=== PATIENT | male | born 1985 | race Caucasian/White ===

== ENCOUNTER 2016-10-25 11:49 | Inpatient (IN) | payer BC ==
[2016-10-25 12:49] VITALS: BMI 24.0
--- NOTE | 2016-10-25 13:26 | HP ---
COWS - Scale Resting Pulse: 0= [place] 80 or Below Sweatin=Flushed/Facial Moisture Restless Observation: 3= Extraneous Movement Pupil Size: 2= Moderately Dilated Bone or Joint Aches: 2= Severe Diffuse Aches Runny Nose/ Eye Tearin= Runny Nose/Eyes GI Upset > 30mins: 3= Vomiting/Diarrhea Tremor Observation: 2= Slight Tremor Visible Yawning Observation: 2= >3x During Session Anxiety or Irritability: 2=Irritable/Anxious Goose Flesh Skin: 0=Smooth Skin COWS Score: 20 CIWA Score - CIWA Score Nausea/Vomitin Muscle Tremors: 3 Anxiety: 3 Agitation: 3 Paroxysmal Sweats: 1-Minimal Palms Moist Orientation: 0-Oriented Tacttile Disturbances: 2-Mild Itch/Numbness/Burn Auditory Disturbances: 2-Mild Harshness/Frighten Visual Disturbances: 2-Mild Sensitivity Headache: 2-Mild CIWA-Ar Total Score: 21 Admission ROS BHS - HPI Chief Complaint: i need help to stop using heroin,,xanax,cocaine Allergies/Adverse Reactions: Allergies Allergy/AdvReac Type Severity Reaction Status Date / Time No Known Allergies Allergy Verified 10/25/16 13:16 History of Present Illness: this 31 years old male with heroin,cocaine and xanax dependence,seeking detox, last treatment in [facility] 09/23 nicotine dependence anxiety depression insomnia no significant period of sobriety Exam Limitations: No Limitations - Ebola screening Have you traveled outside of the country in the last 21 days: No Have you had contact with anyone from an Ebola affected area: No Have you been sick,other than usual withdrawal symptoms: No Do you have a fever: No - Review of Systems Constitutional: Chills, Loss of Appetite, Malaise, Night Sweats, Changes in sleep, Weakness EENT: reports: Tearing, Nose Congestion Respiratory: reports: No Symptoms reported Cardiac: reports: Palpitations GI: reports: Nausea, Vomiting, Abdominal cramping : reports: No Symptoms Reported Musculoskeletal: reports: Back Pain, Joint Pain, Muscle Pain, Other (fx of right middle finger in 2015) Integumentary: reports: Dryness Neuro: reports: Headache, Tremors Endocrine: reports: No Symptoms Reported Hematology: reports: No Symptoms Reported Psychiatric: reports: Anxious (insomnia), Depressed Patient History - Patient Medical History Hx Anemia: No Hx Asthma: No Hx Chronic Obstructive Pulmonary Disease (COPD): No Hx Cancer: No Hx Cardiac Disorders: No Hx Congestive Heart Failure: No Hx Hypertension: No Hx Hypercholesterolemia: No Hx Pacemaker: No HX Cerebrovascular Accident: No Hx Seizures: No Hx Dementia: No Hx Diabetes: No Hx Gastrointestinal Disorders: No Hx Liver Disease: No Hx Genitourinary Disorders: No Hx Sexually Transmitted Disorders: No Hx Renal Disease (ESRD): No Hx Thyroid Disease: No Hx Human Immunodeficiency Virus (HIV): No (last 06/23 negative) Hx Hepatitis C: No Hx Depression: Yes (anxiety) Hx Suicide Attempt: No Hx Bipolar Disorder: No Hx Schizophrenia: No Other Medical History: no suicidal,no homicidal - Patient Surgical History Past Surgical History: Yes Other Surgical History: 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 History Hx Alcohol Use: No Hx Substance Use: Yes Substance Use Type: Cocaine, Heroin, Marijuana Hx Substance Use Treatment: Yes ([facility] 09/23) - Substances Abused Heroin Route: Injection Frequency: Daily Amount used: 15 bags Age of first use: 16 Date of Last Use: 10/24/16 Alprazolam (Xanax) Route: Inhalation Frequency: Daily Amount used: 10-12mg Age of first use: 27 Date of Last Use: 10/24/16 Cocaine Route: Inhalation Frequency: Daily Amount used: $100 Age of first use: 16 Date of Last Use: 10/24/16 Family Disease History - Family Disease History Family History: Denies Admission Physical Exam BHS - Vital Signs Vital Signs: Vital Signs - 24 hr 10/25/16 12:45 Temperature 98 F Pulse Rate 79 Respiratory 20 Rate Blood Pressure 124/68 - Physical General Appearance: Yes: Moderate Distress, Intoxicated, Tremorous, Irritable, Sweating, Other HEENTM: Yes: Normal ENT Inspection, NAVDEEP, Pharynx Normal Respiratory: Yes: Lungs Clear, Normal Breath Sounds, No Respiratory Distress Neck: Yes: Within Normal Limits, Supple, Trachea in good position Breast: Yes: Within Normal Limits Cardiology: Yes: Within Normal Limits, Regular Rhythm, Regular Rate, S1, S2 Abdominal: Yes: Within Normal Limits, Normal Bowel Sounds, Non Tender, Flat, Soft Genitourinary: Yes: Within Normal Limits Back: Yes: Muscle Spasm Musculoskeletal: Yes: Back pain, Joint Stiffness, Muscle Pain Extremities: Yes: Within Normal Limits, Normal Range of Motion, Tremors Neurological: Yes: coat cutter II-XII NML intact, Fully Oriented, Alert, Motor Strength 5/5 Integumentary: Yes: Dry, Track Marte (cellulitis right forearm), Other ( deformity of right middle finger) Lymphatic: Yes: Within Normal Limits - Diagnostic (1) Opioid dependence with withdrawal Current Visit: Yes Status: Acute (2) Uncomplicated sedative, hypnotic or anxiolytic withdrawal Current Visit: Yes Status: Acute (3) Cocaine dependence Current Visit: Yes Status: Acute (4) Nicotine dependence Current Visit: Yes Status: Acute (5) Weight loss Current Visit: Yes Status: Acute (6) Anxiety and depression Current Visit: Yes Status: Acute (7) Cellulitis of forearm, right Current Visit: Yes Status: Acute (8) Fracture of finger Current Visit: Yes Status: Acute Cleared for Admission [facility] - Detox or Rehab [facility] Level of Care: Medically Managed Detox Regimen/Protocol: Methadone/Valium S Breath Alcohol Content Breath Alcohol Content: 0 Urine Drug Screen - Results Drug Screen Negative: No Urine Drug Screen Results: JANETT-Cocaine, OPI-Opiates, MDMA-Ecstasy, BZO- Benzodiazepines, MTD-Methadone
[2016-10-25] MEDS ORDERED: MENTHOL/PHENOL 1 EACH UD MM PRN (13:45)
[2016-10-25] MEDS ORDERED: LOPERAMIDE HCL 2 MG CAPSULE PO PRN (13:45)
[2016-10-25] MEDS ORDERED: diphenhydrAMINE HCL 50 MG CAPSULE PO PRN (13:45)
[2016-10-25] MEDS ORDERED: P-EPHED 60MG/TRIPROLIDI 2.5MG TABLET PO PRN (13:45)
[2016-10-25] MEDS ORDERED: hydrOXYzine PAMOATE 50 MG CAPSULE (FP) PO PRN (13:45)
[2016-10-25] MEDS ORDERED: MAGNESIUM HYDROX 2400MG/30ML ORAL SUSPENSION 30 ML CUP PO PRN (13:45)
[2016-10-25] MEDS ORDERED: MAG HYDROX/AL HYDROX/SIMETH 30 ML UNIT-DOSE CUP PO PRN (13:45)
[2016-10-25] MEDS ORDERED: MAGNESIUM CITRATE 300 ML BOTTLE PO PRN (13:45)
[2016-10-25] MEDS ORDERED: IBUPROFEN 400 MG TABLET (FP) PO PRN (13:45)
[2016-10-25] MEDS ORDERED: ACETAMINOPHEN 325 MG TABLET (FP) PO PRN (13:45)
[2016-10-25] MEDS ORDERED: guaiFENesin/D-METHORPHAN HB 10 ML UNIT-DOSE CUPS PO PRN (13:45)
[2016-10-25] MEDS ORDERED: diazePAM 5 MG TABLET PO ONE (14:01)
[2016-10-25] MEDS ORDERED: cloNIDine HCL 0.1 MG TABLET PO ONE (14:01)
[2016-10-25] MEDS ORDERED: METHADONE HCL 10 MG TABLET (FOR DETOX USE ONLY) PO ONE ×2 (14:02→23:00)
[2016-10-25] MEDS: CYCLOBENZAPRINE HCL 10 MG TABLET (FP) PO PRN (14:47)
[2016-10-25] MEDS: NICOTINE POLACRILEX 2 MG GUM BUC PRN (14:52)
--- NOTE | 2016-10-25 16:11 | CONSULT ---
[facility] Psychiatric Consult - Data Date of interview: 10/25/16 Admission source: [facility] Identifying data: This is 31 years old male with no psychiatric hospitalization history intoxicated with: Heroin, Cocaine, Xanax and Nicotine Substance Abuse History: - Smoking Cessation. Smoking history: Current every day smoker. Have you smoked in the past 12 months: Yes. Aproximately how many cigarettes per day: 20. Hx Chewing Tobacco Use: No. Initiated information on smoking cessation: Yes. 'Breaking Loose' booklet given: 10/25/16. - Substance & Tx. History. Hx Alcohol Use: No. Hx Substance Use: Yes. Substance Use Type : Cocaine, Heroin, Marijuana. Hx Substance Use Treatment: Yes ([facility] ). - Substances Abused. Heroin. Route: Injection. Frequency: Daily. Amount used: 15 bags. Age of first use: 16. Date of Last Use: 10/24/16. Alprazolam (Xanax). Route: Inhalation. Frequency: Daily. Amount used: 10- 12mg. Age of first use: 27. Date of Last Use: 10/24/16. Cocaine. Route: Inhalation. Frequency: Daily. Amount used: $100. Age of first use: 16. Date of Last Use: 10/24/16 Medical History: Cellulitis history, Weight loss history Psychiatric History: Deneis Physical/Sexual Abuse/Trauma History: Denies Additional Comment: Observation. Detox Unit Care Protocol Mental Status Exam - Mental Status Exam Alert and Oriented to: Person Cognitive Function: Fair Patient Appearance: Well Groomed Mood: Sad Affect: Flat Patient Behavior: Sedated, Asleep Speech Pattern: Delayed Voice Loudness: Moderately Loud Thought Process: Circumstantial Thought Disorder: Being Controlled Hallucinations: Denies Suicidal Ideation: Denies Homicidal Ideation: Denies Insight/Judgement: Fair Sleep: Difficulty falling asleep Muscle strength/Tone: Mild Hypotonicity Gait/Station: Shuffling Additional Comments: Observation. Detox Unit Care Protocol Psychiatric Findings - Problem List ([place] 1, 2,3) (1) Anxiety and depression Current Visit: Yes Status: Acute (2) Cocaine dependence Current Visit: Yes Status: Acute (3) Nicotine dependence Current Visit: Yes Status: Acute (4) Opioid dependence with withdrawal Current Visit: Yes Status: Acute (5) Uncomplicated sedative, hypnotic or anxiolytic withdrawal Current Visit: Yes Status: Acute (6) Drug-induced mood disorder Current Visit: Yes Status: Suspected - Initial Treatment Plan Initial Treatment Plan: Observation. Detox Unit Care Protocol
[2016-10-25 16:58] LABS: URINE APPEARANCE SLCLOUDY; URINE BILIRUBIN NEGATIVE (NEGATIVE); URINE BLOOD NEGATIVE (NEGATIVE); URINE COLOR DKYELLOW; URINE GLUCOSE (UA) NEGATIVE (NEGATIVE); URINE KETONE NEGATIVE (NEGATIVE); URINE LEUK ESTERASE NEGATIVE (NEGATIVE); URINE NITRITE NEGATIVE (NEGATIVE); URINE PROTEIN NEGATIVE (NEGATIVE); URINE UROBILINOGEN NEGATIVE mg/dL (0.2-1.0)
[2016-10-25] MEDS: diazePAM 5 MG TABLET PO PRN (21:04)
[2016-10-25] MEDS: THIAMINE HCL 100 MG TABLET (FP) PO SCH (23:26)
[2016-10-25] MEDS: SULFAMETHOXAZOLE/TRIMETHOPRIM 800MG/160MG D.S. TABLET PO SCH (23:26)
[2016-10-25] MEDS: diazePAM 5 MG TABLET PO SCH (23:27)
[2016-10-25] MEDS: cloNIDine HCL 0.1 MG TABLET PO SCH (23:27)
[2016-10-26] MEDS: CYCLOBENZAPRINE HCL 10 MG TABLET (FP) PO PRN ×2 (06:11→22:02)
[2016-10-26] MEDS: diazePAM 5 MG TABLET PO SCH ×3 (06:11→22:02)
[2016-10-26 08:56] LABS: HIV 1 & 2 AB NEGATIVE; HIV 1 AGp24 NEGATIVE
[2016-10-26 09:51] LABS: MCH 27.1 pg (25.7-33.7); MCHC 32.3 g/dl (32.0-35.9); MEAN PLT VOLUME 8.9 fl (7.5-11.1); PLATELET COUNT 295 K/MM3 (134-434); RDW 14.3 % (11.9-15.9)
[2016-10-26] MEDS ORDERED: METHADONE HCL 10 MG TABLET (FOR DETOX USE ONLY) PO SCH (10:00)
[2016-10-26] MEDS: cloNIDine HCL 0.1 MG TABLET PO SCH ×2 (10:07→22:02)
[2016-10-26] MEDS: PRENATAL VITAMINS W/ FOLIC ACID TABLET (FP) PO SCH (10:07)
[2016-10-26] MEDS: SULFAMETHOXAZOLE/TRIMETHOPRIM 800MG/160MG D.S. TABLET PO SCH ×2 (10:07→22:02)
[2016-10-26] MEDS: NICOTINE POLACRILEX 2 MG GUM BUC PRN (10:08)
[2016-10-26 10:09] LABS: ALBUMIN 3.2 g/dl (3.4-5.0); ALK PHOS 78 U/L (45-117); ANION GAP 6 (8-16); BILIRUBIN,TOTAL 0.2 mg/dL (0.2-1.0); CALCIUM 8.8 mg/dL (8.5-10.1); CO2 28 mmol/L (21-32); CREATININE 0.8 mg/dL (0.7-1.3); GLUCOSE,RANDOM 102 mg/dL (74-106); SGOT/AST 22 U/L (15-37); SGPT/ALT 26 U/L (12-78); TOT PROT 6.7 g/dl (6.4-8.2)
[2016-10-26] MEDS: diazePAM 5 MG TABLET PO PRN ×2 (10:09→19:53)
--- NOTE | 2016-10-26 10:40 | PN ---
S CIWA - CIWA Score Nausea/Vomitin (DIARRHEA) Muscle Tremors: 4-Moderate,w/Arms Extend Anxiety: 4-Mod. Anxious/Guarded Agitation: 4-Moderately Restless Paroxysmal Sweats: 1-Minimal Palms Moist Orientation: 0-Oriented Tacttile Disturbances: 3-Moderate Itch/Numb/Burn Auditory Disturbances: 0-None Visual Disturbances: 0-None Headache: 0-None Present CIWA-Ar Total Score: 19 BHS COWS - Scale Resting Pulse: 0= [place] 80 or Below Sweatin= Chills/Flushing Restless Observation: 3= Extraneous Movement Pupil Size: 0= Normal to Room Light Bone or Joint Aches: 2= Severe Diffuse Aches Runny Nose/ Eye Tearin= Nasal Congestion GI Upset > 30mins: 1= Stomach Cramp Tremor Observation of Outstretched Hands: 2= Slight Tremor Visible Yawning Observation: 2= >3x During Session Anxiety or Irritability: 2=Irritable/Anxious Goose Flesh Skin: 0=Smooth Skin COWS Score: 14 S Progress Note (SOAP) Subjective: ANXIETY,TREMORS,SWEATS,DIARRHEA,INTERMITTENT SLEEP. Objective: 10/26/16 10:43 Vital Signs Temperature 97.3 F L 10/26/16 09:09 Pulse Rate 73 10/26/16 09:09 Respiratory Rate 18 10/26/16 09:09 Blood Pressure 109/72 10/26/16 09:09 O2 Sat by Pulse Oximetry (%) Laboratory Last Values WBC 7.0 K/mm3 (4.0-10.0) 10/26/16 06:00 RBC 4.47 M/mm3 (4.00-5.60) 10/26/16 06:00 Hgb 12.1 GM/dL (11.7-16.9) 10/26/16 06:00 Hct 37.5 % (35.4-49) 10/26/16 06:00 MCV 84.0 fl (80-96) 10/26/16 06:00 MCH 27.1 pg (25.7-33.7) 10/26/16 06:00 MCHC 32.3 g/dl (32.0-35.9) 10/26/16 06:00 RDW 14.3 % (11.9-15.9) 10/26/16 06:00 Plt Count 295 K/MM3 (134-434) 10/26/16 06:00 MPV 8.9 fl (7.5-11.1) 10/26/16 06:00 Sodium 139 mmol/L (136-145) 10/26/16 06:00 Potassium 4.0 mmol/L (3.5-5.1) 10/26/16 06:00 Chloride 105 mmol/L (98-107) 10/26/16 06:00 Carbon Dioxide 28 mmol/L (21-32) 10/26/16 06:00 Anion Gap 6 (8-16) L 10/26/16 06:00 BUN 21 mg/dL (7-18) H 10/26/16 06:00 Creatinine 0.8 mg/dL (0.7-1.3) 10/26/16 06:00 Creat Clearance w eGFR > 60 (>60) 10/26/16 06:00 Random Glucose 102 mg/dL (74-106) 10/26/16 06:00 Calcium 8.8 mg/dL (8.5-10.1) 10/26/16 06:00 Total Bilirubin 0.2 mg/dL (0.2-1.0) 10/26/16 06:00 AST 22 U/L (15-37) 10/26/16 06:00 ALT 26 U/L (12-78) 10/26/16 06:00 Alkaline Phosphatase 78 U/L (45-117) 10/26/16 06:00 Total Protein 6.7 g/dl (6.4-8.2) 10/26/16 06:00 Albumin 3.2 g/dl (3.4-5.0) L 10/26/16 06:00 Urine Color Dkyellow 10/25/16 15:00 Urine Appearance Slcloudy 10/25/16 15:00 Urine pH 5.0 (5.0-8.0) 10/25/16 15:00 Ur Specific [place] >= 1.030 (1.005-1.025) H 10/25/16 15:00 Urine Protein Negative (NEGATIVE) 10/25/16 15:00 Urine Glucose (UA) Negative (NEGATIVE) 10/25/16 15:00 Urine Ketones Negative (NEGATIVE) 10/25/16 15:00 Urine Blood Negative (NEGATIVE) 10/25/16 15:00 Urine Nitrite Negative (NEGATIVE) 10/25/16 15:00 Urine Bilirubin Negative (NEGATIVE) 10/25/16 15:00 Urine Urobilinogen Negative mg/dL (0.2-1.0) 10/25/16 15:00 HIV 1&2 Antibody Screen Negative 10/25/16 15:00 HIV P24 Antigen Negative 10/25/16 15:00 Assessment: 10/26/16 10:44 WITHDRAWAL SX Plan: CONTINUE DETOX
[2016-10-26] MEDS: NICOTINE 21 MG/24 HOURS TOPICAL PATCH TD SCH (11:01)
[2016-10-26] MEDS: THIAMINE HCL 100 MG TABLET (FP) PO SCH (22:03)
--- NOTE | 2016-10-26 22:38 | EKG ---
Test Reason : Blood Pressure : / mmHG Vent. Rate : 077 BPM Atrial Rate : 077 BPM P-R Int : 162 ms QRS Dur : 084 ms QT Int : 410 ms P-R-T Axes : 063 077 035 degrees QTc Int : 463 ms NORMAL SINUS RHYTHM NORMAL ECG NO PREVIOUS ECGS AVAILABLE Confirmed by KARENA STUBBS MD ([id number]) on 10/26/2016 10:38:14 PM Referred By: Confirmed By:KARENA STUBBS MD
[2016-10-27] MEDS: diazePAM 5 MG TABLET PO PRN ×2 (05:51→12:24)
[2016-10-27] MEDS: CYCLOBENZAPRINE HCL 10 MG TABLET (FP) PO PRN (05:51)
[2016-10-27] MEDS ORDERED: diazePAM 5 MG TABLET PO SCH (10:00)
[2016-10-27] MEDS ORDERED: METHADONE HCL 5 MG TABLET (FOR DETOX USE ONLY) PO SCH (10:00)
[2016-10-27] MEDS: SULFAMETHOXAZOLE/TRIMETHOPRIM 800MG/160MG D.S. TABLET PO SCH (10:08)
[2016-10-27] MEDS: NICOTINE 21 MG/24 HOURS TOPICAL PATCH TD SCH (10:09)
[2016-10-27] MEDS: cloNIDine HCL 0.1 MG TABLET PO SCH (10:09)
[2016-10-27] MEDS: PRENATAL VITAMINS W/ FOLIC ACID TABLET (FP) PO SCH (10:09)
--- NOTE | 2016-10-27 11:08 | PN ---
[facility] CIWA - CIWA Score Nausea/Vomitin-No Nausea/No Vomiting Muscle Tremors: 4-Moderate,w/Arms Extend Anxiety: 4-Mod. Anxious/Guarded Agitation: 4-Moderately Restless Paroxysmal Sweats: 1-Minimal Palms Moist Orientation: 0-Oriented Tacttile Disturbances: 3-Moderate Itch/Numb/Burn Auditory Disturbances: 0-None Visual Disturbances: 0-None Headache: 0-None Present CIWA-Ar Total Score: 16 S COWS - Scale Resting Pulse: 1= [place] 81-100 Sweatin= Chills/Flushing Restless Observation: 3= Extraneous Movement Pupil Size: 0= Normal to Room Light Bone or Joint Aches: 4=Acute Joint/Muscle Pain Runny Nose/ Eye Tearin= Nasal Congestion GI Upset > 30mins: 1= Stomach Cramp Tremor Observation of Outstretched Hands: 2= Slight Tremor Visible Yawning Observation: 2= >3x During Session Anxiety or Irritability: 2=Irritable/Anxious Goose Flesh Skin: 0=Smooth Skin COWS Score: 17 [facility] Progress Note (SOAP) Subjective: NASAL CONGESTION/WATERY EYES,HOT/COLD CHILLS,MUSCLE ACHES, FATIGUE. Objective: 10/27/16 11:11 Vital Signs Temperature 97.2 F L 10/27/16 09:40 Pulse Rate 83 10/27/16 09:40 Respiratory Rate 18 10/27/16 09:40 Blood Pressure 129/87 10/27/16 09:40 O2 Sat by Pulse Oximetry (%) Laboratory Last Values WBC 7.0 K/mm3 (4.0-10.0) 10/26/16 06:00 RBC 4.47 M/mm3 (4.00-5.60) 10/26/16 06:00 Hgb 12.1 GM/dL (11.7-16.9) 10/26/16 06:00 Hct 37.5 % (35.4-49) 10/26/16 06:00 MCV 84.0 fl (80-96) 10/26/16 06:00 MCH 27.1 pg (25.7-33.7) 10/26/16 06:00 MCHC 32.3 g/dl (32.0-35.9) 10/26/16 06:00 RDW 14.3 % (11.9-15.9) 10/26/16 06:00 Plt Count 295 K/MM3 (134-434) 10/26/16 06:00 MPV 8.9 fl (7.5-11.1) 10/26/16 06:00 Sodium 139 mmol/L (136-145) 10/26/16 06:00 Potassium 4.0 mmol/L (3.5-5.1) 10/26/16 06:00 Chloride 105 mmol/L (98-107) 10/26/16 06:00 Carbon Dioxide 28 mmol/L (21-32) 10/26/16 06:00 Anion Gap 6 (8-16) L 10/26/16 06:00 BUN 21 mg/dL (7-18) H 10/26/16 06:00 Creatinine 0.8 mg/dL (0.7-1.3) 10/26/16 06:00 Creat Clearance w eGFR > 60 (>60) 10/26/16 06:00 Random Glucose 102 mg/dL (74-106) 10/26/16 06:00 Calcium 8.8 mg/dL (8.5-10.1) 10/26/16 06:00 Total Bilirubin 0.2 mg/dL (0.2-1.0) 10/26/16 06:00 AST 22 U/L (15-37) 10/26/16 06:00 ALT 26 U/L (12-78) 10/26/16 06:00 Alkaline Phosphatase 78 U/L (45-117) 10/26/16 06:00 Total Protein 6.7 g/dl (6.4-8.2) 10/26/16 06:00 Albumin 3.2 g/dl (3.4-5.0) L 10/26/16 06:00 Urine Color Dkyellow 10/25/16 15:00 Urine Appearance Slcloudy 10/25/16 15:00 Urine pH 5.0 (5.0-8.0) 10/25/16 15:00 Ur Specific [place] >= 1.030 (1.005-1.025) H 10/25/16 15:00 Urine Protein Negative (NEGATIVE) 10/25/16 15:00 Urine Glucose (UA) Negative (NEGATIVE) 10/25/16 15:00 Urine Ketones Negative (NEGATIVE) 10/25/16 15:00 Urine Blood Negative (NEGATIVE) 10/25/16 15:00 Urine Nitrite Negative (NEGATIVE) 10/25/16 15:00 Urine Bilirubin Negative (NEGATIVE) 10/25/16 15:00 Urine Urobilinogen Negative mg/dL (0.2-1.0) 10/25/16 15:00 RPR Titer Nonreactive (NONREACTIVE) 10/26/16 06:00 HIV 1&2 Antibody Screen Negative 10/25/16 15:00 HIV P24 Antigen Negative 10/25/16 15:00 Assessment: 10/27/16 11:11 WITHDRAWAL SX Plan: CONTINUE DETOX
[2016-10-27 17:22] VITALS: BP 115/72; PULSE 86; TEMP 96.7
[2016-10-29] MEDS ORDERED: METHADONE HCL 10 MG TABLET (FOR DETOX USE ONLY) PO SCH (10:00)
[2016-10-29] MEDS ORDERED: diazePAM 5 MG TABLET PO SCH (10:00)
[2016-10-30] MEDS ORDERED: METHADONE HCL 5 MG TABLET (FOR DETOX USE ONLY) PO SCH (06:00)
== END 2016-10-27 17:22 | disposition left against medical advice (07) | DRG 770 ==
LOC: YASAS 11:49 → Y3N 13:39
PROVIDERS: ADMIT Internal Medicine; ATTEND Internal Medicine
PROC: HZ2ZZZZ Detoxification Services for Substance Abuse Treatment (ICD-10-PCS; principal; 2016-10-25)
DX: F11.23 Opioid dependence with withdrawal (principal); F13.230 Sedative, hypnotic or anxiolytic dependence with withdrawal, uncomplicated; F14.20 Cocaine dependence, uncomplicated; F17.213 Nicotine dependence, cigarettes, with withdrawal; F19.24 Other psychoactive substance dependence with psychoactive substance-induced mood disorder; F41.8 Other specified anxiety disorders
CPT/HCPCS: 36415; 80053; 81003; 85027; 86593; 87389; 93005; 93010

== ENCOUNTER 2017-04-22 11:18 | Inpatient (IN) | payer BC ==
[2017-04-22 14:26] VITALS: BMI 25.1
--- NOTE | 2017-04-22 15:04 | HP ---
COWS - Scale Resting Pulse: 1= [place] 81-100 Sweatin=Flushed/Facial Moisture Restless Observation: 1= Difficult to Sit Still Pupil Size: 1= Pupils >than Normal Bone or Joint Aches: 2= Severe Diffuse Aches Runny Nose/ Eye Tearin= Runny Nose/Eyes GI Upset > 30mins: 1= Stomach Cramp Tremor Observation: 1= Tremor [place], Not Seen Yawning Observation: 0= None Anxiety or Irritability: 2=Irritable/Anxious Goose Flesh Skin: 0=Smooth Skin COWS Score: 13 CIWA Score - CIWA Score Nausea/Vomitin Muscle Tremors: 2 Anxiety: 4-Mod. Anxious/Guarded Agitation: 3 Paroxysmal Sweats: 3 Orientation: 0-Oriented Tacttile Disturbances: 2-Mild Itch/Numbness/Burn Auditory Disturbances: 0-None Visual Disturbances: 0-None Headache: 0-None Present CIWA-Ar Total Score: 17 Admission ROS BHS - HPI Chief Complaint: I need stop using drugs and get my life in order . Allergies/Adverse Reactions: Allergies Allergy/AdvReac Type Severity Reaction Status Date / Time No Known Allergies Allergy Verified 04/22/17 14:56 History of Present Illness: 31 y/o m pt with h/o polysubstance abuse Exam Limitations: No Limitations - Ebola screening Have you traveled outside of the country in the last 21 days: No Have you had contact with anyone from an Ebola affected area: No Have you been sick,other than usual withdrawal symptoms: No Do you have a fever: No - Review of Systems Constitutional: Loss of Appetite, Malaise, Night Sweats, Changes in sleep, Unintentional Wgt. Loss (20 lbs wt loss) EENT: reports: Nose Congestion Respiratory: reports: No Symptoms reported Cardiac: reports: No Symptoms Reported GI: reports: No Symptoms Reported : reports: No Symptoms Reported Musculoskeletal: reports: Joint Pain, Muscle Pain, Neck Pain, Joint Stiffness Integumentary: reports: Erythema, Pruritus, Other (track horne) Neuro: reports: Headache Endocrine: reports: No Symptoms Reported Hematology: reports: No Symptoms Reported Psychiatric: reports: Agitated, Anxious, Depressed Other Systems: Reviewed and Negative Patient History - Patient Medical History Hx Anemia: No Hx Asthma: No Hx Chronic Obstructive Pulmonary Disease (COPD): No Hx Cancer: No Hx Cardiac Disorders: No Hx Congestive Heart Failure: No Hx Hypertension: No Hx Hypercholesterolemia: No Hx Pacemaker: No HX Cerebrovascular Accident: No Hx Seizures: No Hx Dementia: No Hx Diabetes: No Hx Gastrointestinal Disorders: No Hx Liver Disease: No Hx Genitourinary Disorders: No Hx Sexually Transmitted Disorders: No Hx Renal Disease (ESRD): No Hx Thyroid Disease: No Hx Human Immunodeficiency Virus (HIV): No (last 06/23 negative) Hx Hepatitis C: No Hx Depression: Yes (anxiety) Hx Suicide Attempt: No Hx Bipolar Disorder: No Hx Schizophrenia: No - Patient Surgical History Past Surgical History: Yes Other Surgical History: 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 History Hx Alcohol Use: Yes Hx Substance Use: Yes Substance Use Type: Alcohol, Cocaine, Heroin, Tranquilizers Hx Substance Use Treatment: Yes ([facility]) - Substances Abused Heroin Route: Injection Frequency: Daily Amount used: 25 bags Age of first use: 16 Date of Last Use: 04/21/17 Alprazolam (Xanax) Route: Injection Frequency: Daily Amount used: 8-10 Age of first use: 27 Date of Last Use: 04/22/17 Alcohol Route: Oral Frequency: Daily Amount used: 2-3 six packs daily Age of first use: 14 Date of Last Use: 04/20/17 Cocaine Route: Injection Frequency: Daily Amount used: $50./d Age of first use: 16 Date of Last Use: 04/21/17 Family Disease History - Family Disease History Family Disease History: Diabetes: Mother Admission Physical Exam BHS - Vital Signs Vital Signs: Vital Signs - 24 hr 04/22/17 14:24 Temperature 97.7 F Pulse Rate 88 Respiratory 20 Rate Blood Pressure 129/75 31 y/o m pt who is aox3 , in nad , irritable , restless, but cooperating with exam. - Physical General Appearance: Yes: Within Normal Limits, No Apparent Distress, Appropriately Dressed, Irritable, Anxious HEENTM: Yes: Normal Voice, NAVDEEP, Nasal Congestion, Rhinorrhea Respiratory: Yes: Chest Non-Tender, Lungs Clear, Normal Breath Sounds, No Respiratory Distress Neck: Yes: Supple, Trachea in good position, Other (track horne, erythema) Breast: Yes: Within Normal Limits Cardiology: Yes: Regular Rhythm, Regular Rate, S1, S2 Abdominal: Yes: Non Tender, Flat, Soft, Increased Bowel Sounds Genitourinary: Yes: Within Normal Limits Back: Yes: Normal Inspection, Decreased Range of Motion Musculoskeletal: Yes: Back pain, Muscle Pain Extremities: Yes: Inflammation, Other (track horne arms and legs) Neurological: 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 intact, Fully Oriented, Alert, Motor Strength 5/5, Disoriented Integumentary: Yes: Erythema (around iv puncture horne), Moist, Track Horne Lymphatic: Yes: Within Normal Limits - Diagnostic (1) Anxiety and depression Current Visit: Yes Status: Chronic (2) Cocaine dependence Current Visit: Yes Status: Chronic Qualifiers: Substance use status: uncomplicated Qualified Code(s): F14.20 - Cocaine dependence, uncomplicated (3) Nicotine dependence Current Visit: Yes Status: Chronic Qualifiers: Nicotine product type: cigarettes Substance use status: in withdrawal Qualified Code(s): F17.213 - Nicotine dependence, cigarettes, with withdrawal (4) Opioid dependence with withdrawal Current Visit: Yes Status: Chronic (5) Uncomplicated sedative, hypnotic or anxiolytic withdrawal Current Visit: Yes Status: Chronic (6) Weight loss Current Visit: Yes Status: Acute Cleared for Admission [facility] - Detox or Rehab [facility] Level of Care: Medically Managed Detox Regimen/Protocol: Methadone/Valium [facility] Breath Alcohol Content Breath Alcohol Content: 0 Urine Drug Screen - Results Drug Screen Negative: No Urine Drug Screen Results: THC-Marijuana, JANETT-Cocaine, OPI-Opiates, BAR- Barbiturates, BZO-Benzodiazepines, MTD-Methadone, OXY-Oxycodone
[2017-04-22] MEDS ORDERED: MAGNESIUM CITRATE 300 ML BOTTLE PO PRN (15:12)
[2017-04-22] MEDS ORDERED: MAGNESIUM HYDROX 2400MG/30ML ORAL SUSPENSION 30 ML CUP PO PRN (15:12)
[2017-04-22] MEDS ORDERED: LOPERAMIDE HCL 2 MG CAPSULE PO PRN (15:12)
[2017-04-22] MEDS ORDERED: MENTHOL/PHENOL 1 EACH UD MM PRN (15:12)
[2017-04-22] MEDS ORDERED: guaiFENesin/D-METHORPHAN HB 10 ML UNIT-DOSE CUPS PO PRN (15:12)
[2017-04-22] MEDS ORDERED: MAG HYDROX/AL HYDROX/SIMETH 30 ML UNIT-DOSE CUP PO PRN (15:12)
[2017-04-22] MEDS ORDERED: ACETAMINOPHEN 325 MG TABLET (FP) PO PRN (15:12)
[2017-04-22] MEDS ORDERED: diazePAM 5 MG TABLET PO ONE (16:45)
[2017-04-22] MEDS ORDERED: METHADONE HCL 10 MG TABLET (FOR DETOX USE ONLY) PO ONE ×2 (17:00→23:00)
[2017-04-22] MEDS: P-EPHED 60MG/TRIPROLIDI 2.5MG TABLET PO PRN (17:27)
[2017-04-22] MEDS: hydrOXYzine PAMOATE 25 MG CAPSULE (FP) PO PRN (18:26)
[2017-04-22] MEDS ORDERED: CYCLOBENZAPRINE HCL 5 MG TABLET PO ONE (19:00)
[2017-04-22] MEDS: BACITRACIN 0.9 GM PACKET TP SCH (22:29)
[2017-04-22] MEDS: CYCLOBENZAPRINE HCL 5 MG TABLET PO SCH (22:30)
[2017-04-22] MEDS: THIAMINE HCL 100 MG TABLET (FP) PO SCH (22:30)
[2017-04-22] MEDS: diazePAM 5 MG TABLET PO SCH (22:30)
[2017-04-22] MEDS: GABAPENTIN 100 MG CAPSULE (FP) PO SCH (22:30)
[2017-04-23] MEDS: diazePAM 5 MG TABLET PO PRN ×3 (00:38→18:51)
[2017-04-23] MEDS: GABAPENTIN 100 MG CAPSULE (FP) PO SCH (05:20)
[2017-04-23] MEDS: diazePAM 5 MG TABLET PO SCH ×3 (05:20→23:00)
[2017-04-23] MEDS: CYCLOBENZAPRINE HCL 5 MG TABLET PO SCH (05:20)
[2017-04-23] MEDS: IBUPROFEN 400 MG TABLET (FP) PO PRN ×2 (05:22→18:51)
[2017-04-23] MEDS ORDERED: METHADONE HCL 10 MG TABLET (FOR DETOX USE ONLY) PO SCH (10:00)
[2017-04-23 10:12] LABS: HEMATOCRIT 37.5 % (35.4-49); HEMOGLOBIN 12.3 GM/dL (11.7-16.9); MCH 26.9 pg (25.7-33.7); MCHC 32.7 g/dl (32.0-35.9); MEAN CELL VOLUME 82.4 fl (80-96); MEAN PLT VOLUME 8.7 fl (7.5-11.1); PLATELET COUNT 322 K/MM3 (134-434); RBC 4.55 M/mm3 (4.00-5.60); RDW 16.3 % (11.9-15.9); WHITE BLOOD COUNT 7.9 K/mm3 (4.0-10.0)
[2017-04-23 10:22] LABS: URINE APPEARANCE TURBID; URINE BILIRUBIN NEGATIVE (NEGATIVE); URINE BLOOD NEGATIVE (NEGATIVE); URINE COLOR YELLOW; URINE GLUCOSE (UA) NEGATIVE (NEGATIVE); URINE KETONE NEGATIVE (NEGATIVE); URINE LEUK ESTERASE TRACE (NEGATIVE); URINE NITRITE NEGATIVE (NEGATIVE); URINE PROTEIN NEGATIVE (NEGATIVE)
[2017-04-23 10:29] LABS: CHLORIDE 110 mmol/L (98-107); POTASSIUM 3.9 mmol/L (3.5-5.1); SODIUM 141 mmol/L (136-145)
[2017-04-23] MEDS: BACITRACIN 0.9 GM PACKET TP SCH ×2 (10:32→23:00)
[2017-04-23] MEDS: hydrOXYzine PAMOATE 25 MG CAPSULE (FP) PO PRN ×3 (10:32→18:52)
[2017-04-23] MEDS: PRENATAL VITAMINS W/ FOLIC ACID TABLET (FP) PO SCH (10:33)
[2017-04-23] MEDS ORDERED: cloNIDine HCL 0.1 MG TABLET PO ONE (10:39)
[2017-04-23 10:44] LABS: ALBUMIN 2.9 g/dl (3.4-5.0); ALK PHOS 85 U/L (45-117); ANION GAP 5 (8-16); BILIRUBIN,TOTAL 0.5 mg/dL (0.2-1.0); BLOOD UREA NITROGEN 16 mg/dL (7-18); CALCIUM 8.4 mg/dL (8.5-10.1); CO2 26 mmol/L (21-32); GLUCOSE,RANDOM 82 mg/dL (74-106); SGOT/AST 75 U/L (15-37); SGPT/ALT 240 U/L (12-78); TOT PROT 6.2 g/dl (6.4-8.2)
[2017-04-23 10:48] LABS: URINE BACTERIA FEW /hpf (NONE SEEN); URINE MUCUS MANY
[2017-04-23] MEDS: NICOTINE 21 MG/24 HOURS TOPICAL PATCH TD SCH (11:55)
[2017-04-23] MEDS: CYCLOBENZAPRINE HCL 10 MG TABLET (FP) PO PRN (11:56)
--- NOTE | 2017-04-23 13:11 | PN ---
[facility] CIWA - CIWA Score Nausea/Vomitin Muscle Tremors: 3 Anxiety: 3 Agitation: 3 Paroxysmal Sweats: 1-Minimal Palms Moist Orientation: 0-Oriented Tacttile Disturbances: 1-Very Mild Itch/Numbness Auditory Disturbances: 1-Very Mild Visual Disturbances: 0-None Headache: 2-Mild CIWA-Ar Total Score: 17 [facility] COWS - Scale Resting Pulse: 0= [place] 80 or Below Sweatin= Chills/Flushing Restless Observation: 3= Extraneous Movement Pupil Size: 1= Pupils >than Normal Bone or Joint Aches: 2= Severe Diffuse Aches Runny Nose/ Eye Tearin= Runny Nose/Eyes GI Upset > 30mins: 3= Vomiting/Diarrhea Tremor Observation of Outstretched Hands: 2= Slight Tremor Visible Yawning Observation: 1= 1-2x During Session Anxiety or Irritability: 2=Irritable/Anxious Goose Flesh Skin: 0=Smooth Skin COWS Score: 17 [facility] Progress Note (SOAP) Subjective: ALERT,IRRITABLE,ANXIOUS,INTERRUPTED SLEEP,TREMOR,PAIN IN THE BODY AND BACK Objective: 04/23/17 13:07 Vital Signs Temperature 95.2 F L 04/23/17 09:50 Pulse Rate 71 04/23/17 09:50 Respiratory Rate 20 04/23/17 09:50 Blood Pressure 145/87 04/23/17 09:50 O2 Sat by Pulse Oximetry (%) EKG NSR,NORMAL ECG Laboratory Last Values WBC 7.9 K/mm3 (4.0-10.0) 04/23/17 07:40 RBC 4.55 M/mm3 (4.00-5.60) 04/23/17 07:40 Hgb 12.3 GM/dL (11.7-16.9) 04/23/17 07:40 Hct 37.5 % (35.4-49) 04/23/17 07:40 MCV 82.4 fl (80-96) 04/23/17 07:40 MCH 26.9 pg (25.7-33.7) 04/23/17 07:40 MCHC 32.7 g/dl (32.0-35.9) 04/23/17 07:40 RDW 16.3 % (11.9-15.9) H D 04/23/17 07:40 Plt Count 322 K/MM3 (134-434) 04/23/17 07:40 MPV 8.7 fl (7.5-11.1) 04/23/17 07:40 Sodium 141 mmol/L (136-145) 04/23/17 07:40 Potassium 3.9 mmol/L (3.5-5.1) 04/23/17 07:40 Chloride 110 mmol/L (98-107) H 04/23/17 07:40 Carbon Dioxide 26 mmol/L (21-32) 04/23/17 07:40 Anion Gap 5 (8-16) L 04/23/17 07:40 BUN 16 mg/dL (7-18) D 04/23/17 07:40 Creatinine 1.0 mg/dL (0.7-1.3) D 04/23/17 07:40 Creat Clearance w eGFR > 60 (>60) 04/23/17 07:40 Random Glucose 82 mg/dL (74-106) 04/23/17 07:40 Calcium 8.4 mg/dL (8.5-10.1) L 04/23/17 07:40 Total Bilirubin 0.5 mg/dL (0.2-1.0) D 04/23/17 07:40 AST 75 U/L (15-37) H D 04/23/17 07:40 ALT 240 U/L (12-78) H D 04/23/17 07:40 Alkaline Phosphatase 85 U/L (45-117) 04/23/17 07:40 Total Protein 6.2 g/dl (6.4-8.2) L 04/23/17 07:40 Albumin 2.9 g/dl (3.4-5.0) L 04/23/17 07:40 Urine Color Yellow 04/23/17 08:50 Urine Appearance Turbid 04/23/17 08:50 Urine pH 5.0 (5.0-8.0) 04/23/17 08:50 Ur Specific [place] 1.030 (1.001-1.035) 04/23/17 08:50 Urine Protein Negative (NEGATIVE) 04/23/17 08:50 Urine Glucose (UA) Negative (NEGATIVE) 04/23/17 08:50 Urine Ketones Negative (NEGATIVE) 04/23/17 08:50 Urine Blood Negative (NEGATIVE) 04/23/17 08:50 Urine Nitrite Negative (NEGATIVE) 04/23/17 08:50 Urine Bilirubin Negative (NEGATIVE) 04/23/17 08:50 Urine Urobilinogen 2.0 mg/dL (0.2-1.0) 04/23/17 08:50 Ur Leukocyte Esterase Trace (NEGATIVE) 04/23/17 08:50 Urine WBC (Auto) 7 /hpf (3-5) 04/23/17 08:50 Urine RBC (Auto) None /hpf (0-3) 04/23/17 08:50 Urine Bacteria Few /hpf (NONE SEEN) 04/23/17 08:50 Urine Mucus Many 04/23/17 08:50 RPR Titer Nonreactive (NONREACTIVE) 04/23/17 07:40 04/23/17 13:09 LABS PENDING Assessment: 04/23/17 13:10 WITHDRAWAL SYMPTOM Plan: CONTINUE DETOX,REPEAT ALT,AST,INR,IN AM DUE TO ELEVATION OF ALT,AST,D/C TYLENOL
[2017-04-23] MEDS: GABAPENTIN 300 MG CAPSULE (FP) PO SCH ×2 (14:17→23:00)
--- NOTE | 2017-04-23 17:05 | CONSULT ---
[facility] Psychiatric Consult - Data Date of interview: 04/23/17 Admission source: [facility] Identifying data: Readmission to [facility] [place] 31 y/o male seeking detox treatment on for heroin,xanax and cocaine dependence.Patient is single,a father of one,domiciled,unemployed and reportedly deprived of any source of income. Substance Abuse History: Discussed with patient in this interview.Mr Atwood endorses a 15+ history of substance abuse.Daily use of heroin,alcohol,cocaine, xanax and heroin. Details in current [facility] report drawn on admission : Smoking history: Current every day smoker. Have you smoked in the past 12 months: Yes. Aproximately how many cigarettes per day: 20. Hx Chewing Tobacco Use: No. Initiated information on smoking cessation: Yes. 'Breaking Loose' booklet given : 04/22/17. - Substance & Tx. History. Hx Alcohol Use: Yes. Hx Substance Use : Yes. Substance Use Type: Alcohol, Cocaine, Heroin, Tranquilizers. Hx Substance Use Treatment: Yes ([facility]). - Substances Abused. Heroin. Route : Injection. Frequency: Daily. Amount used: 25 bags. Age of first use: 16. Date of Last Use: 04/21/17. Alprazolam (Xanax). Route: Injection. Frequency: Daily. Amount used: 8-10. Age of first use: 27. Date of Last Use: 04/22/17. Alcohol. Route: Oral. Frequency: Daily. Amount used: 2-3 six packs daily. Age of first use: 14. Date of Last Use: 04/20/17. Cocaine. Route: Injection. Frequency: Daily. Amount used: $50./d. Age of first use: 16. Date of Last Use: 04/21/17 Medical History: Patient endorses good general health. Psychiatric History: Patient reports a history of one psychiatric hospitalization at [facility] after a suicide attempt.No recall of year of admission and diagnosis as per patient.Clearly an approximate,vague and marginally reliable historian." I suppose that they kept me there for anxiety and depression." No recollection of medications with the exception of gabapentin.Mr Atwood states he never followed up with psychiatrists.No affiliation with OPD care settings. Physical/Sexual Abuse/Trauma History: Patient denies. Additional Comment: Urine Drug Screen Results: THC-Marijuana, JANETT-Cocaine, OPI- Opiates, BAR-Barbiturates, BZO-Benzodiazepines, MTD-Methadone, OXY- Oxycodone.Noted. Mental Status Exam - Mental Status Exam Alert and Oriented to: Time, Place, Person Cognitive Function: Good Patient Appearance: Well Groomed Mood: Withdrawn, Anxious, Hopeful Affect: Mood Congruent Patient Behavior: Fatigued, Appropriate, Cooperative Speech Pattern: Clear Voice Loudness: Normal Thought Process: Goal Oriented Thought Disorder: Not Present Hallucinations: Denies Suicidal Ideation: Denies Homicidal Ideation: Denies Insight/Judgement: Poor Sleep: Poorly, Difficulty falling asleep Appetite: Good Muscle strength/Tone: Normal Gait/Station: Normal Psychiatric Findings - Problem List ([place] 1, 2,3) (1) Opioid dependence with withdrawal Current Visit: Yes Status: Acute (2) Cocaine dependence Current Visit: Yes Status: Acute Qualifiers: Substance use status: uncomplicated Qualified Code(s): F14.20 - Cocaine dependence, uncomplicated (3) Uncomplicated sedative, hypnotic or anxiolytic withdrawal Current Visit: Yes Status: Acute (4) Nicotine dependence Current Visit: Yes Status: Acute Qualifiers: Nicotine product type: cigarettes Substance use status: in withdrawal Qualified Code(s): F17.213 - Nicotine dependence, cigarettes, with withdrawal (5) Drug-induced mood disorder Current Visit: Yes Status: Acute - Initial Treatment Plan Initial Treatment Plan: Psychoeducation.Sleep hygiene.Detoxification in progress.Ambien 10 mg po hs prn.Patient is made aware of the risk of parasomnias (sleep-walking).Mr Atwood has agreed (verbally) to follow this careplan.Observation.
--- NOTE | 2017-04-23 18:46 | EKG ---
Test Reason : Blood Pressure : / mmHG Vent. Rate : 086 BPM Atrial Rate : 086 BPM P-R Int : 160 ms QRS Dur : 086 ms QT Int : 364 ms P-R-T Axes : 070 073 042 degrees QTc Int : 435 ms NORMAL SINUS RHYTHM NORMAL ECG WHEN COMPARED WITH ECG OF 25-OCT-2016 14:56, NO SIGNIFICANT CHANGE WAS FOUND Confirmed by LEONCIO WINTERS MD ([id number]) on 04/23/2017 6:46:09 PM Referred By: Confirmed By:LEONCIO WINTERS MD
[2017-04-23] MEDS: ZOLPIDEM TARTRATE 10 MG TABLET (PARK CARE ONLY) PO PRN (23:00)
[2017-04-23] MEDS: THIAMINE HCL 100 MG TABLET (FP) PO SCH (23:00)
[2017-04-23] MEDS: cloNIDine HCL 0.1 MG TABLET PO SCH (23:00)
[2017-04-24] MEDS: diazePAM 5 MG TABLET PO PRN ×3 (06:17→20:18)
[2017-04-24] MEDS: GABAPENTIN 300 MG CAPSULE (FP) PO SCH ×3 (06:17→22:36)
[2017-04-24] MEDS: CYCLOBENZAPRINE HCL 10 MG TABLET (FP) PO PRN ×3 (06:21→22:39)
[2017-04-24] MEDS: P-EPHED 60MG/TRIPROLIDI 2.5MG TABLET PO PRN (06:22)
[2017-04-24] MEDS: cloNIDine HCL 0.1 MG TABLET PO SCH ×2 (10:55→22:37)
[2017-04-24] MEDS: PRENATAL VITAMINS W/ FOLIC ACID TABLET (FP) PO SCH (10:55)
[2017-04-24] MEDS: BACITRACIN 0.9 GM PACKET TP SCH ×2 (10:55→22:36)
[2017-04-24] MEDS: diazePAM 5 MG TABLET PO SCH ×2 (10:55→22:37)
[2017-04-24] MEDS: METHADONE HCL 5 MG TABLET (FOR DETOX USE ONLY) PO SCH (10:55)
[2017-04-24] MEDS: hydrOXYzine PAMOATE 25 MG CAPSULE (FP) PO PRN ×2 (10:55→15:25)
[2017-04-24] MEDS: NICOTINE 21 MG/24 HOURS TOPICAL PATCH TD SCH (10:56)
--- NOTE | 2017-04-24 14:50 | PN ---
[facility] CIWA - CIWA Score Nausea/Vomitin-Mild Nausea/No Vomiting Muscle Tremors: 4-Moderate,w/Arms Extend Anxiety: 4-Mod. Anxious/Guarded Agitation: 4-Moderately Restless Paroxysmal Sweats: 1-Minimal Palms Moist Orientation: 0-Oriented Tacttile Disturbances: 0-None Auditory Disturbances: 0-None Visual Disturbances: 0-None Headache: 0-None Present CIWA-Ar Total Score: 14 [facility] COWS - Scale Resting Pulse: 0= [place] 80 or Below Sweatin= Chills/Flushing Restless Observation: 1= Difficult to Sit Still Pupil Size: 1= Pupils >than Normal Bone or Joint Aches: 2= Severe Diffuse Aches Runny Nose/ Eye Tearin= Runny Nose/Eyes GI Upset > 30mins: 1= Stomach Cramp Tremor Observation of Outstretched Hands: 2= Slight Tremor Visible Yawning Observation: 2= >3x During Session Anxiety or Irritability: 2=Irritable/Anxious Goose Flesh Skin: 0=Smooth Skin COWS Score: 14 [facility] Progress Note (SOAP) Subjective: joint pain body ache sweat tremor anxiety restlessness sleeplessness irritable Objective: 04/24/17 14:50 Vital Signs Temperature 98.0 F 04/24/17 14:46 Pulse Rate 81 04/24/17 14:46 Respiratory Rate 18 04/24/17 14:46 Blood Pressure 118/62 04/24/17 14:46 O2 Sat by Pulse Oximetry (%) Laboratory Last Values WBC 7.9 K/mm3 (4.0-10.0) 04/23/17 07:40 RBC 4.55 M/mm3 (4.00-5.60) 04/23/17 07:40 Hgb 12.3 GM/dL (11.7-16.9) 04/23/17 07:40 Hct 37.5 % (35.4-49) 04/23/17 07:40 MCV 82.4 fl (80-96) 04/23/17 07:40 MCH 26.9 pg (25.7-33.7) 04/23/17 07:40 MCHC 32.7 g/dl (32.0-35.9) 04/23/17 07:40 RDW 16.3 % (11.9-15.9) H D 04/23/17 07:40 Plt Count 322 K/MM3 (134-434) 04/23/17 07:40 MPV 8.7 fl (7.5-11.1) 04/23/17 07:40 Sodium 141 mmol/L (136-145) 04/23/17 07:40 Potassium 3.9 mmol/L (3.5-5.1) 04/23/17 07:40 Chloride 110 mmol/L (98-107) H 04/23/17 07:40 Carbon Dioxide 26 mmol/L (21-32) 04/23/17 07:40 Anion Gap 5 (8-16) L 04/23/17 07:40 BUN 16 mg/dL (7-18) D 04/23/17 07:40 Creatinine 1.0 mg/dL (0.7-1.3) D 04/23/17 07:40 Creat Clearance w eGFR > 60 (>60) 04/23/17 07:40 Random Glucose 82 mg/dL (74-106) 04/23/17 07:40 Calcium 8.4 mg/dL (8.5-10.1) L 04/23/17 07:40 Total Bilirubin 0.5 mg/dL (0.2-1.0) D 04/23/17 07:40 AST 75 U/L (15-37) H D 04/23/17 07:40 ALT 240 U/L (12-78) H D 04/23/17 07:40 Alkaline Phosphatase 85 U/L (45-117) 04/23/17 07:40 Total Protein 6.2 g/dl (6.4-8.2) L 04/23/17 07:40 Albumin 2.9 g/dl (3.4-5.0) L 04/23/17 07:40 Urine Color Yellow 04/23/17 08:50 Urine Appearance Turbid 04/23/17 08:50 Urine pH 5.0 (5.0-8.0) 04/23/17 08:50 Ur Specific [place] 1.030 (1.001-1.035) 04/23/17 08:50 Urine Protein Negative (NEGATIVE) 04/23/17 08:50 Urine Glucose (UA) Negative (NEGATIVE) 04/23/17 08:50 Urine Ketones Negative (NEGATIVE) 04/23/17 08:50 Urine Blood Negative (NEGATIVE) 04/23/17 08:50 Urine Nitrite Negative (NEGATIVE) 04/23/17 08:50 Urine Bilirubin Negative (NEGATIVE) 04/23/17 08:50 Urine Urobilinogen 2.0 mg/dL (0.2-1.0) 04/23/17 08:50 Ur Leukocyte Esterase Trace (NEGATIVE) 04/23/17 08:50 Urine WBC (Auto) 7 /hpf (3-5) 04/23/17 08:50 Urine RBC (Auto) None /hpf (0-3) 04/23/17 08:50 Urine Bacteria Few /hpf (NONE SEEN) 04/23/17 08:50 Urine Mucus Many 04/23/17 08:50 RPR Titer Nonreactive (NONREACTIVE) 04/23/17 07:40 lab noted Assessment: 04/24/17 14:50 withdrawal sx Plan: continue detox
[2017-04-24] MEDS: NICOTINE POLACRILEX 4 MG GUM BC PRN ×2 (15:25→22:38)
[2017-04-24] MEDS: ZOLPIDEM TARTRATE 10 MG TABLET (PARK CARE ONLY) PO PRN (22:36)
[2017-04-24] MEDS: THIAMINE HCL 100 MG TABLET (FP) PO SCH (22:37)
[2017-04-25] MEDS: diazePAM 5 MG TABLET PO PRN ×2 (03:48→13:43)
[2017-04-25] MEDS: GABAPENTIN 300 MG CAPSULE (FP) PO SCH ×3 (06:46→22:26)
[2017-04-25] MEDS: cloNIDine HCL 0.1 MG TABLET PO SCH ×2 (10:13→22:26)
[2017-04-25] MEDS: BACITRACIN 0.9 GM PACKET TP SCH ×2 (10:13→22:26)
[2017-04-25] MEDS: PRENATAL VITAMINS W/ FOLIC ACID TABLET (FP) PO SCH (10:13)
[2017-04-25] MEDS: NICOTINE 21 MG/24 HOURS TOPICAL PATCH TD SCH (10:13)
[2017-04-25] MEDS: diazePAM 5 MG TABLET PO SCH ×2 (10:13→22:26)
[2017-04-25] MEDS: METHADONE HCL 5 MG TABLET (FOR DETOX USE ONLY) PO SCH (10:13)
[2017-04-25] MEDS: hydrOXYzine PAMOATE 25 MG CAPSULE (FP) PO PRN ×4 (10:14→22:26)
[2017-04-25] MEDS: CYCLOBENZAPRINE HCL 10 MG TABLET (FP) PO PRN ×2 (10:19→22:26)
--- NOTE | 2017-04-25 11:43 | PN ---
S Progress Note (SOAP) Subjective: ALERT,IRRITABLE,ANXIOUS,INTERRUPTED SLEEP,TREMOR,PAIN IN THE BODY,RASH ON FACE Objective: 04/25/17 11:42 Vital Signs Temperature 97.4 F L 04/25/17 07:01 Pulse Rate 63 04/25/17 07:01 Respiratory Rate 20 04/25/17 07:01 Blood Pressure 129/67 04/25/17 07:01 O2 Sat by Pulse Oximetry (%) Assessment: 04/25/17 11:42 WITHDRAWAL SYMPTOM Plan: CONTINUE DETOX,HYDROCORTISONE CREAM BID
[2017-04-25] MEDS: HYDROCORTISONE 1% TOPICAL CREAM 30 GM TUBE TP SCH ×2 (13:44→22:26)
[2017-04-25] MEDS: THIAMINE HCL 100 MG TABLET (FP) PO SCH (22:25)
[2017-04-25] MEDS: ZOLPIDEM TARTRATE 10 MG TABLET (PARK CARE ONLY) PO PRN (22:26)
[2017-04-25] MEDS: NICOTINE POLACRILEX 4 MG GUM BC PRN (23:48)
[2017-04-26] MEDS ORDERED: METHADONE HCL 10 MG TABLET (FOR DETOX USE ONLY) PO SCH (10:00)
[2017-04-26] MEDS ORDERED: diazePAM 5 MG TABLET PO SCH (10:00)
--- NOTE | 2017-04-26 10:41 | PN ---
[facility] Progress Note (SOAP) Subjective: ALERT,IRRITABLE,ANXIOUS,INTERRUPTED SLEEP,PAIN IN THE BODY AND BACK Objective: 04/26/17 10:40 Vital Signs Temperature 95.9 F L 04/26/17 09:35 Pulse Rate 79 04/26/17 09:35 Respiratory Rate 18 04/26/17 09:35 Blood Pressure 127/71 04/26/17 09:35 O2 Sat by Pulse Oximetry (%) Assessment: 04/26/17 10:40 WITHDRAWAL SYMPTOM Plan: CONTINUE DETOX,DISCHARGE IN AM
[2017-04-26] MEDS: hydrOXYzine PAMOATE 25 MG CAPSULE (FP) PO PRN ×2 (10:59→14:18)
[2017-04-26] MEDS: PRENATAL VITAMINS W/ FOLIC ACID TABLET (FP) PO SCH (10:59)
[2017-04-26] MEDS: HYDROCORTISONE 1% TOPICAL CREAM 30 GM TUBE TP SCH (11:00)
[2017-04-26] MEDS: NICOTINE 21 MG/24 HOURS TOPICAL PATCH TD SCH (11:00)
[2017-04-26] MEDS: cloNIDine HCL 0.1 MG TABLET PO SCH (11:01)
[2017-04-26] MEDS: BACITRACIN 0.9 GM PACKET TP SCH (11:02)
[2017-04-26] MEDS: CYCLOBENZAPRINE HCL 10 MG TABLET (FP) PO PRN (11:02)
[2017-04-26] MEDS: GABAPENTIN 300 MG CAPSULE (FP) PO SCH (14:18)
[2017-04-26 14:24] VITALS: BP 126/65; PULSE 83; TEMP 96.8
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
[2017-04-27] MEDS ORDERED: METHADONE HCL 5 MG TABLET (FOR DETOX USE ONLY) PO SCH (06:00)
== END 2017-04-26 16:40 | disposition left against medical advice (07) | DRG 773 ==
LOC: YASAS 11:18 → Y3N 15:42 → Y6N 04-23 01:28
PROVIDERS: ADMIT Internal Medicine; ATTEND Internal Medicine
PROC: HZ2ZZZZ Detoxification Services for Substance Abuse Treatment (ICD-10-PCS; principal; 2017-04-22)
DX: F11.23 Opioid dependence with withdrawal (principal); F13.230 Sedative, hypnotic or anxiolytic dependence with withdrawal, uncomplicated; F14.20 Cocaine dependence, uncomplicated; F17.210 Nicotine dependence, cigarettes, uncomplicated; F41.9 Anxiety disorder, unspecified; F32.9 Major depressive disorder, single episode, unspecified; F19.24 Other psychoactive substance dependence with psychoactive substance-induced mood disorder; G47.00 Insomnia, unspecified; R63.4 Abnormal weight loss; Z68.25 Body mass index [BMI] 25.0-25.9, adult
CPT/HCPCS: 36415; 80053; 81003; 81015; 85027; 86593; 93005; 93010; J0735

== ENCOUNTER 2017-12-11 08:47 | Inpatient (IN) | payer OTHER ==
[2017-12-11 09:18] VITALS: BMI 24.8
--- NOTE | 2017-12-11 09:48 | HP ---
COWS - Scale Resting Pulse: 0= [place] 80 or Below Sweatin=Flushed/Facial Moisture Restless Observation: 0= Sits Still Pupil Size: 0= Normal to Room Light Bone or Joint Aches: 2= Severe Diffuse Aches Runny Nose/ Eye Tearin= Runny Nose/Eyes GI Upset > 30mins: 2= Nausea/Diarrhea Tremor Observation: 1= Tremor [place], Not Seen Yawning Observation: 1= 1-2x During Session Anxiety or Irritability: 1=Feels Anxious/Irritable Goose Flesh Skin: 0=Smooth Skin COWS Score: 11 CIWA Score - CIWA Score Nausea/Vomitin Muscle Tremors: 3 Anxiety: 2 Agitation: 4-Moderately Restless Paroxysmal Sweats: 3 Orientation: 0-Oriented Tacttile Disturbances: 0-None Auditory Disturbances: 0-None Visual Disturbances: 0-None Headache: 0-None Present CIWA-Ar Total Score: 15 Admission ROS S - HPI Chief Complaint: "I am here to detox" Allergies/Adverse Reactions: Allergies Allergy/AdvReac Type Severity Reaction Status Date / Time Penicillins Allergy Severe Rash Verified 12/11/17 09:06 History of Present Illness: 32 y/o male with a long hx of substance abuse presents for detox. Pt is well known to this program, was last here in Sep but said he left rehab too early after the detox causing him to relapse. Denies alcohol related seizures but admits to "a few blackouts" from drinking. Denies Past nor current SI. Denies medical hx. Exam Limitations: No Limitations - Ebola screening Have you traveled outside of the country in the last 21 days: No Have you had contact with anyone from an Ebola affected area: No Have you been sick,other than usual withdrawal symptoms: No Do you have a fever: No - Review of Systems Constitutional: Loss of Appetite, Night Sweats, Unintentional Wgt. Loss EENT: reports: Blurred Vision (wears contacts but does not have any on), Nose Congestion Respiratory: reports: No Symptoms reported Cardiac: reports: No Symptoms Reported GI: reports: Diarrhea, Nausea : reports: No Symptoms Reported Musculoskeletal: reports: No Symptoms Reported Integumentary: reports: No Symptoms Reported Neuro: reports: Headache Endocrine: reports: No Symptoms Reported Hematology: reports: No Symptoms Reported Psychiatric: reports: Mood/Affect Appropiate, Orientated x3, Anxious Other Systems: Reviewed and Negative Patient History - Patient Medical History Hx Anemia: No Hx Asthma: No Hx Chronic Obstructive Pulmonary Disease (COPD): No Hx Cancer: No Hx Cardiac Disorders: No Hx Congestive Heart Failure: No Hx Hypertension: No Hx Hypercholesterolemia: No Hx Pacemaker: No HX Cerebrovascular Accident: No Hx Seizures: No Hx Dementia: No Hx Diabetes: No Hx Gastrointestinal Disorders: No Hx Liver Disease: No Hx Genitourinary Disorders: No Hx Sexually Transmitted Disorders: No Hx Renal Disease (ESRD): No Hx Thyroid Disease: No Hx Human Immunodeficiency Virus (HIV): No (last 06/23 negative) Hx Hepatitis C: No Hx Depression: Yes (anxiety) Hx Suicide Attempt: No Hx Bipolar Disorder: No Hx Schizophrenia: No - Patient Surgical History Past Surgical History: Yes Hx Neurologic Surgery: No Hx Cataract Extraction: No Hx Cardiac Surgery: No Hx Lung Surgery: No Hx Breast Surgery: No Hx Breast Biopsy: No Hx Abdominal Surgery: No Hx Appendectomy: No Hx Cholecystectomy: No Hx Genitourinary Surgery: No Hx Section: No Hx Orthopedic Surgery: No Other Surgical History: circumcission at age of 7 years Anesthesia Reaction: No - PPD History Previous Implant?: Yes Documented Results: Negative w/proof Implanted On Prior R Admission?: Yes Date: 10/27/16 Results: 0 mm PPD to be Administered?: Yes - Reproductive History Patient is a Female of Child Bearing Age (11 -55 yrs old): No - Smoking Cessation Smoking history: Current every day smoker Have you smoked in the past 12 months: Yes Aproximately how many cigarettes per day: 20 Cigars Per Day: 0 Hx Chewing Tobacco Use: No Initiated information on smoking cessation: Yes 'Breaking Loose' booklet given: 12/11/17 - Substance & Tx. History Hx Alcohol Use: Yes Hx Substance Use: Yes Substance Use Type: Alcohol, Cocaine, Heroin, Marijuana, Opiates Hx Substance Use Treatment: Yes - Substances Abused Alcohol Route: Oral Frequency: 3-6 times per week Amount used: 6 12oz henikein, 2 pints of rum or Baccardi Age of first use: 16 Date of Last Use: 12/10/17 Heroin Route: Injection Frequency: Daily Amount used: 10-15 bags Age of first use: 16 Date of Last Use: 12/10/17 Benzodiazepine (Klonopin) Route: Injection Frequency: 3-6 times per week Amount used: 5 1-2 mg tablets Age of first use: 16 Date of Last Use: 12/10/17 Alprazolam (Xanax) Route: Oral Frequency: 3-6 times per week Amount used: 5 tablets Age of first use: 27 Date of Last Use: 12/09/17 Family Disease History - Family Disease History Family Disease History: Diabetes: Mother Admission Physical Exam [facility] - Vital Signs Vital Signs: Vital Signs - 24 hr 12/11/17 09:16 Temperature 97.8 F Pulse Rate 69 Respiratory 20 Rate Blood Pressure 148/71 - Physical General Appearance: Yes: Mild Distress HEENTM: Yes: Nasal Congestion, [place] (track jolie on neck) Respiratory: Yes: Lungs Clear, Normal Breath Sounds, No Respiratory Distress, No Accessory Muscle Use Neck: Yes: Other (tack jolie on R lateral aspect) Breast: Yes: Breast Exam Deferred Cardiology: Yes: Regular Rhythm, Regular Rate Abdominal: Yes: Non Tender, Soft Genitourinary: Yes: Within Normal Limits Back: Yes: Within Normal Limits, Normal Inspection Musculoskeletal: Yes: full range of Motion, Gait Steady Extremities: Yes: Normal Capillary Refill, Normal Inspection, Normal Range of Motion Neurological: Yes: Within Normal Limits, Fully Oriented, Alert Integumentary: Yes: Within Normal Limits Lymphatic: Yes: Within Normal Limits - Diagnostic (1) Alcohol dependence with uncomplicated intoxication Current Visit: Yes Status: Acute (2) Opioid dependence with withdrawal Current Visit: Yes Status: Acute (3) 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 Current Visit: Yes Status: Acute (4) Uncomplicated sedative, hypnotic or anxiolytic withdrawal Current Visit: Yes Status: Acute (5) Weight loss Current Visit: Yes Status: Acute (6) Cocaine dependence Current Visit: Yes Status: Chronic Qualifiers: Substance use status: uncomplicated Qualified Code(s): F14.20 - Cocaine dependence, uncomplicated (7) Drug-induced mood disorder Current Visit: Yes Status: Suspected (8) Nicotine dependence Current Visit: Yes Status: Acute Qualifiers: Nicotine product type: cigarettes Substance use status: in withdrawal Qualified Code(s): F17.213 - Nicotine dependence, cigarettes, with withdrawal Cleared for Admission [facility] - Detox or Rehab [facility] Level of Care: Medically Managed Detox Regimen/Protocol: Methadone/Valium [facility] Breath Alcohol Content Breath Alcohol Content: 0 Urine Drug Screen - Results Drug Screen Negative: No Urine Drug Screen Results: THC-Marijuana, JANETT-Cocaine, OPI-Opiates, BAR- Barbiturates, BZO-Benzodiazepines, MTD-Methadone, FEN-Fentanyl
[2017-12-11] MEDS ORDERED: P-EPHED 60MG/TRIPROLIDI 2.5MG TABLET PO PRN (10:23)
[2017-12-11] MEDS ORDERED: NICOTINE POLACRILEX 2 MG GUM BUC PRN (10:23)
[2017-12-11] MEDS ORDERED: MENTHOL/PHENOL 1 EACH UD MM PRN (10:23)
[2017-12-11] MEDS ORDERED: MAGNESIUM HYDROX 2400MG/30ML ORAL SUSPENSION 30 ML CUP PO PRN (10:23)
[2017-12-11] MEDS ORDERED: guaiFENesin/D-METHORPHAN HB 10 ML UNIT-DOSE CUPS PO PRN (10:23)
[2017-12-11] MEDS ORDERED: ACETAMINOPHEN 325 MG TABLET (FP) PO PRN (10:23)
[2017-12-11] MEDS ORDERED: MAGNESIUM CITRATE 300 ML BOTTLE PO PRN (10:23)
[2017-12-11] MEDS ORDERED: MAG HYDROX/AL HYDROX/SIMETH 30 ML UNIT-DOSE CUP PO PRN (10:23)
[2017-12-11] MEDS ORDERED: diazePAM 5 MG TABLET PO ONE (12:15)
[2017-12-11] MEDS ORDERED: METHADONE HCL 10 MG TABLET (FOR DETOX USE ONLY) PO ONE ×2 (12:30→23:00)
[2017-12-11] MEDS: NICOTINE 21 MG/24 HOURS TOPICAL PATCH TD SCH (14:07)
[2017-12-11] MEDS: diazePAM 5 MG TABLET PO SCH ×2 (14:09→22:31)
[2017-12-11] MEDS: diazePAM 5 MG TABLET PO PRN (17:37)
[2017-12-11] MEDS: LOPERAMIDE HCL 2 MG CAPSULE PO PRN (18:59)
[2017-12-11] MEDS ORDERED: MELATONIN 5 MG TABLETS PO PRN (22:00)
[2017-12-11] MEDS: THIAMINE HCL 100 MG TABLET (FP) PO SCH (22:31)
[2017-12-12 01:49] LABS: URINE APPEARANCE CLEAR; URINE BILIRUBIN NEGATIVE (<2.0 mg/dL); URINE COLOR YELLOW; URINE GLUCOSE (UA) NEGATIVE (NEGATIVE); URINE KETONE NEGATIVE (NEGATIVE); URINE LEUK ESTERASE NEGATIVE (NEGATIVE); URINE NITRITE NEGATIVE (NEGATIVE); URINE PROTEIN NEGATIVE (NEGATIVE)
[2017-12-12] MEDS: diazePAM 5 MG TABLET PO PRN ×3 (02:10→16:34)
[2017-12-12] MEDS: LOPERAMIDE HCL 2 MG CAPSULE PO PRN (02:13)
[2017-12-12] MEDS: diazePAM 5 MG TABLET PO SCH ×3 (05:14→22:15)
--- NOTE | 2017-12-12 07:42 | CONSULT ---
[facility] Psychiatric Consult - Data Date of interview: 12/12/17 Admission source: [facility] Identifying data: This is a 32 years old male, single, father of one, living with family, on and off working, with no psychiatric hospitalization history, with a long history of Heroin, Alcohol, Benzodiazeoins, Nicotine dependence, reporting withdrawal symptoms and seeking detox. Substance Abuse History: - Smoking Cessation. Smoking history: Current every day smoker. Have you smoked in the past 12 months: Yes. Aproximately how many cigarettes per day: 20. Cigars Per Day: 0. Hx Chewing Tobacco Use: No. Initiated information on smoking cessation: Yes. 'Breaking Loose' booklet given : 12/11/17. - Substance & Tx. History. Hx Alcohol Use: Yes. Hx Substance Use : Yes. Substance Use Type: Alcohol, Cocaine, Heroin, Marijuana, Opiates. Hx Substance Use Treatment: Yes. - Substances Abused. Alcohol. Route: Oral. Frequency: 3-6 times per week. Amount used: 6 12oz henikein, 2 pints of rum or Baccardi. Age of first use: 16. Date of Last Use: 12/10/17. Heroin. Route : Injection. Frequency: Daily. Amount used: 10-15 bags. Age of first use: 16. Date of Last Use: 12/10/17. Benzodiazepine (Klonopin). Route: Injection. Frequency: 3-6 times per week. Amount used: 5 1-2 mg tablets. Age of first use: 16. Date of Last Use: 12/10/17. Alprazolam (Xanax). Route: Oral. Frequency: 3-6 times per week. Amount used: 5 tablets. Age of first use : 27. Date of Last Use: 12/09/17 Medical History: Weight loss history, Cellulitis history. Psychiatric History: Patient reports history of depression ajnd anxiety,m reports no psychiatric hospitalization history, no suicidal and homicidal history reported. Currently taking: Trazodone 100mg po qhs. Gabapentin 600mg po tid Mental Status Exam - Mental Status Exam Alert and Oriented to: Person Psychiatric Findings - Problem List ([place] 1, 2,3) (1) Alcohol dependence with uncomplicated intoxication Current Visit: Yes Status: Acute (2) Nicotine dependence Current Visit: Yes Status: Acute Qualifiers: Nicotine product type: cigarettes Substance use status: in withdrawal Qualified Code(s): F17.213 - Nicotine dependence, cigarettes, with withdrawal (3) Opioid dependence with withdrawal Current Visit: Yes Status: Acute (4) Uncomplicated sedative, hypnotic or anxiolytic withdrawal Current Visit: Yes Status: Acute (5) Weight loss Current Visit: Yes Status: Acute (6) Cocaine dependence Current Visit: Yes Status: Chronic Qualifiers: Substance use status: uncomplicated Qualified Code(s): F14.20 - Cocaine dependence, uncomplicated (7) Drug-induced mood disorder Current Visit: Yes Status: Suspected (8) Cellulitis of forearm, right Current Visit: No Status: Acute (9) Anxiety and depression Current Visit: No Status: Chronic (10) Atopic dermatitis, mild Current Visit: No Status: Chronic - Initial Treatment Plan Initial Treatment Plan: Trazodone 100mg po qhs. Gabapentin 600mg po tid
[2017-12-12] MEDS ORDERED: GABAPENTIN 300 MG CAPSULE (FP) ONE (08:31)
[2017-12-12] MEDS ORDERED: METHADONE HCL 10 MG TABLET (FOR DETOX USE ONLY) PO SCH (10:00)
[2017-12-12] MEDS: PRENATAL VITAMINS W/ FOLIC ACID TABLET (FP) PO SCH (10:04)
[2017-12-12] MEDS: GABAPENTIN 300 MG CAPSULE (FP) PO SCH ×3 (10:04→22:14)
[2017-12-12] MEDS: NICOTINE 21 MG/24 HOURS TOPICAL PATCH TD SCH (10:07)
--- NOTE | 2017-12-12 10:41 | EKG ---
Test Reason : Blood Pressure : / mmHG Vent. Rate : 064 BPM Atrial Rate : 064 BPM P-R Int : 174 ms QRS Dur : 082 ms QT Int : 408 ms P-R-T Axes : 043 074 045 degrees QTc Int : 420 ms NORMAL SINUS RHYTHM NORMAL ECG WHEN COMPARED WITH ECG OF 02-OCT-2017 12:00, NO SIGNIFICANT CHANGE WAS FOUND Confirmed by CHETAN MTZ MD ([id number]) on 12/12/2017 10:40:46 AM Referred By: Moraima Hernandez Confirmed By:CHETAN MTZ MD
[2017-12-12 10:50] LABS: HEMATOCRIT 39.7 % (35.4-49); HEMOGLOBIN 13.7 GM/dL (11.7-16.9); MCH 29.1 pg (25.7-33.7); MCHC 34.5 g/dl (32.0-35.9); MEAN CELL VOLUME 84.3 fl (80-96); MEAN PLT VOLUME 8.4 fl (7.5-11.1); PLATELET COUNT 333 K/MM3 (134-434)
[2017-12-12 11:09] LABS: ALBUMIN 3.2 g/dl (3.4-5.0); ALK PHOS 67 U/L (45-117); ANION GAP 7 MMOL/L (8-16); BILIRUBIN,TOTAL 0.6 mg/dL (0.2-1); BLOOD UREA NITROGEN 12 mg/dL (7-18); CALCIUM 8.6 mg/dL (8.5-10.1); CHLORIDE 107 mmol/L (98-107); CO2 27 mmol/L (21-32); CREATININE 0.8 mg/dL (0.55-1.3); GLUCOSE,RANDOM 82 mg/dL (74-106); POTASSIUM 4.2 mmol/L (3.5-5.1); SGOT/AST 34 U/L (15-37); SGPT/ALT 66 U/L (13-61); SODIUM 142 mmol/L (136-145); TOT PROT 6.5 g/dl (6.4-8.2)
--- NOTE | 2017-12-12 13:43 | PN ---
[facility] CIWA - CIWA Score Nausea/Vomitin-Mild Nausea/No Vomiting Muscle Tremors: 3 Anxiety: 3 Agitation: 2 Paroxysmal Sweats: 1-Minimal Palms Moist Orientation: 1-Uncertain about Date Tacttile Disturbances: 0-None Auditory Disturbances: 0-None Visual Disturbances: 0-None Headache: 0-None Present CIWA-Ar Total Score: 11 BHS COWS - Scale Resting Pulse: 0= [place] 80 or Below Sweatin= Chills/Flushing Restless Observation: 1= Difficult to Sit Still Pupil Size: 0= Normal to Room Light Bone or Joint Aches: 1= Mild Discomfort Runny Nose/ Eye Tearin= Nasal Congestion GI Upset > 30mins: 2= Nausea/Diarrhea Tremor Observation of Outstretched Hands: 2= Slight Tremor Visible Yawning Observation: 1= 1-2x During Session Anxiety or Irritability: 1=Feels Anxious/Irritable Goose Flesh Skin: 0=Smooth Skin COWS Score: 10 BHS Progress Note (SOAP) Subjective: sweat body ache joints pain muscle cramp tremor anxiety patient requests provider call his program for suboxone prescription that when he leave detox he wants suboxone health teaching on risks of methadone mix with suboxone discuss Medication assisted program such as methadone maintenance program suboxone maintenance program emphasize each medication has its own criteria Objective: 12/12/17 13:43 Vital Signs Temperature 97.5 F L 12/12/17 13:07 Pulse Rate 66 12/12/17 13:07 Respiratory Rate 18 12/12/17 13:07 Blood Pressure 135/80 12/12/17 13:07 O2 Sat by Pulse Oximetry (%) Laboratory Last Values WBC 5.0 K/mm3 (4.0-10.0) 12/12/17 07:40 RBC 4.70 M/mm3 (4.00-5.60) 12/12/17 07:40 Hgb 13.7 GM/dL (11.7-16.9) 12/12/17 07:40 Hct 39.7 % (35.4-49) 12/12/17 07:40 MCV 84.3 fl (80-96) 12/12/17 07:40 MCH 29.1 pg (25.7-33.7) 12/12/17 07:40 MCHC 34.5 g/dl (32.0-35.9) 12/12/17 07:40 RDW 13.0 % (11.9-15.9) 12/12/17 07:40 Plt Count 333 K/MM3 (134-434) 12/12/17 07:40 MPV 8.4 fl (7.5-11.1) 12/12/17 07:40 Sodium 142 mmol/L (136-145) 12/12/17 07:40 Potassium 4.2 mmol/L (3.5-5.1) 12/12/17 07:40 Chloride 107 mmol/L (98-107) 12/12/17 07:40 Carbon Dioxide 27 mmol/L (21-32) 12/12/17 07:40 Anion Gap 7 MMOL/L (8-16) L 12/12/17 07:40 BUN 12 mg/dL (7-18) 12/12/17 07:40 Creatinine 0.8 mg/dL (0.55-1.3) 12/12/17 07:40 Creat Clearance w eGFR > 60 (>60) 12/12/17 07:40 Random Glucose 82 mg/dL (74-106) 12/12/17 07:40 Calcium 8.6 mg/dL (8.5-10.1) 12/12/17 07:40 Total Bilirubin 0.6 mg/dL (0.2-1) 12/12/17 07:40 AST 34 U/L (15-37) 12/12/17 07:40 ALT 66 U/L (13-61) H 12/12/17 07:40 Alkaline Phosphatase 67 U/L (45-117) 12/12/17 07:40 Total Protein 6.5 g/dl (6.4-8.2) 12/12/17 07:40 Albumin 3.2 g/dl (3.4-5.0) L 12/12/17 07:40 Urine Color Yellow 12/11/17 23:00 Urine Appearance Clear 12/11/17 23:00 Urine pH 5.0 (5.0-8.0) 12/11/17 23:00 Ur Specific [place] 1.024 (1.010-1.035) 12/11/17 23:00 Urine Protein Negative (NEGATIVE) 12/11/17 23:00 Urine Glucose (UA) Negative (NEGATIVE) 12/11/17 23:00 Urine Ketones Negative (NEGATIVE) 12/11/17 23:00 Urine Blood Negative (NEGATIVE) 12/11/17 23:00 Urine Nitrite Negative (NEGATIVE) 12/11/17 23:00 Urine Bilirubin Negative (<2.0 mg/dL) 12/11/17 23:00 Urine Urobilinogen 2.0 mg/dL (0.2-1.0) 12/11/17 23:00 Ur Leukocyte Esterase Negative (NEGATIVE) 12/11/17 23:00 RPR Titer Nonreactive (NONREACTIVE) 12/12/17 07:40 lab noted Assessment: 12/12/17 14:40 withdrawal sx interesting in suboxone program Plan: continue detox patient requests [facility] provider to call his primary care physician to sent suboxone prescription to [facility] discuss process about suboxone
[2017-12-12] MEDS: IBUPROFEN 400 MG TABLET (FP) PO PRN ×2 (16:34→22:14)
[2017-12-12] MEDS: THIAMINE HCL 100 MG TABLET (FP) PO SCH (22:14)
[2017-12-12] MEDS: traZODone HCL 100 MG TABLET (FP) PO SCH (22:15)
[2017-12-13] MEDS: diazePAM 5 MG TABLET PO PRN ×3 (04:54→17:27)
[2017-12-13] MEDS: GABAPENTIN 300 MG CAPSULE (FP) PO SCH ×3 (06:10→22:17)
--- NOTE | 2017-12-13 10:26 | PN ---
[facility] CIWA - CIWA Score Nausea/Vomitin-No Nausea/No Vomiting Muscle Tremors: 3 Anxiety: 2 Agitation: 3 Paroxysmal Sweats: 2 Orientation: 0-Oriented Tacttile Disturbances: 0-None Auditory Disturbances: 0-None Visual Disturbances: 0-None Headache: 0-None Present CIWA-Ar Total Score: 10 BHS COWS - Scale Resting Pulse: 0= [place] 80 or Below Sweatin=Flushed/Facial Moisture Restless Observation: 1= Difficult to Sit Still Pupil Size: 0= Normal to Room Light Bone or Joint Aches: 2= Severe Diffuse Aches Runny Nose/ Eye Tearin= Nasal Congestion GI Upset > 30mins: 0= None Tremor Observation of Outstretched Hands: 1= Tremor [place], Not Seen Yawning Observation: 1= 1-2x During Session Anxiety or Irritability: 2=Irritable/Anxious Goose Flesh Skin: 0=Smooth Skin COWS Score: 10 S Progress Note (SOAP) Subjective: shakes sweats interrupted sleep i need to see psych to get medication for my sleeping disorder agitation anxiety diarrhea i am having trouble with the meals i am receiving. Objective: 12/13/17 10:24 Vital Signs Temperature 97.4 F L 12/13/17 09:44 Pulse Rate 70 12/13/17 09:44 Respiratory Rate 18 12/13/17 09:44 Blood Pressure 139/59 L 12/13/17 09:44 O2 Sat by Pulse Oximetry (%) Laboratory Tests 12/11/17 12/12/17 12/12/17 23:00 07:40 07:40 WBC 5.0 RBC 4.70 Hgb 13.7 Hct 39.7 MCV 84.3 MCH 29.1 MCHC 34.5 RDW 13.0 Plt Count 333 MPV 8.4 Sodium 142 Potassium 4.2 Chloride 107 Carbon Dioxide 27 Anion Gap 7 L BUN 12 Creatinine 0.8 Creat Clearance w eGFR > 60 Random Glucose 82 Calcium 8.6 Total Bilirubin 0.6 AST 34 ALT 66 H Alkaline Phosphatase 67 Total Protein 6.5 Albumin 3.2 L Urine Color Yellow Urine Appearance Clear Urine pH 5.0 Ur Specific [place] 1.024 Urine Protein Negative Urine Glucose (UA) Negative Urine Ketones Negative Urine Blood Negative Urine Nitrite Negative Urine Bilirubin Negative Urine Urobilinogen 2.0 Ur Leukocyte Esterase Negative RPR Titer 12/12/17 07:40 WBC RBC Hgb Hct MCV MCH MCHC RDW Plt Count MPV Sodium Potassium Chloride Carbon Dioxide Anion Gap BUN Creatinine Creat Clearance w eGFR Random Glucose Calcium Total Bilirubin AST ALT Alkaline Phosphatase Total Protein Albumin Urine Color Urine Appearance Urine pH Ur Specific [place] Urine Protein Urine Glucose (UA) Urine Ketones Urine Blood Urine Nitrite Urine Bilirubin Urine Urobilinogen Ur Leukocyte Esterase RPR Titer Nonreactive aaox3 ambulating no acute distress Assessment: 12/13/17 10:25 withdrawal sx Plan: continue detox increase fluids psych ordered immodium prn dietary senior [employer] consultant ordered
[2017-12-13] MEDS: NICOTINE 21 MG/24 HOURS TOPICAL PATCH TD SCH (10:27)
[2017-12-13] MEDS: PRENATAL VITAMINS W/ FOLIC ACID TABLET (FP) PO SCH (10:27)
[2017-12-13] MEDS: diazePAM 5 MG TABLET PO SCH ×2 (10:28→22:17)
[2017-12-13] MEDS: METHADONE HCL 5 MG TABLET (FOR DETOX USE ONLY) PO SCH (10:28)
[2017-12-13] MEDS: LOPERAMIDE HCL 2 MG CAPSULE PO PRN (12:37)
[2017-12-13] MEDS: THIAMINE HCL 100 MG TABLET (FP) PO SCH (22:17)
[2017-12-13] MEDS: traZODone HCL 100 MG TABLET (FP) PO SCH (22:17)
[2017-12-14] MEDS: diazePAM 5 MG TABLET PO PRN (01:42)
[2017-12-14] MEDS: GABAPENTIN 300 MG CAPSULE (FP) PO SCH ×3 (07:26→22:35)
[2017-12-14] MEDS: PRENATAL VITAMINS W/ FOLIC ACID TABLET (FP) PO SCH (10:48)
[2017-12-14] MEDS: METHADONE HCL 5 MG TABLET (FOR DETOX USE ONLY) PO SCH (10:48)
[2017-12-14] MEDS: diazePAM 5 MG TABLET PO SCH ×2 (10:48→22:35)
[2017-12-14] MEDS: NICOTINE 21 MG/24 HOURS TOPICAL PATCH TD SCH (10:50)
[2017-12-14] MEDS ORDERED: diazePAM 5 MG TABLET PO ONE (11:01)
--- NOTE | 2017-12-14 14:27 | PN ---
BHS Progress Note (SOAP) Subjective: sweat tremor anxiety restlessness body aches muscle cramping trouble sleep at night Objective: 12/14/17 14:25 Vital Signs Temperature 97.7 F 12/14/17 09:54 Pulse Rate 79 12/14/17 09:54 Respiratory Rate 18 12/14/17 09:54 Blood Pressure 115/68 12/14/17 09:54 O2 Sat by Pulse Oximetry (%) Laboratory Last Values WBC 5.0 K/mm3 (4.0-10.0) 12/12/17 07:40 RBC 4.70 M/mm3 (4.00-5.60) 12/12/17 07:40 Hgb 13.7 GM/dL (11.7-16.9) 12/12/17 07:40 Hct 39.7 % (35.4-49) 12/12/17 07:40 MCV 84.3 fl (80-96) 12/12/17 07:40 MCH 29.1 pg (25.7-33.7) 12/12/17 07:40 MCHC 34.5 g/dl (32.0-35.9) 12/12/17 07:40 RDW 13.0 % (11.9-15.9) 12/12/17 07:40 Plt Count 333 K/MM3 (134-434) 12/12/17 07:40 MPV 8.4 fl (7.5-11.1) 12/12/17 07:40 Sodium 142 mmol/L (136-145) 12/12/17 07:40 Potassium 4.2 mmol/L (3.5-5.1) 12/12/17 07:40 Chloride 107 mmol/L (98-107) 12/12/17 07:40 Carbon Dioxide 27 mmol/L (21-32) 12/12/17 07:40 Anion Gap 7 MMOL/L (8-16) L 12/12/17 07:40 BUN 12 mg/dL (7-18) 12/12/17 07:40 Creatinine 0.8 mg/dL (0.55-1.3) 12/12/17 07:40 Creat Clearance w eGFR > 60 (>60) 12/12/17 07:40 Random Glucose 82 mg/dL (74-106) 12/12/17 07:40 Calcium 8.6 mg/dL (8.5-10.1) 12/12/17 07:40 Total Bilirubin 0.6 mg/dL (0.2-1) 12/12/17 07:40 AST 34 U/L (15-37) 12/12/17 07:40 ALT 66 U/L (13-61) H 12/12/17 07:40 Alkaline Phosphatase 67 U/L (45-117) 12/12/17 07:40 Total Protein 6.5 g/dl (6.4-8.2) 12/12/17 07:40 Albumin 3.2 g/dl (3.4-5.0) L 12/12/17 07:40 Urine Color Yellow 12/11/17 23:00 Urine Appearance Clear 12/11/17 23:00 Urine pH 5.0 (5.0-8.0) 12/11/17 23:00 Ur Specific [place] 1.024 (1.010-1.035) 12/11/17 23:00 Urine Protein Negative (NEGATIVE) 12/11/17 23:00 Urine Glucose (UA) Negative (NEGATIVE) 12/11/17 23:00 Urine Ketones Negative (NEGATIVE) 12/11/17 23:00 Urine Blood Negative (NEGATIVE) 12/11/17 23:00 Urine Nitrite Negative (NEGATIVE) 12/11/17 23:00 Urine Bilirubin Negative (<2.0 mg/dL) 12/11/17 23:00 Urine Urobilinogen 2.0 mg/dL (0.2-1.0) 12/11/17 23:00 Ur Leukocyte Esterase Negative (NEGATIVE) 12/11/17 23:00 RPR Titer Nonreactive (NONREACTIVE) 12/12/17 07:40 lab noted Assessment: 12/14/17 14:28 withdrawal sx Plan: continue detox
[2017-12-14] MEDS ORDERED: hydrOXYzine PAMOATE 50 MG CAPSULE (FP) PO ONE (16:00)
[2017-12-14] MEDS ORDERED: BACLOFEN 10 MG TABLET (FP) PO ONE (22:00)
[2017-12-14] MEDS: THIAMINE HCL 100 MG TABLET (FP) PO SCH (22:34)
[2017-12-14] MEDS: traZODone HCL 100 MG TABLET (FP) PO SCH (22:35)
[2017-12-15] MEDS: GABAPENTIN 300 MG CAPSULE (FP) PO SCH ×3 (06:37→22:00)
[2017-12-15] MEDS ORDERED: METHADONE HCL 10 MG TABLET (FOR DETOX USE ONLY) PO SCH (10:00)
[2017-12-15] MEDS ORDERED: diazePAM 5 MG TABLET PO SCH (10:00)
[2017-12-15] MEDS: PRENATAL VITAMINS W/ FOLIC ACID TABLET (FP) PO SCH (10:27)
[2017-12-15] MEDS: NICOTINE 21 MG/24 HOURS TOPICAL PATCH TD SCH (10:28)
--- NOTE | 2017-12-15 14:05 | PN ---
BHS Progress Note (SOAP) Subjective: feeling better less anxiousness no tremor less sweat restlessness Objective: 12/15/17 14:07 Vital Signs Temperature 97.3 F L 12/15/17 13:35 Pulse Rate 78 12/15/17 13:35 Respiratory Rate 18 12/15/17 13:35 Blood Pressure 113/63 12/15/17 13:35 O2 Sat by Pulse Oximetry (%) Laboratory Last Values WBC 5.0 K/mm3 (4.0-10.0) 12/12/17 07:40 RBC 4.70 M/mm3 (4.00-5.60) 12/12/17 07:40 Hgb 13.7 GM/dL (11.7-16.9) 12/12/17 07:40 Hct 39.7 % (35.4-49) 12/12/17 07:40 MCV 84.3 fl (80-96) 12/12/17 07:40 MCH 29.1 pg (25.7-33.7) 12/12/17 07:40 MCHC 34.5 g/dl (32.0-35.9) 12/12/17 07:40 RDW 13.0 % (11.9-15.9) 12/12/17 07:40 Plt Count 333 K/MM3 (134-434) 12/12/17 07:40 MPV 8.4 fl (7.5-11.1) 12/12/17 07:40 Sodium 142 mmol/L (136-145) 12/12/17 07:40 Potassium 4.2 mmol/L (3.5-5.1) 12/12/17 07:40 Chloride 107 mmol/L (98-107) 12/12/17 07:40 Carbon Dioxide 27 mmol/L (21-32) 12/12/17 07:40 Anion Gap 7 MMOL/L (8-16) L 12/12/17 07:40 BUN 12 mg/dL (7-18) 12/12/17 07:40 Creatinine 0.8 mg/dL (0.55-1.3) 12/12/17 07:40 Creat Clearance w eGFR > 60 (>60) 12/12/17 07:40 Random Glucose 82 mg/dL (74-106) 12/12/17 07:40 Calcium 8.6 mg/dL (8.5-10.1) 12/12/17 07:40 Total Bilirubin 0.6 mg/dL (0.2-1) 12/12/17 07:40 AST 34 U/L (15-37) 12/12/17 07:40 ALT 66 U/L (13-61) H 12/12/17 07:40 Alkaline Phosphatase 67 U/L (45-117) 12/12/17 07:40 Total Protein 6.5 g/dl (6.4-8.2) 12/12/17 07:40 Albumin 3.2 g/dl (3.4-5.0) L 12/12/17 07:40 Urine Color Yellow 12/11/17 23:00 Urine Appearance Clear 12/11/17 23:00 Urine pH 5.0 (5.0-8.0) 12/11/17 23:00 Ur Specific [place] 1.024 (1.010-1.035) 12/11/17 23:00 Urine Protein Negative (NEGATIVE) 12/11/17 23:00 Urine Glucose (UA) Negative (NEGATIVE) 12/11/17 23:00 Urine Ketones Negative (NEGATIVE) 12/11/17 23:00 Urine Blood Negative (NEGATIVE) 12/11/17 23:00 Urine Nitrite Negative (NEGATIVE) 12/11/17 23:00 Urine Bilirubin Negative (<2.0 mg/dL) 12/11/17 23:00 Urine Urobilinogen 2.0 mg/dL (0.2-1.0) 12/11/17 23:00 Ur Leukocyte Esterase Negative (NEGATIVE) 12/11/17 23:00 RPR Titer Nonreactive (NONREACTIVE) 12/12/17 07:40 lab noted Assessment: 12/15/17 14:07 mild withdrawal sx Plan: medically supervised detox
[2017-12-15] MEDS ORDERED: QUEtiapine FUMARATE 100 MG TABLET (FP) PO STA (14:43)
--- NOTE | 2017-12-15 14:48 | PN ---
Psychiatric Progress Note Vital Signs: Vital Signs Period Temp Pulse Resp BP Sys/Avilez Pulse Ox Last 24 Hr 96.4 F-98.1 F 66-78 16-18 109-129/54-73 Date of Session: 12/15/17 Chief Complaint:: Agitation, irritability HPI: Patient reports ansiety and irritability as soon as Valium ws tapered as per detox protocol, asking for medication help Current Medications: Active Medications Generic Name Dose Route Start Last Admin Trade Name Freq PRN Reason Stop Dose Admin Acetaminophen 650 mg 12/11/17 10:23 Tylenol - PO Q4H PRN FEVER Al Hydroxide/Mg Hydroxide 30 ml 12/11/17 10:23 Mylanta Oral Suspension - PO Q6H PRN DYSPEPSIA Eucalyptus/Menthol/Phenol/Sorbitol 1 each 12/11/17 10:23 Cepastat Lozenge - MM Q4H PRN SORE THROAT Gabapentin 600 mg 12/12/17 09:00 12/15/17 13:12 Neurontin - PO 600 mg TID MICHAEL Administration Guaifenesin 10 ml 12/11/17 10:23 Robitussin Dm - PO Q6H PRN COUGH Hydroxyzine Pamoate 50 mg 12/15/17 14:02 Vistaril - PO 12/15/17 14:03 ONCE ONE Ibuprofen 400 mg 12/11/17 10:23 12/12/17 22:14 Motrin - PO 400 mg Q6H PRN Administration PAIN LEVEL 4-6 Loperamide HCl 4 mg 12/11/17 10:23 12/13/17 12:37 Imodium - PO 4 mg Q6H PRN Administration DIARRHEA Magnesium Citrate 300 ml 12/11/17 10:23 Citroma - PO Q48H PRN CONSTIPATION Magnesium Hydroxide 30 ml 12/11/17 10:23 Milk Of Magnesia - PO DAILY PRN CONSTIPATION Melatonin 5 mg 12/11/17 22:00 12/11/17 22:34 Melatonin PO 5 mg HS PRN Administration INSOMNIA Methadone HCl 5 mg 12/16/17 06:00 Dolophine - PO 12/16/17 06:01 DAILY@0600 MICHAEL Nicotine 21 mg 12/11/17 10:30 12/15/17 10:28 Nicoderm Patch - TD 21 mg DAILY MICHAEL Administration Nicotine Polacrilex 2 mg 12/11/17 10:23 Nicorette Gum - BUC Q2H PRN NICOTINE REPLACEMENT RX Multivit/Folic Acid/Iron 1 tab 12/12/17 10:00 12/15/17 10:27 Vitamins (Sjr) - PO 1 tab DAILY MICHAEL Administration Pseudoephedrine/Triprolidine 1 combo 12/11/17 10:23 Actifed - PO TID PRN NASAL CONGESTION Thiamine HCl 100 mg 12/11/17 22:00 12/14/17 22:34 Vitamin B1 - PO 100 mg HS MICHAEL Administration Trazodone HCl 100 mg 12/12/17 22:00 12/14/17 22:35 Desyrel - PO 100 mg HS MICHAEL Administration Medication(s) Change(s): Seroquel 100mg po bid. Seroquel 100mg po stat Mental Status Exam - Mental Status Exam Alert and Oriented to: Person Cognitive Function: Fair Patient Appearance: Unkempt Mood: Anxious, Irritable Affect: Mood Congruent Patient Behavior: Cooperative, Agitated Speech Pattern: Delayed Voice Loudness: Mildly Soft/Quiet Thought Process: Goal Oriented Thought Disorder: Being Controlled Hallucinations: Denies Suicidal Ideation: Denies Homicidal Ideation: Denies Insight/Judgement: Fair Sleep: Difficulty falling asleep Appetite: Fair Muscle strength/Tone: Normal Gait/Station: Shuffling Additional Comments: Seroquel 100mg po bid. Seroquel 100mg po stat Psychiatric Treatment Plan - Problem List (1) Alcohol dependence with uncomplicated intoxication Current Visit: Yes (2) Nicotine dependence Current Visit: Yes Qualifiers: Nicotine product type: cigarettes Substance use status: in withdrawal Qualified Code(s): F17.213 - Nicotine dependence, cigarettes, with withdrawal (3) Opioid dependence with withdrawal Current Visit: Yes (4) Uncomplicated sedative, hypnotic or anxiolytic withdrawal Current Visit: Yes (5) Weight loss Current Visit: Yes (6) Cocaine dependence Current Visit: Yes Qualifiers: Substance use status: uncomplicated Qualified Code(s): F14.20 - Cocaine dependence, uncomplicated (7) Drug-induced mood disorder Current Visit: Yes (8) Cellulitis of forearm, right Current Visit: No (9) Anxiety and depression Current Visit: No (10) Atopic dermatitis, mild Current Visit: No Initial treatment plan: Seroquel 100mg po bid. Seroquel 100mg po stat
[2017-12-15] MEDS ORDERED: hydrOXYzine PAMOATE 50 MG CAPSULE (FP) PO ONE (14:50)
[2017-12-15] MEDS: LOPERAMIDE HCL 2 MG CAPSULE PO PRN (20:29)
[2017-12-15] MEDS ORDERED: QUEtiapine FUMARATE 100 MG TABLET (FP) PO SCH (22:00)
[2017-12-15] MEDS: traZODone HCL 100 MG TABLET (FP) PO SCH (22:00)
[2017-12-15] MEDS: THIAMINE HCL 100 MG TABLET (FP) PO SCH (22:00)
[2017-12-16] MEDS: GABAPENTIN 300 MG CAPSULE (FP) PO SCH (05:46)
[2017-12-16] MEDS ORDERED: METHADONE HCL 5 MG TABLET (FOR DETOX USE ONLY) PO SCH (06:00)
[2017-12-16 06:27] VITALS: BP 109/62; PULSE 84; TEMP 99.7
[2017-12-16] MEDS ORDERED: BISMUTH SUBSALICYLATE 262 MG/15 ML BTL PO ONE (06:30)
--- NOTE | 2017-12-16 08:37 | DS ---
[facility] Detox Discharge Summary Admission Date: 12/11/17 Discharge Date: 12/16/17 - History Present History: Alcohol Dependence, Cocaine Dependence, Opioid Dependence, Sedative Dependence - Physical Exam Results Vital Signs: Vital Signs Temperature 99.7 F H 12/16/17 06:00 Pulse Rate 84 12/16/17 06:00 Respiratory Rate 18 12/16/17 06:00 Blood Pressure 109/62 12/16/17 06:00 O2 Sat by Pulse Oximetry (%) - Treatment Hospital Course: Detox Protocol Followed, Detoxed Safely, Responded well, Discharged Condition Good, Rehab Referral Accepted - Medication Discharge Medications: Ambulatory Orders Gabapentin [Neurontin -] 600 mg PO TID #90 capsule 12/12/17 traZODone HCL [Trazodone HCl] 100 mg PO DAILY #30 tablet 12/12/17 Quetiapine Fumarate [Seroquel] 100 mg PO BID #60 tablet 12/15/17 - Diagnosis (1) Alcohol dependence with uncomplicated intoxication Current Visit: Yes Status: Chronic (2) Nicotine dependence Current Visit: Yes Status: Chronic Qualifiers: Nicotine product type: cigarettes Substance use status: uncomplicated Qualified Code(s): F17.210 - Nicotine dependence, cigarettes, uncomplicated (3) Opioid dependence with withdrawal Current Visit: Yes Status: Chronic (4) 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 Current Visit: Yes Status: Acute (5) Uncomplicated sedative, hypnotic or anxiolytic withdrawal Current Visit: Yes Status: Chronic (6) Weight loss Current Visit: Yes Status: Chronic (7) Cocaine dependence Current Visit: Yes Status: Chronic Qualifiers: Substance use status: uncomplicated Qualified Code(s): F14.20 - Cocaine dependence, uncomplicated (8) Drug-induced mood disorder Current Visit: Yes Status: Suspected (9) Cellulitis of forearm, right Current Visit: No Status: Acute (10) Contact dermatitis Current Visit: Yes Status: Chronic (11) Anxiety and depression Current Visit: Yes Status: Chronic (12) Atopic dermatitis, mild Current Visit: Yes Status: Chronic - AMA Did Patient Leave Against Medical Advice: No
[2017-12-16] MEDS ORDERED: BISMUTH SUBSALICYLATE 262 MG/15 ML BTL PO SCH (10:00)
== END 2017-12-16 09:23 | disposition home or self-care (01) | DRG 773 ==
LOC: YASAS 08:47 → Y6N 10:51
PROC: HZ2ZZZZ Detoxification Services for Substance Abuse Treatment (ICD-10-PCS; principal; 2017-12-11)
DX: F11.23 Opioid dependence with withdrawal (principal); F13.230 Sedative, hypnotic or anxiolytic dependence with withdrawal, uncomplicated; F10.230 Alcohol dependence with withdrawal, uncomplicated; F14.20 Cocaine dependence, uncomplicated; F17.210 Nicotine dependence, cigarettes, uncomplicated; F19.24 Other psychoactive substance dependence with psychoactive substance-induced mood disorder; F41.8 Other specified anxiety disorders; F32.9 Major depressive disorder, single episode, unspecified; L03.113 Cellulitis of right upper limb; L20.9 Atopic dermatitis, unspecified; R63.4 Abnormal weight loss; Z68.24 Body mass index [BMI] 24.0-24.9, adult; Z88.0 Allergy status to penicillin
CPT/HCPCS: 36415; 80053; 81003; 85027; 86593; 93005; 93010; J0475

== ENCOUNTER 2018-01-30 11:01 | Inpatient (IN) | payer OTHER ==
[2018-01-30 11:30] VITALS: BMI 25.1
--- NOTE | 2018-01-30 13:55 | HP ---
COWS - Scale Resting Pulse: 0= ME 80 or Below Sweatin= Chills/Flushing Restless Observation: 3= Extraneous Movement Pupil Size: 1= Pupils >than Normal Bone or Joint Aches: 2= Severe Diffuse Aches Runny Nose/ Eye Tearin= Runny Nose/Eyes GI Upset > 30mins: 3= Vomiting/Diarrhea Tremor Observation: 2= Slight Tremor Visible Yawning Observation: 2= >3x During Session Anxiety or Irritability: 2=Irritable/Anxious Goose Flesh Skin: 0=Smooth Skin COWS Score: 18 CIWA Score Nausea/Vomitin Muscle Tremors: 2 Anxiety: 2 Agitation: 2 Paroxysmal Sweats: 1-Minimal Palms Moist Orientation: 0-Oriented Tacttile Disturbances: 1-Very Mild Itch/Numbness Auditory Disturbances: 1-Very Mild Visual Disturbances: 0-None Headache: 2-Mild CIWA-Ar Total Score: 13 - Admission Criteria OASAS Guidelines: Admission for Medically Managed Detox: Requires at least one of the followin. CIWA greater than 12 2. Seizures within the past 24 hours 3. Delirium tremens within the past 24 hours 4. Hallucinations within the past 24 hours 5. Acute intervention needed for co occurring medical disorder 6. Acute intervention needed for co occurring psychiatric disorder 7. Severe withdrawal that cannot be handled at a lower level of care (continued vomiting, continued diarrhea, abnormal vital signs) requiring intravenous medication and/or fluids 8. Patient presents the following: CIWA greater than 12 Admission Criteria Met: Admission criteria met Admission ROS [facility] - HPI Chief Complaint: i need help to stop using heroin,alcohol,xanax Allergies/Adverse Reactions: Allergies Allergy/AdvReac Type Severity Reaction Status Date / Time Penicillins Allergy Severe Rash Verified 01/30/18 13:21 History of Present Illness: this 32 years old male with heroin,alcohol and xanax dependence seeking detox, withdrawal symptom,,last detox [facility] 12/11/17 to 12/16/17 nicotine dependence weight loss multiple admissions for detox but keep relapsing maY go to rehab after detox Exam Limitations: No Limitations - Ebola screening Have you traveled outside of the country in the last 21 days: No (N) Have you had contact with anyone from an Ebola affected area: No Have you been sick,other than usual withdrawal symptoms: No Do you have a fever: No - Review of Systems Constitutional: See HPI, Chills, Loss of Appetite, Night Sweats, Changes in sleep, Weakness, Unintentional Wgt. Loss EENT: reports: Tearing, Nose Congestion Respiratory: reports: No Symptoms reported GI: reports: Diarrhea, Nausea, Vomiting, Abdominal cramping : reports: No Symptoms Reported Musculoskeletal: reports: Back Pain, Joint Pain, Muscle Pain, Joint Stiffness Integumentary: reports: Dryness Neuro: reports: Tremors Endocrine: reports: No Symptoms Reported Hematology: reports: No Symptoms Reported Psychiatric: reports: No Sypmtoms Reported, Judgement Intact, Mood/Affect Appropiate, Orientated x3, Anxious, Depressed Patient History - Patient Medical History Hx Anemia: No Hx Asthma: No Hx Chronic Obstructive Pulmonary Disease (COPD): No Hx Cancer: No Hx Cardiac Disorders: No Hx Congestive Heart Failure: No Hx Hypertension: No Hx Hypercholesterolemia: No Hx Pacemaker: No HX Cerebrovascular Accident: No Hx Seizures: No Hx Dementia: No Hx Diabetes: No Hx Gastrointestinal Disorders: No Hx Liver Disease: No Hx Genitourinary Disorders: No Hx Sexually Transmitted Disorders: No Hx Renal Disease (ESRD): No Hx Thyroid Disease: No Hx Human Immunodeficiency Virus (HIV): No (last 08/24 negative) Hx Hepatitis C: No Hx Depression: Yes (no medication) Hx Suicide Attempt: No Hx Bipolar Disorder: No Hx Schizophrenia: No Other Medical History: no suicidal,no homicidal - Patient Surgical History Past Surgical History: No Hx Neurologic Surgery: No Hx Cataract Extraction: No Hx Cardiac Surgery: No Hx Lung Surgery: No Hx Breast Surgery: No Hx Breast Biopsy: No Hx Abdominal Surgery: No Hx Appendectomy: No Hx Cholecystectomy: No Hx Genitourinary Surgery: No Hx Section: No Hx Orthopedic Surgery: No Other Surgical History: circumcission at age of 7 years Anesthesia Reaction: No - PPD History Previous Implant?: Yes Documented Results: Negative w/proof Implanted On Prior R Admission?: Yes Date: 12/13/17 Results: 0 mm PPD to be Administered?: No - Smoking Cessation Smoking history: Current every day smoker Have you smoked in the past 12 months: Yes Aproximately how many cigarettes per day: 20 Cigars Per Day: 0 Hx Chewing Tobacco Use: No Initiated information on smoking cessation: Yes 'Breaking Loose' booklet given: 01/30/18 - Substance & Tx. History Hx Alcohol Use: Yes Hx Substance Use: Yes Substance Use Type: Alcohol, Cocaine, Heroin, Tranquilizers Hx Substance Use Treatment: Yes ([facility] 12/11/17 to 12/16/17) - Substances Abused Heroin Route: Injection Frequency: Daily Amount used: 20 bags Age of first use: 16 Date of Last Use: 01/29/18 Cocaine Route: Injection Frequency: Daily Amount used: $20-30 Age of first use: 16 Date of Last Use: 01/29/18 Alcohol-vodka/beer Route: Oral Frequency: Daily Amount used: 4 pts./1-2 6 pks. Age of first use: 12 Date of Last Use: 01/29/18 Xanax or Klonopin Route: Oral Frequency: Daily Amount used: 10 mg./5-10 mg. Age of first use: 26 Date of Last Use: 01/29/18 Family Disease History - Family Disease History Family Disease History: Diabetes: Mother Admission Physical Exam S - Vital Signs Vital Signs: Vital Signs - 24 hr 01/30/18 11:26 Temperature 96.1 F L Pulse Rate 71 Respiratory 20 Rate Blood Pressure 134/79 - Physical General Appearance: Yes: Moderate Distress, Tremorous, Irritable, Sweating, Anxious HEENTM: Yes: Normal ENT Inspection, NAVDEEP, Pharynx Normal Respiratory: Yes: Lungs Clear, Normal Breath Sounds, No Respiratory Distress Neck: Yes: Within Normal Limits, Supple, Trachea in good position Breast: Yes: Within Normal Limits Cardiology: Yes: Within Normal Limits, Regular Rhythm, Regular Rate, S1, S2 Abdominal: Yes: Within Normal Limits, Normal Bowel Sounds, Non Tender, Flat, Soft Genitourinary: Yes: Within Normal Limits Back: Yes: Within Normal Limits, Normal Inspection, Muscle Spasm Musculoskeletal: Yes: Back pain, Joint Stiffness, Muscle Pain Extremities: Yes: Within Normal Limits, Tremors Neurological: Yes: rn heart II-XII NML intact, Alert, Motor Strength 5/5 Integumentary: Yes: Dry Lymphatic: Yes: Within Normal Limits - Diagnostic (1) Opioid dependence with withdrawal Current Visit: No Status: Chronic (2) 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 Current Visit: No Status: Acute (3) Alcohol dependence with uncomplicated intoxication Current Visit: No Status: Chronic (4) Nicotine dependence Current Visit: No Status: Chronic Qualifiers: Nicotine product type: cigarettes Substance use status: uncomplicated Qualified Code(s): F17.210 - Nicotine dependence, cigarettes, uncomplicated (5) Weight loss Current Visit: No Status: Chronic (6) Uncomplicated sedative, hypnotic or anxiolytic withdrawal Current Visit: Yes Status: Acute (7) Insomnia Current Visit: Yes Status: Acute Cleared for Admission [facility] - Detox or Rehab [facility] Level of Care: Medically Managed Detox Regimen/Protocol: Methadone/Valium S Breath Alcohol Content Breath Alcohol Content: 0 Urine Drug Screen - Results Drug Screen Negative: No Urine Drug Screen Results: JANETT-Cocaine, OPI-Opiates, MTD-Methadone, FEN-Fentanyl
[2018-01-30] MEDS ORDERED: P-EPHED 60MG/TRIPROLIDI 2.5MG TABLET PO PRN (14:12)
[2018-01-30] MEDS ORDERED: MAGNESIUM CITRATE 300 ML BOTTLE PO PRN (14:12)
[2018-01-30] MEDS ORDERED: NICOTINE POLACRILEX 2 MG GUM BUC PRN (14:12)
[2018-01-30] MEDS ORDERED: MENTHOL/PHENOL 1 EACH UD MM PRN (14:12)
[2018-01-30] MEDS ORDERED: ACETAMINOPHEN 325 MG TABLET (FP) PO PRN (14:12)
[2018-01-30] MEDS ORDERED: MAGNESIUM HYDROX 2400MG/30ML ORAL SUSPENSION 30 ML CUP PO PRN (14:12)
[2018-01-30] MEDS ORDERED: MAG HYDROX/AL HYDROX/SIMETH 30 ML UNIT-DOSE CUP PO PRN (14:12)
[2018-01-30] MEDS ORDERED: guaiFENesin/D-METHORPHAN HB 10 ML UNIT-DOSE CUPS PO PRN (14:12)
[2018-01-30] MEDS ORDERED: diazePAM 5 MG TABLET PO ONE (14:45)
[2018-01-30] MEDS ORDERED: METHADONE HCL 10 MG TABLET (FOR DETOX USE ONLY) PO ONE ×2 (14:50→23:00)
[2018-01-30] MEDS: NICOTINE 21 MG/24 HOURS TOPICAL PATCH TD SCH (15:11)
[2018-01-30] MEDS: LOPERAMIDE HCL 2 MG CAPSULE PO PRN (15:43)
[2018-01-30] MEDS: CYCLOBENZAPRINE HCL 10 MG TABLET (FP) PO PRN ×2 (16:36→22:18)
[2018-01-30] MEDS: IBUPROFEN 400 MG TABLET (FP) PO PRN (16:36)
[2018-01-30] MEDS: diazePAM 5 MG TABLET PO PRN (19:36)
[2018-01-30] MEDS: diazePAM 5 MG TABLET PO SCH (22:18)
[2018-01-30] MEDS: cloNIDine HCL 0.1 MG TABLET PO SCH (22:18)
[2018-01-30] MEDS: THIAMINE HCL 100 MG TABLET (FP) PO SCH (22:18)
[2018-01-31] MEDS: diazePAM 5 MG TABLET PO SCH ×3 (06:09→22:27)
[2018-01-31] MEDS: diazePAM 5 MG TABLET PO PRN ×3 (08:38→19:35)
[2018-01-31] MEDS ORDERED: METHADONE HCL 10 MG TABLET (FOR DETOX USE ONLY) PO SCH (10:00)
[2018-01-31] MEDS: cloNIDine HCL 0.1 MG TABLET PO SCH ×2 (10:10→22:27)
[2018-01-31] MEDS: PRENATAL VITAMINS W/ FOLIC ACID TABLET (FP) PO SCH (10:10)
[2018-01-31] MEDS: NICOTINE 21 MG/24 HOURS TOPICAL PATCH TD SCH (10:11)
[2018-01-31] MEDS ORDERED: ONDANSETRON *ODT* 4 MG TABLET SL PRN (10:33)
--- NOTE | 2018-01-31 11:53 | PN ---
S CIWA - CIWA Score Nausea/Vomitin Muscle Tremors: 4-Moderate,w/Arms Extend Anxiety: 4-Mod. Anxious/Guarded Agitation: 4-Moderately Restless Paroxysmal Sweats: 3 Orientation: 0-Oriented Tacttile Disturbances: 0-None Auditory Disturbances: 0-None Visual Disturbances: 0-None Headache: 1-Very Mild CIWA-Ar Total Score: 18 BHS COWS - Scale Resting Pulse: 0= [place] 80 or Below Sweatin=Flushed/Facial Moisture Restless Observation: 3= Extraneous Movement Pupil Size: 1= Pupils >than Normal Bone or Joint Aches: 2= Severe Diffuse Aches Runny Nose/ Eye Tearin= Runny Nose/Eyes GI Upset > 30mins: 3= Vomiting/Diarrhea Tremor Observation of Outstretched Hands: 2= Slight Tremor Visible Yawning Observation: 0= None Anxiety or Irritability: 2=Irritable/Anxious Goose Flesh Skin: 0=Smooth Skin COWS Score: 17 BHS Progress Note (SOAP) Subjective: Chills, diarrhea, poor appetite, sweating, headache, stomach ache, interrupted sleep Objective: 01/31/18 11:51 Last Vital Signs Temp Pulse Resp BP Pulse Ox 98.5 F 64 18 125/75 01/31/18 09:08 01/31/18 09:08 01/31/18 09:08 01/31/18 09:08 Labs from 12/2017 reviewed, will order CBC, CMP, UA in AM as last lab work > 1month Assessment: 01/31/18 11:53 Withdrawal symptoms Plan: Continue detox Encouraged PO water intake Admission labs in AM: CBC, CMP, UA in AM
[2018-01-31] MEDS: THIAMINE HCL 100 MG TABLET (FP) PO SCH (22:27)
[2018-01-31] MEDS: CYCLOBENZAPRINE HCL 10 MG TABLET (FP) PO PRN (22:27)
[2018-02-01] MEDS: diazePAM 5 MG TABLET PO PRN ×4 (01:53→16:55)
[2018-02-01] MEDS: diazePAM 5 MG TABLET PO SCH ×2 (10:34→22:06)
[2018-02-01] MEDS: METHADONE HCL 5 MG TABLET (FOR DETOX USE ONLY) PO SCH (10:34)
[2018-02-01] MEDS: NICOTINE 21 MG/24 HOURS TOPICAL PATCH TD SCH (10:35)
[2018-02-01] MEDS: cloNIDine HCL 0.1 MG TABLET PO SCH ×2 (10:35→22:09)
[2018-02-01] MEDS: PRENATAL VITAMINS W/ FOLIC ACID TABLET (FP) PO SCH (10:35)
--- NOTE | 2018-02-01 12:36 | CONSULT ---
[facility] Psychiatric Consult - Data Date of interview: 02/01/18 Admission source: [facility] Identifying data: This is one of multiple admissions to [facility] for this 32 y/ o male seeking detoxification treatment, on , for heroin, xanax , cannabis, alcohol and cocaine dependence. Patient is single, a father of one, domiciled, unemployed and deprived of income. Substance Abuse History: Confirmed by the patient in this session. Details in current [facility] report : Smoking history: Current every day smoker. Have you smoked in the past 12 months: Yes. Aproximately how many cigarettes per day: 20. Cigars Per Day: 0. Hx Chewing Tobacco Use: No. Initiated information on smoking cessation: Yes. 'Breaking Loose' booklet given: 01/30/18. - Substance & Tx. History. Hx Alcohol Use: Yes. Hx Substance Use: Yes. Substance Use Type : Alcohol, Cocaine, Heroin, Tranquilizers. Hx Substance Use Treatment: Yes ( [facility] 12/11/17 to 12/16/17). - Substances Abused. Heroin. Route: Injection. Frequency: Daily. Amount used: 20 bags. Age of first use: 16. Date of Last Use: 01/29/18. Cocaine. Route: Injection. Frequency: Daily. Amount used: $20-30. Age of first use: 16. Date of Last Use: 01/29/18. Alcohol-vodka/beer. Route: Oral. Frequency: Daily. Amount used: 4 pts./1-2 6 pks. Age of first use: 12. Date of Last Use: 01/29/18. Xanax or Klonopin. Route: Oral. Frequency: Daily. Amount used: 10 mg./5-10 mg. Age of first use: 26. Date of Last Use: 01/29/18 Medical History: Patient denies medical problems. Psychiatric History: Patient admits to a history of one, brief psychiatric hospitalization, at [facility]. " It was in 2017 or 2016, I am not too sure. I was under arrest and I said that I wanted to kill myself. So the project mgr took me to [facility] where they kept me for 3 days ". Diagnosed with Anxiety Disorder. Was discharged on sertraline + gabapentin at the time. Never followed up with [facility] care. Mr Atwood denies history of suicide attempts. Physical/Sexual Abuse/Trauma History: Patient denies. Additional Comment: Urine Drug Screen Results: JANETT-Cocaine, OPI-Opiates, MTD- Methadone, FEN-Fentanyl. Noted. Mental Status Exam - Mental Status Exam Alert and Oriented to: Time, Place, Person Cognitive Function: Good Patient Appearance: Unkempt, Disheveled Mood: Nervous, Withdrawn, Anxious Affect: Mood Congruent, Constricted Patient Behavior: Fatigued, Cooperative Speech Pattern: Clear, Appropriate Voice Loudness: Normal Thought Process: Goal Oriented Thought Disorder: Not Present Hallucinations: Denies Suicidal Ideation: Denies Homicidal Ideation: Denies Insight/Judgement: Poor Sleep: Poorly, Difficulty falling asleep Appetite: Good Muscle strength/Tone: Normal Gait/Station: Normal Psychiatric Findings - Problem List ([place] 1, 2,3) (1) Alcohol dependence Current Visit: Yes Status: Chronic (2) Opioid dependence with withdrawal Current Visit: Yes Status: Acute (3) Uncomplicated sedative, hypnotic or anxiolytic withdrawal Current Visit: Yes Status: Acute (4) Cocaine dependence Current Visit: Yes Status: Chronic Qualifiers: Substance use status: uncomplicated Qualified Code(s): F14.20 - Cocaine dependence, uncomplicated (5) Nicotine dependence Current Visit: Yes Status: Chronic Qualifiers: Nicotine product type: cigarettes Substance use status: uncomplicated Qualified Code(s): F17.210 - Nicotine dependence, cigarettes, uncomplicated (6) Drug-induced mood disorder Current Visit: Yes Status: Chronic (7) Insomnia Current Visit: Yes Status: Chronic Qualifiers: Insomnia type: unspecified Qualified Code(s): G47.00 - Insomnia, unspecified (8) Non-compliance Current Visit: Yes Status: Chronic - Initial Treatment Plan Initial Treatment Plan: Psychoeducation. Sleep hygiene. Detoxification. Seroquel 100 mg po hs at patient's request. Side effects/benefits discussed with the patient. Mr Atwood is in agreement with this careplan. AA/NA meetings. Motivational rounds to promote sobriety. Observation.
--- NOTE | 2018-02-01 13:15 | PN ---
[facility] CIWA - CIWA Score Nausea/Vomitin-No Nausea/No Vomiting Muscle Tremors: None Anxiety: 4-Mod. Anxious/Guarded Agitation: 2 Paroxysmal Sweats: 3 Orientation: 0-Oriented Tacttile Disturbances: 2-Mild Itch/Numbness/Burn Auditory Disturbances: 0-None Visual Disturbances: 2-Mild Sensitivity Headache: 0-None Present CIWA-Ar Total Score: 13 S COWS - Scale Resting Pulse: 0= [place] 80 or Below Sweatin=Flushed/Facial Moisture Restless Observation: 1= Difficult to Sit Still Pupil Size: 0= Normal to Room Light Bone or Joint Aches: 2= Severe Diffuse Aches Runny Nose/ Eye Tearin= None GI Upset > 30mins: 0= None Tremor Observation of Outstretched Hands: 0= None Yawning Observation: 1= 1-2x During Session Anxiety or Irritability: 2=Irritable/Anxious Goose Flesh Skin: 0=Smooth Skin COWS Score: 8 S Progress Note (SOAP) Subjective: Body Aches, Fatigue, Sweating, Anxious. Objective: PATIENT A & O X 3. NO ACUTE DISTRESS. Vital Signs Temperature 96.6 F L 02/01/18 10:07 Pulse Rate 65 02/01/18 10:07 Respiratory Rate 18 02/01/18 10:07 Blood Pressure 116/76 02/01/18 10:07 O2 Sat by Pulse Oximetry (%) UA RESULTS PENDING. PATIENT REFUSED TO HAVE OTHER ADMISSION LABS DRAWN. Assessment: 02/01/18 13:22 WITHDRAWAL SYMPTOMS. Plan: CONTINUE DETOX.
[2018-02-01] MEDS: IBUPROFEN 400 MG TABLET (FP) PO PRN (14:24)
[2018-02-01 18:34] LABS: URINE APPEARANCE CLEAR; URINE BILIRUBIN NEGATIVE (<2.0 mg/dL); URINE COLOR YELLOW; URINE GLUCOSE (UA) NEGATIVE (NEGATIVE); URINE KETONE NEGATIVE (NEGATIVE); URINE LEUK ESTERASE NEGATIVE (NEGATIVE); URINE NITRITE NEGATIVE (NEGATIVE); URINE PROTEIN NEGATIVE (NEGATIVE); URINE UROBILINOGEN NEGATIVE mg/dL (0.2-1.0)
[2018-02-01] MEDS: QUEtiapine FUMARATE 100 MG TABLET (FP) PO SCH (22:06)
[2018-02-01] MEDS: THIAMINE HCL 100 MG TABLET (FP) PO SCH (22:06)
[2018-02-01] MEDS: MELATONIN 5 MG TABLETS PO PRN (22:07)
[2018-02-01] MEDS: CYCLOBENZAPRINE HCL 10 MG TABLET (FP) PO PRN (22:07)
[2018-02-02] MEDS: diazePAM 5 MG TABLET PO PRN ×3 (02:49→12:37)
[2018-02-02] MEDS: PRENATAL VITAMINS W/ FOLIC ACID TABLET (FP) PO SCH (10:04)
[2018-02-02] MEDS: diazePAM 5 MG TABLET PO SCH ×2 (10:05→22:10)
[2018-02-02] MEDS: METHADONE HCL 5 MG TABLET (FOR DETOX USE ONLY) PO SCH (10:05)
[2018-02-02] MEDS: NICOTINE 21 MG/24 HOURS TOPICAL PATCH TD SCH (10:06)
[2018-02-02] MEDS: cloNIDine HCL 0.1 MG TABLET PO SCH ×2 (10:06→22:10)
--- NOTE | 2018-02-02 11:10 | PN ---
S Progress Note Note: PATIENT CONTINUES WITH DETOX REGIMEN. C/O NAUSEA/DIARRHEA, CHILLS AND NIGHT SWEATS. Vital Signs Temperature 97.1 F L 02/02/18 06:04 Pulse Rate 61 02/02/18 08:58 Respiratory Rate 18 02/02/18 08:58 Blood Pressure 106/66 02/02/18 08:58 O2 Sat by Pulse Oximetry (%) Laboratory Tests 02/01/18 13:00 Urine Color Yellow Urine Appearance Clear Urine pH 8.0 D Ur Specific [place] 1.013 Urine Protein Negative Urine Glucose (UA) Negative Urine Ketones Negative Urine Blood Negative Urine Nitrite Negative Urine Bilirubin Negative Urine Urobilinogen Negative Ur Leukocyte Esterase Negative PE: SKIN: WARM AND DRY ALERT AND ORIENTED X 3 EXT FULL ROM, NO EDEMA AMB AD AUDI + RESTLESSNESS A/P WITHDRAWAL SX CONTINUE DETOX ENCOURAGE ORAL FLUIDS ZOFRAN CONTINUED NEEDED NAUSEA CONTINUE TO MONITOR CLINICALLY
[2018-02-02] MEDS: IBUPROFEN 400 MG TABLET (FP) PO PRN ×2 (11:13→22:12)
[2018-02-02] MEDS: CYCLOBENZAPRINE HCL 10 MG TABLET (FP) PO PRN ×2 (13:24→22:11)
[2018-02-02] MEDS: GABAPENTIN 100 MG CAPSULE (FP) PO SCH ×2 (13:24→22:10)
[2018-02-02] MEDS: THIAMINE HCL 100 MG TABLET (FP) PO SCH (22:10)
[2018-02-02] MEDS: QUEtiapine FUMARATE 100 MG TABLET (FP) PO SCH (22:10)
[2018-02-02] MEDS: MELATONIN 5 MG TABLETS PO PRN (22:11)
[2018-02-03] MEDS: hydrOXYzine PAMOATE 50 MG CAPSULE (FP) PO PRN ×2 (05:57→15:42)
[2018-02-03] MEDS: CYCLOBENZAPRINE HCL 10 MG TABLET (FP) PO PRN (05:57)
[2018-02-03] MEDS: GABAPENTIN 100 MG CAPSULE (FP) PO SCH ×2 (05:57→14:19)
[2018-02-03] MEDS ORDERED: diazePAM 5 MG TABLET PO SCH (10:00)
[2018-02-03] MEDS ORDERED: METHADONE HCL 5 MG TABLET (FOR DETOX USE ONLY) PO ONE (10:00)
[2018-02-03] MEDS ORDERED: METHADONE HCL 10 MG TABLET (FOR DETOX USE ONLY) PO SCH (10:00)
[2018-02-03] MEDS: NICOTINE 21 MG/24 HOURS TOPICAL PATCH TD SCH (10:16)
[2018-02-03] MEDS: PRENATAL VITAMINS W/ FOLIC ACID TABLET (FP) PO SCH (10:16)
[2018-02-03] MEDS: cloNIDine HCL 0.1 MG TABLET PO SCH (10:16)
--- NOTE | 2018-02-03 11:08 | DS ---
[facility] Detox Discharge Summary Admission Date: 01/30/18 Discharge Date: 02/03/18 - History Present History: Alcohol Dependence, Cocaine Dependence, Opioid Dependence - Physical Exam Results Vital Signs: Vital Signs Temperature 97.2 F L 02/03/18 09:25 Pulse Rate 89 02/03/18 09:25 Respiratory Rate 16 02/03/18 09:25 Blood Pressure 108/70 02/03/18 09:25 O2 Sat by Pulse Oximetry (%) Pertinent Admission Physical Exam Findings: PATIENT TOLERATED DETOX REGIMEN AND ACCEPTED REHAB REFERRAL TO [facility] TODAY. PATIENT CLINICALLY STABLE AND DENIES SI/HI. PATIENT ALERT AND ORIENTED X 3. IN NAD. D/C INSTRUCTIONS PROVIDED TO PATIENT BY STAFF. - Treatment Hospital Course: Detox Protocol Followed, Detoxed Safely, Responded well, Discharged Condition Good, Rehab Referral Accepted Patient has Accepted a Rehab Referral to: [facility] - Medication Discharge Medications: Ambulatory Orders NK [No Known Home Medication] 01/30/18 - Diagnosis (1) Alcohol dependence with uncomplicated intoxication Current Visit: Yes Status: Resolved (2) Opioid dependence with withdrawal Current Visit: Yes Status: Resolved (3) Uncomplicated sedative, hypnotic or anxiolytic withdrawal Current Visit: Yes Status: Resolved - AMA Did Patient Leave Against Medical Advice: No
[2018-02-03 13:47] VITALS: BP 129/69; PULSE 74; TEMP 98.4
[2018-02-03] MEDS: LOPERAMIDE HCL 2 MG CAPSULE PO PRN (15:43)
[2018-02-04] MEDS ORDERED: METHADONE HCL 5 MG TABLET (FOR DETOX USE ONLY) PO SCH (06:00)
== END 2018-02-03 15:50 | disposition other institution (70) | DRG 773 ==
LOC: YASAS 11:01 → Y3N 14:00
PROC: HZ2ZZZZ Detoxification Services for Substance Abuse Treatment (ICD-10-PCS; principal; 2018-01-30)
DX: F11.23 Opioid dependence with withdrawal (principal); F10.220 Alcohol dependence with intoxication, uncomplicated; F13.230 Sedative, hypnotic or anxiolytic dependence with withdrawal, uncomplicated; F14.20 Cocaine dependence, uncomplicated; F17.210 Nicotine dependence, cigarettes, uncomplicated; F41.8 Other specified anxiety disorders; F19.24 Other psychoactive substance dependence with psychoactive substance-induced mood disorder; G47.00 Insomnia, unspecified; L90.5 Scar conditions and fibrosis of skin; Z91.19 Patient's noncompliance with other medical treatment and regimen; Z88.0 Allergy status to penicillin
CPT/HCPCS: 81003; J0735

== ENCOUNTER 2018-02-03 15:59 | Inpatient (IN) | payer OTHER ==
[2018-02-03 17:48] VITALS: BP 119/67; PULSE 70; TEMP 97.7
== END 2018-02-03 19:25 | disposition left against medical advice (07) | DRG 770 ==
LOC: YASAS 15:59 → Y3W 16:00
PROVIDERS: ADMIT Psychiatry & Neurology Psychiatry; ATTEND Psychiatry & Neurology Psychiatry
PROC: HZ42ZZZ Group Counseling for Substance Abuse Treatment, Cognitive-Behavioral (ICD-10-PCS; principal; 2018-02-03)
DX: F11.20 Opioid dependence, uncomplicated (principal); F10.20 Alcohol dependence, uncomplicated; F13.20 Sedative, hypnotic or anxiolytic dependence, uncomplicated; F14.20 Cocaine dependence, uncomplicated; F17.210 Nicotine dependence, cigarettes, uncomplicated; F19.24 Other psychoactive substance dependence with psychoactive substance-induced mood disorder; F19.282 Other psychoactive substance dependence with psychoactive substance-induced sleep disorder

== ENCOUNTER 2018-02-18 11:52 | Inpatient (IN) | payer OTHER ==
[2018-02-18 13:11] VITALS: BMI 25.7
--- NOTE | 2018-02-18 15:52 | HP ---
COWS - Scale Resting Pulse: 0= [place] 80 or Below Sweatin=Flushed/Facial Moisture Restless Observation: 1= Difficult to Sit Still Pupil Size: 0= Normal to Room Light Bone or Joint Aches: 2= Severe Diffuse Aches Runny Nose/ Eye Tearin= Runny Nose/Eyes GI Upset > 30mins: 2= Nausea/Diarrhea Tremor Observation: 2= Slight Tremor Visible Yawning Observation: 0= None Anxiety or Irritability: 2=Irritable/Anxious Goose Flesh Skin: 0=Smooth Skin COWS Score: 13 CIWA Score Nausea/Vomitin Muscle Tremors: 4-Moderate,w/Arms Extend Anxiety: 4-Mod. Anxious/Guarded Agitation: 1-Slight > Activity Paroxysmal Sweats: 3 Orientation: 0-Oriented Tacttile Disturbances: 0-None Auditory Disturbances: 0-None Visual Disturbances: 0-None Headache: 3-Moderate CIWA-Ar Total Score: 18 - Admission Criteria OASAS Guidelines: Admission for Medically Managed Detox: Requires at least one of the followin. CIWA greater than 12 2. Seizures within the past 24 hours 3. Delirium tremens within the past 24 hours 4. Hallucinations within the past 24 hours 5. Acute intervention needed for co occurring medical disorder 6. Acute intervention needed for co occurring psychiatric disorder 7. Severe withdrawal that cannot be handled at a lower level of care (continued vomiting, continued diarrhea, abnormal vital signs) requiring intravenous medication and/or fluids 8. Patient presents the following: CIWA greater than 12 Admission Criteria Met: Admission criteria met Admission ROS [facility] Allergies/Adverse Reactions: Allergies Allergy/AdvReac Type Severity Reaction Status Date / Time Penicillins Allergy Severe Rash Verified 02/18/18 20:28 History of Present Illness: patient here requesting detox from etoh use , opiate and benzo use , reports 3 pints/day since age 17 intermittently , longest sobriety 3-4 years while out of state in [place] and while incarcerated total 3 years , back in [place] since age 25 , prior detox at this facility .Reports tremors if not drinking , starts drinking after awakening . Reports 15 -20 bags/day IVDU in nain hands / UE , needles from the exchange , denies sharing , + re-using , no abscess , denies OD , heroin since age 16 ( from friends [employer] ) ,with minimal intermittent sobriety while incarcerated , used to be on Methadone or illicits Suboxone then. 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 PMHX : denies PSHx : denies Psych : denies Meds : denies Shx: lives w/ family . unemployed , supports habit through shoplifting . - Ebola screening Have you traveled outside of the country in the last 21 days: No (N) Have you had contact with anyone from an Ebola affected area: No Have you been sick,other than usual withdrawal symptoms: No Do you have a fever: No - Review of Systems Constitutional: See HPI EENT: reports: Other (denies vision problems , denies dysphagia) Respiratory: reports: No Symptoms reported Cardiac: reports: No Symptoms Reported GI: reports: See HPI : reports: No Symptoms Reported Musculoskeletal: reports: Muscle Pain Integumentary: reports: Other (track horne nain UE) Neuro: reports: See HPI Endocrine: reports: No Symptoms Reported Psychiatric: reports: Orientated x3, Anxious Patient History - Patient Medical History Hx Anemia: No Hx Asthma: No Hx Chronic Obstructive Pulmonary Disease (COPD): No Hx Cancer: No Hx Cardiac Disorders: No Hx Congestive Heart Failure: No Hx Hypertension: No Hx Hypercholesterolemia: No Hx Pacemaker: No HX Cerebrovascular Accident: No Hx Seizures: No Hx Dementia: No Hx Diabetes: No Hx Gastrointestinal Disorders: No Hx Liver Disease: No Hx Genitourinary Disorders: No Hx Sexually Transmitted Disorders: No Hx Renal Disease (ESRD): No Hx Thyroid Disease: No Hx Human Immunodeficiency Virus (HIV): No (last 08/24 negative) Hx Hepatitis C: No Hx Depression: Yes Hx Suicide Attempt: No Hx Bipolar Disorder: No Hx Schizophrenia: No - Patient Surgical History Past Surgical History: No Hx Neurologic Surgery: No Hx Cataract Extraction: No Hx Cardiac Surgery: No Hx Lung Surgery: No Hx Breast Surgery: No Hx Breast Biopsy: No Hx Abdominal Surgery: No Hx Appendectomy: No Hx Cholecystectomy: No Hx Genitourinary Surgery: No Hx Section: No Hx Orthopedic Surgery: No Other Surgical History: circumcission at age of 7 years Anesthesia Reaction: No - PPD History Date: 12/13/17 Results: 0 mm - Smoking Cessation Smoking history: Current every day smoker Have you smoked in the past 12 months: Yes Aproximately how many cigarettes per day: 20 Cigars Per Day: 0 Hx Chewing Tobacco Use: No Initiated information on smoking cessation: No - Substances Abused Alcohol Route: Oral Frequency: Daily Amount used: 3 PACK BEER Age of first use: 17 Date of Last Use: 02/18/18 Alprazolam (Xanax) Route: Oral Frequency: Daily Amount used: 5/2MG Age of first use: 26 Date of Last Use: 02/18/18 Heroin Route: Injection Frequency: Daily Amount used: 15 BAGS Age of first use: 16 Date of Last Use: 02/18/18 Family Disease History - Family Disease History Family Disease History: Diabetes: Mother (unsure , does not keep in touch), Other: Father (does not keep in touch ), Brother (3 brothers does not keep in touch ), Sister (5 sisters , does not keep in touch except 1 sister in [place] ), Son (9 y.o. in [place] ) Admission Physical Exam [facility] - Vital Signs Vital Signs: Vital Signs - 24 hr 02/18/18 13:09 Temperature 97.3 F L Pulse Rate 61 Respiratory 20 Rate Blood Pressure 152/89 - Physical General Appearance: Yes: Mild Distress, Anxious HEENTM: Yes: EOMI, Hearing grossly Normal, Normocephalic, Normal Voice Respiratory: Yes: Chest Non-Tender, Lungs Clear, Normal Breath Sounds Neck: Yes: No masses,lesions,Nodules, Trachea in good position Breast: Yes: Breast Exam Deferred Cardiology: Yes: Regular Rhythm, Regular Rate, S1, S2 Abdominal: Yes: Non Tender, Soft Genitourinary: Yes: Within Normal Limits Musculoskeletal: Yes: Gait Steady Extremities: Yes: Normal Capillary Refill, Normal Inspection, Tremors Neurological: Yes: Fully Oriented, Alert, Motor Strength 5/5 Integumentary: Yes: Track Horne (nain UE , no abscess) - Diagnostic (1) Cocaine dependence Current Visit: No Status: Chronic Qualifiers: Substance use status: uncomplicated Qualified Code(s): F14.20 - Cocaine dependence, uncomplicated (2) Nicotine dependence Current Visit: No Status: Chronic Qualifiers: Nicotine product type: cigarettes Substance use status: uncomplicated Qualified Code(s): F17.210 - Nicotine dependence, cigarettes, uncomplicated (3) Alcohol dependence with uncomplicated intoxication Current Visit: No Status: Acute (4) Opioid dependence with withdrawal Current Visit: No Status: Acute (5) Uncomplicated sedative, hypnotic or anxiolytic withdrawal Current Visit: No Status: Acute BHS Breath Alcohol Content Breath Alcohol Content: 0 Urine Drug Screen - Results Urine Drug Screen Results: PARKER-Cocaine, OPI-Opiates, BZO-Benzodiazepines, MTD- Methadone, BUP-Suboxone
[2018-02-18] MEDS ORDERED: guaiFENesin/D-METHORPHAN HB 10 ML UNIT-DOSE CUPS PO PRN (16:02)
[2018-02-18] MEDS ORDERED: MENTHOL/PHENOL 1 EACH UD MM PRN (16:02)
[2018-02-18] MEDS ORDERED: MAG HYDROX/AL HYDROX/SIMETH 30 ML UNIT-DOSE CUP PO PRN (16:02)
[2018-02-18] MEDS ORDERED: MAGNESIUM CITRATE 300 ML BOTTLE PO PRN (16:02)
[2018-02-18] MEDS ORDERED: P-EPHED 60MG/TRIPROLIDI 2.5MG TABLET PO PRN (16:02)
[2018-02-18] MEDS ORDERED: MAGNESIUM HYDROX 2400MG/30ML ORAL SUSPENSION 30 ML CUP PO PRN (16:02)
[2018-02-18] MEDS ORDERED: NICOTINE POLACRILEX 2 MG GUM BC PRN (16:02)
[2018-02-18] MEDS ORDERED: METHADONE HCL 10 MG TABLET (FOR DETOX USE ONLY) PO ONE ×2 (19:00→23:00)
[2018-02-18] MEDS: diazePAM 5 MG TABLET PO PRN (20:42)
[2018-02-18] MEDS: ACETAMINOPHEN 325 MG TABLET (FP) PO PRN (21:26)
[2018-02-18] MEDS: diazePAM 5 MG TABLET PO SCH (22:01)
[2018-02-18] MEDS: MELATONIN 5 MG TABLETS PO PRN (22:01)
[2018-02-18] MEDS: hydrOXYzine PAMOATE 50 MG CAPSULE (FP) PO PRN (22:01)
[2018-02-18] MEDS: THIAMINE HCL 100 MG TABLET (FP) PO SCH (22:02)
[2018-02-19] MEDS: diazePAM 5 MG TABLET PO PRN ×4 (03:33→21:14)
[2018-02-19] MEDS: hydrOXYzine PAMOATE 50 MG CAPSULE (FP) PO PRN ×3 (03:46→21:15)
[2018-02-19] MEDS: diazePAM 5 MG TABLET PO SCH ×4 (06:50→22:49)
[2018-02-19] MEDS: IBUPROFEN 400 MG TABLET (FP) PO PRN ×2 (07:24→16:54)
[2018-02-19] MEDS ORDERED: METHADONE HCL 10 MG TABLET (FOR DETOX USE ONLY) PO SCH (10:00)
[2018-02-19] MEDS ORDERED: NICOTINE 7 MG/24 HOURS TOPICAL PATCH TD SCH (10:00)
--- NOTE | 2018-02-19 10:15 | PN ---
[facility] CIWA - CIWA Score Nausea/Vomitin-Mild Nausea/No Vomiting Muscle Tremors: 3 Anxiety: 4-Mod. Anxious/Guarded Agitation: 4-Moderately Restless Paroxysmal Sweats: 1-Minimal Palms Moist Orientation: 0-Oriented Tacttile Disturbances: 0-None Auditory Disturbances: 0-None Visual Disturbances: 0-None Headache: 1-Very Mild CIWA-Ar Total Score: 14 BHS COWS - Scale Resting Pulse: 0= [place] 80 or Below Sweatin= Chills/Flushing Restless Observation: 1= Difficult to Sit Still Pupil Size: 0= Normal to Room Light Bone or Joint Aches: 1= Mild Discomfort Runny Nose/ Eye Tearin= Nasal Congestion GI Upset > 30mins: 2= Nausea/Diarrhea Tremor Observation of Outstretched Hands: 2= Slight Tremor Visible Yawning Observation: 1= 1-2x During Session Anxiety or Irritability: 1=Feels Anxious/Irritable Goose Flesh Skin: 0=Smooth Skin COWS Score: 10 [facility] Progress Note (SOAP) Subjective: left posterior lower calf swell redness warmth anxiety tremor body aches muscle cramping Objective: 02/19/18 10:17 Vital Signs Temperature 97.9 F 02/19/18 09:48 Pulse Rate 68 02/19/18 09:48 Respiratory Rate 18 02/19/18 09:48 Blood Pressure 128/71 02/19/18 09:48 O2 Sat by Pulse Oximetry (%) lab two months ago ua a month ago 02/19/18 10:19 Assessment: 02/19/18 10:19 withdrawal sx Plan: continue detox
[2018-02-19] MEDS: PRENATAL VITAMINS W/ FOLIC ACID TABLET (FP) PO SCH (10:18)
[2018-02-19] MEDS ORDERED: CLINDAMYCIN HCL 300 MG CAPSULE PO SCH (12:00)
[2018-02-19] MEDS: CLINDAMYCIN HCL 150 MG CAPSULE (FP) PO SCH ×3 (12:33→23:40)
[2018-02-19] MEDS ORDERED: BACLOFEN 10 MG TABLET (FP) PO ONE (13:55)
[2018-02-19] MEDS ORDERED: traZODone HCL 50 MG TABLET (FP) PO ONE (22:00)
[2018-02-19] MEDS: THIAMINE HCL 100 MG TABLET (FP) PO SCH (22:48)
[2018-02-20] MEDS: diazePAM 5 MG TABLET PO PRN ×5 (01:46→22:04)
[2018-02-20] MEDS: CLINDAMYCIN HCL 150 MG CAPSULE (FP) PO SCH ×4 (05:31→23:07)
[2018-02-20] MEDS ORDERED: METHADONE HCL 5 MG TABLET (FOR DETOX USE ONLY) PO SCH (10:00)
[2018-02-20] MEDS: diazePAM 5 MG TABLET PO SCH ×2 (10:45→22:04)
[2018-02-20] MEDS: PRENATAL VITAMINS W/ FOLIC ACID TABLET (FP) PO SCH (10:45)
[2018-02-20] MEDS: NICOTINE 7 MG/24 HOURS TOPICAL PATCH TD SCH (10:49)
--- NOTE | 2018-02-20 13:17 | PN ---
S CIWA - CIWA Score Nausea/Vomitin Muscle Tremors: 3 Anxiety: 2 Agitation: 1-Slight > Activity Paroxysmal Sweats: 3 Orientation: 0-Oriented Tacttile Disturbances: 2-Mild Itch/Numbness/Burn Auditory Disturbances: 0-None Visual Disturbances: 0-None Headache: 3-Moderate CIWA-Ar Total Score: 17 BHS COWS - Scale Resting Pulse: 0= [place] 80 or Below Sweatin= Chills/Flushing Restless Observation: 1= Difficult to Sit Still Pupil Size: 0= Normal to Room Light Bone or Joint Aches: 2= Severe Diffuse Aches Runny Nose/ Eye Tearin= None GI Upset > 30mins: 2= Nausea/Diarrhea Tremor Observation of Outstretched Hands: 2= Slight Tremor Visible Yawning Observation: 1= 1-2x During Session Anxiety or Irritability: 2=Irritable/Anxious Goose Flesh Skin: 0=Smooth Skin COWS Score: 11 S Progress Note (SOAP) Subjective: Tremors, Sweating, Hot / Cold Sensations, Stomach Cramping, Nausea, H/A. Objective: PATIENT A & O X 3, OBSERVED AMBULATING ON UNIT. IN NO ACUTE DISTRESS. 02/20/18 13:21 Vital Signs Temperature 97.2 F L 02/20/18 06:35 Pulse Rate 56 L 02/20/18 06:35 Respiratory Rate 18 02/20/18 06:35 Blood Pressure 120/65 02/20/18 06:35 O2 Sat by Pulse Oximetry (%) PATIENT REFUSED INITIAL ATTEMPT TO DRAW ADMISSION LABS. WILL RE-ORDER FOR TOMORROW AND ENCOURAGE PATIENT TO HAVE DRAWN AT THAT TIME. PATIENT REPORTS SWELLING AND "BURNING" PAIN IN LEFT CALF MUSCLE. PATIENT REPORTS HISTORY OF IV DRUG INJECTION AT THAT SITE. PATIENT STARTED ON ANTIBIOTIC (CLINDAMYCIN) YESTERDAY FOR ABSCESS / CELLULITIS. SWELLING NOTED NEAR LOWER PORTION OF CALF MUSCLE OF LEFT LEG. NO ERYTHEMA, WOUNDS OR DISCHARGE NOTED AT AFFECTED SITE. NO SWELLING, ERYTHEMA, WOUNDS OR DISCHARGE NOTED ON LEFT ANKLE OR FOOT OR ANYWHERE ON RIGHT LOWER LEG, FOOT OR ANKLE. DORSALIS PEDIS PULSES PALPABLE EQUALLY IN BILATERAL FEET. CAPILLARY REFILL < 2 SECONDS ON TOES OF BILATERAL FEET. PATIENT HAS FULL TACTILE SENSATION AND ROM IN BILATERAL FEET AND TOES. 02/20/18 13:21 Assessment: 02/20/18 13:27 WITHDRAWAL SYMPTOMS. CELLULITIS OF LEFT LEG. 02/20/18 13:32 Plan: CONTINUE DETOX. INCREASE DAILY PO FLUID INTAKE. CONTINUE CLINDAMYCIN FOR ABSCESS OF LEFT LEG. PRN TIGAN IM FOR NAUSEA. PRN FLEXERIL PO FOR BODY ACHES / MUSCLE SPASMS. ADVISED PATIENT TO IMMEDIATELY NOTIFY NURSING / MEDICAL STAFF SHOULD HE NOTICE ANY CHANGE IN SYMPTOMS OR SEVERITY OF SYMPTOMS IN LEFT LEG AT ANY TIME. PATIENT VERBALIZED UNDERSTANDING OF RECOMMENDATION.
[2018-02-20] MEDS ORDERED: TRIMETHOBENZAMIDE HCL 200MG/2ML INJ IM PRN (13:21)
[2018-02-20] MEDS: hydrOXYzine PAMOATE 50 MG CAPSULE (FP) PO PRN (17:31)
[2018-02-20] MEDS: IBUPROFEN 400 MG TABLET (FP) PO PRN (17:31)
[2018-02-20] MEDS: THIAMINE HCL 100 MG TABLET (FP) PO SCH (22:03)
[2018-02-20] MEDS: MELATONIN 5 MG TABLETS PO PRN (22:03)
[2018-02-20] MEDS: CYCLOBENZAPRINE HCL 10 MG TABLET (FP) PO PRN (22:04)
[2018-02-21] MEDS: IBUPROFEN 400 MG TABLET (FP) PO PRN (02:52)
[2018-02-21] MEDS: diazePAM 5 MG TABLET PO PRN ×3 (02:52→12:08)
[2018-02-21] MEDS: CLINDAMYCIN HCL 150 MG CAPSULE (FP) PO SCH ×3 (06:32→17:53)
[2018-02-21] MEDS: ACETAMINOPHEN 325 MG TABLET (FP) PO PRN (06:34)
[2018-02-21] MEDS ORDERED: METHADONE HCL 10 MG TABLET (FOR DETOX USE ONLY) PO SCH (10:00)
[2018-02-21] MEDS: PRENATAL VITAMINS W/ FOLIC ACID TABLET (FP) PO SCH (10:08)
[2018-02-21] MEDS: NICOTINE 7 MG/24 HOURS TOPICAL PATCH TD SCH (10:08)
[2018-02-21] MEDS: diazePAM 5 MG TABLET PO SCH ×2 (10:09→22:05)
[2018-02-21] MEDS: hydrOXYzine PAMOATE 50 MG CAPSULE (FP) PO PRN (10:12)
[2018-02-21 11:55] LABS: BASO % 0.8 % (0-2.0); EOS % 4.4 % (0-4.5); HEMATOCRIT 35.7 % (35.4-49); HEMOGLOBIN 11.7 GM/dL (11.7-16.9); LYMPH % 42.1 % (8-40); MCH 26.8 pg (25.7-33.7); MCHC 32.8 g/dl (32.0-35.9); MEAN CELL VOLUME 81.6 fl (80-96); MEAN PLT VOLUME 7.6 fl (7.5-11.1); MONO % 9.5 % (3.8-10.2); NEUT % 43.2 % (42.8-82.8); PLATELET COUNT 326 K/MM3 (134-434); RBC 4.38 M/mm3 (4.00-5.60); RDW 13.6 % (11.9-15.9); WHITE BLOOD COUNT 3.9 K/mm3 (4.0-10.0)
[2018-02-21 11:59] LABS: ALBUMIN 2.8 g/dl (3.4-5.0); ALK PHOS 112 U/L (45-117); ANION GAP 8 MMOL/L (8-16); BILIRUBIN,TOTAL 0.3 mg/dL (0.2-1); BLOOD UREA NITROGEN 16 mg/dL (7-18); CALCIUM 8.7 mg/dL (8.5-10.1); CHLORIDE 108 mmol/L (98-107); CO2 25 mmol/L (21-32); GLUCOSE,RANDOM 80 mg/dL (74-106); POTASSIUM 4.3 mmol/L (3.5-5.1); SGOT/AST 38 U/L (15-37); SGPT/ALT 89 U/L (13-61); SODIUM 140 mmol/L (136-145); TOT PROT 6.5 g/dl (6.4-8.2)
--- NOTE | 2018-02-21 12:12 | PN ---
[facility] Progress Note (SOAP) Subjective: anxiety little sweats Objective: 02/21/18 12:11 Vital Signs Temperature 98.2 F 02/21/18 09:22 Pulse Rate 72 02/21/18 09:22 Respiratory Rate 18 02/21/18 09:22 Blood Pressure 139/72 02/21/18 09:22 O2 Sat by Pulse Oximetry (%) [id number] ambulating no acute distress Assessment: 02/21/18 12:11 mild withdrawal sx Plan: continue detox increase fluids d/c in am
[2018-02-21] MEDS ORDERED: diazePAM 5 MG TABLET PO ONE (15:43)
[2018-02-21] MEDS: CYCLOBENZAPRINE HCL 10 MG TABLET (FP) PO PRN (17:53)
[2018-02-21] MEDS: THIAMINE HCL 100 MG TABLET (FP) PO SCH (22:05)
[2018-02-22] MEDS: hydrOXYzine PAMOATE 50 MG CAPSULE (FP) PO PRN (02:54)
[2018-02-22] MEDS ORDERED: METHADONE HCL 5 MG TABLET (FOR DETOX USE ONLY) PO SCH (06:00)
[2018-02-22] MEDS: CLINDAMYCIN HCL 150 MG CAPSULE (FP) PO SCH (07:00)
[2018-02-22 07:23] VITALS: BP 125/63; PULSE 54; TEMP 97.2
--- NOTE | 2018-02-22 09:15 | DS ---
[facility] Detox Discharge Summary Admission Date: 02/18/18 Discharge Date: 02/22/18 - History Present History: Alcohol Dependence, Cocaine Dependence, Opioid Dependence, Sedative Dependence - Physical Exam Results Vital Signs: Vital Signs Temperature 97.2 F L 02/22/18 07:23 Pulse Rate 54 L 02/22/18 07:23 Respiratory Rate 18 02/22/18 07:23 Blood Pressure 125/63 02/22/18 07:23 O2 Sat by Pulse Oximetry (%) - Treatment Hospital Course: Detox Protocol Followed, Detoxed Safely, Responded well, Discharged Condition Good, Rehab Referral Accepted - Medication Discharge Medications: Ambulatory Orders NK [No Known Home Medication] 01/30/18 - Diagnosis (1) Cellulitis Current Visit: Yes Status: Acute Qualifiers: Site of cellulitis: extremity Site of cellulitis of extremity: lower extremity Laterality: left Qualified Code(s): L03.116 - Cellulitis of left lower limb (2) Alcohol dependence with uncomplicated intoxication Current Visit: Yes Status: Chronic (3) Cellulitis of forearm, right Current Visit: Yes Status: Acute (4) Opioid dependence with withdrawal Current Visit: Yes Status: Chronic (5) 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 Current Visit: Yes Status: Chronic (6) Uncomplicated sedative, hypnotic or anxiolytic withdrawal Current Visit: Yes Status: Chronic (7) Anxiety and depression Current Visit: No Status: Chronic (8) Atopic dermatitis, mild Current Visit: No Status: Chronic (9) Cocaine dependence Current Visit: Yes Status: Chronic Qualifiers: Substance use status: uncomplicated Qualified Code(s): F14.20 - Cocaine dependence, uncomplicated (10) Contact dermatitis Current Visit: Yes Status: Chronic Qualifiers: Contact dermatitis type: unspecified (11) Drug-induced mood disorder Current Visit: No Status: Chronic (12) Insomnia Current Visit: No Status: Chronic Qualifiers: Insomnia type: unspecified Qualified Code(s): G47.00 - Insomnia, unspecified (13) Nicotine dependence Current Visit: Yes Status: Chronic Qualifiers: Nicotine product type: cigarettes Substance use status: uncomplicated Qualified Code(s): F17.210 - Nicotine dependence, cigarettes, uncomplicated (14) Weight loss Current Visit: No Status: Chronic - AMA Did Patient Leave Against Medical Advice: No (referred to [facility] inpatient rehab)
[2018-02-22] MEDS ORDERED: diazePAM 5 MG TABLET PO SCH (10:00)
== END 2018-02-22 09:46 | disposition home or self-care (01) | DRG 773 ==
LOC: YASAS 11:52 → Y6N 18:50
PROC: HZ2ZZZZ Detoxification Services for Substance Abuse Treatment (ICD-10-PCS; principal; 2018-02-18)
DX: F11.23 Opioid dependence with withdrawal (principal); F10.230 Alcohol dependence with withdrawal, uncomplicated; F13.230 Sedative, hypnotic or anxiolytic dependence with withdrawal, uncomplicated; F14.20 Cocaine dependence, uncomplicated; F17.210 Nicotine dependence, cigarettes, uncomplicated; F19.24 Other psychoactive substance dependence with psychoactive substance-induced mood disorder; F41.8 Other specified anxiety disorders; L03.113 Cellulitis of right upper limb; L03.116 Cellulitis of left lower limb; L20.9 Atopic dermatitis, unspecified; Z88.0 Allergy status to penicillin
CPT/HCPCS: 36415; 80053; 85025; 86593; 86803; J0475

== ENCOUNTER 2018-06-05 15:18 | Inpatient (IN) | payer OTHER ==
[2018-06-05 18:04] VITALS: BMI 25.1
--- NOTE | 2018-06-05 19:18 | HP ---
"COWS - Scale Resting Pulse: 0= [place] 80 or Below Sweatin=Flushed/Facial Moisture Restless Observation: 0= Sits Still Pupil Size: 2= Moderately Dilated (Pupils = 5 mm) Bone or Joint Aches: 1= Mild Discomfort Runny Nose/ Eye Tearin= Nasal Congestion GI Upset > 30mins: 2= Nausea/Diarrhea (No diarrhea) Tremor Observation: 2= Slight Tremor Visible Yawning Observation: 0= None Anxiety or Irritability: 2=Irritable/Anxious Goose Flesh Skin: 0=Smooth Skin COWS Score: 12 CIWA Score Nausea/Vomitin (Slight tremor visible) Muscle Tremors: 3 Anxiety: 1-Mildly Anxious Agitation: 4-Moderately Restless Paroxysmal Sweats: 3 Orientation: 2-Disoriented Date<2 days Tacttile Disturbances: 0-None Auditory Disturbances: 0-None Visual Disturbances: 0-None Headache: 2-Mild CIWA-Ar Total Score: 18 - Admission Criteria [facility] Guidelines: Admission for Medically Managed Detox: Requires at least one of the followin. CIWA greater than 12 2. Seizures within the past 24 hours 3. Delirium tremens within the past 24 hours 4. Hallucinations within the past 24 hours 5. Acute intervention needed for co occurring medical disorder 6. Acute intervention needed for co occurring psychiatric disorder 7. Severe withdrawal that cannot be handled at a lower level of care (continued vomiting, continued diarrhea, abnormal vital signs) requiring intravenous medication and/or fluids 8. Patient presents the following: CIWA greater than 12 Admission Criteria Met: Admission criteria met Admission ROS [facility] - [facility] Chief Complaint: I'm sick. I'm having alcohol, xanax, and heroin withdrawal. Allergies/Adverse Reactions: Allergies Allergy/AdvReac Type Severity Reaction Status Date / Time Penicillins Allergy Severe Rash Verified 06/05/18 17:56 History of Present Illness: 33 yom w/ multiple admissions for detox. Last admission 02/2018. No significant length of sobriety after discharge. States sobriety lasts about 1 days. Alcohol use began at age 15. (2-3 6 packs 12 oz beers; 1-2 pints Bacardi) Heroin use began at age 16. Uses IV. Denies sharing needles or works. (15 bags daily) States has a Narcan Kit @ home. Xanax use began at age 27. (14 mg daily) Cocaine use began at age 16. Nicotine use began at age 18. 1PPD Denies hx seizures, blackouts, overdoses. PMHx: Denies significant PMH. Needs supportive foor wear. EK12/11/17: NSR/Normal EKG MHHx: Anxiety and depression. No prescribed medications. Last saw MH Provider 1 year ago. Denies thoughts of harming self or others. States was on a MMTP years ago for a few months. Search Terms: Percy Atwood, 1985 Search Date: 06/05/2018 07:17:34 PM The Drug Utilization Report below displays all of the controlled substance prescriptions, if any, that your patient has filled in the last twelve months. The information displayed on this report is compiled from pharmacy submissions to the Department, and accurately reflects the information as submitted by the pharmacies. This report was requested by: Louise Fernandez | Reference #: [id number] There are no results for the search terms that you entered. Exam Limitations: No Limitations - Ebola screening Have you traveled outside of the country in the last 21 days: No Have you had contact with anyone from an Ebola affected area: No Do you have a fever: No - Review of Systems Constitutional: Chills, Diaphoresis, Changes in sleep (Difficulty falling asleep - used to take illicit ambien or 4 packs of Tylenol PM.) EENT: reports: No Symptoms Reported Respiratory: reports: No Symptoms reported Cardiac: reports: No Symptoms Reported GI: reports: Nausea, Vomiting, Indigestion (Occ heart burn - uses pepto-B) : reports: No Symptoms Reported Musculoskeletal: reports: Muscle Pain (Generalized muscle aches) Integumentary: reports: Other (needle horne.) Neuro: reports: Headache (Mild headache sides of head) Endocrine: reports: Increased Thirst Hematology: reports: No Symptoms Reported Psychiatric: reports: Judgement Intact, Anxious, Depressed (Denies thoughts of harming self or others.), Disorientated (Unsure of date. Knows month/year. Off by day by 4 days) Other Systems: Reviewed and Negative Patient History - Patient Medical History Hx Anemia: No Hx Asthma: No Hx Chronic Obstructive Pulmonary Disease (COPD): No Hx Cancer: No Hx Cardiac Disorders: No Hx Congestive Heart Failure: No Hx Hypertension: No Hx Hypercholesterolemia: No Hx Pacemaker: No HX Cerebrovascular Accident: No Hx Seizures: No Hx Dementia: No Hx Diabetes: No Hx Gastrointestinal Disorders: No Hx Liver Disease: No Hx Genitourinary Disorders: No Hx Sexually Transmitted Disorders: No Hx Renal Disease (ESRD): No Hx Thyroid Disease: No Hx Human Immunodeficiency Virus (HIV): No (last 08/24 negative) Hx Hepatitis C: No Hx Depression: Yes Hx Suicide Attempt: No Hx Bipolar Disorder: No Hx Schizophrenia: No - Patient Surgical History Past Surgical History: No Hx Neurologic Surgery: No Hx Cataract Extraction: No Hx Cardiac Surgery: No Hx Lung Surgery: No Hx Breast Surgery: No Hx Breast Biopsy: No Hx Abdominal Surgery: No Hx Appendectomy: No Hx Cholecystectomy: No Hx Genitourinary Surgery: No Hx Section: No Hx Orthopedic Surgery: No Other Surgical History: circumcission at age of 7 years Anesthesia Reaction: No - PPD History Previous Implant?: Yes Documented Results: Negative w/proof Implanted On Prior [facility] Admission?: Yes Date: 12/13/17 Results: 0 mm PPD to be Administered?: No - Smoking Cessation Smoking history: Current every day smoker Have you smoked in the past 12 months: Yes Aproximately how many cigarettes per day: 20 Cigars Per Day: 0 Hx Chewing Tobacco Use: No Initiated information on smoking cessation: Yes 'Breaking Loose' booklet given: 06/05/18 - Substance & Tx. History Hx Alcohol Use: Yes Hx Substance Use: Yes Substance Use Type: Alcohol, Cocaine, Heroin, Tranquilizers (Xanax) Hx Substance Use Treatment: Yes (detox, rehab; MMTP years ago. ) - Substances abused Alcohol Substance route: Oral Frequency: Daily Amount used: 3 PINTS Age of first use: 15 Date of last use: 06/04/18 Alprazolam (Xanax) Substance route: Oral Frequency: Daily Amount used: 7 BARS Age of first use: 27 Date of last use: 06/04/18 Heroin Substance route: Injection Frequency: Daily Amount used: 15 BAGS Age of first use: 16 Date of last use: 06/04/18 Cocaine Substance route: Smoking Frequency: Daily Amount used: $50 Age of first use: 16 Date of last use: 06/04/18 Family Disease History - Family Disease History Family Disease History: Diabetes: Mother (unsure , does not keep in touch), Other: Father (does not keep in touch ), Brother (3 brothers does not keep in touch ), Sister (5 sisters , does not keep in touch except 1 sister in [place] ), Son (9 y.o. in [place] ) Admission Physical Exam [facility] - Vital Signs Vital Signs: Vital Signs - 24 hr 06/05/18 06/05/18 17:55 18:46 Temperature 98.6 F 98.6 F Pulse Rate 70 70 Respiratory 18 18 Rate Blood Pressure 114/66 114/66 - Physical General Appearance: Yes: Nourished, Mild Distress, Irritable, Sweating ( Increased facial moisture) HEENTM: Yes: EOMI (Jerking movements of eyes on lateral gaze), Hearing grossly Normal, Normocephalic, Normal Voice, NAVDEEP (Pupils = 5 mm), Pharynx Normal Respiratory: Yes: Lungs Clear, Normal Breath Sounds, No Respiratory Distress Neck: Yes: No masses,lesions,Nodules, Supple Breast: Yes: Breast Exam Deferred Cardiology: Yes: Regular Rhythm, Regular Rate, S1, S2 Abdominal: Yes: Non Tender, Soft, Increased Bowel Sounds Genitourinary: Yes: Within Normal Limits Back: Yes: Normal Inspection Musculoskeletal: Yes: full range of Motion, Gait Steady Extremities: Yes: Normal Capillary Refill, Normal Range of Motion, Tremors ( Mild tremors) Neurological: Yes: mechanical inspector II-XII NML intact (Jerking movements of eyes on lateral gaze), Alert, Motor Strength 5/5 Integumentary: Yes: Normal Color, Warm, Diaphoresis (Increased facial moisture) , Track Horne (Old and new track horne [place].) Lymphatic: Yes: Within Normal Limits - Diagnostic (1) Alcohol dependence with uncomplicated intoxication Current Visit: Yes Status: Acute (2) Cocaine dependence Current Visit: Yes Status: Chronic Qualifiers: Substance use status: uncomplicated Qualified Code(s): F14.20 - Cocaine dependence, uncomplicated (3) Nicotine dependence Current Visit: Yes Status: Chronic Qualifiers: Nicotine product type: cigarettes Substance use status: uncomplicated Qualified Code(s): F17.210 - Nicotine dependence, cigarettes, uncomplicated (4) Opioid dependence with withdrawal Current Visit: No Status: Chronic (5) 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 Current Visit: Yes Status: Chronic (6) Uncomplicated sedative, hypnotic or anxiolytic withdrawal Current Visit: Yes Status: Acute (7) Nystagmus Current Visit: Yes Status: Acute Cleared for Admission [facility] - Detox or Rehab [facility] Level of Care: Medically Managed Detox Regimen/Protocol: Methadone/Librium Claeared for Rehab Admission: No Breathalyzer - Breathalyzer Breathalyzer: 0 Urine Drug Screen - Test Device Lot number: [id number] Expiration date: 01/07/20 - Control Is test valid?: Yes - Results Drug screen NEGATIVE: No Urine drug screen results: JANETT-Cocaine, FEN-Fentanyl, MOP-Opiates, BZO- Benzodiazepines Inpatient Rehab Admission - Rehab Decision to Admit Inpatient rehab admission?: No"
[2018-06-05] MEDS ORDERED: guaiFENesin 200 MG/10 ML 10 ML UNIT-DOSE CUPS PO PRN (20:03)
[2018-06-05] MEDS ORDERED: ACETAMINOPHEN 325 MG TABLET (FP) PO PRN ×2 (20:03)
[2018-06-05] MEDS ORDERED: MENTHOL/PHENOL 1 EACH UD MM PRN (20:03)
[2018-06-05] MEDS ORDERED: chlordiazePOXIDE HCL 25 MG CAPSULE PO PRN (20:03)
[2018-06-05] MEDS ORDERED: MAGNESIUM HYDROX 2400MG/30ML ORAL SUSPENSION 30 ML CUP PO PRN (20:03)
[2018-06-05] MEDS ORDERED: MAG HYDROX/AL HYDROX/SIMETH 30 ML UNIT-DOSE CUP PO PRN (20:03)
[2018-06-05] MEDS ORDERED: MAGNESIUM CITRATE 300 ML BOTTLE PO PRN (20:03)
[2018-06-05] MEDS ORDERED: NICOTINE POLACRILEX 2 MG GUM BUC PRN (20:03)
[2018-06-05] MEDS ORDERED: BISMUTH SUBSALICYLATE 524 MG/30 ML UD PO PRN (20:03)
[2018-06-05] MEDS ORDERED: METHADONE (DETOX) 10 MG, METHADONE (DETOX) 5 MG PO ONE ×2 (20:41→23:00)
[2018-06-05] MEDS ORDERED: METHADONE HCL 10 MG TABLET (FOR DETOX USE ONLY) ONE ×2 (21:09→22:23)
[2018-06-05] MEDS ORDERED: METHADONE HCL 5 MG TABLET (FOR DETOX USE ONLY) ONE ×2 (21:09→22:22)
[2018-06-05] MEDS: chlordiazePOXIDE HCL 10 MG CAPSULE PO PRN (21:21)
[2018-06-05] MEDS: BACITRACIN 0.9 GM PACKET TP SCH (22:16)
[2018-06-05] MEDS: chlordiazePOXIDE HCL 25 MG CAPSULE PO SCH (22:17)
[2018-06-05] MEDS: METHOCARBAMOL 500 MG TABLET PO PRN (22:17)
[2018-06-05] MEDS: THIAMINE HCL 100 MG TABLET (FP) PO SCH (22:19)
[2018-06-05] MEDS: MELATONIN 5 MG TABLETS PO PRN (22:19)
[2018-06-05] MEDS: cloNIDine HCL 0.1 MG TABLET PO PRN (22:24)
[2018-06-05] MEDS ORDERED: METHADONE HCL 10 MG TABLET (FOR DETOX USE ONLY) PO ONE (23:00)
[2018-06-06 02:22] LABS: URINE APPEARANCE CLEAR; URINE BILIRUBIN NEGATIVE (NEGATIVE); URINE COLOR YELLOW; URINE GLUCOSE (UA) NEGATIVE (NEGATIVE); URINE KETONE TRACE (NEGATIVE); URINE LEUK ESTERASE NEGATIVE (NEGATIVE); URINE NITRITE NEGATIVE (NEGATIVE); URINE PROTEIN NEGATIVE (NEGATIVE); URINE UROBILINOGEN 0.2 mg/dL (0.2-1.0)
[2018-06-06] MEDS: chlordiazePOXIDE HCL 25 MG CAPSULE PO SCH ×4 (07:37→22:15)
[2018-06-06] MEDS ORDERED: METHADONE HCL 10 MG TABLET (FOR DETOX USE ONLY) PO ONE (10:00)
[2018-06-06] MEDS: PRENATAL VITAMINS W/ FOLIC ACID TABLET (FP) PO SCH (11:05)
[2018-06-06] MEDS: NICOTINE 21 MG/24 HOURS TOPICAL PATCH TD SCH (11:06)
[2018-06-06] MEDS: BACITRACIN 0.9 GM PACKET TP SCH ×2 (11:06→22:15)
[2018-06-06] MEDS: METHOCARBAMOL 500 MG TABLET PO PRN (11:07)
[2018-06-06] MEDS: chlordiazePOXIDE HCL 10 MG CAPSULE PO PRN (13:39)
[2018-06-06] MEDS: SULFAMETHOXAZOLE/TRIMETHOPRIM 800MG/160MG D.S. TABLET PO SCH ×2 (14:08→22:15)
--- NOTE | 2018-06-06 14:43 | PN ---
[facility] CIWA - CIWA Score Nausea/Vomitin-No Nausea/No Vomiting Muscle Tremors: 3 Anxiety: 4-Mod. Anxious/Guarded Agitation: 3 Paroxysmal Sweats: 2 Orientation: 0-Oriented Tacttile Disturbances: 2-Mild Itch/Numbness/Burn Auditory Disturbances: 0-None Visual Disturbances: 2-Mild Sensitivity Headache: 0-None Present CIWA-Ar Total Score: 16 S COWS - Scale Resting Pulse: 0= [place] 80 or Below Sweatin= Chills/Flushing Restless Observation: 0= Sits Still Pupil Size: 0= Normal to Room Light Bone or Joint Aches: 2= Severe Diffuse Aches Runny Nose/ Eye Tearin= Runny Nose/Eyes GI Upset > 30mins: 0= None Tremor Observation of Outstretched Hands: 0= None Yawning Observation: 1= 1-2x During Session Anxiety or Irritability: 2=Irritable/Anxious Goose Flesh Skin: 3=Piloerection COWS Score: 11 S Progress Note (SOAP) Subjective: Anxious, Body Aches, Sweating, Nasal Congestion, Fatigue. Objective: PATIENT A & O X 3, OBSERVED AMBULATING ON UNIT UNASSISTED. IN NO ACUTE DISTRESS. 06/06/18 14:38 Vital Signs Temperature 98.1 F 06/06/18 13:22 Pulse Rate 67 06/06/18 13:22 Respiratory Rate 18 06/06/18 13:22 Blood Pressure 120/64 06/06/18 13:22 O2 Sat by Pulse Oximetry (%) Laboratory Tests 06/05/18 22:30 Urine Color Yellow Urine Appearance Clear Urine pH 5.0 D Ur Specific [place] 1.025 Urine Protein Negative Urine Glucose (UA) Negative Urine Ketones Trace H Urine Blood Negative Urine Nitrite Negative Urine Bilirubin Negative Urine Urobilinogen 0.2 Ur Leukocyte Esterase Negative ADMISSION UA RESULTS NOTED. PATIENT DECLINED TO HAVE OTHER ADMISSION LABS DRAWN EARLIER TODAY, BUT IS AMENABLE TO ALLOWING THEM TO BE DRAWN TOMORROW AM. WILL RE-ORDER. MODERATE SWELLING NOTED ON DORSUM OF RIGHT HAND. PATIENT REPORTS HISTORY OF I.V.D.U. IN THAT AREA. INJECTION SITE WOUND NOTED,; HOWEVER, NO ERYTHEMA OR DISCHARGE NOTED IN AFFECTED AREA. PATIENT NOTES MILD DISCOMFORT IN AFFECTED AREA. 06/06/18 14:40 Assessment: 06/06/18 14:39 WITHDRAWAL SYMPTOMS. ABSCESS OF RIGHT HAND. Plan: CONTINUE DETOX. INCREASE DAILY PO FLUID INTAKE. BACTRIM DS PO BID FOR ABSCESS OF RIGHT HAND. TOPICAL BACITRACIN TO BE APPLIED TO WOUND SITE. PATIENT ADVISED TO TRY TO MINIMIZE USE OF RIGHT HAND MUCH POSSIBLE FOR TIME BEING. PATIENT VERBALIZED UNDERSTANDING OF RECOMMENDATION.
[2018-06-06] MEDS: IBUPROFEN 400 MG TABLET (FP) PO PRN (17:37)
[2018-06-06] MEDS: cloNIDine HCL 0.1 MG TABLET PO PRN (17:37)
[2018-06-06] MEDS: THIAMINE HCL 100 MG TABLET (FP) PO SCH (22:15)
[2018-06-06] MEDS: MELATONIN 5 MG TABLETS PO PRN (22:15)
[2018-06-07] MEDS: IBUPROFEN 400 MG TABLET (FP) PO PRN ×3 (01:09→19:30)
[2018-06-07] MEDS: chlordiazePOXIDE HCL 10 MG CAPSULE PO PRN ×3 (01:10→19:30)
[2018-06-07] MEDS: chlordiazePOXIDE HCL 25 MG CAPSULE PO SCH ×3 (05:24→17:04)
[2018-06-07] MEDS ORDERED: METHADONE HCL 5 MG TABLET (FOR DETOX USE ONLY) ONE (09:23)
[2018-06-07] MEDS ORDERED: METHADONE HCL 10 MG TABLET (FOR DETOX USE ONLY) ONE (09:24)
[2018-06-07] MEDS ORDERED: METHADONE (DETOX) 20 MG, METHADONE (DETOX) 5 MG PO ONE (10:00)
[2018-06-07] MEDS ORDERED: METHADONE HCL 10 MG TABLET (FOR DETOX USE ONLY) PO ONE (10:00)
[2018-06-07 10:23] LABS: ALBUMIN 2.7 g/dl (3.4-5.0); ALK PHOS 54 U/L (45-117); ANION GAP 4 MMOL/L (8-16); BILIRUBIN,TOTAL 0.2 mg/dL (0.2-1); BLOOD UREA NITROGEN 11 mg/dL (7-18); CALCIUM 8.6 mg/dL (8.5-10.1); CHLORIDE 109 mmol/L (98-107); CO2 27 mmol/L (21-32); GLUCOSE,RANDOM 78 mg/dL (74-106); POTASSIUM 3.9 mmol/L (3.5-5.1); SGOT/AST 33 U/L (15-37); SGPT/ALT 52 U/L (13-61); SODIUM 140 mmol/L (136-145); TOT PROT 5.7 g/dl (6.4-8.2)
[2018-06-07 10:24] LABS: BASO % 0.6 % (0-2.0); EOS % 2.7 % (0-4.5); HEMATOCRIT 37.7 % (35.4-49); HEMOGLOBIN 12.3 GM/dL (11.7-16.9); LYMPH % 53.2 % (8-40); MCH 27.3 pg (25.7-33.7); MCHC 32.7 g/dl (32.0-35.9); MEAN CELL VOLUME 83.3 fl (80-96); MEAN PLT VOLUME 8.1 fl (7.5-11.1); MONO % 8.8 % (3.8-10.2); NEUT % 34.7 % (42.8-82.8); PLATELET COUNT 257 K/MM3 (134-434); RBC 4.53 M/mm3 (4.00-5.60); RDW 14.9 % (11.9-15.9); WHITE BLOOD COUNT 4.4 K/mm3 (4.0-10.0)
[2018-06-07] MEDS: cloNIDine HCL 0.1 MG TABLET PO PRN ×2 (10:44→22:16)
[2018-06-07] MEDS: PRENATAL VITAMINS W/ FOLIC ACID TABLET (FP) PO SCH (10:44)
[2018-06-07] MEDS: METHOCARBAMOL 500 MG TABLET PO PRN ×2 (10:44→19:30)
[2018-06-07] MEDS: BACITRACIN 0.9 GM PACKET TP SCH ×2 (10:44→22:13)
[2018-06-07] MEDS: SULFAMETHOXAZOLE/TRIMETHOPRIM 800MG/160MG D.S. TABLET PO SCH ×2 (10:44→22:13)
[2018-06-07] MEDS: NICOTINE 21 MG/24 HOURS TOPICAL PATCH TD SCH (10:45)
--- NOTE | 2018-06-07 13:34 | PN ---
S CIWA - CIWA Score Nausea/Vomitin-No Nausea/No Vomiting Muscle Tremors: 2 Anxiety: 3 Agitation: 1-Slight > Activity Paroxysmal Sweats: 3 Orientation: 0-Oriented Tacttile Disturbances: 2-Mild Itch/Numbness/Burn Auditory Disturbances: 0-None Visual Disturbances: 2-Mild Sensitivity Headache: 0-None Present CIWA-Ar Total Score: 13 [facility] COWS - Scale Resting Pulse: 0= [place] 80 or Below Sweatin= Chills/Flushing Restless Observation: 1= Difficult to Sit Still Pupil Size: 0= Normal to Room Light Bone or Joint Aches: 2= Severe Diffuse Aches Runny Nose/ Eye Tearin= None GI Upset > 30mins: 0= None Tremor Observation of Outstretched Hands: 0= None Yawning Observation: 1= 1-2x During Session Anxiety or Irritability: 2=Irritable/Anxious Goose Flesh Skin: 3=Piloerection COWS Score: 10 [facility] Progress Note (SOAP) Subjective: Tremors, Anxious, Sweating, Body Aches. Patient Reports That Withdrawal Symptoms in General are gradually subsiding. Objective: PATIENT A & O X 3, OBSERVED AMBULATING ON UNIT UNASSISTED. IN NO ACUTE DISTRESS. 06/07/18 13:33 Vital Signs Temperature 97.7 F 06/07/18 13:02 Pulse Rate 79 06/07/18 13:02 Respiratory Rate 16 06/07/18 13:02 Blood Pressure 110/78 06/07/18 13:02 O2 Sat by Pulse Oximetry (%) Laboratory Tests 06/05/18 06/07/18 06/07/18 22:30 07:00 07:00 WBC 4.4 RBC 4.53 Hgb 12.3 Hct 37.7 MCV 83.3 MCH 27.3 MCHC 32.7 RDW 14.9 Plt Count 257 D MPV 8.1 Absolute Neuts (auto) 1.5 Neutrophils % 34.7 L Lymphocytes % 53.2 H D Monocytes % 8.8 Eosinophils % 2.7 Basophils % 0.6 Nucleated RBC % 0 Sodium 140 Potassium 3.9 Chloride 109 H Carbon Dioxide 27 Anion Gap 4 L BUN 11 Creatinine 1.0 Creat Clearance w eGFR 86.06 Random Glucose 78 Calcium 8.6 Total Bilirubin 0.2 AST 33 ALT 52 Alkaline Phosphatase 54 Total Protein 5.7 L Albumin 2.7 L Urine Color Yellow Urine Appearance Clear Urine pH 5.0 D Ur Specific [place] 1.025 Urine Protein Negative Urine Glucose (UA) Negative Urine Ketones Trace H Urine Blood Negative Urine Nitrite Negative Urine Bilirubin Negative Urine Urobilinogen 0.2 Ur Leukocyte Esterase Negative LABS NOTED. RPR RESULT PENDING. 06/07/18 13:34 Assessment: 06/07/18 13:33 WITHDRAWAL SYMPTOMS. Plan: CONTINUE DETOX. INCREASE DAILY PO FLUID / WATER INTAKE. PRN ROBAXIN PO FOR BODY ACHES.
[2018-06-07] MEDS: THIAMINE HCL 100 MG TABLET (FP) PO SCH (22:13)
[2018-06-07] MEDS: MELATONIN 5 MG TABLETS PO PRN (22:13)
[2018-06-07] MEDS: chlordiazePOXIDE HCL 10 MG CAPSULE PO SCH (22:14)
[2018-06-08] MEDS: chlordiazePOXIDE HCL 10 MG CAPSULE PO PRN ×2 (01:55→13:23)
[2018-06-08] MEDS: chlordiazePOXIDE HCL 10 MG CAPSULE PO SCH ×4 (05:39→22:08)
[2018-06-08] MEDS ORDERED: METHADONE HCL 10 MG TABLET (FOR DETOX USE ONLY) PO ONE (10:00)
[2018-06-08] MEDS: PRENATAL VITAMINS W/ FOLIC ACID TABLET (FP) PO SCH (10:21)
[2018-06-08] MEDS: SULFAMETHOXAZOLE/TRIMETHOPRIM 800MG/160MG D.S. TABLET PO SCH ×2 (10:22→22:07)
[2018-06-08] MEDS: METHOCARBAMOL 500 MG TABLET PO PRN ×2 (10:22→22:09)
[2018-06-08] MEDS: NICOTINE 21 MG/24 HOURS TOPICAL PATCH TD SCH (10:22)
[2018-06-08] MEDS: IBUPROFEN 400 MG TABLET (FP) PO PRN (10:23)
[2018-06-08] MEDS: BACITRACIN 0.9 GM PACKET TP SCH ×2 (10:24→22:08)
--- NOTE | 2018-06-08 13:02 | PN ---
S CIWA - CIWA Score Nausea/Vomitin-Mild Nausea/No Vomiting Muscle Tremors: 2 Anxiety: 3 Agitation: 1-Slight > Activity Paroxysmal Sweats: 2 Orientation: 0-Oriented Tacttile Disturbances: 2-Mild Itch/Numbness/Burn Auditory Disturbances: 0-None Visual Disturbances: 1-Very Mild Sensitivity Headache: 0-None Present CIWA-Ar Total Score: 12 [facility] COWS - Scale Resting Pulse: 0= [place] 80 or Below Sweatin= Chills/Flushing Restless Observation: 0= Sits Still Pupil Size: 0= Normal to Room Light Bone or Joint Aches: 1= Mild Discomfort Runny Nose/ Eye Tearin= None GI Upset > 30mins: 2= Nausea/Diarrhea Tremor Observation of Outstretched Hands: 2= Slight Tremor Visible Yawning Observation: 1= 1-2x During Session Anxiety or Irritability: 2=Irritable/Anxious Goose Flesh Skin: 0=Smooth Skin COWS Score: 9 S Progress Note (SOAP) Subjective: Body Aches, Anxious, Sweating, Tremors. Withdrawal / Detox Symptoms are continuing to diminish in severity. Objective: PATIENT A & O X 3, OBSERVED AMBULATING ON UNIT UNASSISTED. IN NO ACUTE DISTRESS. 06/08/18 12:59 Vital Signs Temperature 98.2 F 06/08/18 09:47 Pulse Rate 51 L 06/08/18 09:47 Respiratory Rate 19 06/08/18 09:47 Blood Pressure 102/67 06/08/18 09:47 O2 Sat by Pulse Oximetry (%) Laboratory Tests 06/05/18 06/07/18 06/07/18 22:30 07:00 07:00 WBC 4.4 RBC 4.53 Hgb 12.3 Hct 37.7 MCV 83.3 MCH 27.3 MCHC 32.7 RDW 14.9 Plt Count 257 D MPV 8.1 Absolute Neuts (auto) 1.5 Neutrophils % 34.7 L Lymphocytes % 53.2 H D Monocytes % 8.8 Eosinophils % 2.7 Basophils % 0.6 Nucleated RBC % 0 Sodium 140 Potassium 3.9 Chloride 109 H Carbon Dioxide 27 Anion Gap 4 L BUN 11 Creatinine 1.0 Creat Clearance w eGFR 86.06 Random Glucose 78 Calcium 8.6 Total Bilirubin 0.2 AST 33 ALT 52 Alkaline Phosphatase 54 Total Protein 5.7 L Albumin 2.7 L Urine Color Yellow Urine Appearance Clear Urine pH 5.0 D Ur Specific [place] 1.025 Urine Protein Negative Urine Glucose (UA) Negative Urine Ketones Trace H Urine Blood Negative Urine Nitrite Negative Urine Bilirubin Negative Urine Urobilinogen 0.2 Ur Leukocyte Esterase Negative RPR Titer 06/07/18 07:00 WBC RBC Hgb Hct MCV MCH MCHC RDW Plt Count MPV Absolute Neuts (auto) Neutrophils % Lymphocytes % Monocytes % Eosinophils % Basophils % Nucleated RBC % Sodium Potassium Chloride Carbon Dioxide Anion Gap BUN Creatinine Creat Clearance w eGFR Random Glucose Calcium Total Bilirubin AST ALT Alkaline Phosphatase Total Protein Albumin Urine Color Urine Appearance Urine pH Ur Specific [place] Urine Protein Urine Glucose (UA) Urine Ketones Urine Blood Urine Nitrite Urine Bilirubin Urine Urobilinogen Ur Leukocyte Esterase RPR Titer Nonreactive LABS NOTED. Assessment: 06/08/18 13:00 WITHDRAWAL SYMPTOMS. Plan: CONTINUE DETOX. CONTINUE BACTRIM DS BID FOR ABSCESS OF RIGHT HAND.
[2018-06-08] MEDS: THIAMINE HCL 100 MG TABLET (FP) PO SCH (22:07)
[2018-06-08] MEDS: MELATONIN 5 MG TABLETS PO PRN (22:08)
[2018-06-09] MEDS ORDERED: METHADONE HCL 5 MG TABLET (FOR DETOX USE ONLY) PO ONE (10:00)
[2018-06-09] MEDS: PRENATAL VITAMINS W/ FOLIC ACID TABLET (FP) PO SCH (10:35)
[2018-06-09] MEDS: SULFAMETHOXAZOLE/TRIMETHOPRIM 800MG/160MG D.S. TABLET PO SCH (10:35)
[2018-06-09] MEDS: NICOTINE 21 MG/24 HOURS TOPICAL PATCH TD SCH (10:35)
[2018-06-09] MEDS: BACITRACIN 0.9 GM PACKET TP SCH (10:35)
[2018-06-09] MEDS: chlordiazePOXIDE HCL 10 MG CAPSULE PO SCH (10:35)
[2018-06-09 14:08] VITALS: BP 125/59; PULSE 70; TEMP 98.2
--- NOTE | 2018-06-09 14:11 | PN ---
S CIWA - CIWA Score Nausea/Vomitin-No Nausea/No Vomiting Muscle Tremors: 3 Anxiety: 3 Agitation: 1-Slight > Activity Paroxysmal Sweats: 2 Orientation: 0-Oriented Tacttile Disturbances: 2-Mild Itch/Numbness/Burn Auditory Disturbances: 0-None Visual Disturbances: 1-Very Mild Sensitivity Headache: 0-None Present CIWA-Ar Total Score: 12 BHS COWS - Scale Resting Pulse: 0= [place] 80 or Below Sweatin= Chills/Flushing Restless Observation: 0= Sits Still Pupil Size: 0= Normal to Room Light Bone or Joint Aches: 1= Mild Discomfort Runny Nose/ Eye Tearin= Nasal Congestion GI Upset > 30mins: 1= Stomach Cramp Tremor Observation of Outstretched Hands: 2= Slight Tremor Visible Yawning Observation: 1= 1-2x During Session Anxiety or Irritability: 2=Irritable/Anxious Goose Flesh Skin: 0=Smooth Skin COWS Score: 9 S Progress Note (SOAP) Subjective: Sweating, Anxious, Stomach Cramping, Fatigue. Objective: PATIENT A & O X 3, OBSERVED AMBULATING ON UNIT UNASSISTED. IN NO ACUTE DISTRESS. 06/09/18 14:12 Vital Signs Temperature 98.2 F 06/09/18 14:07 Pulse Rate 70 06/09/18 14:07 Respiratory Rate 18 06/09/18 14:07 Blood Pressure 125/59 L 06/09/18 14:07 O2 Sat by Pulse Oximetry (%) Laboratory Tests 06/05/18 06/07/18 06/07/18 22:30 07:00 07:00 WBC 4.4 RBC 4.53 Hgb 12.3 Hct 37.7 MCV 83.3 MCH 27.3 MCHC 32.7 RDW 14.9 Plt Count 257 D MPV 8.1 Absolute Neuts (auto) 1.5 Neutrophils % 34.7 L Lymphocytes % 53.2 H D Monocytes % 8.8 Eosinophils % 2.7 Basophils % 0.6 Nucleated RBC % 0 Sodium 140 Potassium 3.9 Chloride 109 H Carbon Dioxide 27 Anion Gap 4 L BUN 11 Creatinine 1.0 Creat Clearance w eGFR 86.06 Random Glucose 78 Calcium 8.6 Total Bilirubin 0.2 AST 33 ALT 52 Alkaline Phosphatase 54 Total Protein 5.7 L Albumin 2.7 L Urine Color Yellow Urine Appearance Clear Urine pH 5.0 D Ur Specific [place] 1.025 Urine Protein Negative Urine Glucose (UA) Negative Urine Ketones Trace H Urine Blood Negative Urine Nitrite Negative Urine Bilirubin Negative Urine Urobilinogen 0.2 Ur Leukocyte Esterase Negative RPR Titer 06/07/18 07:00 WBC RBC Hgb Hct MCV MCH MCHC RDW Plt Count MPV Absolute Neuts (auto) Neutrophils % Lymphocytes % Monocytes % Eosinophils % Basophils % Nucleated RBC % Sodium Potassium Chloride Carbon Dioxide Anion Gap BUN Creatinine Creat Clearance w eGFR Random Glucose Calcium Total Bilirubin AST ALT Alkaline Phosphatase Total Protein Albumin Urine Color Urine Appearance Urine pH Ur Specific [place] Urine Protein Urine Glucose (UA) Urine Ketones Urine Blood Urine Nitrite Urine Bilirubin Urine Urobilinogen Ur Leukocyte Esterase RPR Titer Nonreactive LABS NOTED. Assessment: 06/09/18 14:13 WITHDRAWAL SYMPTOMS. Plan: CONTINUE DETOX. INCREASE DAILY PO FLUID INTAKE.
--- NOTE | 2018-06-09 15:07 | PN ---
[facility] Progress Note Note: LATER IN DAY, PATIENT REPORTED THAT CURRENT WITHDRAWAL SYMPTOMS THAT IS EXPERIENCING ARE TOLERABLE AND THAT HE IS MANAGING THEM RELATIVELY WELL. AT PATIENT'S REQUEST, HE WAS GRANTED AN EARLY DISCHARGE FROM DETOX UNIT SO THAT HE MAY PROCEED ON TO AFTER[facility]ARE [facility] ([place], [place]) OUTPATIENT PROGRAM. Francis NAGY NP
--- NOTE | 2018-06-09 15:17 | DS ---
[facility] Detox Discharge Summary Admission Date: 06/05/18 Discharge Date: 06/09/18 - History Present History: Alcohol Dependence, Cocaine Dependence, Opioid Dependence Additional Comments: PATIENT REPORTS THAT HAT CURRENT WITHDRAWAL / DETOX SYMPTOMS ARE MANAGEABLE AND THAT HE IS FEELING RELATIVELY WELL OVERALL AT TIME OF DISCHARGE FROM DETOX UNIT. DESPITE ENCOURAGEMENT FROM [facility], PATIENT DECLINED OFFER OF DISCHARGE PRESCRIPTION FOR ANTIBIOTIC (BACTRIM DS) PRESCRIBED FOR CELLULITIS OF RIGHT HAND ) WHILE ADMITTED FOR DETOX, STATING THAT HE FELT THAT HIS RIGHT HAND IS FEELING BETTER AND THAT HE DID NOT WISH TO TAKE THE MEDICATION ANY LONGER. PATIENT REFERRED TO [facility] ([place], [place]) FOR AFTERCARE. PATIENT WAS DISCHARGED FROM DETOX UNIT IN STABLE MEDICAL CONDITION. Pertinent Past History: Anxiety, Depression, Cellulitis of Right Hand, Nicotine Dependence, Presence Of Track Horne due To Intravenous Drug Use, Nystagmus. - Physical Exam Results Vital Signs: Vital Signs Temperature 98.2 F 06/09/18 14:07 Pulse Rate 70 06/09/18 14:07 Respiratory Rate 18 06/09/18 14:07 Blood Pressure 125/59 L 06/09/18 14:07 O2 Sat by Pulse Oximetry (%) Pertinent Admission Physical Exam Findings: WITHDRAWAL SYMPTOMS. Laboratory Tests 06/05/18 06/07/18 06/07/18 22:30 07:00 07:00 WBC 4.4 RBC 4.53 Hgb 12.3 Hct 37.7 MCV 83.3 MCH 27.3 MCHC 32.7 RDW 14.9 Plt Count 257 D MPV 8.1 Absolute Neuts (auto) 1.5 Neutrophils % 34.7 L Lymphocytes % 53.2 H D Monocytes % 8.8 Eosinophils % 2.7 Basophils % 0.6 Nucleated RBC % 0 Sodium 140 Potassium 3.9 Chloride 109 H Carbon Dioxide 27 Anion Gap 4 L BUN 11 Creatinine 1.0 Creat Clearance w eGFR 86.06 Random Glucose 78 Calcium 8.6 Total Bilirubin 0.2 AST 33 ALT 52 Alkaline Phosphatase 54 Total Protein 5.7 L Albumin 2.7 L Urine Color Yellow Urine Appearance Clear Urine pH 5.0 D Ur Specific [place] 1.025 Urine Protein Negative Urine Glucose (UA) Negative Urine Ketones Trace H Urine Blood Negative Urine Nitrite Negative Urine Bilirubin Negative Urine Urobilinogen 0.2 Ur Leukocyte Esterase Negative RPR Titer 06/07/18 07:00 WBC RBC Hgb Hct MCV MCH MCHC RDW Plt Count MPV Absolute Neuts (auto) Neutrophils % Lymphocytes % Monocytes % Eosinophils % Basophils % Nucleated RBC % Sodium Potassium Chloride Carbon Dioxide Anion Gap BUN Creatinine Creat Clearance w eGFR Random Glucose Calcium Total Bilirubin AST ALT Alkaline Phosphatase Total Protein Albumin Urine Color Urine Appearance Urine pH Ur Specific [place] Urine Protein Urine Glucose (UA) Urine Ketones Urine Blood Urine Nitrite Urine Bilirubin Urine Urobilinogen Ur Leukocyte Esterase RPR Titer Nonreactive LABS NOTED. - Treatment Hospital Course: Detox Protocol Followed, Detoxed Safely, Responded well, Discharged Condition Good Patient has Accepted a Rehab Referral to: PT REFERRED TO [facility] ([place], [place]) FOR AFTERCARE. - Medication Discharge Medications: Ambulatory Orders NK [No Known Home Medication] 01/30/18 - Diagnosis (1) Abscess of right hand Current Visit: Yes Status: Acute (2) Alcohol dependence with uncomplicated intoxication Current Visit: Yes Status: Acute (3) Nystagmus Current Visit: Yes Status: Chronic (4) Uncomplicated sedative, hypnotic or anxiolytic withdrawal Current Visit: Yes Status: Acute (5) Cocaine dependence Current Visit: Yes Status: Chronic Qualifiers: Substance use status: uncomplicated Qualified Code(s): F14.20 - Cocaine dependence, uncomplicated (6) Nicotine dependence Current Visit: Yes Status: Chronic Qualifiers: Nicotine product type: cigarettes Substance use status: uncomplicated Qualified Code(s): F17.210 - Nicotine dependence, cigarettes, uncomplicated (7) 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 Current Visit: Yes Status: Chronic (8) Opioid dependence with withdrawal Current Visit: Yes Status: Acute - AMA Did Patient Leave Against Medical Advice: No
[2018-06-10] MEDS ORDERED: METHADONE HCL 10 MG TABLET (FOR DETOX USE ONLY) PO ONE (10:00)
[2018-06-11] MEDS ORDERED: METHADONE HCL 5 MG TABLET PO SCH (06:00)
[2018-06-11] MEDS ORDERED: METHADONE HCL 5 MG TABLET (FOR DETOX USE ONLY) PO ONE (06:00)
== END 2018-06-09 13:25 | disposition home or self-care (01) | DRG 773 ==
LOC: YASAS 15:18 → Y6N 19:35
PROVIDERS: ADMIT Surgery; ATTEND Surgery
PROC: HZ2ZZZZ Detoxification Services for Substance Abuse Treatment (ICD-10-PCS; principal; 2018-06-05)
DX: F11.23 Opioid dependence with withdrawal (principal); F10.230 Alcohol dependence with withdrawal, uncomplicated; F13.230 Sedative, hypnotic or anxiolytic dependence with withdrawal, uncomplicated; F14.20 Cocaine dependence, uncomplicated; F17.213 Nicotine dependence, cigarettes, with withdrawal; F41.8 Other specified anxiety disorders; F32.9 Major depressive disorder, single episode, unspecified; L03.113 Cellulitis of right upper limb; H54.40 Blindness, one eye, unspecified eye
CPT/HCPCS: 36415; 80053; 81003; 85025; 86593; J0735

== ENCOUNTER 2018-07-06 10:40 | Inpatient (IN) | payer OTHER ==
[2018-07-06 11:37] VITALS: BMI 24.3
--- NOTE | 2018-07-06 13:14 | HP ---
COWS - Scale Resting Pulse: 0= [place] 80 or Below Sweatin= Chills/Flushing Restless Observation: 3= Extraneous Movement Pupil Size: 0= Normal to Room Light Bone or Joint Aches: 2= Severe Diffuse Aches Runny Nose/ Eye Tearin= Constantly Teary/Runny GI Upset > 30mins: 2= Nausea/Diarrhea Tremor Observation: 1= Tremor [place], Not Seen Yawning Observation: 0= None Anxiety or Irritability: 2=Irritable/Anxious Goose Flesh Skin: 0=Smooth Skin COWS Score: 15 CIWA Score Nausea/Vomitin Muscle Tremors: 2 Anxiety: 4-Mod. Anxious/Guarded Agitation: 4-Moderately Restless Paroxysmal Sweats: 3 Orientation: 0-Oriented Tacttile Disturbances: 0-None Auditory Disturbances: 0-None Visual Disturbances: 2-Mild Sensitivity Headache: 5-Severe CIWA-Ar Total Score: 23 - Admission Criteria [facility]ASAS Guidelines: Admission for Medically Managed Detox: Requires at least one of the followin. CIWA greater than 12 2. Seizures within the past 24 hours 3. Delirium tremens within the past 24 hours 4. Hallucinations within the past 24 hours 5. Acute intervention needed for co occurring medical disorder 6. Acute intervention needed for co occurring psychiatric disorder 7. Severe withdrawal that cannot be handled at a lower level of care (continued vomiting, continued diarrhea, abnormal vital signs) requiring intravenous medication and/or fluids 8. Admission ROS [facility] Allergies/Adverse Reactions: Allergies Allergy/AdvReac Type Severity Reaction Status Date / Time Penicillins Allergy Severe Rash Verified 07/06/18 11:30 History of Present Illness: patient here requesting detox from [facility] , opiate and benzo use , reports 3 pints/day since age 17 intermittently , longest sobriety 3-4 years while out of state in [place] and while incarcerated total 3 years , back in [place] since age 25 , prior detox at this facility 06/05/18 , reports relapse immediately after leaving facility , latest use yesterday evening, current symptoms as above. Reports tremors if not drinking , starts drinking in the mornings . 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 PMHX : denies PSHx : denies Psych : denies Meds : denies Shx: lives w/ family . unemployed , supports habit through shoplifting . Exam Limitations: Clinical Condition - Ebola screening Have you traveled outside of the country in the last 21 days: No (N) Have you had contact with anyone from an Ebola affected area: No Do you have a fever: No - Review of Systems Constitutional: See HPI, Loss of Appetite EENT: reports: Nose Congestion Respiratory: reports: No Symptoms reported Cardiac: reports: No Symptoms Reported GI: reports: See HPI, Nausea : reports: No Symptoms Reported Musculoskeletal: reports: See HPI, Back Pain, Muscle Pain Integumentary: reports: See HPI Neuro: reports: See HPI, Headache Endocrine: reports: No Symptoms Reported Psychiatric: reports: Orientated x3, Anxious Patient History - Patient Medical History Hx Anemia: No Hx Asthma: No Hx Chronic Obstructive Pulmonary Disease (COPD): No Hx Cancer: No Hx Cardiac Disorders: No Hx Congestive Heart Failure: No Hx Hypertension: No Hx Hypercholesterolemia: No Hx Pacemaker: No HX Cerebrovascular Accident: No Hx Seizures: No Hx Dementia: No Hx Diabetes: No Hx Gastrointestinal Disorders: No Hx Liver Disease: No Hx Genitourinary Disorders: No Hx Sexually Transmitted Disorders: No Hx Renal Disease (ESRD): No Hx Thyroid Disease: No Hx Human Immunodeficiency Virus (HIV): No (last 08/24 negative) Hx Hepatitis C: No Hx Depression: Yes Hx Suicide Attempt: No Hx Bipolar Disorder: No Hx Schizophrenia: No - Patient Surgical History Past Surgical History: No Hx Neurologic Surgery: No Hx Cataract Extraction: No Hx Cardiac Surgery: No Hx Lung Surgery: No Hx Breast Surgery: No Hx Breast Biopsy: No Hx Abdominal Surgery: No Hx Appendectomy: No Hx Cholecystectomy: No Hx Genitourinary Surgery: No Hx Section: No Hx Orthopedic Surgery: No Other Surgical History: circumcission at age of 7 years Anesthesia Reaction: No - PPD History Date: 12/13/17 Results: 0 mm - Smoking Cessation Smoking history: Current every day smoker Have you smoked in the past 12 months: Yes Aproximately how many cigarettes per day: 20 Cigars Per Day: 0 Hx Chewing Tobacco Use: No Initiated information on smoking cessation: No - Substances abused Alcohol Substance route: Oral Frequency: Daily Amount used: 2 PINTS- 6PK - 12OZ Age of first use: 15 Date of last use: 06/04/18 Alprazolam (Xanax) Other (specify): 2MG Substance route: Oral Frequency: Daily Amount used: 6 BARS Age of first use: 27 Date of last use: 07/06/18 Heroin Substance route: Injection Frequency: Daily Amount used: 15 BAGS Age of first use: 17 Date of last use: 07/06/18 Cocaine Substance route: Smoking Frequency: Daily Amount used: $50 Age of first use: 16 Date of last use: 07/06/18 Family Disease History - Family Disease History Family Disease History: Diabetes: Mother (unsure , does not keep in touch), Other: Father (does not keep in touch ), Brother (3 brothers does not keep in touch ), Sister (5 sisters , does not keep in touch except 1 sister in [place] ), Son (9 y.o. in [place] ) Admission Physical Exam [facility] - Vital Signs Vital Signs: Vital Signs - 24 hr 07/06/18 11:29 Temperature 98.9 F Pulse Rate 69 Respiratory 18 Rate Blood Pressure 137/76 - Physical General Appearance: Yes: Disheveled, Mild Distress, Anxious HEENTM: Yes: EOMI, Hearing grossly Normal, Normocephalic, Normal Voice, Nasal Congestion, Rhinorrhea Respiratory: Yes: Lungs Clear, Normal Breath Sounds Neck: Yes: No masses,lesions,Nodules, Trachea in good position Cardiology: Yes: Regular Rhythm, Regular Rate, S1, S2 Abdominal: Yes: Normal Bowel Sounds, Soft Back: Yes: Normal Inspection Musculoskeletal: Yes: Gait Steady Extremities: Yes: Normal Range of Motion, Non-Tender, Tremors Neurological: Yes: Fully Oriented, Alert, Motor Strength 5/5 Integumentary: Yes: Warm, Track Marte (nain UE , neck and LLE) - Diagnostic (1) Alcohol dependence Current Visit: Yes Status: Acute Qualifiers: Substance use status: in withdrawal (2) Opioid dependence with withdrawal Current Visit: Yes Status: Acute (3) Cocaine dependence Current Visit: No Status: Chronic Qualifiers: Substance use status: uncomplicated Qualified Code(s): F14.20 - Cocaine dependence, uncomplicated (4) Nicotine dependence Current Visit: No Status: Chronic Qualifiers: Nicotine product type: cigarettes Substance use status: uncomplicated Qualified Code(s): F17.210 - Nicotine dependence, cigarettes, uncomplicated (5) Uncomplicated sedative, hypnotic or anxiolytic withdrawal Current Visit: Yes Status: Acute Breathalyzer - Breathalyzer Breathalyzer: 0 Urine Drug Screen - Test Device Lot number: [id number] Expiration date: 01/07/20 - Control Is test valid?: Yes - Results Drug screen NEGATIVE: No Urine drug screen results: PARKER-Cocaine, FEN-Fentanyl, MOP-Opiates, BZO- Benzodiazepines Inpatient Rehab Admission - Rehab Decision to Admit Inpatient rehab admission?: No
[2018-07-06] MEDS ORDERED: ACETAMINOPHEN 325 MG TABLET (FP) PO PRN ×2 (13:19)
[2018-07-06] MEDS ORDERED: MENTHOL/PHENOL 1 EACH UD MM PRN (13:19)
[2018-07-06] MEDS ORDERED: MAGNESIUM CITRATE 300 ML BOTTLE PO PRN (13:19)
[2018-07-06] MEDS ORDERED: BISMUTH SUBSALICYLATE 262 MG/15 ML BTL PO PRN (13:19)
[2018-07-06] MEDS ORDERED: NICOTINE POLACRILEX 2 MG GUM BUC PRN (13:19)
[2018-07-06] MEDS ORDERED: MAGNESIUM HYDROX 2400MG/30ML ORAL SUSPENSION 30 ML CUP PO PRN (13:19)
[2018-07-06] MEDS ORDERED: MAG HYDROX/AL HYDROX/SIMETH 30 ML UNIT-DOSE CUP PO PRN (13:19)
[2018-07-06] MEDS ORDERED: METHADONE HCL 10 MG TABLET (FOR DETOX USE ONLY) PO ONE (14:20)
[2018-07-06] MEDS: diazePAM 5 MG TABLET PO SCH ×2 (15:54→22:25)
[2018-07-06] MEDS: NICOTINE 7 MG/24 HOURS TOPICAL PATCH TD SCH (15:54)
[2018-07-06] MEDS: cloNIDine HCL 0.1 MG TABLET PO PRN (16:24)
[2018-07-06] MEDS: IBUPROFEN 400 MG TABLET (FP) PO PRN (16:24)
[2018-07-06] MEDS: hydrOXYzine PAMOATE 25 MG CAPSULE (FP) PO PRN (16:24)
[2018-07-06] MEDS: METHOCARBAMOL 500 MG TABLET PO PRN (16:26)
[2018-07-06] MEDS: diazePAM 5 MG TABLET PO PRN (18:59)
[2018-07-06] MEDS: THIAMINE HCL 100 MG TABLET (FP) PO SCH (22:24)
[2018-07-06] MEDS: MELATONIN 5 MG TABLETS PO PRN (22:25)
[2018-07-07] MEDS: diazePAM 5 MG TABLET PO SCH ×3 (05:39→22:23)
[2018-07-07] MEDS: METHOCARBAMOL 500 MG TABLET PO PRN ×3 (05:40→19:17)
[2018-07-07] MEDS: cloNIDine HCL 0.1 MG TABLET PO PRN ×3 (06:05→19:17)
[2018-07-07] MEDS: IBUPROFEN 400 MG TABLET (FP) PO PRN ×2 (08:41→17:55)
[2018-07-07] MEDS: diazePAM 5 MG TABLET PO PRN ×3 (08:41→19:49)
[2018-07-07] MEDS ORDERED: METHADONE HCL 10 MG TABLET (FOR DETOX USE ONLY) PO ONE (10:00)
[2018-07-07] MEDS: PRENATAL VITAMINS W/ FOLIC ACID TABLET (FP) PO SCH (10:32)
[2018-07-07] MEDS: NICOTINE 7 MG/24 HOURS TOPICAL PATCH TD SCH (10:33)
[2018-07-07] MEDS: hydrOXYzine PAMOATE 25 MG CAPSULE (FP) PO PRN (10:35)
--- NOTE | 2018-07-07 11:22 | PN ---
S CIWA - CIWA Score Nausea/Vomitin Muscle Tremors: 2 Anxiety: 2 Agitation: 2 Paroxysmal Sweats: 1-Minimal Palms Moist Orientation: 0-Oriented Tacttile Disturbances: 1-Very Mild Itch/Numbness Auditory Disturbances: 1-Very Mild Visual Disturbances: 0-None Headache: 2-Mild CIWA-Ar Total Score: 13 BHS COWS - Scale Resting Pulse: 0= [place] 80 or Below Sweatin= Chills/Flushing Restless Observation: 1= Difficult to Sit Still Pupil Size: 1= Pupils >than Normal Bone or Joint Aches: 2= Severe Diffuse Aches Runny Nose/ Eye Tearin= Nasal Congestion GI Upset > 30mins: 2= Nausea/Diarrhea Tremor Observation of Outstretched Hands: 2= Slight Tremor Visible Yawning Observation: 1= 1-2x During Session Anxiety or Irritability: 2=Irritable/Anxious Goose Flesh Skin: 0=Smooth Skin COWS Score: 13 BHS Progress Note (SOAP) Subjective: alert,irritable,anxious,interrupted sleep,tremor,pain in the body and back Objective: 07/07/18 11:19 Vital Signs Temperature 97.2 F L 07/07/18 09:40 Pulse Rate 97 H 07/07/18 09:40 Respiratory Rate 20 07/07/18 09:40 Blood Pressure 130/68 07/07/18 09:40 O2 Sat by Pulse Oximetry (%) labs pending Assessment: 07/07/18 11:21 withdrawal symptom Plan: continue detox,cbc cmp,rpr in am
[2018-07-07] MEDS: NICOTINE 21 MG/24 HOURS TOPICAL PATCH TD SCH (12:40)
--- NOTE | 2018-07-07 14:14 | CONSULT ---
[facility] Psychiatric Consult - Data Date of interview: 07/07/18 Admission source: [facility] Identifying data: Patient is a 33 year old single, father of one, unemployed, domiciled, and is financially supported by his girlfriend. This is one of multiple admissions for patient. Patient admitted to for alcohol, cocaine, benzodiazepine, and opiate dependence. Substance Abuse History: - Smoking Cessation. Smoking history: Current every day smoker. Have you smoked in the past 12 months: Yes. Aproximately how many cigarettes per day: 20. Cigars Per Day: 0. Hx Chewing Tobacco Use: No. Initiated information on smoking cessation: No. - Substances abused. Alcohol. Substance route: Oral. Frequency: Daily. Amount used: 2 PINTS- 6PK - 12OZ. Age of first use: 15. Date of last use: 06/04/18. Alprazolam ( Xanax). Other (specify): 2MG. Substance route: Oral. Frequency: Daily. Amount used: 6 BARS. Age of first use: 27. Date of last use: 07/06/18. Heroin. Substance route: Injection. Frequency: Daily. Amount used: 15 BAGS. Age of first use: 17. Date of last use: 07/06/18. Cocaine. Substance route : Smoking. Frequency: Daily. Amount used: $50. Age of first use: 16. Date of last use: 07/06/18 Medical History: denies. endorses good health Psychiatric History: Patient reports one brief psychiatric hospitalization at [facility] in 2017. Patient unable to recall the reason for his hospitalization but as per Dr. Martinez entry patient had stated abad he wanted to kill himself. Patient reports taking gabapentin and seroquel in the past. Patient has been admitted to detox numerous times and has accepted seroquel and gabapentin with favorable effect. At present patient reports ongoing anxiety and is experencing difficulty sleeping. Patient denies h/o suicide attempt. Physical/Sexual Abuse/Trauma History: denies. Mental Status Exam - Mental Status Exam Alert and Oriented to: Time, Place, Person Cognitive Function: Good Patient Appearance: Well Groomed Mood: Euthymic Affect: Appropriate Patient Behavior: Cooperative Speech Pattern: Appropriate Voice Loudness: Moderately Soft/Quiet Thought Process: Goal Oriented Thought Disorder: Not Present Hallucinations: Denies Suicidal Ideation: Denies Homicidal Ideation: Denies Insight/Judgement: Poor Sleep: Poorly Appetite: Fair Muscle strength/Tone: Normal Gait/Station: Normal Psychiatric Findings - Initial Treatment Plan Initial Treatment Plan: Psychoeducation provided. Detoxification in progress. Will order Seroquel 100mg HS + Gabapentin 400mg TID. Benefits and side effects discussed. Verbal consent given.
[2018-07-07] MEDS: GABAPENTIN 400 MG CAPSULE (FP) PO SCH ×2 (14:59→22:23)
[2018-07-07] MEDS: QUEtiapine FUMARATE 100 MG TABLET (FP) PO SCH (22:23)
[2018-07-07] MEDS: MELATONIN 5 MG TABLETS PO PRN (22:23)
[2018-07-07] MEDS: THIAMINE HCL 100 MG TABLET (FP) PO SCH (22:23)
[2018-07-08] MEDS: METHOCARBAMOL 500 MG TABLET PO PRN ×3 (05:24→18:28)
[2018-07-08] MEDS: GABAPENTIN 400 MG CAPSULE (FP) PO SCH ×3 (05:24→22:28)
[2018-07-08] MEDS: IBUPROFEN 400 MG TABLET (FP) PO PRN (05:26)
[2018-07-08] MEDS ORDERED: diazePAM 5 MG TABLET PO ONE (06:00)
[2018-07-08] MEDS: diazePAM 5 MG TABLET PO PRN ×4 (08:03→22:28)
[2018-07-08] MEDS: PRENATAL VITAMINS W/ FOLIC ACID TABLET (FP) PO SCH (09:44)
[2018-07-08] MEDS: NICOTINE 21 MG/24 HOURS TOPICAL PATCH TD SCH (09:44)
[2018-07-08] MEDS: cloNIDine HCL 0.1 MG TABLET PO PRN (09:51)
[2018-07-08] MEDS ORDERED: TRIMETHOBENZAMIDE HCL 200MG/2ML INJ IM PRN (10:00)
[2018-07-08] MEDS ORDERED: METHADONE HCL 10 MG TABLET (FOR DETOX USE ONLY) PO ONE (10:00)
[2018-07-08 12:40] LABS: HEMATOCRIT 40.6 % (35.4-49); HEMOGLOBIN 13.3 GM/dL (11.7-16.9); MCH 28.1 pg (25.7-33.7); MCHC 32.6 g/dl (32.0-35.9); MEAN CELL VOLUME 86.2 fl (80-96); MEAN PLT VOLUME 8.6 fl (7.5-11.1); PLATELET COUNT 268 K/MM3 (134-434); RBC 4.72 M/mm3 (4.00-5.60); RDW 14.6 % (11.9-15.9); WHITE BLOOD COUNT 5.3 K/mm3 (4.0-10.0)
[2018-07-08 12:56] LABS: ALBUMIN 3.2 g/dl (3.4-5.0); BILIRUBIN,TOTAL 0.4 mg/dL (0.2-1); CALCIUM 9.5 mg/dL (8.5-10.1); CREATININE 1.1 mg/dL (0.55-1.3); POTASSIUM 3.5 mmol/L (3.5-5.1); TOT PROT 6.3 g/dl (6.4-8.2)
--- NOTE | 2018-07-08 16:29 | PN ---
S CIWA - CIWA Score Nausea/Vomitin Muscle Tremors: None Anxiety: 3 Agitation: 1-Slight > Activity Paroxysmal Sweats: 3 Orientation: 0-Oriented Tacttile Disturbances: 0-None Auditory Disturbances: 0-None Visual Disturbances: 0-None Headache: 4-Moderately Severe CIWA-Ar Total Score: 14 S COWS - Scale Resting Pulse: 1= [place] 81-100 Sweatin= Chills/Flushing Restless Observation: 1= Difficult to Sit Still Pupil Size: 0= Normal to Room Light Bone or Joint Aches: 2= Severe Diffuse Aches Runny Nose/ Eye Tearin= None GI Upset > 30mins: 2= Nausea/Diarrhea Tremor Observation of Outstretched Hands: 0= None Yawning Observation: 1= 1-2x During Session Anxiety or Irritability: 2=Irritable/Anxious Goose Flesh Skin: 0=Smooth Skin COWS Score: 10 S Progress Note (SOAP) Subjective: Body Aches, H/A, Sweating, Diarrhea, Nausea. Objective: PATIENT A & O X 3, OBSERVED AMBULATING ON UNIT UNASSISTED. IN NO ACUTE DISTRESS. 07/08/18 16:30 Vital Signs Temperature 97.0 F L 07/08/18 13:49 Pulse Rate 61 07/08/18 13:49 Respiratory Rate 18 07/08/18 13:49 Blood Pressure 116/65 07/08/18 13:49 O2 Sat by Pulse Oximetry (%) Laboratory Tests 07/08/18 07/08/18 09:20 09:20 WBC 5.3 RBC 4.72 Hgb 13.3 Hct 40.6 MCV 86.2 MCH 28.1 MCHC 32.6 RDW 14.6 Plt Count 268 MPV 8.6 Sodium 145 Potassium 3.5 Chloride 109 H Carbon Dioxide 30 Anion Gap 6 L BUN 15 Creatinine 1.1 Est GFR (CKD-EPI)AfAm 101.69 Est GFR (CKD-EPI)NonAf 87.74 Random Glucose 76 Calcium 9.5 Total Bilirubin 0.4 AST 47 H ALT 112 H Alkaline Phosphatase 69 Total Protein 6.3 L Albumin 3.2 L LABS NOTED. RPR RESULT PENDING. Assessment: 07/08/18 16:31 WITHDRAWAL SYMPTOMS. ELEVATED LIVER ENZYMES (AST, ALT). 07/08/18 16:31 Plan: CONTINUE DETOX. INCREASE DAILY PO FLUID / WATER INTAKE. PRN TIGAN IM FOR NAUSEA. PRN PEPTO-BISMOL PO FOR DIARRHEA.
[2018-07-08] MEDS: IBUPROFEN 600 MG TABLET (FP) PO PRN (18:29)
[2018-07-08] MEDS: QUEtiapine FUMARATE 100 MG TABLET (FP) PO SCH (22:28)
[2018-07-08] MEDS: THIAMINE HCL 100 MG TABLET (FP) PO SCH (22:28)
[2018-07-09] MEDS: IBUPROFEN 600 MG TABLET (FP) PO PRN ×2 (01:46→14:50)
[2018-07-09] MEDS: METHOCARBAMOL 500 MG TABLET PO PRN ×3 (01:46→17:32)
[2018-07-09] MEDS: GABAPENTIN 400 MG CAPSULE (FP) PO SCH ×3 (07:50→21:15)
[2018-07-09] MEDS: diazePAM 5 MG TABLET PO PRN (08:34)
[2018-07-09] MEDS: NICOTINE 21 MG/24 HOURS TOPICAL PATCH TD SCH (09:43)
[2018-07-09] MEDS: PRENATAL VITAMINS W/ FOLIC ACID TABLET (FP) PO SCH (09:43)
[2018-07-09] MEDS ORDERED: METHADONE HCL 10 MG TABLET (FOR DETOX USE ONLY) PO ONE (10:00)
--- NOTE | 2018-07-09 15:01 | PN ---
[facility] CIWA - CIWA Score Nausea/Vomitin-Mild Nausea/No Vomiting Muscle Tremors: 3 Anxiety: 3 Agitation: 2 Paroxysmal Sweats: 3 Orientation: 0-Oriented Tacttile Disturbances: 0-None Auditory Disturbances: 0-None Visual Disturbances: 0-None Headache: 0-None Present CIWA-Ar Total Score: 12 [facility] COWS - Scale Resting Pulse: 0= [place] 80 or Below Sweatin=Flushed/Facial Moisture Restless Observation: 0= Sits Still Pupil Size: 0= Normal to Room Light Bone or Joint Aches: 1= Mild Discomfort Runny Nose/ Eye Tearin= None GI Upset > 30mins: 0= None Tremor Observation of Outstretched Hands: 2= Slight Tremor Visible Yawning Observation: 0= None Anxiety or Irritability: 1=Feels Anxious/Irritable Goose Flesh Skin: 0=Smooth Skin COWS Score: 6 [facility] Progress Note (SOAP) Subjective: shakes anxious nausea Objective: 07/09/18 15:01 A & O x 3 slight tremors skin warm and dry Vital Signs Temperature 97.2 F L 07/09/18 13:21 Pulse Rate 77 07/09/18 13:21 Respiratory Rate 18 07/09/18 13:21 Blood Pressure 126/76 07/09/18 13:21 O2 Sat by Pulse Oximetry (%) Assessment: 07/09/18 15:02 withdrawal sx Plan: continuie detox Increase water hydration monitor clinical symptoms
[2018-07-09] MEDS ORDERED: hydrOXYzine PAMOATE 50 MG CAPSULE (FP) PO PRN (19:47)
[2018-07-09] MEDS: QUEtiapine FUMARATE 100 MG TABLET (FP) PO SCH (21:15)
[2018-07-09] MEDS: THIAMINE HCL 100 MG TABLET (FP) PO SCH (21:15)
[2018-07-09] MEDS: MELATONIN 5 MG TABLETS PO PRN (21:15)
[2018-07-10] MEDS ORDERED: METHADONE HCL 5 MG TABLET (FOR DETOX USE ONLY) PO ONE (06:00)
[2018-07-10] MEDS: GABAPENTIN 400 MG CAPSULE (FP) PO SCH (06:01)
[2018-07-10] MEDS: IBUPROFEN 600 MG TABLET (FP) PO PRN (06:01)
[2018-07-10 06:15] VITALS: BP 105/65; PULSE 57; TEMP 97
--- NOTE | 2018-07-10 15:03 | DS ---
[facility] Detox Discharge Summary Admission Date: 07/06/18 Discharge Date: 07/10/18 - History Present History: Alcohol Dependence, Opioid Dependence, Sedative Dependence Additional Comments: 33 years old male admitted on 07/06/18 for alcohol benzo opiate withdrawal stabilization completed detox regimen [facility] Pertinent Past History: bring in medication list and lab report to [facility] - Physical Exam Results Vital Signs: Vital Signs Temperature 97 F L 07/10/18 06:14 Pulse Rate 57 L 07/10/18 06:14 Respiratory Rate 18 07/10/18 06:14 Blood Pressure 105/65 07/10/18 06:14 O2 Sat by Pulse Oximetry (%) Pertinent Admission Physical Exam Findings: alcohol benzo opiate withdrawal sx Laboratory Last Values WBC 5.3 K/mm3 (4.0-10.0) 07/08/18 09:20 RBC 4.72 M/mm3 (4.00-5.60) 07/08/18 09:20 Hgb 13.3 GM/dL (11.7-16.9) 07/08/18 09:20 Hct 40.6 % (35.4-49) 07/08/18 09:20 MCV 86.2 fl (80-96) 07/08/18 09:20 MCH 28.1 pg (25.7-33.7) 07/08/18 09:20 MCHC 32.6 g/dl (32.0-35.9) 07/08/18 09:20 RDW 14.6 % (11.9-15.9) 07/08/18 09:20 Plt Count 268 K/MM3 (134-434) 07/08/18 09:20 MPV 8.6 fl (7.5-11.1) 07/08/18 09:20 Sodium 145 mmol/L (136-145) 07/08/18 09:20 Potassium 3.5 mmol/L (3.5-5.1) 07/08/18 09:20 Chloride 109 mmol/L (98-107) H 07/08/18 09:20 Carbon Dioxide 30 mmol/L (21-32) 07/08/18 09:20 Anion Gap 6 MMOL/L (8-16) L 07/08/18 09:20 BUN 15 mg/dL (7-18) 06/01/19 09:20 Creatinine 1.1 mg/dL (0.55-1.3) 07/08/18 09:20 Est GFR (CKD-EPI)AfAm 101.69 07/08/18 09:20 Est GFR (CKD-EPI)NonAf 87.74 07/08/18 09:20 Random Glucose 76 mg/dL (74-106) 07/08/18 09:20 Calcium 9.5 mg/dL (8.5-10.1) 07/08/18 09:20 Total Bilirubin 0.4 mg/dL (0.2-1) 07/08/18 09:20 AST 47 U/L (15-37) H 07/08/18 09:20 ALT 112 U/L (13-61) H 07/08/18 09:20 Alkaline Phosphatase 69 U/L (45-117) 07/08/18 09:20 Total Protein 6.3 g/dl (6.4-8.2) L 07/08/18 09:20 Albumin 3.2 g/dl (3.4-5.0) L 07/08/18 09:20 RPR Titer Nonreactive (NONREACTIVE) 07/08/18 09:20 lab noted - Treatment Hospital Course: Detox Protocol Followed, Detoxed Safely, Responded well, Discharged Condition Good, Rehab Referral Accepted Patient has Accepted a Rehab Referral to: [facility] - Medication Discharge Medications: Ambulatory Orders NK [No Known Home Medication] 01/30/18 - Diagnosis (1) Alcohol dependence with uncomplicated intoxication Status: Acute (2) Opioid dependence with withdrawal Status: Acute (3) Uncomplicated sedative, hypnotic or anxiolytic withdrawal Status: Acute (4) Nicotine dependence Status: Acute Qualifiers: Nicotine product type: cigarettes Substance use status: in withdrawal Qualified Code(s): F17.213 - Nicotine dependence, cigarettes, with withdrawal - AMA Did Patient Leave Against Medical Advice: No
== END 2018-07-10 09:00 | disposition home or self-care (01) | DRG 773 ==
LOC: YASAS 10:40 → Y3N 14:04
PROVIDERS: ADMIT Surgery; ATTEND Surgery
PROC: HZ2ZZZZ Detoxification Services for Substance Abuse Treatment (ICD-10-PCS; principal; 2018-07-06)
DX: F11.23 Opioid dependence with withdrawal (principal); F10.230 Alcohol dependence with withdrawal, uncomplicated; F13.230 Sedative, hypnotic or anxiolytic dependence with withdrawal, uncomplicated; F14.20 Cocaine dependence, uncomplicated; F17.210 Nicotine dependence, cigarettes, uncomplicated; F32.9 Major depressive disorder, single episode, unspecified; R94.5 Abnormal results of liver function studies; Z88.0 Allergy status to penicillin
CPT/HCPCS: 36415; 80053; 85027; 86593; J0735

== ENCOUNTER 2018-07-21 12:22 | Inpatient (IN) | payer OTHER ==
[~2018-07-21 12:22] MED LIST: diazePAM 5 MG TABLET PO SCH
[2018-07-21 21:03] VITALS: BMI 22.3
--- NOTE | 2018-07-21 22:17 | HP ---
"COWS - Scale Resting Pulse: 0= [place] 80 or Below Sweatin=Flushed/Facial Moisture Restless Observation: 3= Extraneous Movement Pupil Size: 2= Moderately Dilated (Pupils = 5 mm) Bone or Joint Aches: 1= Mild Discomfort Runny Nose/ Eye Tearin= Nasal Congestion GI Upset > 30mins: 2= Nausea/Diarrhea Tremor Observation: 4= Gross Tremor/Twitching Yawning Observation: 1= 1-2x During Session Anxiety or Irritability: 1=Feels Anxious/Irritable Goose Flesh Skin: 0=Smooth Skin COWS Score: 17 CIWA Score Nausea/Vomitin Muscle Tremors: 4-Moderate,w/Arms Extend Anxiety: 2 Agitation: 4-Moderately Restless Paroxysmal Sweats: 3 (Increased facial moisture) Orientation: 2-Disoriented Date<2 days Tacttile Disturbances: 0-None Auditory Disturbances: 0-None Visual Disturbances: 0-None Headache: 3-Moderate CIWA-Ar Total Score: 21 - Admission Criteria [facility]ASAS Guidelines: Admission for Medically Managed Detox: Requires at least one of the followin. CIWA greater than 12 2. Seizures within the past 24 hours 3. Delirium tremens within the past 24 hours 4. Hallucinations within the past 24 hours 5. Acute intervention needed for co occurring medical disorder 6. Acute intervention needed for co occurring psychiatric disorder 7. Severe withdrawal that cannot be handled at a lower level of care (continued vomiting, continued diarrhea, abnormal vital signs) requiring intravenous medication and/or fluids 8. Patient presents the following: CIWA greater than 12 Admission Criteria Met: Admission criteria met Admission [facility] Chief Complaint: heroin, xanax, and alcohol withdrawal. Allergies/Adverse Reactions: Allergies Allergy/AdvReac Type Severity Reaction Status Date / Time Penicillins Allergy Severe Rash Verified 07/21/18 20:57 History of Present Illness: Patient discharged on 07/10/18 from [facility] detox and returns today requesting detox. Patient states started using the same day he was discharged. Patient w/ 7 admissions during past 12 months w/o any significant level of sobriety. Patient states did not f/u w/ rehab referral but wants to go to this rehab after detox is completed. Alcohol use since age 15. Current use 2 pints/day plus beer. Opiate use since age 16 . 15 bags/day IVDU. Denies sharing needles/works. Denies OD. Benzo use since age 27. Current use six 2 mg tab/day. Cocaine use since age 16: IVDU Nicotine use since age 18. Longest sobriety 3-4 years while out of state in [place] and while incarcerated total 3 years. Denies seizures. Hx: Blackouts No Narcan kit @ home. U-tox : + parker, fen; + opi, + bzo; TATIANNA = 0 PMHx: Denies significant PMH MHHx: Anxiety and Depression. Denies thoughts of harming self or others. Does not see a MH Provider. Search Terms: Percy Atwood, 1985 Search Date: 07/21/2018 10:15:12 PM The Drug Utilization Report below displays all of the controlled substance prescriptions, if any, that your patient has filled in the last twelve months. The information displayed on this report is compiled from pharmacy submissions to the Department, and accurately reflects the information as submitted by the pharmacies. This report was requested by: Louise Fernandez | Reference #: [id number] There are no results for the search terms that you entered. Search Terms: Percy Clementsan, 1985 Search Date: 07/21/2018 10:16:27 PM States Searched: [place], [place], [place], [place], [place], [place], [place] The Drug Utilization Report below displays the controlled substance prescriptions, if any, that were dispensed in the indicated state(s). The information displayed on this report is compiled from requests submitted to other states' PMPs, and accurately reflects the information as returned by them. Blank jacobo indicate data not provided by other state. This report was requested by: Louise Fernandez | Reference #: [id number] Exam Limitations: No Limitations - Ebola screening Have you traveled outside of the country in the last 21 days: No (N) Have you had contact with anyone from an Ebola affected area: No Have you been sick,other than usual withdrawal symptoms: No (Denies recent exposure to measles) Do you have a fever: No - Review of Systems Constitutional: Chills, Diaphoresis, Changes in sleep (Difficulty fallin and staying asleep.) EENT: reports: Nose Congestion Respiratory: reports: No Symptoms reported Cardiac: reports: No Symptoms Reported GI: reports: Diarrhea (soft, brownish x 1 .), Nausea : reports: No Symptoms Reported Musculoskeletal: reports: Muscle Weakness (Generalized - r/t w/drawal) Integumentary: reports: No Symptoms Reported Neuro: reports: Headache (Moderate H/A @ sides of head - states getting worse.) Endocrine: reports: No Symptoms Reported Hematology: reports: No Symptoms Reported Psychiatric: reports: Judgement Intact, Agitated, Anxious, Disorientated (Knows year and day of week. Doesn't know month or date.) Patient History - Patient Medical History Hx Anemia: No Hx Asthma: No Hx Chronic Obstructive Pulmonary Disease (COPD): No Hx Cancer: No Hx Cardiac Disorders: No Hx Congestive Heart Failure: No Hx Hypertension: No Hx Hypercholesterolemia: No Hx Pacemaker: No HX Cerebrovascular Accident: No Hx Seizures: No Hx Dementia: No Hx Diabetes: No Hx Gastrointestinal Disorders: No Hx Liver Disease: No Hx Genitourinary Disorders: No Hx Sexually Transmitted Disorders: No Hx Renal Disease (ESRD): No Hx Thyroid Disease: No Hx Human Immunodeficiency Virus (HIV): No (last 08/24 negative) Hx Hepatitis C: No Hx Depression: Yes Hx Suicide Attempt: No Hx Bipolar Disorder: No Hx Schizophrenia: No - Patient Surgical History Past Surgical History: No Hx Neurologic Surgery: No Hx Cataract Extraction: No Hx Cardiac Surgery: No Hx Lung Surgery: No Hx Breast Surgery: No Hx Breast Biopsy: No Hx Abdominal Surgery: No Hx Appendectomy: No Hx Cholecystectomy: No Hx Genitourinary Surgery: No Hx Section: No Hx Orthopedic Surgery: No Other Surgical History: 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 History Hx Alcohol Use: Yes Hx Substance Use: Yes Substance Use Type: Alcohol, Cocaine, Heroin, Tranquilizers Hx Substance Use Treatment: Yes (detox, rehab. Last detox 11 days ago) - Substances abused Alcohol Substance route: Oral Frequency: Daily Amount used: 2 PINTS- 6PK - 12OZ Age of first use: 15 Date of last use: 07/20/18 Alprazolam (Xanax) Other (specify): 2MG Substance route: Oral Frequency: Daily Amount used: 6 BARS Age of first use: 27 Date of last use: 07/20/18 Heroin Substance route: Injection Frequency: Daily Amount used: 15 BAGS Age of first use: 17 Date of last use: 07/20/18 Cocaine Substance route: Smoking Frequency: Daily Amount used: $50 Age of first use: 16 Date of last use: 07/20/18 Family Disease History - Family Disease History Family Disease History: Diabetes: Mother (unsure , does not keep in touch), Other: Father (does not keep in touch ), Brother (3 brothers does not keep in touch ), Sister (5 sisters , does not keep in touch except 1 sister in [place] ), Son (9 y.o. in [place] ) Admission Physical Exam [facility] - Vital Signs Vital Signs: Vital Signs - 24 hr 07/21/18 07/21/18 20:55 21:57 Temperature 98.0 F 98.0 F Pulse Rate 53 L 53 L Respiratory 18 18 Rate Blood Pressure 157/57 L 157/57 L - Physical General Appearance: Yes: Nourished, Moderate Distress, Tremorous, Sweating ( Increased facial moisture), Anxious HEENTM: Yes: EOMI (Jerking movements of eyes upon lateral gaze), Hearing grossly Normal, Normocephalic, Normal Voice, NAVDEEP (Pupils = 5 mm), Pharynx Normal, Nasal Congestion, Rhinorrhea Respiratory: Yes: Lungs Clear, Normal Breath Sounds, No Respiratory Distress Neck: Yes: No masses,lesions,Nodules, Supple Breast: Yes: Breast Exam Deferred Cardiology: Yes: Regular Rate, S1, S2, Irregular Abdominal: Yes: Non Tender, Increased Bowel Sounds Genitourinary: Yes: Within Normal Limits Back: Yes: Normal Inspection Musculoskeletal: Yes: full range of Motion, Gait Steady Extremities: Yes: Normal Capillary Refill, Tremors Neurological: Yes: lap welder II-XII NML intact (Jerking movements of eyes upon lateral gaze), Alert, Motor Strength 5/5 Integumentary: Yes: Normal Color, Warm, Diaphoresis (Increased facial moisture) , Track Marte (Old and new track marte on arms and legs w/ increased erytema and some localaized swelling. No increased warmth opr induration.) Lymphatic: Yes: Within Normal Limits - Diagnostic (1) Alcohol dependence with uncomplicated intoxication Current Visit: Yes Status: Acute (2) Nicotine dependence Current Visit: Yes Status: Chronic Qualifiers: Nicotine product type: cigarettes Substance use status: in withdrawal Qualified Code(s): F17.213 - Nicotine dependence, cigarettes, with withdrawal (3) Opioid dependence with withdrawal Current Visit: Yes Status: Acute (4) Uncomplicated sedative, hypnotic or anxiolytic withdrawal Current Visit: Yes Status: Acute (5) Cocaine dependence Current Visit: Yes Status: Chronic Qualifiers: Substance use status: uncomplicated Qualified Code(s): F14.20 - Cocaine dependence, uncomplicated (6) Nystagmus Current Visit: Yes Status: Chronic (7) 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
[2018-07-21] MEDS ORDERED: METHADONE HCL 10 MG TABLET (FOR DETOX USE ONLY) PO ONE (23:00)
[2018-07-21] MEDS ORDERED: ACETAMINOPHEN 325 MG TABLET (FP) PO PRN (23:01)
[2018-07-21] MEDS ORDERED: MAGNESIUM HYDROX 2400MG/30ML ORAL SUSPENSION 30 ML CUP PO PRN (23:01)
[2018-07-21] MEDS ORDERED: BISMUTH SUBSALICYLATE 524 MG/30 ML UD PO PRN (23:01)
[2018-07-21] MEDS ORDERED: ONDANSETRON *ODT* 4 MG TABLET SL PRN (23:01)
[2018-07-21] MEDS ORDERED: NICOTINE POLACRILEX 2 MG GUM BUC PRN (23:01)
[2018-07-21] MEDS ORDERED: MAGNESIUM CITRATE 300 ML BOTTLE PO PRN (23:01)
[2018-07-21] MEDS ORDERED: MENTHOL/PHENOL 1 EACH UD MM PRN (23:01)
[2018-07-21] MEDS ORDERED: MAG HYDROX/AL HYDROX/SIMETH 30 ML UNIT-DOSE CUP PO PRN (23:01)
[2018-07-21] MEDS ORDERED: diazePAM 5 MG TABLET PO ONE (23:06)
[2018-07-22] MEDS: diazePAM 5 MG TABLET PO SCH ×2 (05:59→18:09)
[2018-07-22] MEDS: ACETAMINOPHEN 325 MG TABLET (FP) PO PRN (06:00)
[2018-07-22] MEDS ORDERED: METHADONE HCL 10 MG TABLET (FOR DETOX USE ONLY) PO ONE (10:00)
[2018-07-22] MEDS: PRENATAL VITAMINS W/ FOLIC ACID TABLET (FP) PO SCH (10:14)
[2018-07-22] MEDS: NICOTINE 21 MG/24 HOURS TOPICAL PATCH TD SCH (10:14)
[2018-07-22] MEDS: diazePAM 5 MG TABLET PO PRN ×3 (10:16→19:59)
[2018-07-22] MEDS: IBUPROFEN 400 MG TABLET (FP) PO PRN ×2 (13:22→21:18)
[2018-07-22] MEDS: METHOCARBAMOL 500 MG TABLET PO PRN ×2 (13:23→21:19)
[2018-07-22] MEDS: cloNIDine HCL 0.1 MG TABLET PO PRN ×2 (14:15→21:18)
--- NOTE | 2018-07-22 14:35 | PN ---
[facility] CIWA - CIWA Score Nausea/Vomitin-Mild Nausea/No Vomiting Muscle Tremors: 3 Anxiety: 2 Agitation: 1-Slight > Activity Paroxysmal Sweats: 3 Orientation: 0-Oriented Tacttile Disturbances: 0-None Auditory Disturbances: 0-None Visual Disturbances: 0-None Headache: 2-Mild CIWA-Ar Total Score: 12 [facility] COWS - Scale Resting Pulse: 0= [place] 80 or Below Sweatin=Flushed/Facial Moisture Restless Observation: 1= Difficult to Sit Still Pupil Size: 0= Normal to Room Light Bone or Joint Aches: 1= Mild Discomfort Runny Nose/ Eye Tearin= Nasal Congestion GI Upset > 30mins: 2= Nausea/Diarrhea Tremor Observation of Outstretched Hands: 2= Slight Tremor Visible Yawning Observation: 1= 1-2x During Session Anxiety or Irritability: 2=Irritable/Anxious Goose Flesh Skin: 0=Smooth Skin COWS Score: 12 [facility] Progress Note (SOAP) Subjective: headache shakes diarrhea Objective: 07/22/18 14:33 In bed A & O x 3 Vital Signs Temperature 97.7 F 07/22/18 10:03 Pulse Rate 73 07/22/18 10:03 Respiratory Rate 16 07/22/18 10:03 Blood Pressure 132/79 07/22/18 10:03 O2 Sat by Pulse Oximetry (%) labs still pending Assessment: 07/22/18 14:34 withdrawal sx Plan: continue detox labs reordered
[2018-07-22] MEDS: MELATONIN 5 MG TABLETS PO PRN (21:18)
[2018-07-22] MEDS ORDERED: THIAMINE HCL 100 MG TABLET (FP) PO SCH (22:00)
[2018-07-23] MEDS: diazePAM 5 MG TABLET PO PRN ×5 (04:34→23:05)
[2018-07-23] MEDS ORDERED: diazePAM 5 MG TABLET PO ONE (06:00)
[2018-07-23] MEDS ORDERED: METHADONE HCL 10 MG TABLET (FOR DETOX USE ONLY) PO ONE (10:00)
[2018-07-23] MEDS: PRENATAL VITAMINS W/ FOLIC ACID TABLET (FP) PO SCH (10:25)
[2018-07-23] MEDS: NICOTINE 21 MG/24 HOURS TOPICAL PATCH TD SCH (10:29)
[2018-07-23] MEDS: cloNIDine HCL 0.1 MG TABLET PO PRN ×2 (11:19→22:09)
[2018-07-23] MEDS: METHOCARBAMOL 500 MG TABLET PO PRN ×2 (11:19→23:04)
--- NOTE | 2018-07-23 14:57 | PN ---
[facility] CIWA - CIWA Score Nausea/Vomitin-No Nausea/No Vomiting Muscle Tremors: 2 Anxiety: 2 Agitation: 3 Paroxysmal Sweats: 2 Orientation: 0-Oriented Tacttile Disturbances: 0-None Auditory Disturbances: 0-None Visual Disturbances: 0-None Headache: 0-None Present CIWA-Ar Total Score: 9 [facility] COWS - Scale Resting Pulse: 0= [place] 80 or Below Sweatin= No chills or Flushing Restless Observation: 1= Difficult to Sit Still Pupil Size: 0= Normal to Room Light Bone or Joint Aches: 1= Mild Discomfort Runny Nose/ Eye Tearin= None GI Upset > 30mins: 0= None Tremor Observation of Outstretched Hands: 0= None Yawning Observation: 0= None Anxiety or Irritability: 2=Irritable/Anxious Goose Flesh Skin: 0=Smooth Skin COWS Score: 4 [facility] Progress Note (SOAP) Subjective: anxiety sweats shakes restless Objective: 07/23/18 14:56 Vital Signs Temperature 98.2 F 07/23/18 14:18 Pulse Rate 63 07/23/18 14:18 Respiratory Rate 18 07/23/18 14:18 Blood Pressure 129/93 07/23/18 14:18 O2 Sat by Pulse Oximetry (%) aaox3 ambulating no acute distress Assessment: 07/23/18 14:56 withdrawal sx Plan: continue detox increase fluids
[2018-07-23] MEDS: ACETAMINOPHEN 325 MG TABLET (FP) PO PRN (19:05)
[2018-07-23] MEDS: IBUPROFEN 400 MG TABLET (FP) PO PRN (22:09)
[2018-07-23] MEDS: MELATONIN 5 MG TABLETS PO PRN (22:10)
[2018-07-23] MEDS ORDERED: MELATONIN 5 MG TABLETS PO ONE (23:13)
[2018-07-24] MEDS: ACETAMINOPHEN 325 MG TABLET (FP) PO PRN (02:38)
[2018-07-24] MEDS ORDERED: METHADONE HCL 10 MG TABLET (FOR DETOX USE ONLY) PO ONE (10:00)
[2018-07-24] MEDS: PRENATAL VITAMINS W/ FOLIC ACID TABLET (FP) PO SCH (10:11)
[2018-07-24] MEDS: IBUPROFEN 400 MG TABLET (FP) PO PRN (10:13)
[2018-07-24] MEDS: diazePAM 5 MG TABLET PO PRN ×2 (10:14→14:19)
[2018-07-24] MEDS: NICOTINE 21 MG/24 HOURS TOPICAL PATCH TD SCH (10:27)
[2018-07-24] MEDS: METHOCARBAMOL 500 MG TABLET PO PRN (11:44)
--- NOTE | 2018-07-24 13:29 | PN ---
[facility] CIWA - CIWA Score Nausea/Vomitin-No Nausea/No Vomiting Muscle Tremors: 2 Anxiety: 1-Mildly Anxious Agitation: 1-Slight > Activity Paroxysmal Sweats: No Perspiration Orientation: 0-Oriented Tacttile Disturbances: 0-None Auditory Disturbances: 0-None Visual Disturbances: 0-None Headache: 0-None Present CIWA-Ar Total Score: 4 S COWS - Scale Resting Pulse: 0= [place] 80 or Below Sweatin= Chills/Flushing Restless Observation: 1= Difficult to Sit Still Pupil Size: 0= Normal to Room Light Bone or Joint Aches: 1= Mild Discomfort Runny Nose/ Eye Tearin= Nasal Congestion GI Upset > 30mins: 0= None Tremor Observation of Outstretched Hands: 1= Tremor Mcclelland, Not Seen Yawning Observation: 0= None Anxiety or Irritability: 2=Irritable/Anxious Goose Flesh Skin: 0=Smooth Skin COWS Score: 7 [facility] Progress Note (SOAP) Subjective: sweats Objective: 07/24/18 13:28 Vital Signs Temperature 98.1 F 07/24/18 13:12 Pulse Rate 64 07/24/18 13:12 Respiratory Rate 18 07/24/18 13:12 Blood Pressure 129/70 07/24/18 13:12 O2 Sat by Pulse Oximetry (%) aaox3 ambulating no acute distress Assessment: 07/24/18 13:29 mild withdrawal sx Plan: continue detox increase fluids d/c in am
--- NOTE | 2018-07-24 15:57 | PN ---
[facility] Progress Note Note: pt states he is feeling fine no s/s of withdrawals noted. Pt states he wants to leave so he can go home and make it to his out reach program. d/c order placed for 4:30pm today.
--- NOTE | 2018-07-24 15:57 | DS ---
[facility] Detox Discharge Summary Admission Date: 07/21/18 Discharge Date: 07/24/18 - History Present History: Alcohol Dependence, Opioid Dependence - Physical Exam Results Vital Signs: Vital Signs Temperature 98.1 F 07/24/18 13:12 Pulse Rate 64 07/24/18 13:12 Respiratory Rate 18 07/24/18 13:12 Blood Pressure 129/70 07/24/18 13:12 O2 Sat by Pulse Oximetry (%) - Treatment Hospital Course: Detox Protocol Followed, Detoxed Safely, Responded well, Discharged Condition Good, Rehab Referral Accepted - Medication Discharge Medications: Ambulatory Orders NK [No Known Home Medication] 01/30/18 - Diagnosis (1) Alcohol dependence with uncomplicated intoxication Status: Chronic (2) Opioid dependence with withdrawal Status: Chronic (3) Uncomplicated sedative, hypnotic or anxiolytic withdrawal Status: Chronic (4) Anxiety and depression Status: Chronic (5) Cocaine dependence Status: Chronic Qualifiers: Substance use status: uncomplicated Qualified Code(s): F14.20 - Cocaine dependence, uncomplicated (6) Drug-induced mood disorder Status: Chronic (7) Nicotine dependence Status: Chronic Qualifiers: Nicotine product type: cigarettes Substance use status: uncomplicated Qualified Code(s): F17.210 - Nicotine dependence, cigarettes, uncomplicated (8) Nystagmus Status: Chronic (9) 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 Status: Chronic - AMA Did Patient Leave Against Medical Advice: No (going to his outpatient rehab)
[2018-07-24 16:57] VITALS: BP 126/58; PULSE 50; TEMP 97.7
[2018-07-25] MEDS ORDERED: METHADONE HCL 5 MG TABLET (FOR DETOX USE ONLY) PO ONE (06:00)
== END 2018-07-24 16:38 | disposition home or self-care (01) | DRG 773 ==
LOC: YASAS 12:22 → Y6N 23:00
PROVIDERS: ADMIT Surgery; ATTEND Surgery
PROC: HZ2ZZZZ Detoxification Services for Substance Abuse Treatment (ICD-10-PCS; principal; 2018-07-21)
DX: F11.23 Opioid dependence with withdrawal (principal); F10.230 Alcohol dependence with withdrawal, uncomplicated; F13.230 Sedative, hypnotic or anxiolytic dependence with withdrawal, uncomplicated; F14.20 Cocaine dependence, uncomplicated; F17.210 Nicotine dependence, cigarettes, uncomplicated; F19.24 Other psychoactive substance dependence with psychoactive substance-induced mood disorder; H55.00 Unspecified nystagmus; L90.5 Scar conditions and fibrosis of skin; I49.9 Cardiac arrhythmia, unspecified; Z88.0 Allergy status to penicillin
CPT/HCPCS: J0735; Q0162

== ENCOUNTER 2018-08-12 08:38 | Inpatient (IN) | payer OTHER ==
[2018-08-12 09:05] VITALS: BMI 24.0
--- NOTE | 2018-08-12 09:38 | HP ---
COWS - Scale Resting Pulse: 0= [place] 80 or Below Sweatin= Chills/Flushing Restless Observation: 1= Difficult to Sit Still Pupil Size: 1= Pupils >than Normal Bone or Joint Aches: 2= Severe Diffuse Aches Runny Nose/ Eye Tearin= Runny Nose/Eyes GI Upset > 30mins: 3= Vomiting/Diarrhea Tremor Observation: 2= Slight Tremor Visible Yawning Observation: 1= 1-2x During Session Anxiety or Irritability: 2=Irritable/Anxious Goose Flesh Skin: 0=Smooth Skin COWS Score: 15 CIWA Score Nausea/Vomitin Muscle Tremors: 2 Anxiety: 2 Agitation: 2 Paroxysmal Sweats: 1-Minimal Palms Moist Orientation: 0-Oriented Tacttile Disturbances: 1-Very Mild Itch/Numbness Auditory Disturbances: 1-Very Mild Visual Disturbances: 0-None Headache: 2-Mild CIWA-Ar Total Score: 13 - Admission Criteria [facility] Guidelines: Admission for Medically Managed Detox: Requires at least one of the followin. CIWA greater than 12 2. Seizures within the past 24 hours 3. Delirium tremens within the past 24 hours 4. Hallucinations within the past 24 hours 5. Acute intervention needed for co occurring medical disorder 6. Acute intervention needed for co occurring psychiatric disorder 7. Severe withdrawal that cannot be handled at a lower level of care (continued vomiting, continued diarrhea, abnormal vital signs) requiring intravenous medication and/or fluids 8. Admission ROS [facility] - [facility] Chief Complaint: this 33 years old male with heroin,alcohol,xanax,cocaine and marijuana dependence need help to stop Allergies/Adverse Reactions: Allergies Allergy/AdvReac Type Severity Reaction Status Date / Time Penicillins Allergy Severe Rash Verified 08/12/18 08:52 History of Present Illness: this 33 years old male with heroin,alcohol,cocaine,xanax and marijuana dependenc seeking detox,withdrawal symptom multiple admissions in detox but keep relapsing last detox [facility] 07/21/18 to 07/24/18 nicotine dependence 1 helena/day,would like nicotine patch and gum weight loss longest sobriety 3 and half years plan to go to rehab after detox Exam Limitations: No Limitations - Ebola screening Have you traveled outside of the country in the last 21 days: No (N) Have you had contact with anyone from an Ebola affected area: No Do you have a fever: No - Review of Systems Constitutional: Chills, Loss of Appetite, Malaise, Night Sweats, Changes in sleep, Weakness, Unintentional Wgt. Loss EENT: reports: Tearing, Nose Congestion Respiratory: reports: No Symptoms reported Cardiac: reports: No Symptoms Reported GI: reports: Nausea, Poor Appetite, Vomiting, Abdominal cramping : reports: No Symptoms Reported Musculoskeletal: reports: Back Pain, Joint Pain, Muscle Pain, Joint Stiffness Integumentary: reports: Dryness Neuro: reports: Headache, Tremors Endocrine: reports: No Symptoms Reported Hematology: reports: No Symptoms Reported Psychiatric: reports: No Sypmtoms Reported, Judgement Intact, Mood/Affect Appropiate, Orientated x3 Other Systems: Reviewed and Negative Patient History - Patient Medical History Hx Anemia: No Hx Asthma: No Hx Chronic Obstructive Pulmonary Disease (COPD): No Hx Cancer: No Hx Cardiac Disorders: No Hx Congestive Heart Failure: No Hx Hypertension: No Hx Hypercholesterolemia: No Hx Pacemaker: No HX Cerebrovascular Accident: No Hx Seizures: No Hx Dementia: No Hx Diabetes: No Hx Gastrointestinal Disorders: No Hx Liver Disease: No Hx Genitourinary Disorders: No Hx Sexually Transmitted Disorders: No Hx Renal Disease (ESRD): No Hx Thyroid Disease: No Hx Human Immunodeficiency Virus (HIV): No (last 01/24 negative) Hx Hepatitis C: No Hx Depression: Yes Hx Suicide Attempt: No Hx Bipolar Disorder: No Hx Schizophrenia: No Other Medical History: no suicidal,no homicidal - Patient Surgical History Past Surgical History: No Hx Neurologic Surgery: No Hx Cataract Extraction: No Hx Cardiac Surgery: No Hx Lung Surgery: No Hx Breast Surgery: No Hx Breast Biopsy: No Hx Abdominal Surgery: No Hx Appendectomy: No Hx Cholecystectomy: No Hx Genitourinary Surgery: No Hx Section: No Hx Orthopedic Surgery: No Other Surgical History: circumcission at age of 7 years Anesthesia Reaction: No - PPD History Previous Implant?: Yes Documented Results: Negative w/proof Implanted On Prior [facility] Admission?: Yes Date: 12/13/17 Results: 0 mm PPD to be Administered?: No - Smoking Cessation Smoking history: Current every day smoker Have you smoked in the past 12 months: Yes Aproximately how many cigarettes per day: 20 Cigars Per Day: 0 Hx Chewing Tobacco Use: No Initiated information on smoking cessation: Yes 'Breaking Loose' booklet given: 08/12/18 - Substance & Tx. History Hx Alcohol Use: Yes Hx Substance Use: Yes Substance Use Type: Alcohol, Cocaine, Heroin, Tranquilizers - Substances abused Alcohol Substance route: Oral Frequency: Daily Amount used: 2 PINTS- Bacardi& 6PK beer - 12OZ Age of first use: 15 Date of last use: 07/20/18 Alprazolam (Xanax) Other (specify): 2MG Substance route: Oral Frequency: Daily Amount used: 6 -10 BARS Age of first use: 27 Date of last use: 08/11/18 Heroin Substance route: Injection Frequency: Daily Amount used: 25 BAGS Age of first use: 17 Date of last use: 08/11/18 Cocaine Substance route: Injection Frequency: Daily Amount used: $50 Age of first use: 16 Date of last use: 08/11/18 Marijuana/Hashish Substance route: Smoking Frequency: Daily Amount used: 30$ Age of first use: 15 Date of last use: 08/12/18 Family Disease History - Family Disease History Family Disease History: Diabetes: Mother (unsure , does not keep in touch), Other: Father (does not keep in touch ), Brother (3 brothers does not keep in touch ), Sister (5 sisters , does not keep in touch except 1 sister in [place] ), Son (9 y.o. in [place] ) Admission Physical Exam [facility] - Vital Signs Vital Signs: Vital Signs - 24 hr 08/12/18 08:52 Temperature 96.9 F L Pulse Rate 61 Respiratory 18 Rate Blood Pressure 144/75 - Physical General Appearance: Yes: Moderate Distress, Tremorous, Irritable, Sweating, Anxious HEENTM: Yes: Normal ENT Inspection, Normocephalic, NAVDEEP, Pharynx Normal Respiratory: Yes: Lungs Clear, Normal Breath Sounds, No Respiratory Distress Neck: Yes: Within Normal Limits, Supple, Trachea in good position Breast: Yes: Within Normal Limits Cardiology: Yes: Within Normal Limits, Regular Rhythm, Regular Rate, S1, S2 Abdominal: Yes: Within Normal Limits, Normal Bowel Sounds, Non Tender, Flat, Soft Genitourinary: Yes: Within Normal Limits Back: Yes: Within Normal Limits Musculoskeletal: Yes: full range of Motion, Back pain, Muscle Pain Extremities: Yes: Within Normal Limits, Normal Range of Motion, Tremors Neurological: Yes: rn orthopaedics II-XII NML intact, Fully Oriented, Alert, Motor Strength 5/5 Integumentary: Yes: Dry, Track [place]orne Lymphatic: Yes: Within Normal Limits - Diagnostic (1) Opioid dependence with withdrawal Current Visit: No Status: Acute (2) Uncomplicated sedative, hypnotic or anxiolytic withdrawal Current Visit: No Status: Acute (3) Cocaine dependence Current Visit: No Status: Chronic Qualifiers: Substance use status: uncomplicated Qualified Code(s): F14.20 - Cocaine dependence, uncomplicated (4) Nicotine dependence Current Visit: No Status: Chronic Qualifiers: Nicotine product type: cigarettes Substance use status: uncomplicated Qualified Code(s): F17.210 - Nicotine dependence, cigarettes, uncomplicated (5) 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 Current Visit: No Status: Chronic (6) Cannabis abuse Current Visit: Yes Status: Acute (7) Dehydration Current Visit: Yes Status: Acute (8) Weight loss Current Visit: Yes Status: Acute Cleared for Admission S - Detox or Rehab [facility] Level of Care: Medically Managed Detox Regimen/Protocol: Methadone/Valium Breathalyzer - Breathalyzer Breathalyzer: 0 Urine Drug Screen - Test Device Lot number: [id number] Expiration date: 06/06/20 - Control Is test valid?: Yes - Results Drug screen NEGATIVE: No Urine drug screen results: THC-Marijuana, JANETT-Cocaine, FEN-Fentanyl, MOP-Opiates , MTD-Methadone, BZO-Benzodiazepines Inpatient Rehab Admission - Rehab Decision to Admit Inpatient rehab admission?: No
[2018-08-12] MEDS ORDERED: METHADONE HCL 10 MG TABLET (FOR DETOX USE ONLY) PO ONE (09:47)
[2018-08-12] MEDS ORDERED: diazePAM 5 MG TABLET PO ONE (09:48)
[2018-08-12] MEDS ORDERED: METHOCARBAMOL 500 MG TABLET PO PRN (09:49)
[2018-08-12] MEDS ORDERED: ACETAMINOPHEN 325 MG TABLET (FP) PO PRN ×2 (09:49)
[2018-08-12] MEDS ORDERED: MAG HYDROX/AL HYDROX/SIMETH 30 ML UNIT-DOSE CUP PO PRN (09:49)
[2018-08-12] MEDS ORDERED: NICOTINE POLACRILEX 2 MG GUM BUC PRN (09:49)
[2018-08-12] MEDS ORDERED: MAGNESIUM CITRATE 300 ML BOTTLE PO PRN (09:49)
[2018-08-12] MEDS ORDERED: BISMUTH SUBSALICYLATE 524 MG/30 ML UD PO PRN (09:49)
[2018-08-12] MEDS ORDERED: MAGNESIUM HYDROX 2400MG/30ML ORAL SUSPENSION 30 ML CUP PO PRN (09:49)
[2018-08-12] MEDS ORDERED: MENTHOL/PHENOL 1 EACH UD MM PRN (09:49)
[2018-08-12] MEDS: NICOTINE 21 MG/24 HOURS TOPICAL PATCH TD SCH (11:35)
[2018-08-12] MEDS: PRENATAL VITAMINS W/ FOLIC ACID TABLET (FP) PO SCH (11:35)
[2018-08-12 12:40] LABS: HEMATOCRIT 37.8 % (35.4-49); HEMOGLOBIN 12.5 GM/dL (11.7-16.9); MCH 28.2 pg (25.7-33.7); MCHC 33.1 g/dl (32.0-35.9); MEAN CELL VOLUME 85.2 fl (80-96); MEAN PLT VOLUME 8.7 fl (7.5-11.1); RBC 4.43 M/mm3 (4.00-5.60); RDW 13.1 % (11.9-15.9); WHITE BLOOD COUNT 5.1 K/mm3 (4.0-10.0)
[2018-08-12 12:51] LABS: ALBUMIN 3.3 g/dl (3.4-5.0); BILIRUBIN,TOTAL 0.2 mg/dL (0.2-1); BLOOD UREA NITROGEN 23.7 mg/dL (7-18); CREATININE 0.9 mg/dL (0.55-1.3); POTASSIUM 4.1 mmol/L (3.5-5.1); TOT PROT 6.5 g/dl (6.4-8.2)
[2018-08-12 12:56] LABS: PLATELET COUNT 301 K/MM3 (134-434)
[2018-08-12] MEDS: diazePAM 5 MG TABLET PO SCH ×2 (13:36→22:46)
[2018-08-12] MEDS: diazePAM 5 MG TABLET PO PRN (17:38)
[2018-08-12 19:53] LABS: EPI CELLS 3.4 /HPF (0-5/HPF); HYALINE CASTS 8 /lpf (0-8); PH,URINE 5.5 (5.0-8.0); URINE APPEARANCE TURBID; URINE BACTERIA 1.2 /hpf (NEGATIVE); URINE BILIRUBIN NEGATIVE (NEGATIVE); URINE COLOR YELLOW; URINE GLUCOSE (UA) NEGATIVE (NEGATIVE); URINE KETONE NEGATIVE (NEGATIVE); URINE LEUK ESTERASE TRACE (NEGATIVE); URINE NITRITE NEGATIVE (NEGATIVE); URINE PROTEIN NEGATIVE (NEGATIVE); URINE RBC 3 /hpf (0-4); URINE WBC 9 /hpf (0-5)
[2018-08-12 20:30] LABS: URINE CRYSTALS CA OXALATE /hpf
[2018-08-12] MEDS: THIAMINE HCL 100 MG TABLET (FP) PO SCH (22:46)
[2018-08-12] MEDS: MELATONIN 5 MG TABLETS PO PRN (22:46)
[2018-08-12] MEDS: hydrOXYzine PAMOATE 25 MG CAPSULE (FP) PO PRN (22:47)
[2018-08-13] MEDS: diazePAM 5 MG TABLET PO PRN ×4 (03:10→18:57)
[2018-08-13] MEDS: IBUPROFEN 400 MG TABLET (FP) PO PRN ×2 (03:11→17:20)
[2018-08-13] MEDS: diazePAM 5 MG TABLET PO SCH ×3 (07:00→22:47)
[2018-08-13] MEDS ORDERED: METHADONE HCL 5 MG TABLET (FOR DETOX USE ONLY) ONE (09:48)
[2018-08-13] MEDS ORDERED: METHADONE HCL 10 MG TABLET (FOR DETOX USE ONLY) ONE (09:48)
[2018-08-13] MEDS ORDERED: METHADONE (DETOX) 20 MG, METHADONE (DETOX) 5 MG PO ONE (10:00)
[2018-08-13] MEDS: NICOTINE 21 MG/24 HOURS TOPICAL PATCH TD SCH (10:36)
[2018-08-13] MEDS: PRENATAL VITAMINS W/ FOLIC ACID TABLET (FP) PO SCH (10:36)
[2018-08-13] MEDS ORDERED: TRIMETHOBENZAMIDE HCL 200MG/2ML INJ IM PRN (11:49)
[2018-08-13] MEDS: METHOCARBAMOL 750 MG TABLET PO PRN ×2 (12:53→22:49)
[2018-08-13] MEDS: hydrOXYzine PAMOATE 25 MG CAPSULE (FP) PO PRN (12:54)
[2018-08-13] MEDS ORDERED: COLLOIDAL OATMEAL 1 BAR EACH TP PRN (13:55)
[2018-08-13] MEDS: GABAPENTIN 400 MG CAPSULE (FP) PO SCH ×2 (15:08→22:47)
--- NOTE | 2018-08-13 15:09 | PN ---
S CIWA - CIWA Score Nausea/Vomitin Muscle Tremors: None Anxiety: 4-Mod. Anxious/Guarded Agitation: 3 Paroxysmal Sweats: 2 Orientation: 0-Oriented Tacttile Disturbances: 2-Mild Itch/Numbness/Burn Auditory Disturbances: 0-None Visual Disturbances: 2-Mild Sensitivity Headache: 0-None Present CIWA-Ar Total Score: 16 [facility] COWS - Scale Resting Pulse: 2= [place] 101-120 Sweatin= Chills/Flushing Restless Observation: 1= Difficult to Sit Still Pupil Size: 0= Normal to Room Light Bone or Joint Aches: 1= Mild Discomfort Runny Nose/ Eye Tearin= Runny Nose/Eyes GI Upset > 30mins: 2= Nausea/Diarrhea Tremor Observation of Outstretched Hands: 0= None Yawning Observation: 1= 1-2x During Session Anxiety or Irritability: 2=Irritable/Anxious Goose Flesh Skin: 3=Piloerection COWS Score: 15 [facility] Progress Note (SOAP) Subjective: Chills, Frequent Sneezing, Anxious, Restless, Nausea, Diarrhea, Interrupted Sleep. Objective: PATIENT A & O X 3, OBSERVED AMBULATING ON UNIT UNASSISTED. IN NO ACUTE DISTRESS. 08/13/18 15:06 Vital Signs Temperature 97.5 F L 08/13/18 13:17 Pulse Rate 101 H 08/13/18 13:17 Respiratory Rate 18 08/13/18 13:17 Blood Pressure 117/67 08/13/18 13:17 O2 Sat by Pulse Oximetry (%) Laboratory Tests 08/12/18 08/12/18 08/12/18 09:50 09:50 09:50 WBC 5.1 RBC 4.43 Hgb 12.5 Hct 37.8 MCV 85.2 MCH 28.2 MCHC 33.1 RDW 13.1 D Plt Count 301 MPV 8.7 Sodium 143 Potassium 4.1 Chloride 111 H Carbon Dioxide 28 Anion Gap 4 L BUN 23.7 H Creatinine 0.9 Est GFR (CKD-EPI)AfAm 129.61 Est GFR (CKD-EPI)NonAf 111.83 Random Glucose 92 Calcium 9.0 Total Bilirubin 0.2 AST 55 H ALT 96 H Alkaline Phosphatase 68 Total Protein 6.5 Albumin 3.3 L Urine Color Urine Appearance Urine pH Ur Specific [place] Urine Protein Urine Glucose (UA) Urine Ketones Urine Blood Urine Nitrite Urine Bilirubin Urine Urobilinogen Ur Leukocyte Esterase Urine WBC (Auto) Urine RBC (Auto) Urine Casts (Auto) U Epithel Cells (Auto) Urine Crystals (Auto) Urine Bacteria (Auto) RPR Titer Nonreactive HIV 1&2 Antibody Screen HIV P24 Antigen 08/12/18 08/12/18 10:00 10:30 WBC RBC Hgb Hct MCV MCH MCHC RDW Plt Count MPV Sodium Potassium Chloride Carbon Dioxide Anion Gap BUN Creatinine Est GFR (CKD-EPI)AfAm Est GFR (CKD-EPI)NonAf Random Glucose Calcium Total Bilirubin AST ALT Alkaline Phosphatase Total Protein Albumin Urine Color Yellow Urine Appearance Turbid Urine pH 5.5 Ur Specific [place] 1.033 Urine Protein Negative Urine Glucose (UA) Negative Urine Ketones Negative Urine Blood Negative Urine Nitrite Negative Urine Bilirubin Negative Urine Urobilinogen 1.0 Ur Leukocyte Esterase Trace Urine WBC (Auto) 9 Urine RBC (Auto) 3 Urine Casts (Auto) 8 U Epithel Cells (Auto) 3.4 Urine Crystals (Auto) Ca oxalate Urine Bacteria (Auto) 1.2 RPR Titer HIV 1&2 Antibody Screen Negative HIV P24 Antigen Negative LABS NOTED. Assessment: 08/13/18 15:06 WITHDRAWAL SYMPTOMS. ELEVATED AST, ALT LEVELS. 08/13/18 15:07 Plan: CONTINUE DETOX. INCREASE DAILY PO WATER INTAKE. PRN PEPTO-BISMOL PO FOR DIARRHEA. PRN TIGAN IM FOR NAUSEA / VOMITING.
--- NOTE | 2018-08-13 15:38 | CONSULT ---
[facility] Psychiatric Consult - Data Date of interview: 08/13/18 Admission source: [facility] Identifying data: Patient is a 33 year old male, father of one, unemployed, domiciled, and is financially supported by his family. This is one of multiple admissions for patient. Patient admitted to for alcohol, cocaine, benzodiazepine, and opiate dependence. Substance Abuse History: Smoking Cessation. Smoking history: Current every day smoker. Have you smoked in the past 12 months: Yes. Aproximately how many cigarettes per day: 20. Cigars Per Day: 0. Hx Chewing Tobacco Use: No. Initiated information on smoking cessation: Yes. 'Breaking Loose' booklet given : 08/12/18. - Substance & Tx. History. Hx Alcohol Use: Yes. Hx Substance Use : Yes. Substance Use Type: Alcohol, Cocaine, Heroin, Tranquilizers. - Substances abused. Alcohol. Substance route: Oral. Frequency: Daily. Amount used: 2 PINTS- Bacardi& 6PK beer - 12OZ. Age of first use: 15. Date of last use: 07/20/18. Alprazolam (Xanax). Other (specify): 2MG. Substance route: Oral. Frequency: Daily. Amount used: 6 -10 BARS. Age of first use: 27. Date of last use: 08/11/18. Heroin. Substance route: Injection. Frequency: Daily. Amount used: 25 BAGS. Age of first use: 17. Date of last use: 08/11/18. Cocaine. Substance route: Injection. Frequency : Daily. Amount used: $50. Age of first use: 16. Date of last use: 08/11/18. Marijuana/Hashish. Substance route: Smoking. Frequency: Daily. Amount used: 30$. Age of first use: 15. Date of last use: 08/12/18 Medical History: denies. endores good health. Psychiatric History: Patient reports one brief psychiatric hospitalization at [facility] in 2017 secondary to his history of anxiety. He reports being prescribed zoloft + Seroquel + gabapentin. As per Dr. Martinez entry on 02/01/18 patient's first psychiatric hospitalization was in the context of patient having urges to self harm. Patient is a questionable historian. Patient has been admitted to detox numerous times and has accepted seroquel and gabapentin with favorable effect. At present patient reports ongoing anxiety, restlessness and is experencing difficulty sleeping. States he has issues with his anxiety since he was a child. Patient denies h/o suicide attempt. Physical/Sexual Abuse/Trauma History: denies. Mental Status Exam - Mental Status Exam Alert and Oriented to: Time, Place, Person Cognitive Function: Good Patient Appearance: Well Groomed Mood: Euthymic Affect: Appropriate Patient Behavior: Cooperative Speech Pattern: Appropriate Voice Loudness: Normal Thought Process: Goal Oriented Thought Disorder: Not Present Hallucinations: Denies Suicidal Ideation: Denies Homicidal Ideation: Denies Insight/Judgement: Poor Sleep: Poorly Appetite: Fair Muscle strength/Tone: Normal Gait/Station: Normal Psychiatric Findings - Problem List ([place] 1, 2,3) (1) Substance induced mood disorder Current Visit: Yes Status: Acute (2) Opioid dependence with withdrawal Current Visit: Yes Status: Acute (3) Substance-induced anxiety disorder Current Visit: Yes Status: Acute (4) Uncomplicated sedative, hypnotic or anxiolytic withdrawal Current Visit: Yes Status: Acute (5) Cocaine dependence Current Visit: Yes Status: Chronic Qualifiers: Substance use status: uncomplicated Qualified Code(s): F14.20 - Cocaine dependence, uncomplicated (6) Substance-induced sleep disorder Current Visit: Yes Status: Acute - Initial Treatment Plan Initial Treatment Plan: Psychoeducation provided. Detoxification in progress. Will order Gabapentin 400mg TID + Seroquel 100mg HS. Benefits and side effects discussed. Verbal consent given.
[2018-08-13] MEDS: CLOTRIMAZOLE/BETAMET DIPROP TOPICAL CREAM 45 GM TUBE TP SCH ×2 (17:28→22:50)
[2018-08-13] MEDS: QUEtiapine FUMARATE 100 MG TABLET (FP) PO SCH (22:47)
[2018-08-13] MEDS: THIAMINE HCL 100 MG TABLET (FP) PO SCH (22:47)
[2018-08-14] MEDS: GABAPENTIN 400 MG CAPSULE (FP) PO SCH ×3 (06:54→22:48)
[2018-08-14] MEDS: diazePAM 5 MG TABLET PO SCH ×2 (06:54→17:48)
[2018-08-14] MEDS: IBUPROFEN 400 MG TABLET (FP) PO PRN (06:58)
[2018-08-14] MEDS: diazePAM 5 MG TABLET PO PRN ×3 (08:42→19:23)
[2018-08-14] MEDS ORDERED: METHADONE HCL 10 MG TABLET (FOR DETOX USE ONLY) PO ONE (10:00)
[2018-08-14] MEDS ORDERED: METHADONE HCL 5 MG TABLET (FOR DETOX USE ONLY) PO ONE (10:00)
[2018-08-14] MEDS: cloNIDine HCL 0.1 MG TABLET PO PRN ×2 (10:08→17:48)
[2018-08-14] MEDS: METHOCARBAMOL 750 MG TABLET PO PRN (10:08)
[2018-08-14] MEDS: PRENATAL VITAMINS W/ FOLIC ACID TABLET (FP) PO SCH (10:09)
[2018-08-14] MEDS: CLOTRIMAZOLE/BETAMET DIPROP TOPICAL CREAM 45 GM TUBE TP SCH ×2 (10:10→22:48)
[2018-08-14] MEDS: NICOTINE 21 MG/24 HOURS TOPICAL PATCH TD SCH (10:10)
--- NOTE | 2018-08-14 13:41 | PN ---
S CIWA - CIWA Score Nausea/Vomitin-No Nausea/No Vomiting Muscle Tremors: 2 Anxiety: 5 Agitation: 4-Moderately Restless Paroxysmal Sweats: No Perspiration Orientation: 0-Oriented Tacttile Disturbances: 1-Very Mild Itch/Numbness Auditory Disturbances: 0-None Visual Disturbances: 2-Mild Sensitivity Headache: 0-None Present CIWA-Ar Total Score: 14 S COWS - Scale Resting Pulse: 0= [place] 80 or Below Sweatin= Chills/Flushing Restless Observation: 1= Difficult to Sit Still Pupil Size: 0= Normal to Room Light Bone or Joint Aches: 0= None Runny Nose/ Eye Tearin= Runny Nose/Eyes GI Upset > 30mins: 2= Nausea/Diarrhea Tremor Observation of Outstretched Hands: 2= Slight Tremor Visible Yawning Observation: 1= 1-2x During Session Anxiety or Irritability: 2=Irritable/Anxious Goose Flesh Skin: 0=Smooth Skin COWS Score: 11 S Progress Note (SOAP) Subjective: Chills, Anxious (Severe), Restless, Nausea, Tremors, Interrupted sleep. Objective: PATIENT A & O X 3, OBSERVED AMBULATING ON UNIT UNASSISTED. IN NO ACUTE DISTRESS. 08/14/18 13:43 Vital Signs Temperature 97.0 F L 08/14/18 09:28 Pulse Rate 59 L 08/14/18 09:28 Respiratory Rate 18 08/14/18 09:28 Blood Pressure 125/69 08/14/18 09:28 O2 Sat by Pulse Oximetry (%) Laboratory Tests 08/12/18 08/12/18 08/12/18 09:50 09:50 09:50 WBC 5.1 RBC 4.43 Hgb 12.5 Hct 37.8 MCV 85.2 MCH 28.2 MCHC 33.1 RDW 13.1 D Plt Count 301 MPV 8.7 Sodium 143 Potassium 4.1 Chloride 111 H Carbon Dioxide 28 Anion Gap 4 L BUN 23.7 H Creatinine 0.9 Est GFR (CKD-EPI)AfAm 129.61 Est GFR (CKD-EPI)NonAf 111.83 Random Glucose 92 Calcium 9.0 Total Bilirubin 0.2 AST 55 H ALT 96 H Alkaline Phosphatase 68 Total Protein 6.5 Albumin 3.3 L Urine Color Urine Appearance Urine pH Ur Specific [place] Urine Protein Urine Glucose (UA) Urine Ketones Urine Blood Urine Nitrite Urine Bilirubin Urine Urobilinogen Ur Leukocyte Esterase Urine WBC (Auto) Urine RBC (Auto) Urine Casts (Auto) U Epithel Cells (Auto) Urine Crystals (Auto) Urine Bacteria (Auto) RPR Titer Nonreactive HIV 1&2 Antibody Screen HIV P24 Antigen 08/12/18 08/12/18 10:00 10:30 WBC RBC Hgb Hct MCV MCH MCHC RDW Plt Count MPV Sodium Potassium Chloride Carbon Dioxide Anion Gap BUN Creatinine Est GFR (CKD-EPI)AfAm Est GFR (CKD-EPI)NonAf Random Glucose Calcium Total Bilirubin AST ALT Alkaline Phosphatase Total Protein Albumin Urine Color Yellow Urine Appearance Turbid Urine pH 5.5 Ur Specific [place] 1.033 Urine Protein Negative Urine Glucose (UA) Negative Urine Ketones Negative Urine Blood Negative Urine Nitrite Negative Urine Bilirubin Negative Urine Urobilinogen 1.0 Ur Leukocyte Esterase Trace Urine WBC (Auto) 9 Urine RBC (Auto) 3 Urine Casts (Auto) 8 U Epithel Cells (Auto) 3.4 Urine Crystals (Auto) Ca oxalate Urine Bacteria (Auto) 1.2 RPR Titer HIV 1&2 Antibody Screen Negative HIV P24 Antigen Negative LABS NOTED. Assessment: 08/14/18 13:43 WITHDRAWAL SYMPTOMS. ELEVATED AST, ALT LEVELS. 08/14/18 13:44 Plan: CONTINUE DETOX. INCREASE DAILY PO WATER INTAKE. AT PATIENT'S REQUEST, TODAY'S SCHEDULED DOSE OF METHADONE REDUCED FROM 20 MG PO X1 DOSE TO 15 MG PO X ONE DOSE. PATIENT REQUESTS TO HAVE EARLY DISCHARGE FROM DETOX UNIT TOMORROW SO THAT HE MAY GO TO REHAB AT THAT TIME. HOWEVER, DUE TO CURRENT NUMBER OF AND SEVERITY LEVEL OF CURRENT WITHDRAWAL SYMPTOMS, PATIENT ADVISED TO CONSIDER REMAINING ON DETOX UNIT FOR NEXT FEW DAYS (PROJECTED DISCHARGE DATE FOR PATIENT AT THIS TIME IS 08/17/2018). PATIENT VERBALIZED UNDERSTANDING OF RECOMMENDATION.
[2018-08-14] MEDS: hydrOXYzine PAMOATE 50 MG CAPSULE (FP) PO PRN ×2 (14:57→19:24)
[2018-08-14] MEDS: THIAMINE HCL 100 MG TABLET (FP) PO SCH (22:48)
[2018-08-14] MEDS: QUEtiapine FUMARATE 100 MG TABLET (FP) PO SCH (22:48)
[2018-08-14] MEDS: MELATONIN 5 MG TABLETS PO PRN (22:50)
[2018-08-15] MEDS: diazePAM 5 MG TABLET PO PRN (02:39)
[2018-08-15] MEDS: IBUPROFEN 400 MG TABLET (FP) PO PRN (02:39)
[2018-08-15] MEDS: hydrOXYzine PAMOATE 50 MG CAPSULE (FP) PO PRN ×2 (02:40→09:53)
[2018-08-15] MEDS: GABAPENTIN 400 MG CAPSULE (FP) PO SCH (05:49)
[2018-08-15] MEDS ORDERED: diazePAM 5 MG TABLET PO ONE (06:00)
[2018-08-15] MEDS ORDERED: METHADONE HCL 10 MG TABLET (FOR DETOX USE ONLY) ONE (08:51)
[2018-08-15] MEDS ORDERED: METHADONE HCL 5 MG TABLET (FOR DETOX USE ONLY) ONE (08:51)
[2018-08-15 09:34] VITALS: BP 135/60; PULSE 63; TEMP 97.9
--- NOTE | 2018-08-15 09:44 | PN ---
[facility] CIWA - CIWA Score Nausea/Vomitin-Mild Nausea/No Vomiting Muscle Tremors: 1-None Visible, but [place] Anxiety: 1-Mildly Anxious Agitation: 1-Slight > Activity Paroxysmal Sweats: No Perspiration Orientation: 0-Oriented Tacttile Disturbances: 1-Very Mild Itch/Numbness Auditory Disturbances: 1-Very Mild Visual Disturbances: 0-None Headache: 1-Very Mild CIWA-Ar Total Score: 7 S COWS - Scale Resting Pulse: 1= [place] 81-100 Sweatin= Chills/Flushing Restless Observation: 1= Difficult to Sit Still Pupil Size: 1= Pupils >than Normal Bone or Joint Aches: 1= Mild Discomfort Runny Nose/ Eye Tearin= Nasal Congestion GI Upset > 30mins: 1= Stomach Cramp Tremor Observation of Outstretched Hands: 1= Tremor [place], Not Seen Yawning Observation: 1= 1-2x During Session Anxiety or Irritability: 2=Irritable/Anxious Goose Flesh Skin: 0=Smooth Skin COWS Score: 11 [facility] Progress Note (SOAP) Subjective: alert,irritable,anxious,interrupted sleep,pain in the body Objective: 08/15/18 09:50 Vital Signs Temperature 97.9 F 08/15/18 09:34 Pulse Rate 63 08/15/18 09:34 Respiratory Rate 16 08/15/18 09:34 Blood Pressure 135/60 08/15/18 09:34 O2 Sat by Pulse Oximetry (%) Assessment: 08/15/18 09:50 withdrawal symptom but less Plan: mediation adjust,discharge in am
[2018-08-15] MEDS: CLOTRIMAZOLE/BETAMET DIPROP TOPICAL CREAM 45 GM TUBE TP SCH (09:53)
[2018-08-15] MEDS: PRENATAL VITAMINS W/ FOLIC ACID TABLET (FP) PO SCH (09:53)
[2018-08-15] MEDS: NICOTINE 21 MG/24 HOURS TOPICAL PATCH TD SCH (09:54)
[2018-08-15] MEDS ORDERED: METHADONE (DETOX) 10 MG, METHADONE (DETOX) 5 MG PO ONE (10:00)
[2018-08-15] MEDS ORDERED: METHADONE HCL 10 MG TABLET (FOR DETOX USE ONLY) PO ONE (10:00)
--- NOTE | 2018-08-15 11:22 | PN ---
S Progress Note Note: patient is feeling better,stable for discharge,follow up with after care program as arrangement
--- NOTE | 2018-08-15 11:25 | DS ---
[facility] Detox Discharge Summary Admission Date: 08/12/18 Discharge Date: 08/15/18 - History Present History: Alcohol Dependence, Cocaine Dependence, Opioid Dependence Additional Comments: patient is stable for discharge,follow up with after care program as arrangement Pertinent Past History: nicotine dependence ivdu - Physical Exam Results Vital Signs: Vital Signs Temperature 97.9 F 08/15/18 09:34 Pulse Rate 63 08/15/18 09:34 Respiratory Rate 16 08/15/18 09:34 Blood Pressure 135/60 08/15/18 09:34 O2 Sat by Pulse Oximetry (%) Pertinent Admission Physical Exam Findings: withdrawal signs and symptom - Treatment Hospital Course: Detox Protocol Followed, Detoxed Safely, Responded well, Discharged Condition Good Patient has Accepted a Rehab Referral to: declined - Medication Discharge Medications: Ambulatory Orders NK [No Known Home Medication] 01/30/18 - Diagnosis (1) Opioid dependence with withdrawal Current Visit: Yes Status: Acute (2) Uncomplicated sedative, hypnotic or anxiolytic withdrawal Current Visit: Yes Status: Acute (3) Cocaine dependence Current Visit: Yes Status: Chronic Qualifiers: Substance use status: uncomplicated Qualified Code(s): F14.20 - Cocaine dependence, uncomplicated (4) Nicotine dependence Current Visit: No Status: Chronic Qualifiers: Nicotine product type: cigarettes Substance use status: uncomplicated Qualified Code(s): F17.210 - Nicotine dependence, cigarettes, uncomplicated (5) 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 Current Visit: No Status: Chronic (6) Cannabis abuse Current Visit: Yes Status: Acute (7) Dehydration Current Visit: Yes Status: Acute (8) Weight loss Current Visit: Yes Status: Acute - AMA Did Patient Leave Against Medical Advice: No
[2018-08-16] MEDS ORDERED: METHADONE HCL 5 MG TABLET (FOR DETOX USE ONLY) PO ONE ×2 (06:00→08:00)
[2018-08-16] MEDS ORDERED: METHADONE HCL 10 MG TABLET (FOR DETOX USE ONLY) PO ONE (10:00)
[2018-08-17] MEDS ORDERED: METHADONE HCL 5 MG TABLET (FOR DETOX USE ONLY) PO ONE (06:00)
== END 2018-08-15 11:35 | disposition home or self-care (01) | DRG 773 ==
LOC: YASAS 08:38 → Y6N 10:01
PROVIDERS: ADMIT Surgery; ATTEND Surgery
PROC: HZ2ZZZZ Detoxification Services for Substance Abuse Treatment (ICD-10-PCS; principal; 2018-08-12)
DX: F11.23 Opioid dependence with withdrawal (principal); F10.230 Alcohol dependence with withdrawal, uncomplicated; F13.230 Sedative, hypnotic or anxiolytic dependence with withdrawal, uncomplicated; F14.20 Cocaine dependence, uncomplicated; F12.10 Cannabis abuse, uncomplicated; F17.210 Nicotine dependence, cigarettes, uncomplicated; F19.24 Other psychoactive substance dependence with psychoactive substance-induced mood disorder; F19.280 Other psychoactive substance dependence with psychoactive substance-induced anxiety disorder; F19.282 Other psychoactive substance dependence with psychoactive substance-induced sleep disorder; E86.0 Dehydration; R94.5 Abnormal results of liver function studies; R63.4 Abnormal weight loss; Z68.24 Body mass index [BMI] 24.0-24.9, adult; Z88.0 Allergy status to penicillin
CPT/HCPCS: 36415; 80053; 81003; 85027; 86593; 87389; J0735

== ENCOUNTER 2018-08-29 12:26 | Inpatient (IN) | payer OTHER ==
[2018-08-29 13:23] VITALS: BMI 24.5
--- NOTE | 2018-08-29 14:51 | HP ---
COWS - Scale Resting Pulse: 0= AR 80 or Below Sweatin= Chills/Flushing Restless Observation: 1= Difficult to Sit Still Pupil Size: 0= Normal to Room Light Bone or Joint Aches: 2= Severe Diffuse Aches Runny Nose/ Eye Tearin= Runny Nose/Eyes GI Upset > 30mins: 2= Nausea/Diarrhea Tremor Observation: 2= Slight Tremor Visible Yawning Observation: 0= None Anxiety or Irritability: 2=Irritable/Anxious Goose Flesh Skin: 0=Smooth Skin COWS Score: 12 CIWA Score Nausea/Vomitin-Mild Nausea/No Vomiting Muscle Tremors: 3 Anxiety: 3 Agitation: 2 Paroxysmal Sweats: 1-Minimal Palms Moist Orientation: 0-Oriented Tacttile Disturbances: 1-Very Mild Itch/Numbness Auditory Disturbances: 0-None Visual Disturbances: 0-None Headache: 2-Mild (lef) CIWA-Ar Total Score: 13 - Admission Criteria OASAS Guidelines: Admission for Medically Managed Detox: Requires at least one of the followin. CIWA greater than 12 2. Seizures within the past 24 hours 3. Delirium tremens within the past 24 hours 4. Hallucinations within the past 24 hours 5. Acute intervention needed for co occurring medical disorder 6. Acute intervention needed for co occurring psychiatric disorder 7. Severe withdrawal that cannot be handled at a lower level of care (continued vomiting, continued diarrhea, abnormal vital signs) requiring intravenous medication and/or fluids 8. Patient presents the following: None of the above Admission Criteria Met: Admission criteria not met Admission ROS [facility] Chief Complaint: Patient wants to enter substance abuse rehab. Allergies/Adverse Reactions: Allergies Allergy/AdvReac Type Severity Reaction Status Date / Time Penicillins Allergy Severe Rash Verified 08/29/18 13:16 History of Present Illness: patient reports actively using ETOH, Xanax, heroin, and cocaine to deal with his anxiety. Completed detox at [facility],Last IV heroin & cocaine was last Tuesday ther , and he injected into veins in his left foot, which is now swollen and painful. Has been using weed and alcohol since 12, xanax at 16, heroin and cocaine at 16 years of age. Patient suboxone 24mg/day for several months, but then stopped. Reports interest in starting suboxone again or Vivitrol. Exam Limitations: No Limitations - Ebola screening Have you traveled outside of the country in the last 21 days: No Have you had contact with anyone from an Ebola affected area: No Have you been sick,other than usual withdrawal symptoms: No Do you have a fever: No - Review of Systems Constitutional: Chills, Diaphoresis, Loss of Appetite, Night Sweats, Unintentional Wgt. Loss EENT: reports: No Symptoms Reported Respiratory: reports: Shortness of Breath Cardiac: reports: No Symptoms Reported GI: reports: Nausea, Poor Appetite : reports: No Symptoms Reported Musculoskeletal: reports: Joint Pain, Joint Swelling (left ankle swelling, pain. ), Muscle Pain Integumentary: reports: Rash (reports a rash that comes and goes.) Neuro: reports: No Symptoms reported Endocrine: reports: No Symptoms Reported Hematology: reports: No Symptoms Reported Psychiatric: reports: Anxious, Depressed (reports that he has been going through anxiety and depression.Thinking about his life and what he has been through makes him feel anxious.) Other Systems: Reviewed and Negative Patient History - Patient Medical History Hx Anemia: No Hx Asthma: No Hx Chronic Obstructive Pulmonary Disease (COPD): No Hx Cancer: No Hx Cardiac Disorders: No Hx Congestive Heart Failure: No Hx Hypertension: No Hx Hypercholesterolemia: No Hx Pacemaker: No HX Cerebrovascular Accident: No Hx Seizures: No Hx Dementia: No Hx Diabetes: No Hx Gastrointestinal Disorders: No Hx Liver Disease: No Hx Genitourinary Disorders: No Hx Sexually Transmitted Disorders: No Hx Renal Disease (ESRD): No Hx Thyroid Disease: No Hx Human Immunodeficiency Virus (HIV): No (last 01/24 negative) Hx Hepatitis C: No Hx Depression: Yes Hx Suicide Attempt: No Hx Bipolar Disorder: No Hx Schizophrenia: No - Patient Surgical History Past Surgical History: No Hx Neurologic Surgery: No Hx Cataract Extraction: No Hx Cardiac Surgery: No Hx Lung Surgery: No Hx Breast Surgery: No Hx Breast Biopsy: No Hx Abdominal Surgery: No Hx Appendectomy: No Hx Cholecystectomy: No Hx Genitourinary Surgery: No Hx Section: No Hx Orthopedic Surgery: No Other Surgical History: circumcission at age of 7 years Anesthesia Reaction: No - PPD History Date: 12/13/17 Results: 0 mm - Reproductive History Patient is a Female of Child Bearing Age (11 -55 yrs old): No - Smoking Cessation Smoking history: Current every day smoker Have you smoked in the past 12 months: Yes Aproximately how many cigarettes per day: 20 Cigars Per Day: 0 Hx Chewing Tobacco Use: No Initiated information on smoking cessation: Yes 'Breaking Loose' booklet given: 08/29/18 - Substances abused Alcohol Substance route: Oral Frequency: Daily Amount used: 2 PINTS- Bacardi& 6PK beer - 12OZ Age of first use: 17 Date of last use: 08/23/18 Alprazolam (Xanax) Other (specify): 2MG Substance route: Oral Frequency: Daily Amount used: 6 BARS Age of first use: 27 Date of last use: 08/23/18 Heroin Substance route: Injection Frequency: Daily Amount used: 25 BAGS Age of first use: 16 Date of last use: 08/23/18 Cocaine Substance route: Injection Frequency: Daily Amount used: $50 Age of first use: 16 Date of last use: 08/23/18 Marijuana/Hashish Substance route: Smoking Frequency: Daily Amount used: $20 Age of first use: 14 Date of last use: 08/23/18 Family Disease History - Family Disease History Family Disease History: Diabetes: Mother (unsure , does not keep in touch), Other: Father (does not keep in touch ), Brother (3 brothers does not keep in touch ), Sister (5 sisters , does not keep in touch except 1 sister in [place] ), Son (9 y.o. in [place] ) Admission Physical Exam [facility] - Vital Signs Vital Signs: Vital Signs - 24 hr 08/29/18 13:12 Temperature 98.6 F Pulse Rate 62 Respiratory 16 Rate Blood Pressure 122/74 - Physical General Appearance: Yes: No Apparent Distress, Nourished HEENTM: Yes: EOMI, Hearing grossly Normal, NAVDEEP, Pharynx Normal Respiratory: Yes: Lungs Clear, Normal Breath Sounds, No Respiratory Distress, No Accessory Muscle Use Neck: Yes: Within Normal Limits, Supple, Trachea in good position Breast: Yes: Breast Exam Deferred Cardiology: Yes: Regular Rhythm, Regular Rate, S1, S2 Abdominal: Yes: Within Normal Limits, Non Tender, Flat, Soft Genitourinary: Yes: Within Normal Limits Back: Yes: Normal Inspection Musculoskeletal: Yes: Within Normal Limits, full range of Motion, Gait Steady, Pelvis Stable Extremities: Yes: Within Normal Limits, Normal Capillary Refill, Normal Range of Motion, Erythema (left foot,) Neurological: Yes: 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210 - Nicotine dependence, cigarettes, uncomplicated (6) 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 Current Visit: No Status: Chronic Cleared for Admission [facility] - Detox or Rehab [facility] Level of Care: Medically Managed Detox Regimen/Protocol: Not Applicable Claeared for Rehab Admission: Yes Screened but not Admitted - Documentation of Visit Screened but not Admitted: No Breathalyzer - Breathalyzer Breathalyzer: 0 Urine Drug Screen - Test Device Lot number: [id number] Expiration date: 06/06/20 - Control Is test valid?: Yes - Results Drug screen NEGATIVE: No Urine drug screen results: MTD-Methadone, BZO-Benzodiazepines Inpatient Rehab Admission - Rehab Decision to Admit Inpatient rehab admission?: Yes - Initial Determination Are CD services needed?: No Free of communicable disease: Yes Not in need of hospitalization: Yes - Rehab Admission Criteria Previous failed treatment: Yes Poor recovery environment: Yes Comorbidities: No Lacks judgement: No Patient is meeting Inpatient Rehab admission criteria:: Yes
[2018-08-29] MEDS ORDERED: guaiFENesin 200 MG/10 ML 10 ML UNIT-DOSE CUPS PO PRN (16:42)
[2018-08-29] MEDS ORDERED: MAGNESIUM CITRATE 300 ML BOTTLE PO PRN (16:42)
[2018-08-29] MEDS ORDERED: LOPERAMIDE HCL 2 MG CAPSULE PO PRN (16:42)
[2018-08-29] MEDS ORDERED: MAG HYDROX/AL HYDROX/SIMETH 30 ML UNIT-DOSE CUP PO PRN (16:42)
[2018-08-29] MEDS ORDERED: MAGNESIUM HYDROX 2400MG/30ML ORAL SUSPENSION 30 ML CUP PO PRN (16:42)
[2018-08-29] MEDS ORDERED: MENTHOL/PHENOL 1 EACH UD MM PRN (16:42)
--- NOTE | 2018-08-29 19:09 | PN ---
[facility] Progress Note Note: C/o increased anxiety. Last EKG @ [facility] 12/2017 - w/ NSR and QT wnl. Will order vistaril for anxiety.
[2018-08-29] MEDS ORDERED: COLLOIDAL OATMEAL 1 BAR EACH TP PRN (19:10)
[2018-08-29] MEDS: hydrOXYzine PAMOATE 50 MG CAPSULE (FP) PO PRN (19:44)
[2018-08-29] MEDS: IBUPROFEN 400 MG TABLET (FP) PO PRN (19:45)
[2018-08-29] MEDS: THIAMINE HCL 100 MG TABLET (FP) PO SCH (21:20)
[2018-08-29] MEDS: MELATONIN 5 MG TABLETS PO PRN (21:20)
[2018-08-29] MEDS: ACETAMINOPHEN 325 MG TABLET (FP) PO PRN (21:21)
[2018-08-30] MEDS: hydrOXYzine PAMOATE 50 MG CAPSULE (FP) PO PRN ×4 (06:35→23:46)
[2018-08-30] MEDS: IBUPROFEN 400 MG TABLET (FP) PO PRN (06:35)
[2018-08-30] MEDS: ACETAMINOPHEN 325 MG TABLET (FP) PO PRN ×2 (09:59→21:14)
[2018-08-30] MEDS: PRENATAL VITAMINS W/ FOLIC ACID TABLET (FP) PO SCH (10:00)
--- NOTE | 2018-08-30 10:12 | PN ---
[facility] Progress Note (SOAP) Subjective: MR. PÉREZ WAS ADMITTED TO REHAB YESTERDAY. STATES HE WAS TOLD "DOWNSTAIRS" HE WILL START ANTIBIOTICS FOR SWELLING ON HIS LEG FOOT. PT REPORTS PAIN AND SWELLING TO LEFT FOOT AND SWELLING WITH NO PAIN ON LEFT HAND. BOTH AREAS FROM PREVIOUS I.V DRUG INJECTIONS. PT REPORTS LAS INJ. WAS ON 08/22/18. PT HAS A HX OF HEROIN,ALCOHOL,COCAINE,XANAX AND MARIJUANA USE DISORDER. Objective: 08/30/18 10:13 Vital Signs - 24 hr 08/29/18 08/29/18 08/30/18 13:12 16:44 00:30 Temperature 98.6 F 98.4 F Pulse Rate 62 61 Respiratory 16 18 18 Rate Blood Pressure 122/74 131/73 08/30/18 08/30/18 03:30 06:41 Temperature 98.3 F Pulse Rate 54 L Respiratory 18 18 Rate Blood Pressure 137/75 LABS PENDING EXTREMITIES:LEFT HAND,VENTRAL WITH SWELLING, NO REDNESS AND NO PAIN ON PALPATION LEFT FOOT, SLIGHT REDNESS WITH SWELLING AND PAIN TO ANKLE/FOOT. SKIN:I.V DRUG NEEDLE INJECTION TRACKS. NO DRAINAGE OR EXPOSED MEMBRANE. Assessment: 08/30/18 10:14 PAIN AND SWELLING R/T I.V DRUG INJECTION ABSCESS, FOOT I.V DRUG INJECTION USER [facility] Inpatient Services Medical - Diagnosis (1) Alcohol dependence Qualifiers: Substance use status: uncomplicated Qualified Code(s): F10.20 - Alcohol dependence, uncomplicated Current Visit: Yes Status: Chronic (2) Nicotine dependence Qualifiers: Nicotine product type: cigarettes Substance use status: uncomplicated Qualified Code(s): F17.210 - Nicotine dependence, cigarettes, uncomplicated Current Visit: Yes Status: Chronic (3) Cocaine dependence Qualifiers: Substance use status: uncomplicated Qualified Code(s): F14.20 - Cocaine dependence, uncomplicated Current Visit: Yes Status: Chronic (4) 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 Current Visit: Yes Status: Acute (5) Opioid dependence Qualifiers: Substance use status: uncomplicated Qualified Code(s): F11.20 - Opioid dependence, uncomplicated Current Visit: Yes Status: Chronic (6) Sedative hypnotic or anxiolytic dependence Current Visit: Yes Status: Chronic (7) Abscess of foot Current Visit: Yes Status: Acute (8) Cannabis abuse Current Visit: Yes Status: Chronic Initialized on 08/30/18 10:19 - END OF NOTE Plan: CLINDAMYCIN 300 MG PO Q6H X 10 DAY
[2018-08-30] MEDS: CLINDAMYCIN HCL 150 MG CAPSULE (FP) PO SCH ×3 (12:01→23:46)
[2018-08-30] MEDS: IBUPROFEN 600 MG TABLET (FP) PO PRN ×2 (12:02→18:04)
[2018-08-30] MEDS: P-EPHED 60MG/TRIPROLIDI 2.5MG TABLET PO PRN (12:46)
[2018-08-30] MEDS: BACITRACIN 15 GM TUBE TOPICAL OINTMENT TP SCH ×2 (14:37→23:43)
[2018-08-30 16:55] LABS: PH,URINE 7.5 (5.0-8.0); URINE APPEARANCE CLEAR; URINE BILIRUBIN NEGATIVE (NEGATIVE); URINE COLOR YELLOW; URINE GLUCOSE (UA) NEGATIVE (NEGATIVE); URINE KETONE NEGATIVE (NEGATIVE); URINE LEUK ESTERASE NEGATIVE (NEGATIVE); URINE NITRITE NEGATIVE (NEGATIVE); URINE PROTEIN NEGATIVE (NEGATIVE); URINE UROBILINOGEN 0.2 mg/dL (0.2-1.0)
[2018-08-30] MEDS: THIAMINE HCL 100 MG TABLET (FP) PO SCH (21:13)
[2018-08-30] MEDS: MELATONIN 5 MG TABLETS PO PRN (21:13)
[2018-08-31] MEDS: CLINDAMYCIN HCL 150 MG CAPSULE (FP) PO SCH ×4 (06:38→23:29)
[2018-08-31] MEDS: hydrOXYzine PAMOATE 50 MG CAPSULE (FP) PO PRN ×3 (06:40→21:20)
[2018-08-31] MEDS: IBUPROFEN 600 MG TABLET (FP) PO PRN ×3 (06:40→21:20)
[2018-08-31] MEDS: PRENATAL VITAMINS W/ FOLIC ACID TABLET (FP) PO SCH (10:14)
[2018-08-31] MEDS: IBUPROFEN 400 MG TABLET (FP) PO PRN (10:14)
[2018-08-31] MEDS: BACITRACIN 15 GM TUBE TOPICAL OINTMENT TP SCH ×2 (10:16→21:21)
--- NOTE | 2018-08-31 11:19 | PN ---
[facility] Progress Note Note: PT C/O GOOSE BUMPS,CHILLS,ANXIETY,IRRITABILITY, CONTINUED PAIN 8/10 AND SWELLING TO LEFT FOOT ON I.V DRUG INJ. SITE(DORSAL FOOT). PT DENIES ANY PREVIOUS FALLS OR TRUAMA TO LEFT FOOT EXCEPT I.V DRUG INJECTING. PT WAS STARTED ON CLINDAMYCIN 300 MG PO Q6H YESTERDAY. 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 I FEEL LIKE I'M GOING FROM ONE DRUG TO ANOTHER". "I WAS ON SUBOXONE THEN WAS SWITCHED TO METHADONE".PT APPEARS NOT READY FOR MAT AT THIS TIME. Vital Signs 08/31/18 08/31/18 03:30 06:56 Temperature 98.2 F Pulse Rate 60 Respiratory 18 16 Rate Blood Pressure 136/82 LABS STILL PENDING; PT DIFFICULT DRAW. LEFT FOOT:MINIMAL REDNESS WITH SWELLING, NOT WORSE THAN YESTERDAY. A:CELLULITIS DEHYDRATION PLAN:CONTINUE CLINDAMYCIN DIRECTED. INCREASE PO FLUIDS. D/W PT WILL RE-EVALUATE AND REFER TO ER IF NOT GETTING BETTER WITH CURRENT TREATMENT. FOLLOW UP WITH PT FOR MAT IF READY TO ENGAGE IN MAT.
[2018-08-31] MEDS: cloNIDine HCL 0.1 MG TABLET PO SCH ×2 (12:01→21:18)
[2018-08-31] MEDS: P-EPHED 60MG/TRIPROLIDI 2.5MG TABLET PO PRN (12:01)
[2018-08-31] MEDS: METHOCARBAMOL 500 MG TABLET PO PRN (12:04)
--- NOTE | 2018-08-31 16:20 | CONSULT ---
[facility] Psychiatric Consult - Data Date of interview: 08/31/18 Admission source: [facility] Identifying data: Direct admission to [address] for this 33 y/o male carlos eduardo-referred for rehabilitative care after completion of detoxification treatment at [facility] last week. Patient is already known to [facility] for several admissions addressing substance use disorders (heroin, xanax, cannabis, alcohol, cocaine). Mr Atwood is single, a father of one, domiciled, unemployed and deprived of income. Substance Abuse History: Confirmed by patient in this interview. Details in current [facility] report as follows : Smoking history: Current every day smoker. Have you smoked in the past 12 months: Yes. Aproximately how many cigarettes per day: 20. Cigars Per Day: 0. Hx Chewing Tobacco Use: No. Initiated information on smoking cessation: Yes. 'Breaking Loose' booklet given: . - Substances abused. Alcohol. Substance route: Oral. Frequency: Daily. Amount used: 2 PINTS- Bacardi& 6PK beer - 12OZ. Age of first use: 17. Date of last use: 08/23/18. Alprazolam (Xanax). Other (specify): 2MG. Substance route: Oral. Frequency: Daily. Amount used: 6 BARS. Age of first use: 27. Date of last use: 08/23/18. Heroin. Substance route: Injection. Frequency: Daily. Amount used: 25 BAGS. Age of first use: 16. Date of last use: 08/23/18. Cocaine. Substance route: Injection. Frequency: Daily. Amount used: $50. Age of first use: 16. Date of last use: 08/23/18. Marijuana/Hashish. Substance route: Smoking. Frequency: Daily. Amount used: $ 20. Age of first use: 14. Date of last use: 08/23/18 Medical History: Patient endorses good general health. Psychiatric History: History of one, brief psychiatric hospitalization, at [facility] (207). Patient reports that he was malingering in order to get a place to stay for a few days. Diagnosed at the time, with with Anxiety Disorder. Mr Atwood was discharged on sertraline + gabapentin. Never followed up with OPD care. Patient denies history of suicide attempts. Physical/Sexual Abuse/Trauma History: No history of abuse. Additional Comment: Urine drug screen results: MTD-Methadone, BZO- Benzodiazepines. Noted. Mental Status Exam - Mental Status Exam Alert and Oriented to: Time, Place, Person Cognitive Function: Good Patient Appearance: Well Groomed Mood: Anxious, Irritable Affect: Mood Congruent, Constricted Patient Behavior: Fatigued, Appropriate, Cooperative Speech Pattern: Clear Voice Loudness: Normal Thought Process: Goal Oriented Thought Disorder: Not Present Hallucinations: Denies Suicidal Ideation: Denies Homicidal Ideation: Denies Insight/Judgement: Poor Sleep: Poorly, Difficulty falling asleep Appetite: Good Muscle strength/Tone: Normal Gait/Station: Normal Psychiatric Findings - Problem List ([place] 1, 2,3) (1) Alcohol dependence Current Visit: Yes Status: Chronic Qualifiers: Substance use status: uncomplicated Qualified Code(s): F10.20 - Alcohol dependence, uncomplicated (2) Cannabis abuse Current Visit: Yes Status: Chronic (3) Cocaine dependence Current Visit: Yes Status: Chronic Qualifiers: Substance use status: uncomplicated Qualified Code(s): F14.20 - Cocaine dependence, uncomplicated (4) Opioid dependence Current Visit: Yes Status: Chronic Qualifiers: Substance use status: uncomplicated Qualified Code(s): F11.20 - Opioid dependence, uncomplicated (5) Sedative hypnotic or anxiolytic dependence Current Visit: Yes Status: Chronic (6) Substance induced mood disorder Current Visit: Yes Status: Chronic (7) History of anxiety disorder Current Visit: Yes Status: Chronic (8) Non-compliance Current Visit: Yes Status: Chronic - Initial Treatment Plan Initial Treatment Plan: Psychoeducation. Sleep hygiene. Support. Motivational counseling. Relapse prevention (MAT) measures : discussed. Seroquel 100 mg po hs. Ordered. Side effects/benefits reviewed with the patient. AA/NA meetings. Observation.
[2018-08-31] MEDS: THIAMINE HCL 100 MG TABLET (FP) PO SCH (21:18)
[2018-08-31] MEDS ORDERED: QUEtiapine FUMARATE 100 MG TABLET (FP) PO SCH (22:00)
[2018-09-01] MEDS: CLINDAMYCIN HCL 150 MG CAPSULE (FP) PO SCH ×2 (06:31→12:07)
[2018-09-01] MEDS: IBUPROFEN 600 MG TABLET (FP) PO PRN ×2 (06:34→12:08)
[2018-09-01 06:55] VITALS: TEMP 97.7
[2018-09-01] MEDS: PRENATAL VITAMINS W/ FOLIC ACID TABLET (FP) PO SCH (10:13)
[2018-09-01] MEDS: cloNIDine HCL 0.1 MG TABLET PO SCH (10:13)
[2018-09-01] MEDS: BACITRACIN 15 GM TUBE TOPICAL OINTMENT TP SCH (10:14)
[2018-09-01] MEDS: hydrOXYzine PAMOATE 50 MG CAPSULE (FP) PO PRN (10:15)
[2018-09-01] MEDS: METHOCARBAMOL 500 MG TABLET PO PRN (10:16)
[2018-09-01 10:49] LABS: HEMATOCRIT 37.6 % (35.4-49); HEMOGLOBIN 12.6 GM/dL (11.7-16.9); MCH 28.2 pg (25.7-33.7); MCHC 33.5 g/dl (32.0-35.9); PLATELET COUNT 356 K/MM3 (134-434); RBC 4.48 M/mm3 (4.00-5.60); RDW 12.4 % (11.9-15.9); WHITE BLOOD COUNT 5.3 K/mm3 (4.0-10.0)
[2018-09-01 11:19] LABS: ALBUMIN 3.2 g/dl (3.4-5.0); BILIRUBIN,TOTAL 0.4 mg/dL (0.2-1); BLOOD UREA NITROGEN 14.1 mg/dL (7-18); CALCIUM 9.2 mg/dL (8.5-10.1); CREATININE 1.2 mg/dL (0.55-1.3); POTASSIUM 4.1 mmol/L (3.5-5.1); TOT PROT 6.8 g/dl (6.4-8.2)
[2018-09-01 12:24] VITALS: BP 139/65; PULSE 61
--- NOTE | 2018-09-01 14:19 | PN ---
[facility] Progress Note Note: Patient is discharged today. Script for 30 days supply of Seroquel 100 mg/hs is electronically transmitted to [facility] at [address], [place] [address]
--- NOTE | 2018-09-01 15:38 | PN ---
[facility] Progress Note (SOAP) Subjective: PT DECLINED TO CONTINUE WITH TREATMENT DESPITE ALL EFFORTS TO DISSUADE PT FROM LEAVING TREATMENT. PT WAS ADMITTED TO REHAB ON 08/29/18 AND SIGNED OUT AMA TODAY , 09/01/18. PT HAS DIFFICULTY WITH ENGAGING IN TREATMENT. DECLINED MAT RECOMMENDATION WHEN OFFERED HERE INPATIENT REHAB. PT MET WITH COUNSELOR AND WAS REFERRED TO [facility] ON [address] [place], [place]. PT STATES HE HAS NO CURRENT DOCTOR BUT WILL GO FOR PRIMARY CARE AT [facility]. DENIES S/H/I. 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 Objective: 09/01/18 15:48 ALERT O X 3 Vital Signs (72 hours) 08/29/18 08/30/18 08/30/18 16:44 00:30 03:30 Temperature 98.4 F Pulse Rate 61 Respiratory 18 18 18 Rate Blood Pressure 131/73 08/30/18 08/31/18 08/31/18 06:41 00:30 03:30 Temperature 98.3 F Pulse Rate 54 L Respiratory 18 18 18 Rate Blood Pressure 137/75 08/31/18 08/31/18 09/01/18 06:56 21:21 00:30 Temperature 98.2 F Pulse Rate 60 56 L Respiratory 16 18 Rate Blood Pressure 136/82 140/72 09/01/18 09/01/18 09/01/18 03:30 06:54 09:15 Temperature 97.7 F Pulse Rate 52 L 63 Respiratory 18 16 Rate Blood Pressure 118/66 109/51 L 09/01/18 10:00 Temperature Pulse Rate 61 Respiratory 18 Rate Blood Pressure 139/65 Laboratory Tests 08/29/18 09/01/18 09/01/18 15:40 07:30 07:30 WBC RBC Hgb Hct MCV MCH MCHC RDW Plt Count MPV Sodium 140 Potassium 4.1 Chloride 104 Carbon Dioxide 32 Anion Gap 4 L BUN 14.1 Creatinine 1.2 Est GFR (CKD-EPI)AfAm 91.53 Est GFR (CKD-EPI)NonAf 78.97 Random Glucose 101 Calcium 9.2 Total Bilirubin 0.4 AST 26 ALT 67 H Alkaline Phosphatase 88 Total Protein 6.8 Albumin 3.2 L Urine Color Yellow Urine Appearance Clear Urine pH 7.5 D Ur Specific [place] 1.016 Urine Protein Negative Urine Glucose (UA) Negative Urine Ketones Negative Urine Blood Negative Urine Nitrite Negative Urine Bilirubin Negative Urine Urobilinogen 0.2 Ur Leukocyte Esterase Negative RPR Titer Nonreactive 09/01/18 07:30 WBC 5.3 RBC 4.48 Hgb 12.6 Hct 37.6 MCV 84.0 MCH 28.2 MCHC 33.5 RDW 12.4 Plt Count 356 MPV 8.0 Sodium Potassium Chloride Carbon Dioxide Anion Gap BUN Creatinine Est GFR (CKD-EPI)AfAm Est GFR (CKD-EPI)NonAf Random Glucose Calcium Total Bilirubin AST ALT Alkaline Phosphatase Total Protein Albumin Urine Color Urine Appearance Urine pH Ur Specific [place] Urine Protein Urine Glucose (UA) Urine Ketones Urine Blood Urine Nitrite Urine Bilirubin Urine Urobilinogen Ur Leukocyte Esterase RPR Titer Assessment: 09/01/18 15:48 NAD [facility] Inpatient Services Medical - Diagnosis (1) Alcohol dependence Qualifiers: Substance use status: uncomplicated Qualified Code(s): F10.20 - Alcohol dependence, uncomplicated Status: Chronic (2) Nicotine dependence Qualifiers: Nicotine product type: cigarettes Substance use status: uncomplicated Qualified Code(s): F17.210 - Nicotine dependence, cigarettes, uncomplicated Status: Chronic (3) Cocaine dependence Qualifiers: Substance use status: uncomplicated Qualified Code(s): F14.20 - Cocaine dependence, uncomplicated Status: Chronic (4) 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 Status: Acute (5) Opioid dependence Qualifiers: Substance use status: uncomplicated Qualified Code(s): F11.20 - Opioid dependence, uncomplicated Status: Chronic (6) Sedative hypnotic or anxiolytic dependence Status: Chronic (7) Abscess of foot Status: Acute (8) Cannabis abuse Status: Chronic Initialized on 09/01/18 15:38 - END OF NOTE Plan: PT SIGNED OUT AMA FOLLOW UP WITH CD AFTERCARE RECOMMENDATION. FOLLOW UP WITH PRIMARY CARE WITH [facility] WITHIN 1-2 WEEKS AFTER DISCHARGE.
== END 2018-09-01 14:13 | disposition left against medical advice (07) | DRG 770 ==
LOC: YASAS 12:26 → Y5N 15:51
PROVIDERS: ADMIT Neuromusculoskeletal Medicine & OMM; ATTEND Neuromusculoskeletal Medicine & OMM
PROC: HZ42ZZZ Group Counseling for Substance Abuse Treatment, Cognitive-Behavioral (ICD-10-PCS; principal; 2018-08-29)
DX: F11.20 Opioid dependence, uncomplicated (principal); F10.20 Alcohol dependence, uncomplicated; F14.20 Cocaine dependence, uncomplicated; F13.20 Sedative, hypnotic or anxiolytic dependence, uncomplicated; F12.10 Cannabis abuse, uncomplicated; F17.210 Nicotine dependence, cigarettes, uncomplicated; F41.8 Other specified anxiety disorders; F32.9 Major depressive disorder, single episode, unspecified; F19.24 Other psychoactive substance dependence with psychoactive substance-induced mood disorder; L02.612 Cutaneous abscess of left foot; Z88.0 Allergy status to penicillin; Z91.19 Patient's noncompliance with other medical treatment and regimen
CPT/HCPCS: 36415; 80053; 81003; 85027; 86593; J0735

== ENCOUNTER 2018-11-07 08:50 | Inpatient (IN) | payer OTHER ==
[2018-11-07 09:12] VITALS: BMI 25.1
--- NOTE | 2018-11-07 09:44 | HP ---
COWS - Scale Resting Pulse: 0= [place] 80 or Below Sweatin= No chills or Flushing Restless Observation: 1= Difficult to Sit Still Pupil Size: 0= Normal to Room Light Bone or Joint Aches: 2= Severe Diffuse Aches Runny Nose/ Eye Tearin= None GI Upset > 30mins: 2= Nausea/Diarrhea Tremor Observation: 0= None Yawning Observation: 0= None Anxiety or Irritability: 2=Irritable/Anxious Goose Flesh Skin: 0=Smooth Skin COWS Score: 7 CIWA Score Nausea/Vomitin-Mild Nausea/No Vomiting Muscle Tremors: None Anxiety: 2 Agitation: 1-Slight > Activity Paroxysmal Sweats: 2 Orientation: 0-Oriented Tacttile Disturbances: 0-None Auditory Disturbances: 0-None Visual Disturbances: 0-None Headache: 3-Moderate CIWA-Ar Total Score: 9 - Admission Criteria OASAS Guidelines: Admission for Medically Managed Detox: Requires at least one of the followin. CIWA greater than 12 2. Seizures within the past 24 hours 3. Delirium tremens within the past 24 hours 4. Hallucinations within the past 24 hours 5. Acute intervention needed for co occurring medical disorder 6. Acute intervention needed for co occurring psychiatric disorder 7. Severe withdrawal that cannot be handled at a lower level of care (continued vomiting, continued diarrhea, abnormal vital signs) requiring intravenous medication and/or fluids 8. Admitting History and Physical - Smoking History Smoking history: Current every day smoker Have you smoked in the past 12 months: Yes Aproximately how many cigarettes per day: 20 - Alcohol/Substance Use Hx Alcohol Use: Yes Admission [facility] Allergies/Adverse Reactions: Allergies Allergy/AdvReac Type Severity Reaction Status Date / Time Penicillins Allergy Severe Rash Verified 11/07/18 09:13 History of Present Illness: patient here requesting detox from etoh , opiate and benzo use , reports 1 pint /day since age 17 intermittently or 3-4 x 6-pk/day x 5 d/week , longest sobriety 3-4 years while out of state in [place] and while incarcerated total 3 years , back in [place] since age 25 , prior detox at this facility August 2018 , reports relapse immediately after leaving facility , latest use yesterday evening, current symptoms as above. Reports tremors if not drinking , starts drinking in the mornings . Reports 20 bags/day IVDU in nain hands / UE , needles from the exchange , denies sharing , + re-using , no abscess , denies OD , heroin since age 16 ( from friends @ [employer] ) ,with minimal intermittent sobriety while incarcerated , used to be on Methadone "years ago " MDD 170 mg latest use last night , current symptoms as above latest illicit methadone intermittently , states 40 mg cocaine : 1 gr /day IVDU , max daily use 3.5 gr xanax : 5-8 x 2 mg sticks /day , daily since age 26 , denies seizures , + blackouts utox : + parker, + opi, + bzo ,thc, fen , mop, mtd reports social problems due to use : 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 PMHX : denies PSHx : denies Psych : denies Meds : denies Shx: lives w/ family . unemployed , supports habit through shoplifting . Exam Limitations: Clinical Condition, Intoxication - Ebola screening Have you traveled outside of the country in the last 21 days: No Have you had contact with anyone from an Ebola affected area: No - Review of Systems Constitutional: See HPI EENT: reports: See HPI Respiratory: reports: No Symptoms reported Cardiac: reports: No Symptoms Reported GI: reports: See HPI : reports: No Symptoms Reported Musculoskeletal: reports: See HPI Integumentary: reports: See HPI Neuro: reports: Headache Endocrine: reports: No Symptoms Reported Psychiatric: reports: Orientated x3, Anxious Patient History - Patient Medical History Hx Anemia: No Hx Asthma: No Hx Chronic Obstructive Pulmonary Disease (COPD): No Hx Cancer: No Hx Cardiac Disorders: No Hx Congestive Heart Failure: No Hx Hypertension: No Hx Hypercholesterolemia: No Hx Pacemaker: No HX Cerebrovascular Accident: No Hx Seizures: No Hx Dementia: No Hx Diabetes: No Hx Gastrointestinal Disorders: No Hx Liver Disease: No Hx Genitourinary Disorders: No Hx Sexually Transmitted Disorders: No Hx Renal Disease (ESRD): No Hx Thyroid Disease: No Hx Human Immunodeficiency Virus (HIV): No (last 1218 negative) Hx Hepatitis C: No Hx Depression: Yes Hx Suicide Attempt: No Hx Bipolar Disorder: No Hx Schizophrenia: No - Patient Surgical History Past Surgical History: No Hx Neurologic Surgery: No Hx Cataract Extraction: No Hx Cardiac Surgery: No Hx Lung Surgery: No Hx Breast Surgery: No Hx Breast Biopsy: No Hx Abdominal Surgery: No Hx Appendectomy: No Hx Cholecystectomy: No Hx Genitourinary Surgery: No Hx Section: No Hx Orthopedic Surgery: No Other Surgical History: circumcission at age of 7 years Anesthesia Reaction: No - PPD History Date: 12/13/17 Results: 0 mm - Smoking Cessation Smoking history: Current every day smoker Have you smoked in the past 12 months: Yes Aproximately how many cigarettes per day: 20 Cigars Per Day: 0 Hx Chewing Tobacco Use: No Initiated information on smoking cessation: Yes 'Breaking Loose' booklet given: 11/07/18 - Substances abused Alcohol Substance route: Oral Frequency: Daily Amount used: 2 PINTS- Bacardi& 6PK beer - 12OZ Age of first use: 17 Date of last use: 11/06/18 Alprazolam (Xanax) Other (specify): 2MG Substance route: Oral Frequency: Daily Amount used: 5 sticks Age of first use: 27 Date of last use: 11/03/18 Heroin Substance route: Injection Frequency: Daily Amount used: 20 BAGS Age of first use: 16 Date of last use: 11/07/18 Cocaine Substance route: Injection Frequency: Daily Amount used: $50 Age of first use: 16 Date of last use: 11/06/18 Marijuana/Hashish Substance route: Smoking Frequency: Daily Amount used: $20 Age of first use: 14 Date of last use: 11/06/18 Admission Physical Exam S - Vital Signs Vital Signs: Vital Signs - 24 hr 11/07/18 09:28 Temperature 97.7 F Pulse Rate 66 Respiratory 18 Rate Blood Pressure 133/69 - Physical General Appearance: Yes: Mild Distress, Intoxicated, Anxious HEENTM: Yes: EOMI, Hearing grossly Normal, Normocephalic, Normal Voice Respiratory: Yes: Chest Non-Tender, Lungs Clear, Normal Breath Sounds, No Respiratory Distress, No Accessory Muscle Use Neck: Yes: No masses,lesions,Nodules, Trachea in good position Cardiology: Yes: Regular Rhythm, Regular Rate, S1, S2 Abdominal: Yes: Normal Bowel Sounds, Non Tender, Soft Musculoskeletal: Yes: Gait Steady Extremities: Yes: Normal Range of Motion, Non-Tender Neurological: Yes: Fully Oriented, Alert, Motor Strength 5/5, Normal Mood/Affect Integumentary: Yes: Warm, Erythema (nain hands dorsum , antecubital - superficial excoriations), Track Marte - Diagnostic (1) Alcohol dependence with uncomplicated intoxication Current Visit: Yes Status: Chronic (2) Opioid dependence with withdrawal Current Visit: Yes Status: Chronic (3) Cannabis abuse Current Visit: Yes Status: Chronic (4) Cocaine dependence Current Visit: Yes Status: Chronic Qualifiers: Substance use status: uncomplicated Qualified Code(s): F14.20 - Cocaine dependence, uncomplicated (5) Nicotine dependence Current Visit: Yes Status: Chronic Qualifiers: Nicotine product type: cigarettes Substance use status: uncomplicated Qualified Code(s): F17.210 - Nicotine dependence, cigarettes, uncomplicated Breathalyzer - Breathalyzer Breathalyzer: 0 Urine Drug Screen - Test Device Lot number: [id number] Expiration date: 07/07/20 - Control Is test valid?: Yes - Results Drug screen NEGATIVE: No Urine drug screen results: THC-Marijuana, PARKER-Cocaine, FEN-Fentanyl, MOP-Opiates , MTD-Methadone, BZO-Benzodiazepines Inpatient Rehab Admission - Rehab Decision to Admit Inpatient rehab admission?: No
[2018-11-07] MEDS ORDERED: MAG HYDROX/AL HYDROX/SIMETH 30 ML UNIT-DOSE CUP PO PRN (09:48)
[2018-11-07] MEDS ORDERED: MENTHOL/PHENOL 1 EACH UD MM PRN (09:48)
[2018-11-07] MEDS ORDERED: MAGNESIUM CITRATE 300 ML BOTTLE PO PRN (09:48)
[2018-11-07] MEDS ORDERED: hydrOXYzine PAMOATE 25 MG CAPSULE (FP) PO PRN (09:48)
[2018-11-07] MEDS ORDERED: ACETAMINOPHEN 325 MG TABLET (FP) PO PRN (09:48)
[2018-11-07] MEDS ORDERED: MAGNESIUM HYDROX 2400MG/30ML ORAL SUSPENSION 30 ML CUP PO PRN (09:48)
[2018-11-07] MEDS: IBUPROFEN 400 MG TABLET (FP) PO PRN (10:48)
[2018-11-07] MEDS: PRENATAL VITAMINS W/ FOLIC ACID TABLET (FP) PO SCH (10:48)
[2018-11-07] MEDS: NICOTINE 14 MG/24 HOURS TOPICAL PATCH TD SCH (10:48)
[2018-11-07] MEDS: diazePAM 5 MG TABLET PO PRN ×2 (10:49→16:34)
[2018-11-07] MEDS: BISMUTH SUBSALICYLATE 262 MG/15 ML BTL PO PRN ×2 (11:00→15:56)
[2018-11-07] MEDS ORDERED: METHADONE HCL 10 MG TABLET (FOR DETOX USE ONLY) PO ONE ×2 (12:25→14:00)
[2018-11-07] MEDS: BACITRACIN/POLYMYXIN B SULFATE 15 GM TUBE TP SCH ×2 (14:22→22:21)
[2018-11-07] MEDS: diazePAM 5 MG TABLET PO SCH ×2 (14:26→22:18)
[2018-11-07] MEDS: THIAMINE HCL 100 MG TABLET (FP) PO SCH (22:18)
[2018-11-07] MEDS: MELATONIN 5 MG TABLETS PO PRN (22:19)
[2018-11-08] MEDS: diazePAM 5 MG TABLET PO SCH ×3 (06:34→21:38)
[2018-11-08] MEDS ORDERED: METHADONE HCL 5 MG TABLET (FOR DETOX USE ONLY) ONE (08:53)
[2018-11-08] MEDS ORDERED: METHADONE HCL 10 MG TABLET (FOR DETOX USE ONLY) ONE (08:53)
[2018-11-08] MEDS ORDERED: METHADONE (DETOX) 20 MG, METHADONE (DETOX) 5 MG PO ONE (10:00)
[2018-11-08] MEDS: NICOTINE 14 MG/24 HOURS TOPICAL PATCH TD SCH (10:18)
[2018-11-08] MEDS: PRENATAL VITAMINS W/ FOLIC ACID TABLET (FP) PO SCH (10:18)
[2018-11-08] MEDS: diazePAM 5 MG TABLET PO PRN ×2 (10:19→17:04)
[2018-11-08] MEDS: BACITRACIN/POLYMYXIN B SULFATE 15 GM TUBE TP SCH ×2 (10:22→21:39)
[2018-11-08] MEDS: IBUPROFEN 400 MG TABLET (FP) PO PRN (10:23)
--- NOTE | 2018-11-08 10:50 | PN ---
[facility] CIWA - CIWA Score Nausea/Vomitin-No Nausea/No Vomiting Muscle Tremors: 2 Anxiety: 3 Agitation: 3 Paroxysmal Sweats: No Perspiration Orientation: 0-Oriented Tacttile Disturbances: 0-None Auditory Disturbances: 0-None Visual Disturbances: 0-None Headache: 0-None Present CIWA-Ar Total Score: 8 [facility] COWS - Scale Resting Pulse: 0= [place] 80 or Below Sweatin= Chills/Flushing Restless Observation: 1= Difficult to Sit Still Pupil Size: 0= Normal to Room Light Bone or Joint Aches: 2= Severe Diffuse Aches Runny Nose/ Eye Tearin= Nasal Congestion GI Upset > 30mins: 0= None Tremor Observation of Outstretched Hands: 1= Tremor [place], Not Seen Yawning Observation: 1= 1-2x During Session Anxiety or Irritability: 1=Feels Anxious/Irritable Goose Flesh Skin: 0=Smooth Skin COWS Score: 8 [facility] Progress Note (SOAP) Subjective: agitation irritable restless body aches interrupted sleep Objective: 11/08/18 10:50 Vital Signs Temperature 98.1 F 11/08/18 09:22 Pulse Rate 66 11/08/18 09:22 Respiratory Rate 18 11/08/18 09:22 Blood Pressure 117/79 11/08/18 09:22 O2 Sat by Pulse Oximetry (%) pending labs aaox3 ambulating no acute distress Assessment: 11/08/18 10:50 withdrawals Plan: continue detox increase fluids
[2018-11-08 10:59] LABS: HEMATOCRIT 40.2 % (35.4-49); HEMOGLOBIN 13.1 GM/dL (11.7-16.9); MCH 27.8 pg (25.7-33.7); MCHC 32.7 g/dl (32.0-35.9); MEAN CELL VOLUME 85.2 fl (80-96); MEAN PLT VOLUME 10.4 fl (7.5-11.1); PLATELET COUNT 141 K/MM3 (134-434); RBC 4.71 M/mm3 (4.00-5.60); RDW 13.5 % (11.9-15.9); WHITE BLOOD COUNT 5.2 K/mm3 (4.0-10.0)
[2018-11-08 11:07] LABS: BILIRUBIN,TOTAL 0.3 mg/dL (0.2-1); BLOOD UREA NITROGEN 11.2 mg/dL (7-18); CALCIUM 8.9 mg/dL (8.5-10.1); POTASSIUM 4.5 mmol/L (3.5-5.1); TOT PROT 6.1 g/dl (6.4-8.2)
[2018-11-08] MEDS: METHOCARBAMOL 500 MG TABLET PO PRN (13:11)
[2018-11-08] MEDS: cloNIDine HCL 0.1 MG TABLET PO PRN (13:11)
[2018-11-08] MEDS: ACETAMINOPHEN 325 MG TABLET (FP) PO PRN (13:56)
[2018-11-08] MEDS: THIAMINE HCL 100 MG TABLET (FP) PO SCH (21:38)
[2018-11-08] MEDS: MELATONIN 5 MG TABLETS PO PRN (21:38)
[2018-11-09] MEDS: diazePAM 5 MG TABLET PO SCH ×2 (07:29→18:05)
[2018-11-09] MEDS ORDERED: METHADONE HCL 10 MG TABLET (FOR DETOX USE ONLY) PO ONE (10:00)
[2018-11-09] MEDS: BACITRACIN/POLYMYXIN B SULFATE 15 GM TUBE TP SCH ×2 (10:15→21:48)
[2018-11-09] MEDS: PRENATAL VITAMINS W/ FOLIC ACID TABLET (FP) PO SCH (10:15)
[2018-11-09] MEDS: diazePAM 5 MG TABLET PO PRN ×3 (10:18→20:21)
[2018-11-09] MEDS: IBUPROFEN 400 MG TABLET (FP) PO PRN (10:19)
--- NOTE | 2018-11-09 10:28 | PN ---
[facility] Progress Note Note: c/o headache withdrawal sx, body aches and anxiety AOx3 no acute distress EENT WNL full ROM no gait abnormality withdrawal sx gabapentin TID PRN for pain withdrawal sx increase fluids
[2018-11-09] MEDS: cloNIDine HCL 0.1 MG TABLET PO PRN (10:30)
[2018-11-09] MEDS ORDERED: MELATONIN 5 MG TABLETS PO PRN (12:17)
--- NOTE | 2018-11-09 12:28 | PN ---
[facility] CIWA - CIWA Score Nausea/Vomitin-No Nausea/No Vomiting Muscle Tremors: 2 Anxiety: 1-Mildly Anxious Agitation: 2 Paroxysmal Sweats: 2 Orientation: 0-Oriented Tacttile Disturbances: 0-None Auditory Disturbances: 0-None Visual Disturbances: 0-None Headache: 0-None Present CIWA-Ar Total Score: 7 [facility] COWS - Scale Resting Pulse: 0= [place] 80 or Below Sweatin= Chills/Flushing Restless Observation: 1= Difficult to Sit Still Pupil Size: 0= Normal to Room Light Bone or Joint Aches: 1= Mild Discomfort Runny Nose/ Eye Tearin= Nasal Congestion GI Upset > 30mins: 0= None Tremor Observation of Outstretched Hands: 1= Tremor [place], Not Seen Yawning Observation: 1= 1-2x During Session Anxiety or Irritability: 1=Feels Anxious/Irritable Goose Flesh Skin: 0=Smooth Skin COWS Score: 7 S Progress Note (SOAP) Subjective: insomnia right hand migraine dry itchy area lower leg sweats Objective: 11/09/18 12:22 Vital Signs Temperature 97.9 F 11/09/18 09:46 Pulse Rate 60 11/09/18 09:46 Respiratory Rate 18 11/09/18 09:46 Blood Pressure 115/93 11/09/18 09:46 O2 Sat by Pulse Oximetry (%) Laboratory Tests 11/08/18 11/08/18 11/08/18 08:00 08:00 08:00 WBC 5.2 RBC 4.71 Hgb 13.1 Hct 40.2 MCV 85.2 MCH 27.8 MCHC 32.7 RDW 13.5 Plt Count 141 D MPV 10.4 D Sodium 141 Potassium 4.5 Chloride 107 Carbon Dioxide 28 Anion Gap 5 L BUN 11.2 Creatinine 1.0 Est GFR (CKD-EPI)AfAm 114.11 Est GFR (CKD-EPI)NonAf 98.45 Random Glucose 82 Calcium 8.9 Total Bilirubin 0.3 AST 39 H ALT 52 Alkaline Phosphatase 60 Total Protein 6.1 L Albumin 3.0 L RPR Titer Nonreactive aaox3 ambulating no acute distress Assessment: 11/09/18 12:23 withdrawals right hand swelling with mild erythema noted Plan: continue detox increase fluids bactrim ds bid x 7 days hydrocortisone cream encouraged to keep hand elevated
[2018-11-09] MEDS ORDERED: P-EPHED 60MG/TRIPROLIDI 2.5MG TABLET PO PRN (12:35)
[2018-11-09] MEDS ORDERED: SUMAtriptan SUCCINATE 25 MG TABLET PO ONE (12:43)
[2018-11-09] MEDS: HYDROCORTISONE 1% TOPICAL CREAM 30 GM TUBE TP SCH ×2 (14:04→21:48)
[2018-11-09] MEDS: SULFAMETHOXAZOLE/TRIMETHOPRIM 800MG/160MG D.S. TABLET PO SCH ×2 (14:05→21:31)
[2018-11-09] MEDS: GABAPENTIN 100 MG CAPSULE (FP) PO SCH ×2 (14:05→21:31)
[2018-11-09] MEDS: NICOTINE 21 MG/24 HOURS TOPICAL PATCH TD SCH (14:06)
[2018-11-09] MEDS: METHOCARBAMOL 500 MG TABLET PO PRN (14:07)
[2018-11-09] MEDS: THIAMINE HCL 100 MG TABLET (FP) PO SCH (21:31)
[2018-11-10] MEDS: IBUPROFEN 400 MG TABLET (FP) PO PRN (03:36)
[2018-11-10] MEDS: diazePAM 5 MG TABLET PO PRN ×2 (03:37→08:08)
[2018-11-10] MEDS ORDERED: diazePAM 5 MG TABLET PO ONE (06:00)
[2018-11-10] MEDS: GABAPENTIN 100 MG CAPSULE (FP) PO SCH (06:43)
[2018-11-10] MEDS: ACETAMINOPHEN 325 MG TABLET (FP) PO PRN (06:49)
--- NOTE | 2018-11-10 07:46 | CONSULT ---
[facility] Psychiatric Consult - Data Date of interview: 11/10/18 Admission source: Self-referred Identifying data: Mr Atwood is a 33 years old single male, father of, unemployed, domiciled seeking detox treatment for alcohol, opioid, cocaine, benzodiazepine and cannabis Substance Abuse History: Reportedly with history of alcohol, heroin, cocaine, xanax and marijuana use. Refer to addiction counselor's summary for further information Medical History: Patient endorses good general health. Psychiatric History: Patient was approached at bedside. Told proposal writer:"I don't want to talk to psychiatrist" Physical/Sexual Abuse/Trauma History: Reportedly no history of abuse.
--- NOTE | 2018-11-10 08:53 | DS ---
[facility] Detox Discharge Summary Admission Date: 11/07/18 Discharge Date: 11/10/18 - History Present History: Alcohol Dependence, Cannabis Dependence, Cocaine Dependence, Opioid Dependence, Sedative Dependence - Physical Exam Results Vital Signs: Vital Signs Temperature 97.7 F 11/10/18 07:40 Pulse Rate 55 L 11/10/18 07:40 Respiratory Rate 18 11/10/18 07:40 Blood Pressure 120/60 11/10/18 07:40 O2 Sat by Pulse Oximetry (%) Pertinent Admission Physical Exam Findings: pt arrived in withdrawals Laboratory Tests 11/08/18 11/08/18 11/08/18 08:00 08:00 08:00 WBC 5.2 RBC 4.71 Hgb 13.1 Hct 40.2 MCV 85.2 MCH 27.8 MCHC 32.7 RDW 13.5 Plt Count 141 D MPV 10.4 D Sodium 141 Potassium 4.5 Chloride 107 Carbon Dioxide 28 Anion Gap 5 L BUN 11.2 Creatinine 1.0 Est GFR (CKD-EPI)AfAm 114.11 Est GFR (CKD-EPI)NonAf 98.45 Random Glucose 82 Calcium 8.9 Total Bilirubin 0.3 AST 39 H ALT 52 Alkaline Phosphatase 60 Total Protein 6.1 L Albumin 3.0 L RPR Titer Nonreactive today pt is aaox3 ambulating no s/s of withdrawals - Treatment Hospital Course: Detox Protocol Followed, Detoxed Safely, Responded well, Discharged Condition Good, Rehab Referral Accepted Patient has Accepted a Rehab Referral to: referral provided - Medication Discharge Medications: Ambulatory Orders NK [No Known Home Medication] 11/07/18 - Diagnosis (1) Alcohol dependence with uncomplicated intoxication Current Visit: Yes Status: Chronic (2) Cannabis abuse Current Visit: Yes Status: Chronic (3) Cocaine dependence Current Visit: Yes Status: Chronic Qualifiers: Substance use status: uncomplicated Qualified Code(s): F14.20 - Cocaine dependence, uncomplicated (4) Nicotine dependence Current Visit: Yes Status: Chronic Qualifiers: Nicotine product type: cigarettes Substance use status: uncomplicated Qualified Code(s): F17.210 - Nicotine dependence, cigarettes, uncomplicated (5) Opioid dependence with withdrawal Current Visit: Yes Status: Chronic (6) Abscess of foot Current Visit: No Status: Acute (7) Anxiety and depression Current Visit: No Status: Acute (8) Dehydration Current Visit: No Status: Acute (9) Substance-induced anxiety disorder Current Visit: No Status: Acute (10) Substance-induced sleep disorder Current Visit: No Status: Acute (11) Substance-induced sleep disorder Current Visit: No Status: Acute (12) 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 Current Visit: No Status: Acute (13) Uncomplicated sedative, hypnotic or anxiolytic withdrawal Current Visit: No Status: Acute (14) Weight loss Current Visit: No Status: Acute (15) Alcohol dependence Current Visit: No Status: Chronic Qualifiers: Substance use status: uncomplicated Qualified Code(s): F10.20 - Alcohol dependence, uncomplicated (16) Drug-induced mood disorder Current Visit: No Status: Chronic (17) History of anxiety disorder Current Visit: No Status: Chronic (18) Non-compliance Current Visit: No Status: Chronic (19) Nystagmus Current Visit: No Status: Chronic (20) Opioid dependence Current Visit: No Status: Chronic Qualifiers: Substance use status: uncomplicated Qualified Code(s): F11.20 - Opioid dependence, uncomplicated (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
[2018-11-10] MEDS ORDERED: METHADONE HCL 10 MG TABLET (FOR DETOX USE ONLY) PO ONE (09:00)
[2018-11-10] MEDS: PRENATAL VITAMINS W/ FOLIC ACID TABLET (FP) PO SCH (09:07)
[2018-11-10] MEDS: SULFAMETHOXAZOLE/TRIMETHOPRIM 800MG/160MG D.S. TABLET PO SCH (09:07)
[2018-11-10] MEDS ORDERED: METHADONE (DETOX) 10 MG, METHADONE (DETOX) 5 MG PO ONE (10:00)
[2018-11-10] MEDS: HYDROCORTISONE 1% TOPICAL CREAM 30 GM TUBE TP SCH (10:08)
[2018-11-10] MEDS: BACITRACIN/POLYMYXIN B SULFATE 15 GM TUBE TP SCH (10:08)
[2018-11-10] MEDS: NICOTINE 21 MG/24 HOURS TOPICAL PATCH TD SCH (10:08)
[2018-11-10 10:19] VITALS: BP 140/69; PULSE 76; TEMP 98.6
[2018-11-11] MEDS ORDERED: METHADONE HCL 10 MG TABLET (FOR DETOX USE ONLY) PO ONE (10:00)
[2018-11-12] MEDS ORDERED: METHADONE HCL 5 MG TABLET (FOR DETOX USE ONLY) PO ONE (06:00)
== END 2018-11-10 10:06 | disposition home or self-care (01) | DRG 773 ==
LOC: YASAS 08:50 → Y6N 10:04
PROVIDERS: ADMIT Surgery; ATTEND Surgery
PROC: HZ2ZZZZ Detoxification Services for Substance Abuse Treatment (ICD-10-PCS; principal; 2018-11-07)
DX: F11.23 Opioid dependence with withdrawal (principal); F10.230 Alcohol dependence with withdrawal, uncomplicated; F13.230 Sedative, hypnotic or anxiolytic dependence with withdrawal, uncomplicated; F14.20 Cocaine dependence, uncomplicated; F12.20 Cannabis dependence, uncomplicated; F17.210 Nicotine dependence, cigarettes, uncomplicated; F19.280 Other psychoactive substance dependence with psychoactive substance-induced anxiety disorder; F19.282 Other psychoactive substance dependence with psychoactive substance-induced sleep disorder; F19.24 Other psychoactive substance dependence with psychoactive substance-induced mood disorder; F41.8 Other specified anxiety disorders; F32.9 Major depressive disorder, single episode, unspecified; E86.0 Dehydration; H55.00 Unspecified nystagmus; Z88.0 Allergy status to penicillin; Z91.19 Patient's noncompliance with other medical treatment and regimen
CPT/HCPCS: 36415; 80053; 85027; 86593; J0735

== ENCOUNTER 2018-12-03 08:10 | Inpatient (IN) | payer OTHER ==
[2018-12-03 08:54] VITALS: BMI 24.3
--- NOTE | 2018-12-03 09:11 | HP ---
COWS - Scale Resting Pulse: 0= [place] 80 or Below Sweatin= Chills/Flushing Restless Observation: 1= Difficult to Sit Still Pupil Size: 1= Pupils >than Normal Bone or Joint Aches: 1= Mild Discomfort Runny Nose/ Eye Tearin= Runny Nose/Eyes GI Upset > 30mins: 2= Nausea/Diarrhea Tremor Observation: 2= Slight Tremor Visible Yawning Observation: 1= 1-2x During Session Anxiety or Irritability: 2=Irritable/Anxious Goose Flesh Skin: 0=Smooth Skin COWS Score: 13 CIWA Score Nausea/Vomitin Muscle Tremors: 2 Anxiety: 3 Agitation: 3 Paroxysmal Sweats: 1-Minimal Palms Moist Orientation: 0-Oriented Tacttile Disturbances: 1-Very Mild Itch/Numbness Auditory Disturbances: 0-None Visual Disturbances: 0-None Headache: 2-Mild CIWA-Ar Total Score: 14 - Admission Criteria OASAS Guidelines: Admission for Medically Managed Detox: Requires at least one of the followin. CIWA greater than 12 2. Seizures within the past 24 hours 3. Delirium tremens within the past 24 hours 4. Hallucinations within the past 24 hours 5. Acute intervention needed for co occurring medical disorder 6. Acute intervention needed for co occurring psychiatric disorder 7. Severe withdrawal that cannot be handled at a lower level of care (continued vomiting, continued diarrhea, abnormal vital signs) requiring intravenous medication and/or fluids 8. Admitting History and Physical - Smoking History Smoking history: Current every day smoker Have you smoked in the past 12 months: Yes Aproximately how many cigarettes per day: 20 - Alcohol/Substance Use Hx Alcohol Use: Yes Admission ROS S - HPI Chief Complaint: i need help to stop using heroin,alcohol,xanax,cocaine Allergies/Adverse Reactions: Allergies Allergy/AdvReac Type Severity Reaction Status Date / Time Penicillins Allergy Severe Rash Verified 12/03/18 08:46 History of Present Illness: this 33 years old male with heroin,alcohol,xanax,cocaine dependence,seeking detox,withdrawal symptom, multiple admissions in detox,last admission [facility] 11/07/18 to 11/10/18 but keep relapsing denied seizure syncope nicotine dependence 1 pack/day anxiety,depression,insomnia longest period of sobriety 2 and half yeart unemployed,living with family weight loss Exam Limitations: No Limitations - Ebola screening Have you traveled outside of the country in the last 21 days: No (N) Have you had contact with anyone from an Ebola affected area: No Do you have a fever: No - Review of Systems Constitutional: Chills, Loss of Appetite, Malaise, Night Sweats, Changes in sleep EENT: reports: Tearing, Nose Congestion Respiratory: reports: No Symptoms reported Cardiac: reports: No Symptoms Reported GI: reports: Diarrhea, Nausea, Vomiting, Abdominal cramping : reports: No Symptoms Reported Musculoskeletal: reports: Back Pain, Muscle Pain Integumentary: reports: Dryness Neuro: reports: Headache, Tremors Endocrine: reports: No Symptoms Reported Hematology: reports: No Symptoms Reported Psychiatric: reports: No Sypmtoms Reported, Judgement Intact, Mood/Affect Appropiate, Anxious, Depressed, other (insomnia) Other Systems: Reviewed and Negative Patient History - Patient Medical History Hx Anemia: No Hx Asthma: No Hx Chronic Obstructive Pulmonary Disease (COPD): No Hx Cancer: No Hx Cardiac Disorders: No Hx Congestive Heart Failure: No Hx Hypertension: No Hx Hypercholesterolemia: No Hx Pacemaker: No HX Cerebrovascular Accident: No Hx Seizures: No Hx Dementia: No Hx Diabetes: No Hx Gastrointestinal Disorders: No Hx Liver Disease: No Hx Genitourinary Disorders: No Hx Sexually Transmitted Disorders: No Hx Renal Disease (ESRD): No Hx Thyroid Disease: No Hx Human Immunodeficiency Virus (HIV): No (last 05/26 negative) Hx Hepatitis C: No Hx Depression: Yes (anxoety,insomnia) Hx Suicide Attempt: No Hx Bipolar Disorder: No Hx Schizophrenia: No Other Medical History: no uicidal,no homicidal - Patient Surgical History Past Surgical History: No Hx Neurologic Surgery: No Hx Cataract Extraction: No Hx Cardiac Surgery: No Hx Lung Surgery: No Hx Breast Surgery: No Hx Breast Biopsy: No Hx Abdominal Surgery: No Hx Appendectomy: No Hx Cholecystectomy: No Hx Genitourinary Surgery: No Hx Section: No Hx Orthopedic Surgery: No Other Surgical History: circumcission at age of 7 years Anesthesia Reaction: No - PPD History Previous Implant?: Yes Documented Results: Negative w/proof Implanted On Prior R Admission?: Yes Date: 12/13/17 Results: 0 mm PPD to be Administered?: No - Smoking Cessation Smoking history: Current every day smoker Have you smoked in the past 12 months: Yes Aproximately how many cigarettes per day: 20 Cigars Per Day: 0 Hx Chewing Tobacco Use: No Initiated information on smoking cessation: Yes 'Breaking Loose' booklet given: 12/03/18 - Substance & Tx. History Hx Alcohol Use: Yes Hx Substance Use: Yes Substance Use Type: Alcohol, Cocaine, Heroin, Marijuana, Tranquilizers Hx Substance Use Treatment: Yes ([facility] 11/07/18 to 11/10/18) - Substances abused Alcohol Substance route: Oral Frequency: Daily Amount used: 1 PINTS- Bacardi& 6PK beer - 12OZ Age of first use: 17 Date of last use: 12/02/18 Alprazolam (Xanax) Other (specify): 2MG Substance route: Oral Frequency: Daily Amount used: 5-7 bars Age of first use: 27 Date of last use: 12/02/18 Heroin Substance route: Injection Frequency: Daily Amount used: 25 BAGS Age of first use: 16 Date of last use: 12/02/18 Cocaine Substance route: Injection Frequency: Daily Amount used: $50 Age of first use: 16 Date of last use: 12/02/18 Marijuana/Hashish Substance route: Smoking Frequency: Daily Amount used: $20 Age of first use: 14 Date of last use: 12/01/18 Admission Physical Exam S - Vital Signs Vital Signs: Vital Signs - 24 hr 12/03/18 08:50 Temperature 97.8 F Pulse Rate 75 Respiratory 20 Rate Blood Pressure 126/62 - Physical General Appearance: Yes: Moderate Distress, Tremorous, Irritable, Sweating, Anxious HEENTM: Yes: Within Normal Limits, [place], Pharynx Normal Respiratory: Yes: Lungs Clear, Normal Breath Sounds, No Respiratory Distress Neck: Yes: Within Normal Limits, Supple, Trachea in good position Breast: Yes: Within Normal Limits Cardiology: Yes: Within Normal Limits, Regular Rhythm, Regular Rate, S1, S2 Abdominal: Yes: Within Normal Limits, Normal Bowel Sounds, Non Tender, Soft Genitourinary: Yes: Within Normal Limits Back: Yes: Within Normal Limits Musculoskeletal: Yes: Within Normal Limits, Back pain, Muscle Pain Extremities: Yes: Normal Range of Motion, Tremors Neurological: Yes: waxer II-XII NML intact, Alert, Motor Strength 5/5 Integumentary: Yes: Dry, Track Marte Lymphatic: Yes: Within Normal Limits - Diagnostic (1) Opioid dependence with withdrawal Current Visit: No Status: Chronic (2) Uncomplicated sedative, hypnotic or anxiolytic withdrawal Current Visit: No Status: Acute (3) Alcohol dependence with uncomplicated intoxication Current Visit: No Status: Chronic (4) Cannabis abuse Current Visit: No Status: Chronic (5) Cocaine dependence Current Visit: No Status: Chronic Qualifiers: Substance use status: uncomplicated Qualified Code(s): F14.20 - Cocaine dependence, uncomplicated (6) Non-compliance Current Visit: No Status: Chronic (7) IVDU (intravenous drug user) Current Visit: Yes Status: Acute (8) Weight loss Current Visit: No Status: Acute Cleared for Admission S - Detox or Rehab [facility] Level of Care: Medically Managed Detox Regimen/Protocol: Methadone/Valium Breathalyzer - Breathalyzer Breathalyzer: 0 Urine Drug Screen - Test Device Lot number: [id number] Expiration date: 08/06/20 - Control Is test valid?: Yes - Results Drug screen NEGATIVE: No Urine drug screen results: JANETT-Cocaine, FEN-Fentanyl, MOP-Opiates, MTD-Methadone , BZO-Benzodiazepines Inpatient Rehab Admission - Rehab Decision to Admit Inpatient rehab admission?: No
[2018-12-03] MEDS ORDERED: MAGNESIUM CITRATE 300 ML BOTTLE PO PRN (09:26)
[2018-12-03] MEDS ORDERED: MAG HYDROX/AL HYDROX/SIMETH 30 ML UNIT-DOSE CUP PO PRN (09:26)
[2018-12-03] MEDS ORDERED: MAGNESIUM HYDROX 2400MG/30ML ORAL SUSPENSION 30 ML CUP PO PRN (09:26)
[2018-12-03] MEDS ORDERED: cloNIDine HCL 0.1 MG TABLET PO PRN (09:26)
[2018-12-03] MEDS ORDERED: METHADONE HCL 10 MG TABLET (FOR DETOX USE ONLY) PO ONE (09:26)
[2018-12-03] MEDS ORDERED: MENTHOL/PHENOL 1 EACH UD MM PRN (09:26)
[2018-12-03] MEDS ORDERED: MELATONIN 5 MG TABLETS PO PRN (09:26)
[2018-12-03] MEDS ORDERED: ACETAMINOPHEN 325 MG TABLET (FP) PO PRN ×2 (09:26)
[2018-12-03] MEDS: IBUPROFEN 400 MG TABLET (FP) PO PRN ×3 (10:29→22:45)
[2018-12-03] MEDS: PRENATAL VITAMINS W/ FOLIC ACID TABLET (FP) PO SCH (10:30)
[2018-12-03] MEDS: METHOCARBAMOL 500 MG TABLET PO PRN (10:30)
[2018-12-03] MEDS: diazePAM 5 MG TABLET PO PRN ×3 (10:34→20:10)
[2018-12-03] MEDS: NICOTINE 21 MG/24 HOURS TOPICAL PATCH TD SCH (13:29)
[2018-12-03] MEDS: diazePAM 5 MG TABLET PO SCH ×2 (13:45→22:44)
[2018-12-03] MEDS: BISMUTH SUBSALICYLATE 524 MG/30 ML UD PO PRN ×2 (19:27→22:46)
[2018-12-03] MEDS: THIAMINE HCL 100 MG TABLET (FP) PO SCH (22:44)
[2018-12-03] MEDS: hydrOXYzine PAMOATE 25 MG CAPSULE (FP) PO PRN (22:46)
[2018-12-04] MEDS: diazePAM 5 MG TABLET PO SCH ×3 (06:48→22:13)
[2018-12-04] MEDS: METHOCARBAMOL 500 MG TABLET PO PRN ×2 (06:49→22:13)
[2018-12-04] MEDS: IBUPROFEN 400 MG TABLET (FP) PO PRN (06:49)
[2018-12-04] MEDS: BISMUTH SUBSALICYLATE 524 MG/30 ML UD PO PRN (07:01)
[2018-12-04] MEDS ORDERED: METHADONE HCL 10 MG TABLET (FOR DETOX USE ONLY) ONE (08:48)
[2018-12-04] MEDS ORDERED: METHADONE HCL 5 MG TABLET (FOR DETOX USE ONLY) ONE (08:48)
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
[2018-12-04] MEDS ORDERED: METHADONE (DETOX) 20 MG, METHADONE (DETOX) 5 MG PO ONE (10:00)
[2018-12-04] MEDS: PRENATAL VITAMINS W/ FOLIC ACID TABLET (FP) PO SCH (10:28)
[2018-12-04] MEDS: diazePAM 5 MG TABLET PO PRN ×2 (10:31→16:54)
[2018-12-04] MEDS: NICOTINE 21 MG/24 HOURS TOPICAL PATCH TD SCH (11:24)
[2018-12-04] MEDS ORDERED: LOPERAMIDE HCL 2 MG CAPSULE PO PRN (13:10)
--- NOTE | 2018-12-04 13:10 | PN ---
[facility] CIWA - CIWA Score Nausea/Vomitin-Mild Nausea/No Vomiting Muscle Tremors: 2 Anxiety: 3 Agitation: 3 Paroxysmal Sweats: No Perspiration Orientation: 0-Oriented Tacttile Disturbances: 1-Very Mild Itch/Numbness Auditory Disturbances: 0-None Visual Disturbances: 0-None Headache: 2-Mild CIWA-Ar Total Score: 12 [facility] COWS - Scale Resting Pulse: 0= [place] 80 or Below Sweatin= No chills or Flushing Restless Observation: 1= Difficult to Sit Still Pupil Size: 1= Pupils >than Normal Bone or Joint Aches: 1= Mild Discomfort Runny Nose/ Eye Tearin= Runny Nose/Eyes GI Upset > 30mins: 2= Nausea/Diarrhea Tremor Observation of Outstretched Hands: 1= Tremor [place], Not Seen Yawning Observation: 1= 1-2x During Session Anxiety or Irritability: 2=Irritable/Anxious Goose Flesh Skin: 0=Smooth Skin COWS Score: 11 [facility] Progress Note (SOAP) Subjective: alert,irritable,anxious,interrupted sleep,pain in the body and back Objective: 12/04/18 13:09 Vital Signs Temperature 97.7 F 12/04/18 09:46 Pulse Rate 63 12/04/18 09:46 Respiratory Rate 18 12/04/18 09:46 Blood Pressure 122/68 12/04/18 09:46 O2 Sat by Pulse Oximetry (%) Assessment: 12/04/18 13:09 withdrawal symptom Plan: continue detox methadone and valium regimen
[2018-12-04] MEDS: GABAPENTIN 300 MG CAPSULE (FP) PO SCH ×2 (14:09→22:17)
[2018-12-04 17:02] LABS: HEMATOCRIT 41.6 % (35.4-49); HEMOGLOBIN 13.3 GM/dL (11.7-16.9); MCH 27.5 pg (25.7-33.7); MCHC 32.1 g/dl (32.0-35.9); MEAN CELL VOLUME 85.6 fl (80-96); MEAN PLT VOLUME 9.1 fl (7.5-11.1); PLATELET COUNT 350 K/MM3 (134-434); RBC 4.86 M/mm3 (4.00-5.60)
[2018-12-04 17:08] LABS: ALBUMIN 3.5 g/dl (3.4-5.0); BILIRUBIN,TOTAL 0.4 mg/dL (0.2-1); CALCIUM 8.8 mg/dL (8.5-10.1); POTASSIUM 5.1 mmol/L (3.5-5.1)
[2018-12-04] MEDS: hydrOXYzine PAMOATE 25 MG CAPSULE (FP) PO PRN (22:13)
[2018-12-04] MEDS: THIAMINE HCL 100 MG TABLET (FP) PO SCH (22:14)
[2018-12-04] MEDS: traZODone HCL 100 MG TABLET (FP) PO SCH (22:17)
[2018-12-05] MEDS: diazePAM 5 MG TABLET PO PRN ×4 (04:17→22:05)
[2018-12-05] MEDS: GABAPENTIN 300 MG CAPSULE (FP) PO SCH ×3 (07:15→22:05)
[2018-12-05] MEDS: diazePAM 5 MG TABLET PO SCH ×2 (07:15→17:14)
[2018-12-05] MEDS ORDERED: METHADONE HCL 10 MG TABLET (FOR DETOX USE ONLY) PO ONE (10:00)
[2018-12-05] MEDS: PRENATAL VITAMINS W/ FOLIC ACID TABLET (FP) PO SCH (10:42)
[2018-12-05] MEDS: NICOTINE 21 MG/24 HOURS TOPICAL PATCH TD SCH (10:42)
[2018-12-05] MEDS: METHOCARBAMOL 500 MG TABLET PO PRN ×2 (10:43→22:07)
--- NOTE | 2018-12-05 11:22 | PN ---
[facility] CIWA - CIWA Score Nausea/Vomitin-No Nausea/No Vomiting Muscle Tremors: 2 Anxiety: 2 Agitation: 2 Paroxysmal Sweats: 3 Orientation: 0-Oriented Tacttile Disturbances: 0-None Auditory Disturbances: 0-None Visual Disturbances: 0-None Headache: 0-None Present CIWA-Ar Total Score: 9 [facility]HS COWS - Scale Resting Pulse: 0= [place] 80 or Below Sweatin= Chills/Flushing Restless Observation: 1= Difficult to Sit Still Pupil Size: 0= Normal to Room Light Bone or Joint Aches: 1= Mild Discomfort Runny Nose/ Eye Tearin= Runny Nose/Eyes GI Upset > 30mins: 0= None Tremor Observation of Outstretched Hands: 1= Tremor [place], Not Seen Yawning Observation: 2= >3x During Session Anxiety or Irritability: 1=Feels Anxious/Irritable Goose Flesh Skin: 0=Smooth Skin COWS Score: 9 S Progress Note (SOAP) Subjective: sweats shakes interrupted sleep body aches anxiety Objective: 12/05/18 11:20 Vital Signs Temperature 97.2 F L 12/05/18 09:46 Pulse Rate 53 L 12/05/18 09:46 Respiratory Rate 18 12/05/18 09:46 Blood Pressure 115/49 L 12/05/18 09:46 O2 Sat by Pulse Oximetry (%) Laboratory Tests 12/04/18 12/04/18 12/04/18 13:15 13:15 13:15 WBC 6.0 RBC 4.86 Hgb 13.3 Hct 41.6 MCV 85.6 MCH 27.5 MCHC 32.1 RDW 14.0 Plt Count 350 D MPV 9.1 D Sodium 140 Potassium 5.1 Chloride 107 Carbon Dioxide 28 Anion Gap 6 L BUN 19.0 H Creatinine 1.0 Est GFR (CKD-EPI)AfAm 114.11 Est GFR (CKD-EPI)NonAf 98.45 Random Glucose 93 Calcium 8.8 Total Bilirubin 0.4 AST 34 ALT 51 Alkaline Phosphatase 79 Total Protein 7.0 Albumin 3.5 RPR Titer Nonreactive HIV 1&2 Antibody Screen HIV P24 Antigen 12/04/18 13:30 WBC RBC Hgb Hct MCV MCH MCHC RDW Plt Count MPV Sodium Potassium Chloride Carbon Dioxide Anion Gap BUN Creatinine Est GFR (CKD-EPI)AfAm Est GFR (CKD-EPI)NonAf Random Glucose Calcium Total Bilirubin AST ALT Alkaline Phosphatase Total Protein Albumin RPR Titer HIV 1&2 Antibody Screen Negative HIV P24 Antigen Negative labs noted aaox3 ambulating no acute distress Assessment: 12/05/18 11:21 withdrawals Plan: continue detox increase fluids
[2018-12-05] MEDS: IBUPROFEN 400 MG TABLET (FP) PO PRN (16:44)
[2018-12-05] MEDS: traZODone HCL 100 MG TABLET (FP) PO SCH (22:05)
[2018-12-05] MEDS: THIAMINE HCL 100 MG TABLET (FP) PO SCH (22:05)
[2018-12-06] MEDS: GABAPENTIN 300 MG CAPSULE (FP) PO SCH ×2 (05:33→14:46)
[2018-12-06] MEDS ORDERED: diazePAM 5 MG TABLET PO ONE (06:00)
[2018-12-06] MEDS ORDERED: IBUPROFEN 400 MG TABLET (FP) PO PRN (08:39)
[2018-12-06] MEDS ORDERED: SUMAtriptan SUCCINATE 25 MG TABLET PO ONE (08:40)
[2018-12-06] MEDS: diazePAM 5 MG TABLET PO PRN (08:49)
[2018-12-06] MEDS ORDERED: METHADONE HCL 5 MG TABLET (FOR DETOX USE ONLY) ONE (09:09)
[2018-12-06] MEDS ORDERED: METHADONE HCL 10 MG TABLET (FOR DETOX USE ONLY) ONE (09:10)
--- NOTE | 2018-12-06 09:14 | PN ---
[facility] CIWA - CIWA Score Nausea/Vomitin-No Nausea/No Vomiting Muscle Tremors: 1-None Visible, but [place] Anxiety: 2 Agitation: 3 Paroxysmal Sweats: 2 Orientation: 0-Oriented Tacttile Disturbances: 0-None Auditory Disturbances: 0-None Visual Disturbances: 0-None Headache: 0-None Present CIWA-Ar Total Score: 8 [facility] COWS - Scale Resting Pulse: 1= [place] 81-100 Sweatin= Chills/Flushing Restless Observation: 1= Difficult to Sit Still Pupil Size: 0= Normal to Room Light Bone or Joint Aches: 2= Severe Diffuse Aches Runny Nose/ Eye Tearin= None GI Upset > 30mins: 0= None Tremor Observation of Outstretched Hands: 1= Tremor [place], Not Seen Yawning Observation: 2= >3x During Session Anxiety or Irritability: 1=Feels Anxious/Irritable Goose Flesh Skin: 0=Smooth Skin COWS Score: 9 S Progress Note (SOAP) Subjective: anxiety sweats interrupted sleep body aches irritable Objective: 12/06/18 09:13 Vital Signs Temperature 97.7 F 12/06/18 05:51 Pulse Rate 78 12/06/18 05:51 Respiratory Rate 18 12/06/18 05:51 Blood Pressure 103/52 L 12/06/18 05:51 O2 Sat by Pulse Oximetry (%) Laboratory Tests 12/04/18 12/04/18 12/04/18 13:15 13:15 13:15 WBC 6.0 RBC 4.86 Hgb 13.3 Hct 41.6 MCV 85.6 MCH 27.5 MCHC 32.1 RDW 14.0 Plt Count 350 D MPV 9.1 D Sodium 140 Potassium 5.1 Chloride 107 Carbon Dioxide 28 Anion Gap 6 L BUN 19.0 H Creatinine 1.0 Est GFR (CKD-EPI)AfAm 114.11 Est GFR (CKD-EPI)NonAf 98.45 Random Glucose 93 Calcium 8.8 Total Bilirubin 0.4 AST 34 ALT 51 Alkaline Phosphatase 79 Total Protein 7.0 Albumin 3.5 RPR Titer Nonreactive HIV 1&2 Antibody Screen HIV P24 Antigen 12/04/18 13:30 WBC RBC Hgb Hct MCV MCH MCHC RDW Plt Count MPV Sodium Potassium Chloride Carbon Dioxide Anion Gap BUN Creatinine Est GFR (CKD-EPI)AfAm Est GFR (CKD-EPI)NonAf Random Glucose Calcium Total Bilirubin AST ALT Alkaline Phosphatase Total Protein Albumin RPR Titer HIV 1&2 Antibody Screen Negative HIV P24 Antigen Negative labs noted aaox3 ambulating no acute distress Assessment: 12/06/18 09:14 withdrawals Plan: continue detox increase fluids
[2018-12-06] MEDS ORDERED: METHADONE (DETOX) 10 MG, METHADONE (DETOX) 5 MG PO ONE (10:00)
[2018-12-06] MEDS: PRENATAL VITAMINS W/ FOLIC ACID TABLET (FP) PO SCH (10:30)
[2018-12-06] MEDS: NICOTINE 21 MG/24 HOURS TOPICAL PATCH TD SCH (10:30)
[2018-12-06] MEDS: METHOCARBAMOL 500 MG TABLET PO PRN (10:33)
[2018-12-06] MEDS: hydrOXYzine PAMOATE 25 MG CAPSULE (FP) PO PRN (12:40)
--- NOTE | 2018-12-06 16:46 | PN ---
[facility] Progress Note Note: patient did not want to continue treatment,all attempts to convince patient to stay with no avail,patient understood, signed release ama,advise to call 911 if not feeling well
--- NOTE | 2018-12-06 16:50 | DS ---
[facility] Detox Discharge Summary Admission Date: 12/03/18 Discharge Date: 12/06/18 - History Present History: Alcohol Dependence, Cannabis Dependence, Cocaine Dependence, Sedative Dependence Additional Comments: patient signed ama Pertinent Past History: ivdu - Physical Exam Results Vital Signs: Vital Signs Temperature 99.0 F 12/06/18 13:06 Pulse Rate 82 12/06/18 13:06 Respiratory Rate 18 12/06/18 13:06 Blood Pressure 146/90 12/06/18 13:06 O2 Sat by Pulse Oximetry (%) Pertinent Admission Physical Exam Findings: withdrawal signs and symptom Laboratory Last Values WBC 6.0 K/mm3 (4.0-10.0) 12/04/18 13:15 RBC 4.86 M/mm3 (4.00-5.60) 12/04/18 13:15 Hgb 13.3 GM/dL (11.7-16.9) 12/04/18 13:15 Hct 41.6 % (35.4-49) 12/04/18 13:15 MCV 85.6 fl (80-96) 12/04/18 13:15 MCH 27.5 pg (25.7-33.7) 12/04/18 13:15 MCHC 32.1 g/dl (32.0-35.9) 12/04/18 13:15 RDW 14.0 % (11.9-15.9) 12/04/18 13:15 Plt Count 350 K/MM3 (134-434) D 12/04/18 13:15 MPV 9.1 fl (7.5-11.1) D 12/04/18 13:15 Sodium 140 mmol/L (136-145) 12/04/18 13:15 Potassium 5.1 mmol/L (3.5-5.1) 12/04/18 13:15 Chloride 107 mmol/L (98-107) 12/04/18 13:15 Carbon Dioxide 28 mmol/L (21-32) 12/04/18 13:15 Anion Gap 6 MMOL/L (8-16) L 12/04/18 13:15 BUN 19.0 mg/dL (7-18) H 12/04/18 13:15 Creatinine 1.0 mg/dL (0.55-1.3) 12/04/18 13:15 Est GFR (CKD-EPI)AfAm 114.11 12/04/18 13:15 Est GFR (CKD-EPI)NonAf 98.45 12/04/18 13:15 Random Glucose 93 mg/dL (74-106) 12/04/18 13:15 Calcium 8.8 mg/dL (8.5-10.1) 12/04/18 13:15 Total Bilirubin 0.4 mg/dL (0.2-1) 12/04/18 13:15 AST 34 U/L (15-37) 12/04/18 13:15 ALT 51 U/L (13-61) 12/04/18 13:15 Alkaline Phosphatase 79 U/L (45-117) 12/04/18 13:15 Total Protein 7.0 g/dl (6.4-8.2) 12/04/18 13:15 Albumin 3.5 g/dl (3.4-5.0) 12/04/18 13:15 RPR Titer Nonreactive (NONREACTIVE) 12/04/18 13:15 HIV 1&2 Antibody Screen Negative 12/04/18 13:30 HIV P24 Antigen Negative 12/04/18 13:30 Vital Signs Temperature 99.0 F 12/06/18 13:06 Pulse Rate 82 12/06/18 13:06 Respiratory Rate 18 12/06/18 13:06 Blood Pressure 146/90 12/06/18 13:06 O2 Sat by Pulse Oximetry (%) - Medication Discharge Medications: Ambulatory Orders NK [No Known Home Medication] 11/07/18 - Diagnosis (1) Opioid dependence with withdrawal Current Visit: No Status: Chronic (2) Uncomplicated sedative, hypnotic or anxiolytic withdrawal Current Visit: No Status: Acute (3) Alcohol dependence with uncomplicated intoxication Current Visit: No Status: Chronic (4) Cannabis abuse Current Visit: No Status: Chronic (5) Cocaine dependence Current Visit: No Status: Chronic Qualifiers: Substance use status: uncomplicated Qualified Code(s): F14.20 - Cocaine dependence, uncomplicated (6) Non-compliance Current Visit: No Status: Chronic (7) IVDU (intravenous drug user) Current Visit: Yes Status: Acute (8) Weight loss Current Visit: No Status: Acute - AMA Did Patient Leave Against Medical Advice: Yes
[2018-12-06 17:17] VITALS: BP 118/66; PULSE 74; TEMP 99.3
[2018-12-07] MEDS ORDERED: METHADONE HCL 10 MG TABLET (FOR DETOX USE ONLY) PO ONE (10:00)
[2018-12-08] MEDS ORDERED: METHADONE HCL 5 MG TABLET (FOR DETOX USE ONLY) PO ONE (06:00)
== END 2018-12-06 17:08 | disposition left against medical advice (07) | DRG 770 ==
LOC: YASAS 08:10 → Y6N 09:31
PROVIDERS: ADMIT Allergy & Immunology; ATTEND Allergy & Immunology
PROC: HZ2ZZZZ Detoxification Services for Substance Abuse Treatment (ICD-10-PCS; principal; 2018-12-03)
DX: F11.23 Opioid dependence with withdrawal (principal); F10.230 Alcohol dependence with withdrawal, uncomplicated; F13.230 Sedative, hypnotic or anxiolytic dependence with withdrawal, uncomplicated; F14.20 Cocaine dependence, uncomplicated; F12.20 Cannabis dependence, uncomplicated; F17.210 Nicotine dependence, cigarettes, uncomplicated; R63.4 Abnormal weight loss; Z91.19 Patient's noncompliance with other medical treatment and regimen; Z88.0 Allergy status to penicillin
CPT/HCPCS: 36415; 80053; 85027; 86593; 87389

== ENCOUNTER 2019-01-12 08:30 | Inpatient (IN) | payer OTHER ==
[2019-01-12 08:52] VITALS: BMI 25.2
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
[2019-01-12] MEDS ORDERED: NICOTINE POLACRILEX 2 MG GUM BUC PRN (09:49)
[2019-01-12] MEDS ORDERED: MAG HYDROX/AL HYDROX/SIMETH 30 ML UNIT-DOSE CUP PO PRN (09:49)
[2019-01-12] MEDS ORDERED: MAGNESIUM HYDROX 2400MG/30ML ORAL SUSPENSION 30 ML CUP PO PRN (09:49)
[2019-01-12] MEDS ORDERED: MAGNESIUM CITRATE 300 ML BOTTLE PO PRN (09:49)
[2019-01-12] MEDS ORDERED: BISMUTH SUBSALICYLATE 524 MG/30 ML UD PO PRN (09:49)
[2019-01-12] MEDS ORDERED: MENTHOL/PHENOL 1 EACH UD MM PRN (09:49)
[2019-01-12] MEDS ORDERED: ACETAMINOPHEN 325 MG TABLET (FP) PO PRN ×2 (09:49)
[2019-01-12] MEDS ORDERED: cloNIDine HCL 0.1 MG TABLET PO PRN (09:52)
[2019-01-12] MEDS ORDERED: diazePAM 5 MG TABLET PO ONE (10:30)
[2019-01-12] MEDS ORDERED: METHADONE HCL 10 MG TABLET (FOR DETOX USE ONLY) PO ONE (10:35)
[2019-01-12] MEDS: METHOCARBAMOL 500 MG TABLET PO PRN (11:45)
[2019-01-12] MEDS: IBUPROFEN 400 MG TABLET (FP) PO PRN (11:46)
[2019-01-12] MEDS: PRENATAL VITAMINS W/ FOLIC ACID TABLET (FP) PO SCH (11:48)
[2019-01-12] MEDS: diazePAM 5 MG TABLET PO SCH ×2 (14:23→22:35)
[2019-01-12] MEDS: diazePAM 5 MG TABLET PO PRN (17:18)
[2019-01-12] MEDS: THIAMINE HCL 100 MG TABLET (FP) PO SCH (22:35)
[2019-01-12] MEDS: MELATONIN 5 MG TABLETS PO PRN (22:36)
[2019-01-13] MEDS: diazePAM 5 MG TABLET PO PRN ×3 (02:42→19:01)
[2019-01-13] MEDS: diazePAM 5 MG TABLET PO SCH ×3 (06:27→22:14)
[2019-01-13] MEDS ORDERED: METHADONE HCL 10 MG TABLET (FOR DETOX USE ONLY) ONE (09:46)
[2019-01-13] MEDS ORDERED: METHADONE HCL 5 MG TABLET (FOR DETOX USE ONLY) ONE (09:47)
[2019-01-13] MEDS ORDERED: METHADONE (DETOX) 20 MG, METHADONE (DETOX) 5 MG PO ONE (10:00)
[2019-01-13] MEDS: METHOCARBAMOL 500 MG TABLET PO PRN ×2 (10:39→22:15)
[2019-01-13] MEDS: PRENATAL VITAMINS W/ FOLIC ACID TABLET (FP) PO SCH (10:41)
[2019-01-13] MEDS: IBUPROFEN 400 MG TABLET (FP) PO PRN ×2 (10:41→21:00)
[2019-01-13] MEDS ORDERED: METHADONE HCL 10 MG TABLET (FOR DETOX USE ONLY) PO ONE (11:00)
[2019-01-13] MEDS: NICOTINE 21 MG/24 HOURS TOPICAL PATCH TD SCH (11:52)
--- NOTE | 2019-01-13 13:41 | PN ---
[facility] CIWA - CIWA Score Nausea/Vomitin-No Nausea/No Vomiting Muscle Tremors: None Anxiety: 3 Agitation: 0-Normal Activity Paroxysmal Sweats: 3 Orientation: 0-Oriented Tacttile Disturbances: 0-None Auditory Disturbances: 0-None Visual Disturbances: 0-None Headache: 0-None Present CIWA-Ar Total Score: 6 S COWS - Scale Resting Pulse: 1= [place] 81-100 Sweatin= Beads of Sweat on Face Restless Observation: 1= Difficult to Sit Still Pupil Size: 0= Normal to Room Light Bone or Joint Aches: 0= None Runny Nose/ Eye Tearin= None GI Upset > 30mins: 0= None Tremor Observation of Outstretched Hands: 0= None Yawning Observation: 1= 1-2x During Session Anxiety or Irritability: 2=Irritable/Anxious Goose Flesh Skin: 0=Smooth Skin COWS Score: 8 [facility] Progress Note (SOAP) Subjective: c/o sweats, anxiety, irritability, and interrupted sleep. Objective: 01/13/19 13:39 Vital Signs 01/13/19 01/13/19 07:31 09:29 Temperature 97.1 F L 97.2 F L Pulse Rate 96 H 67 Respiratory 18 18 Rate Blood Pressure 112/67 140/80 Assessment: 01/13/19 13:39 AOX3, in no acute respiratory distress. Full ROM, ambulating in the unit. Withdrawal symptoms. Pt requested get methadone 20mg po today and taper down instead of 25mg today. methadone tapering changed as requested. Plan: continue detox. Methadone 20mg po today, 15mg po , 10mg po 01/15/19, and 5mg po 01/16/19.
[2019-01-13] MEDS ORDERED: METHADONE HCL 5 MG TABLET PO ONE (16:00)
[2019-01-13] MEDS: hydrOXYzine PAMOATE 25 MG CAPSULE (FP) PO PRN (21:00)
--- NOTE | 2019-01-13 21:44 | PN ---
[facility] Progress Note Note: Patient requested dose to be decreased tomorrow to methadone 10 mg then next day 5 mg.
[2019-01-13] MEDS: THIAMINE HCL 100 MG TABLET (FP) PO SCH (22:13)
[2019-01-13] MEDS: MELATONIN 5 MG TABLETS PO PRN (22:14)
--- NOTE | 2019-01-13 23:27 | EKG ---
Test Reason : Blood Pressure : / mmHG Vent. Rate : 062 BPM Atrial Rate : 062 BPM P-R Int : 170 ms QRS Dur : 082 ms QT Int : 406 ms P-R-T Axes : 048 072 045 degrees QTc Int : 412 ms NORMAL SINUS RHYTHM NORMAL ECG WHEN COMPARED WITH ECG OF 11-DEC-2017 12:46, NO SIGNIFICANT CHANGE WAS FOUND Confirmed by WILLIAM PERES MD ([id number]) on 01/13/2019 11:27:31 PM Referred By: Confirmed By:WILLIAM PERES MD
[2019-01-14] MEDS: diazePAM 5 MG TABLET PO PRN ×2 (02:30→09:04)
[2019-01-14] MEDS: hydrOXYzine PAMOATE 25 MG CAPSULE (FP) PO PRN (03:10)
[2019-01-14] MEDS ORDERED: diazePAM 5 MG TABLET PO SCH (06:00)
[2019-01-14] MEDS: IBUPROFEN 400 MG TABLET (FP) PO PRN (09:04)
[2019-01-14 09:10] VITALS: BP 135/89; PULSE 56; TEMP 96.5
[2019-01-14] MEDS ORDERED: METHADONE (DETOX) 10 MG, METHADONE (DETOX) 5 MG PO ONE (10:00)
[2019-01-14] MEDS ORDERED: METHADONE HCL 10 MG TABLET (FOR DETOX USE ONLY) PO ONE ×2 (10:00→10:46)
[2019-01-14] MEDS: PRENATAL VITAMINS W/ FOLIC ACID TABLET (FP) PO SCH (10:19)
[2019-01-14] MEDS: NICOTINE 21 MG/24 HOURS TOPICAL PATCH TD SCH (10:19)
--- NOTE | 2019-01-14 13:00 | DS ---
[facility] Detox Discharge Summary Admission Date: 01/12/19 Discharge Date: 01/14/19 - History Present History: Alcohol Dependence, Opioid Dependence, Sedative Dependence Additional Comments: 33 years old male admitted on 01/12/19 for alcohol benzo opiate withdrawal sx management treated with valium and methadone detox regimen chart reviewed that the patient revised valium and methadone detox regimen yesterday patient requests revised methadone detox regimen today "I lied about how much heroin I used" patient prefers to take methadone 10 mg po today and 5 mg tomorrow that "too much methadone makes me sleepy" 10 mg po methadone order for today patient took 10 mg of methadone and insists to leave the detox unit refuses ciwa cows refuse discharge exist physical examination Pertinent Past History: [place] [facility] patient wants to return to [facility] after walks out the detox unit - Physical Exam Results Vital Signs: Vital Signs Temperature 96.5 F L 01/14/19 09:09 Pulse Rate 56 L 01/14/19 09:09 Respiratory Rate 18 01/14/19 09:09 Blood Pressure 135/89 01/14/19 09:09 O2 Sat by Pulse Oximetry (%) Pertinent Admission Physical Exam Findings: alcohol benzo opiate withdrawal sx lab see 12/05/18 report - Treatment Hospital Course: Detox Protocol Followed, Responded well Patient has Accepted a Rehab Referral to: [facility] - Medication Discharge Medications: Ambulatory Orders Naloxone HCl [Narcan] 4 mg NS ASDIR PRN #1 spray 01/14/19 - Diagnosis (1) Uncomplicated sedative, hypnotic or anxiolytic withdrawal Status: Acute (2) Alcohol dependence with uncomplicated intoxication Status: Acute (3) Nicotine dependence Status: Acute Qualifiers: Nicotine product type: cigarettes Substance use status: in withdrawal Qualified Code(s): F17.213 - Nicotine dependence, cigarettes, with withdrawal (4) Opioid dependence with withdrawal Status: Acute (5) Substance induced mood disorder Status: Suspected - AMA Did Patient Leave Against Medical Advice: Yes
[2019-01-15] MEDS ORDERED: diazePAM 5 MG TABLET PO ONE (06:00)
[2019-01-15] MEDS ORDERED: METHADONE (DETOX) 10 MG, METHADONE (DETOX) 5 MG PO ONE (10:00)
[2019-01-15] MEDS ORDERED: METHADONE HCL 10 MG TABLET (FOR DETOX USE ONLY) PO ONE (10:00)
[2019-01-16] MEDS ORDERED: METHADONE HCL 5 MG TABLET (FOR DETOX USE ONLY) PO ONE (06:00)
[2019-01-16] MEDS ORDERED: METHADONE HCL 10 MG TABLET (FOR DETOX USE ONLY) PO ONE (10:00)
[2019-01-17] MEDS ORDERED: METHADONE HCL 5 MG TABLET (FOR DETOX USE ONLY) PO ONE (06:00)
== END 2019-01-14 12:06 | disposition left against medical advice (07) | DRG 770 ==
LOC: YASAS 08:30 → Y3N 10:10
PROVIDERS: ADMIT Allergy & Immunology; ATTEND Allergy & Immunology
PROC: HZ2ZZZZ Detoxification Services for Substance Abuse Treatment (ICD-10-PCS; principal; 2019-01-12)
DX: F10.230 Alcohol dependence with withdrawal, uncomplicated (principal); F11.23 Opioid dependence with withdrawal; F13.230 Sedative, hypnotic or anxiolytic dependence with withdrawal, uncomplicated; F14.20 Cocaine dependence, uncomplicated; F12.20 Cannabis dependence, uncomplicated; F17.213 Nicotine dependence, cigarettes, with withdrawal; F19.24 Other psychoactive substance dependence with psychoactive substance-induced mood disorder; F41.8 Other specified anxiety disorders; F32.9 Major depressive disorder, single episode, unspecified; G47.00 Insomnia, unspecified; Z88.0 Allergy status to penicillin
CPT/HCPCS: 93005; 93010; J0735

== ENCOUNTER 2019-03-16 08:06 | Inpatient (IN) | payer OTHER ==
[2019-03-16 08:46] VITALS: BMI 24.3
--- NOTE | 2019-03-16 09:17 | HP ---
COWS - Scale Resting Pulse: 0= [place] 80 or Below Sweatin= Chills/Flushing Restless Observation: 3= Extraneous Movement Pupil Size: 1= Pupils >than Normal Bone or Joint Aches: 1= Mild Discomfort Runny Nose/ Eye Tearin= Runny Nose/Eyes GI Upset > 30mins: 2= Nausea/Diarrhea Tremor Observation: 1= Tremor [place], Not Seen Yawning Observation: 1= 1-2x During Session Anxiety or Irritability: 1=Feels Anxious/Irritable Goose Flesh Skin: 3=[place]il[place] COWS Score: 16 CIWA Score Nausea/Vomitin-Mild Nausea/No Vomiting Muscle Tremors: 3 Anxiety: 2 Agitation: 1-Slight > Activity Paroxysmal Sweats: 1-Minimal Palms Moist Orientation: 0-Oriented Tacttile Disturbances: 2-Mild Itch/Numbness/Burn Auditory Disturbances: 0-None Visual Disturbances: 0-None Headache: 2-Mild CIWA-Ar Total Score: 12 - Admission Criteria OASAS Guidelines: Admission for Medically Managed Detox: Requires at least one of the followin. CIWA greater than 12 2. Seizures within the past 24 hours 3. Delirium tremens within the past 24 hours 4. Hallucinations within the past 24 hours 5. Acute intervention needed for co occurring medical disorder 6. Acute intervention needed for co occurring psychiatric disorder 7. Severe withdrawal that cannot be handled at a lower level of care (continued vomiting, continued diarrhea, abnormal vital signs) requiring intravenous medication and/or fluids 8. Admitting History and Physical - Admission Chief Complaint: "I want to stop using . I am trying my best and i am craving drugs all the time." History of Present Illness: 33 year old male with history opioid dependence with withdrawal He just recently overdosed around 02/06/19. A friend had to use 2 narcans on him to revive him. Heroin: 1 bundle daily last used yesterday Nicotine 1PPD Alcohol: 1 pint of vodka daily, last drank yesterday. 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 Living with his sister. History Source: Patient Limitations to Obtaining History: No Limitations - Past Medical History Hepatobiliary: Yes: Hepatitis C - Past Surgical History Past Surgical History: Yes: None - Advance Directives Advance Directives: No: Living Will, Health Care Proxy, DNR - Smoking History Smoking history: Current every day smoker Have you smoked in the past 12 months: Yes Aproximately how many cigarettes per day: 20 - Alcohol/Substance Use Hx Alcohol Use: No History of Substance Use: reports: Heroin - Social History Usual Living Arrangement: Yes: Other (sister) Do you think of yourself as: Straight/Heterosexual ADL: Independent 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 Loss EENT: reports: No Symptoms Reported Respiratory: reports: No Symptoms reported Cardiac: reports: No Symptoms Reported GI: reports: No Symptoms Reported : reports: No Symptoms Reported Musculoskeletal: reports: No Symptoms Reported Integumentary: reports: No Symptoms Reported Neuro: reports: No Symptoms reported Endocrine: reports: No Symptoms Reported Hematology: reports: No Symptoms Reported Psychiatric: reports: Judgement Intact, Mood/Affect Appropiate, Orientated x3, Anxious Other Systems: Reviewed and Negative Patient History - Patient Medical History Hx Anemia: No Hx Asthma: No Hx Chronic Obstructive Pulmonary Disease (COPD): No Hx Cancer: No Hx Cardiac Disorders: No Hx Congestive Heart Failure: No Hx Hypertension: No Hx Hypercholesterolemia: No Hx Pacemaker: No HX Cerebrovascular Accident: No Hx Seizures: No Hx Dementia: No Hx Diabetes: No Hx Gastrointestinal Disorders: No Hx Liver Disease: No Hx Genitourinary Disorders: No Hx Sexually Transmitted Disorders: No Hx Renal Disease (ESRD): No Hx Thyroid Disease: No Hx Human Immunodeficiency Virus (HIV): No (last 05/26 negative) Hx Hepatitis C: No Hx Depression: Yes Hx Suicide Attempt: No Hx Bipolar Disorder: No Hx Schizophrenia: No - Patient Surgical History Past Surgical History: No Hx Neurologic Surgery: No Hx Cataract Extraction: No Hx Cardiac Surgery: No Hx Lung Surgery: No Hx Breast Surgery: No Hx Breast Biopsy: No Hx Abdominal Surgery: No Hx Appendectomy: No Hx Cholecystectomy: No Hx Genitourinary Surgery: No Hx Section: No Hx Orthopedic Surgery: No Other Surgical History: circumcission at age of 7 years Anesthesia Reaction: No - PPD History Previous Implant?: Yes Documented Results: Negative w/o proof Date: 01/12/19 Results: 0 mm PPD to be Administered?: No - Smoking Cessation Smoking history: Current every day smoker Have you smoked in the past 12 months: Yes Aproximately how many cigarettes per day: 20 Cigars Per Day: 0 Hx Chewing Tobacco Use: No Initiated information on smoking cessation: Yes 'Breaking Loose' booklet given: 03/16/19 - Substances abused Non-Rx Methadone Substance route: Oral Frequency: 1-3 times last 30 days Amount used: 50mg Age of first use: 25 Date of last use: 03/06/19 Alcohol Substance route: Oral Frequency: Daily Amount used: 1 pint of rum/vodka Age of first use: 12 Date of last use: 03/15/19 Heroin Substance route: Injection Frequency: Daily Amount used: 1 bundle Age of first use: 16 Date of last use: 03/15/19 Alprazolam (Xanax) Substance route: Oral Frequency: 1-2 times per week Amount used: 4-6mg Age of first use: 27 Date of last use: 03/09/19 Admission Physical Exam S - Vital Signs Vital Signs: Vital Signs - 24 hr 03/16/19 08:39 Temperature 99.3 F Pulse Rate 72 Respiratory 18 Rate Blood Pressure 156/90 - Physical General Appearance: Yes: No Apparent Distress, Nourished, Appropriately Dressed , Irritable HEENTM: Yes: Hearing grossly Normal, Normal ENT Inspection, Normocephalic, Normal Voice, [place], Pharynx Normal, Tm's normal Respiratory: Yes: Chest Non-Tender, Lungs Clear, Normal Breath Sounds, No Respiratory Distress, No Accessory Muscle Use Neck: Yes: No masses,lesions,Nodules, Supple, Trachea in good position Breast: Yes: Within Normal Limits Cardiology: Yes: Regular Rhythm, Regular Rate, S1, S2 Abdominal: Yes: Normal Bowel Sounds, Non Tender, Flat, Soft Genitourinary: Yes: Within Normal Limits Back: Yes: Normal Inspection Musculoskeletal: Yes: full range of Motion, Gait Steady, Pelvis Stable Extremities: Yes: Normal Capillary Refill, Normal Inspection, Normal Range of Motion, Non-Tender, Other (track horne on forearms) Neurological: Yes: costing analyst II-XII NML intact, Fully Oriented, Alert, Motor Strength 5/5, Normal Mood/Affect, Normal Response Integumentary: Yes: Normal Color, Dry, Warm Lymphatic: Yes: Within Normal Limits - Diagnostic (1) Alcohol dependence with uncomplicated intoxication Current Visit: Yes Status: Acute (2) IVDU (intravenous drug user) Current Visit: Yes Status: Acute (3) Opioid dependence with withdrawal Current Visit: Yes Status: Acute (4) 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 Current Visit: Yes Status: Acute (5) Weight loss Current Visit: Yes Status: Acute (6) Alcohol dependence Current Visit: Yes Status: Chronic Qualifiers: Substance use status: uncomplicated Qualified Code(s): F10.20 - Alcohol dependence, uncomplicated (7) Cannabis abuse Current Visit: Yes Status: Chronic Breathalyzer - Breathalyzer Breathalyzer: 0 (last used day before) Urine Drug Screen - Test Device Lot number: [id number] Expiration date: 01/06/21 - Control Is test valid?: Yes - Results Drug screen NEGATIVE: No Urine drug screen results: JANETT-Cocaine, MOP-Opiates, BZO-Benzodiazepines Inpatient Rehab Admission - Rehab Decision to Admit Inpatient rehab admission?: No
[2019-03-16] MEDS ORDERED: BISMUTH SUBSALICYLATE 262 MG/15 ML BTL PO PRN (09:23)
[2019-03-16] MEDS ORDERED: MENTHOL/PHENOL 1 EACH UD MM PRN (09:23)
[2019-03-16] MEDS ORDERED: MAGNESIUM HYDROX 2400MG/30ML ORAL SUSPENSION 30 ML CUP PO PRN (09:23)
[2019-03-16] MEDS ORDERED: MAGNESIUM CITRATE 300 ML BOTTLE PO PRN (09:23)
[2019-03-16] MEDS ORDERED: cloNIDine HCL 0.1 MG TABLET PO PRN (09:23)
[2019-03-16] MEDS ORDERED: ACETAMINOPHEN 325 MG TABLET (FP) PO PRN ×2 (09:23)
[2019-03-16] MEDS ORDERED: MAG HYDROX/AL HYDROX/SIMETH 30 ML UNIT-DOSE CUP PO PRN (09:23)
[2019-03-16] MEDS ORDERED: METHADONE HCL 10 MG TABLET (FOR DETOX USE ONLY) PO ONE (09:45)
[2019-03-16] MEDS ORDERED: NICOTINE 7 MG/24 HOURS TOPICAL PATCH TD SCH (10:00)
[2019-03-16] MEDS: diazePAM 5 MG TABLET PO PRN ×2 (10:41→20:44)
--- NOTE | 2019-03-16 10:48 | PN ---
S Progress Note Note: Pt approached this practitioner requesting higher dose nicotine patch, he states he smokes one ppd and chews tobacco as well. Plan: increased patch to 21 mg.
[2019-03-16] MEDS: PRENATAL VITAMINS W/ FOLIC ACID TABLET (FP) PO SCH (11:10)
[2019-03-16] MEDS: NICOTINE 21 MG/24 HOURS TOPICAL PATCH TD SCH (11:16)
[2019-03-16] MEDS: METHOCARBAMOL 500 MG TABLET PO PRN (11:21)
[2019-03-16 12:06] LABS: HEMATOCRIT 43.8 % (35.4-49); HEMOGLOBIN 14.2 GM/dL (11.7-16.9); MCH 27.9 pg (25.7-33.7); MCHC 32.5 g/dl (32.0-35.9); MEAN CELL VOLUME 85.9 fl (80-96); PLATELET COUNT 290 K/MM3 (134-434); RDW 13.9 % (11.9-15.9)
[2019-03-16 12:18] LABS: ALBUMIN 3.9 g/dl (3.4-5.0); BILIRUBIN,TOTAL 0.4 mg/dL (0.2-1); BLOOD UREA NITROGEN 13.4 mg/dL (7-18); CALCIUM 9.1 mg/dL (8.5-10.1); POTASSIUM 4.1 mmol/L (3.5-5.1); TOT PROT 7.6 g/dl (6.4-8.2)
[2019-03-16] MEDS: diazePAM 5 MG TABLET PO SCH ×2 (15:13→22:30)
[2019-03-16] MEDS: THIAMINE HCL 100 MG TABLET (FP) PO SCH (22:30)
[2019-03-16] MEDS: MELATONIN 5 MG TABLETS PO PRN (22:30)
[2019-03-17] MEDS: diazePAM 5 MG TABLET PO PRN ×4 (01:59→19:49)
[2019-03-17] MEDS: diazePAM 5 MG TABLET PO SCH ×3 (05:41→22:26)
[2019-03-17] MEDS ORDERED: METHADONE HCL 5 MG TABLET (FOR DETOX USE ONLY) ONE (09:49)
[2019-03-17] MEDS ORDERED: METHADONE HCL 10 MG TABLET (FOR DETOX USE ONLY) ONE (09:49)
[2019-03-17] MEDS ORDERED: METHADONE (DETOX) 20 MG, METHADONE (DETOX) 5 MG PO ONE (10:00)
[2019-03-17] MEDS: NICOTINE 21 MG/24 HOURS TOPICAL PATCH TD SCH (10:18)
[2019-03-17] MEDS: PRENATAL VITAMINS W/ FOLIC ACID TABLET (FP) PO SCH (10:18)
[2019-03-17] MEDS: METHOCARBAMOL 500 MG TABLET PO PRN ×2 (10:20→22:27)
--- NOTE | 2019-03-17 11:19 | PN ---
[facility] CIWA - CIWA Score Nausea/Vomitin-No Nausea/No Vomiting Muscle Tremors: 2 Anxiety: 3 Agitation: 1-Slight > Activity Paroxysmal Sweats: 3 Orientation: 0-Oriented Tacttile Disturbances: 0-None Auditory Disturbances: 0-None Visual Disturbances: 0-None Headache: 2-Mild CIWA-Ar Total Score: 11 S COWS - Scale Resting Pulse: 0= [place] 80 or Below Sweatin= Beads of Sweat on Face Restless Observation: 1= Difficult to Sit Still Pupil Size: 0= Normal to Room Light Bone or Joint Aches: 1= Mild Discomfort Runny Nose/ Eye Tearin= None GI Upset > 30mins: 0= None Tremor Observation of Outstretched Hands: 2= Slight Tremor Visible Yawning Observation: 1= 1-2x During Session Anxiety or Irritability: 2=Irritable/Anxious Goose Flesh Skin: 0=Smooth Skin COWS Score: 10 S Progress Note (SOAP) Subjective: c/o headache, sweats, muscle aches, shakes, and anxiety. Objective: 03/17/19 11:23 Vital Signs 03/17/19 03/17/19 03/17/19 06:38 07:01 08:58 Temperature 96.7 F L 97.2 F L Pulse Rate 52 L 68 Respiratory 18 17 18 Rate Blood Pressure 113/65 127/68 Laboratory Last Values WBC 8.0 K/mm3 (4.0-10.0) 03/16/19 10:00 RBC 5.10 M/mm3 (4.00-5.60) 03/16/19 10:00 Hgb 14.2 GM/dL (11.7-16.9) 03/16/19 10:00 Hct 43.8 % (35.4-49) 03/16/19 10:00 MCV 85.9 fl (80-96) 03/16/19 10:00 MCH 27.9 pg (25.7-33.7) 03/16/19 10:00 MCHC 32.5 g/dl (32.0-35.9) 03/16/19 10:00 RDW 13.9 % (11.9-15.9) 03/16/19 10:00 Plt Count 290 K/MM3 (134-434) 03/16/19 10:00 MPV 9.0 fl (7.5-11.1) 03/16/19 10:00 Sodium 137 mmol/L (136-145) 03/16/19 10:00 Potassium 4.1 mmol/L (3.5-5.1) 03/16/19 10:00 Chloride 104 mmol/L (98-107) 03/16/19 10:00 Carbon Dioxide 25 mmol/L (21-32) 03/16/19 10:00 Anion Gap 7 MMOL/L (8-16) L 03/16/19 10:00 BUN 13.4 mg/dL (7-18) 03/16/19 10:00 Creatinine 1.0 mg/dL (0.55-1.3) 03/16/19 10:00 Est GFR (CKD-EPI)AfAm 114.11 03/16/19 10:00 Est GFR (CKD-EPI)NonAf 98.45 03/16/19 10:00 Random Glucose 94 mg/dL (74-106) 03/16/19 10:00 Calcium 9.1 mg/dL (8.5-10.1) 03/16/19 10:00 Total Bilirubin 0.4 mg/dL (0.2-1) 03/16/19 10:00 AST 131 U/L (15-37) H 03/16/19 10:00 ALT 289 U/L (13-61) H 03/16/19 10:00 Alkaline Phosphatase 88 U/L (45-117) 03/16/19 10:00 Total Protein 7.6 g/dl (6.4-8.2) 03/16/19 10:00 Albumin 3.9 g/dl (3.4-5.0) 03/16/19 10:00 Labs noted with elevated AST/ALT. 03/17/19 11:25 Assessment: 03/17/19 11:24 AOX 3, in no respiratory distress. Full ROM, ambulating in the unit. Withdrawal symptoms. Elevated AST/ALT. 03/17/19 11:25 Plan: continue detox. Increase fluids.
[2019-03-17] MEDS: IBUPROFEN 400 MG TABLET (FP) PO PRN (19:49)
[2019-03-17] MEDS: MELATONIN 5 MG TABLETS PO PRN (22:26)
[2019-03-17] MEDS: hydrOXYzine PAMOATE 25 MG CAPSULE (FP) PO PRN (22:26)
[2019-03-17] MEDS: THIAMINE HCL 100 MG TABLET (FP) PO SCH (22:26)
[2019-03-18] MEDS: diazePAM 5 MG TABLET PO PRN ×4 (03:45→20:33)
[2019-03-18] MEDS: diazePAM 5 MG TABLET PO SCH ×2 (05:49→17:32)
[2019-03-18] MEDS: IBUPROFEN 400 MG TABLET (FP) PO PRN ×2 (08:45→21:24)
--- NOTE | 2019-03-18 09:16 | PN ---
S CIWA - CIWA Score Nausea/Vomitin-No Nausea/No Vomiting Muscle Tremors: 2 Anxiety: 2 Agitation: 2 Paroxysmal Sweats: 2 Orientation: 0-Oriented Tacttile Disturbances: 0-None Auditory Disturbances: 0-None Visual Disturbances: 0-None Headache: 0-None Present CIWA-Ar Total Score: 8 BHS COWS - Scale Resting Pulse: 0= [place] 80 or Below Sweatin= Chills/Flushing Restless Observation: 0= Sits Still Pupil Size: 1= Pupils >than Normal Bone or Joint Aches: 1= Mild Discomfort Runny Nose/ Eye Tearin= Nasal Congestion GI Upset > 30mins: 1= Stomach Cramp Tremor Observation of Outstretched Hands: 2= Slight Tremor Visible Yawning Observation: 0= None Anxiety or Irritability: 1=Feels Anxious/Irritable Goose Flesh Skin: 0=Smooth Skin COWS Score: 8 BHS Progress Note (SOAP) Subjective: 33 years old male admitted on 03/16/19 for alcohol benzo opiate withdrawal sx management treating with valium and methadone detox regiment feeling better today ambulating on hallway knocking on friends' door encourage the patient to follow up detox unit rules and regulation and focus on chemical detox process Objective: 03/18/19 09:14 Vital Signs Temperature 96.4 F L 03/18/19 06:57 Pulse Rate 56 L 03/18/19 06:57 Respiratory Rate 18 03/18/19 06:57 Blood Pressure 108/51 L 03/18/19 06:57 O2 Sat by Pulse Oximetry (%) Laboratory Last Values WBC 8.0 K/mm3 (4.0-10.0) 03/16/19 10:00 RBC 5.10 M/mm3 (4.00-5.60) 03/16/19 10:00 Hgb 14.2 GM/dL (11.7-16.9) 03/16/19 10:00 Hct 43.8 % (35.4-49) 03/16/19 10:00 MCV 85.9 fl (80-96) 03/16/19 10:00 MCH 27.9 pg (25.7-33.7) 03/16/19 10:00 MCHC 32.5 g/dl (32.0-35.9) 03/16/19 10:00 RDW 13.9 % (11.9-15.9) 03/16/19 10:00 Plt Count 290 K/MM3 (134-434) 03/16/19 10:00 MPV 9.0 fl (7.5-11.1) 03/16/19 10:00 Sodium 137 mmol/L (136-145) 03/16/19 10:00 Potassium 4.1 mmol/L (3.5-5.1) 03/16/19 10:00 Chloride 104 mmol/L (98-107) 03/16/19 10:00 Carbon Dioxide 25 mmol/L (21-32) 03/16/19 10:00 Anion Gap 7 MMOL/L (8-16) L 03/16/19 10:00 BUN 13.4 mg/dL (7-18) 03/16/19 10:00 Creatinine 1.0 mg/dL (0.55-1.3) 03/16/19 10:00 Est GFR (CKD-EPI)AfAm 114.11 03/16/19 10:00 Est GFR (CKD-EPI)NonAf 98.45 03/16/19 10:00 Random Glucose 94 mg/dL (74-106) 03/16/19 10:00 Calcium 9.1 mg/dL (8.5-10.1) 03/16/19 10:00 Total Bilirubin 0.4 mg/dL (0.2-1) 03/16/19 10:00 AST 131 U/L (15-37) H 03/16/19 10:00 ALT 289 U/L (13-61) H 03/16/19 10:00 Alkaline Phosphatase 88 U/L (45-117) 03/16/19 10:00 Total Protein 7.6 g/dl (6.4-8.2) 03/16/19 10:00 Albumin 3.9 g/dl (3.4-5.0) 03/16/19 10:00 RPR Titer Nonreactive (NONREACTIVE) 03/16/19 10:00 lab noted ast elevation repeat ast on 03/20/19 encourage oral fluid 03/18/19 09:15 Assessment: 03/18/19 09:16 alcohol benzo opiate withdrawal Plan: valium and methadone regiments
[2019-03-18] MEDS ORDERED: METHADONE HCL 10 MG TABLET (FOR DETOX USE ONLY) PO ONE (10:00)
[2019-03-18] MEDS: METHOCARBAMOL 500 MG TABLET PO PRN (10:18)
[2019-03-18] MEDS: PRENATAL VITAMINS W/ FOLIC ACID TABLET (FP) PO SCH (10:18)
[2019-03-18] MEDS: NICOTINE 21 MG/24 HOURS TOPICAL PATCH TD SCH (10:19)
[2019-03-18] MEDS: MELATONIN 5 MG TABLETS PO PRN (22:07)
[2019-03-18] MEDS: THIAMINE HCL 100 MG TABLET (FP) PO SCH (22:07)
[2019-03-18] MEDS: hydrOXYzine PAMOATE 25 MG CAPSULE (FP) PO PRN (22:08)
[2019-03-19] MEDS: diazePAM 5 MG TABLET PO PRN ×2 (03:50→17:48)
[2019-03-19] MEDS: IBUPROFEN 400 MG TABLET (FP) PO PRN ×3 (03:51→17:44)
[2019-03-19] MEDS ORDERED: diazePAM 5 MG TABLET PO ONE (06:00)
[2019-03-19] MEDS: hydrOXYzine PAMOATE 25 MG CAPSULE (FP) PO PRN (06:00)
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
[2019-03-19] MEDS ORDERED: METHADONE HCL 10 MG TABLET (FOR DETOX USE ONLY) ONE (09:03)
[2019-03-19] MEDS ORDERED: METHADONE HCL 5 MG TABLET (FOR DETOX USE ONLY) ONE (09:04)
[2019-03-19] MEDS ORDERED: METHADONE (DETOX) 10 MG, METHADONE (DETOX) 5 MG PO ONE (10:00)
[2019-03-19] MEDS: PRENATAL VITAMINS W/ FOLIC ACID TABLET (FP) PO SCH (10:19)
[2019-03-19] MEDS: hydrOXYzine PAMOATE 50 MG CAPSULE (FP) PO PRN ×3 (10:21→22:11)
[2019-03-19] MEDS: METHOCARBAMOL 500 MG TABLET PO PRN (10:21)
--- NOTE | 2019-03-19 11:06 | PN ---
[facility] CIWA - CIWA Score Nausea/Vomitin-No Nausea/No Vomiting Muscle Tremors: 2 Anxiety: 3 Agitation: 0-Normal Activity Paroxysmal Sweats: 1-Minimal Palms Moist Orientation: 0-Oriented Tacttile Disturbances: 0-None Auditory Disturbances: 0-None Visual Disturbances: 0-None Headache: 0-None Present CIWA-Ar Total Score: 6 S COWS - Scale Resting Pulse: 0= [place] 80 or Below Sweatin= No chills or Flushing Restless Observation: 0= Sits Still Pupil Size: 1= Pupils >than Normal Bone or Joint Aches: 1= Mild Discomfort Runny Nose/ Eye Tearin= None GI Upset > 30mins: 0= None Tremor Observation of Outstretched Hands: 2= Slight Tremor Visible Yawning Observation: 0= None Anxiety or Irritability: 2=Irritable/Anxious Goose Flesh Skin: 0=Smooth Skin COWS Score: 6 S Progress Note (SOAP) Subjective: 33 years old male admitted on 03/16/19 for alcohol benzo opiate withdrawal sx management treating with valium and methadone detox regiments patient demands to have valium prn resume that Mr Atwood needs valium for anxiety seen by psychiatrist resume trazodone and vistaril discussed the risks of benzo addiction Mr. Atwood requests to see a stack supervisor for valium discontinuation Mr. Atwood changes his requests for stack supervisor but insists to resume valium prn Objective: 03/19/19 11:11 Vital Signs Temperature 97.0 F L 03/19/19 05:29 Pulse Rate 55 L 03/19/19 05:29 Respiratory Rate 18 03/19/19 05:29 Blood Pressure 105/57 L 03/19/19 05:29 O2 Sat by Pulse Oximetry (%) Laboratory Last Values WBC 8.0 K/mm3 (4.0-10.0) 03/16/19 10:00 RBC 5.10 M/mm3 (4.00-5.60) 03/16/19 10:00 Hgb 14.2 GM/dL (11.7-16.9) 03/16/19 10:00 Hct 43.8 % (35.4-49) 03/16/19 10:00 MCV 85.9 fl (80-96) 03/16/19 10:00 MCH 27.9 pg (25.7-33.7) 03/16/19 10:00 MCHC 32.5 g/dl (32.0-35.9) 03/16/19 10:00 RDW 13.9 % (11.9-15.9) 03/16/19 10:00 Plt Count 290 K/MM3 (134-434) 03/16/19 10:00 MPV 9.0 fl (7.5-11.1) 03/16/19 10:00 Sodium 137 mmol/L (136-145) 03/16/19 10:00 Potassium 4.1 mmol/L (3.5-5.1) 03/16/19 10:00 Chloride 104 mmol/L (98-107) 03/16/19 10:00 Carbon Dioxide 25 mmol/L (21-32) 03/16/19 10:00 Anion Gap 7 MMOL/L (8-16) L 03/16/19 10:00 BUN 13.4 mg/dL (7-18) 03/16/19 10:00 Creatinine 1.0 mg/dL (0.55-1.3) 03/16/19 10:00 Est GFR (CKD-EPI)AfAm 114.11 03/16/19 10:00 Est GFR (CKD-EPI)NonAf 98.45 03/16/19 10:00 Random Glucose 94 mg/dL (74-106) 03/16/19 10:00 Calcium 9.1 mg/dL (8.5-10.1) 03/16/19 10:00 Total Bilirubin 0.4 mg/dL (0.2-1) 03/16/19 10:00 AST 131 U/L (15-37) H 03/16/19 10:00 ALT 289 U/L (13-61) H 03/16/19 10:00 Alkaline Phosphatase 88 U/L (45-117) 03/16/19 10:00 Total Protein 7.6 g/dl (6.4-8.2) 03/16/19 10:00 Albumin 3.9 g/dl (3.4-5.0) 03/16/19 10:00 RPR Titer Nonreactive (NONREACTIVE) 03/16/19 10:00 lab noted ast elevation repeat 03/20/19 Assessment: 03/19/19 11:11 alcohol benzo opiate withdrawal Plan: valium and methadone regiments
[2019-03-19] MEDS: NICOTINE 21 MG/24 HOURS TOPICAL PATCH TD SCH (11:10)
[2019-03-19] MEDS: THIAMINE HCL 100 MG TABLET (FP) PO SCH (22:11)
[2019-03-19] MEDS: traZODone HCL 100 MG TABLET (FP) PO SCH (22:11)
--- NOTE | 2019-03-20 09:39 | PN ---
S CIWA - CIWA Score Nausea/Vomitin-No Nausea/No Vomiting Muscle Tremors: 1-None Visible, but [place] Anxiety: 1-Mildly Anxious Agitation: 0-Normal Activity Paroxysmal Sweats: 1-Minimal Palms Moist Orientation: 0-Oriented Tacttile Disturbances: 0-None Auditory Disturbances: 0-None Visual Disturbances: 0-None Headache: 0-None Present CIWA-Ar Total Score: 3 BHS COWS - Scale Resting Pulse: 0= [place] 80 or Below Sweatin= No chills or Flushing Restless Observation: 0= Sits Still Pupil Size: 0= Normal to Room Light Bone or Joint Aches: 1= Mild Discomfort Runny Nose/ Eye Tearin= None GI Upset > 30mins: 0= None Tremor Observation of Outstretched Hands: 1= Tremor [place], Not Seen Yawning Observation: 0= None Anxiety or Irritability: 1=Feels Anxious/Irritable Goose Flesh Skin: 0=Smooth Skin COWS Score: 3 S Progress Note (SOAP) Subjective: 33 years old male admitted on 03/16/19 for alcohol benzo opiate withdrawal sx management treating with valium and methadone detox regiments feeling better today less tremor mild body aches slept through out the night Objective: 03/20/19 09:43 Vital Signs Temperature 97.1 F L 03/20/19 08:51 Pulse Rate 70 03/20/19 08:51 Respiratory Rate 18 03/20/19 08:51 Blood Pressure 131/73 03/20/19 08:51 O2 Sat by Pulse Oximetry (%) Laboratory Last Values WBC 8.0 K/mm3 (4.0-10.0) 03/16/19 10:00 RBC 5.10 M/mm3 (4.00-5.60) 03/16/19 10:00 Hgb 14.2 GM/dL (11.7-16.9) 03/16/19 10:00 Hct 43.8 % (35.4-49) 03/16/19 10:00 MCV 85.9 fl (80-96) 03/16/19 10:00 MCH 27.9 pg (25.7-33.7) 03/16/19 10:00 MCHC 32.5 g/dl (32.0-35.9) 03/16/19 10:00 RDW 13.9 % (11.9-15.9) 03/16/19 10:00 Plt Count 290 K/MM3 (134-434) 03/16/19 10:00 MPV 9.0 fl (7.5-11.1) 03/16/19 10:00 Sodium 137 mmol/L (136-145) 03/16/19 10:00 Potassium 4.1 mmol/L (3.5-5.1) 03/16/19 10:00 Chloride 104 mmol/L (98-107) 03/16/19 10:00 Carbon Dioxide 25 mmol/L (21-32) 03/16/19 10:00 Anion Gap 7 MMOL/L (8-16) L 03/16/19 10:00 BUN 13.4 mg/dL (7-18) 03/16/19 10:00 Creatinine 1.0 mg/dL (0.55-1.3) 03/16/19 10:00 Est GFR (CKD-EPI)AfAm 114.11 03/16/19 10:00 Est GFR (CKD-EPI)NonAf 98.45 03/16/19 10:00 Random Glucose 94 mg/dL (74-106) 03/16/19 10:00 Calcium 9.1 mg/dL (8.5-10.1) 03/16/19 10:00 Total Bilirubin 0.4 mg/dL (0.2-1) 03/16/19 10:00 AST 131 U/L (15-37) H 03/16/19 10:00 ALT 289 U/L (13-61) H 03/16/19 10:00 Alkaline Phosphatase 88 U/L (45-117) 03/16/19 10:00 Total Protein 7.6 g/dl (6.4-8.2) 03/16/19 10:00 Albumin 3.9 g/dl (3.4-5.0) 03/16/19 10:00 RPR Titer Nonreactive (NONREACTIVE) 03/16/19 10:00 HIV 1&2 Ag/Ab, 4th Gen Non reactive (Non Reactive) 03/19/19 13:32 HIV 1&2 Antibody Screen Cancelled 03/16/19 10:00 HIV P24 Antigen Cancelled 03/16/19 10:00 lab noted 03/20/19 09:44 repeat ast been cancelled encourage the patient follow up with [facility] service 03/20/19 09:45 Assessment: 03/20/19 09:46 alcohol benzo opiate withdrawal Plan: valium and methadone regiments
[2019-03-20] MEDS ORDERED: METHADONE HCL 10 MG TABLET (FOR DETOX USE ONLY) PO ONE (10:00)
[2019-03-20] MEDS: NICOTINE 21 MG/24 HOURS TOPICAL PATCH TD SCH (10:15)
[2019-03-20] MEDS: PRENATAL VITAMINS W/ FOLIC ACID TABLET (FP) PO SCH (10:15)
[2019-03-20] MEDS: diazePAM 5 MG TABLET PO PRN ×2 (10:20→18:26)
[2019-03-20] MEDS: METHOCARBAMOL 500 MG TABLET PO PRN ×2 (11:43→18:32)
[2019-03-20] MEDS: MELATONIN 5 MG TABLETS PO PRN (21:45)
[2019-03-20] MEDS: hydrOXYzine PAMOATE 50 MG CAPSULE (FP) PO PRN (21:45)
[2019-03-20] MEDS: traZODone HCL 100 MG TABLET (FP) PO SCH (21:45)
[2019-03-20] MEDS: THIAMINE HCL 100 MG TABLET (FP) PO SCH (21:45)
[2019-03-21] MEDS ORDERED: METHADONE HCL 5 MG TABLET (FOR DETOX USE ONLY) PO ONE (06:00)
[2019-03-21] MEDS: diazePAM 5 MG TABLET PO PRN (06:16)
[2019-03-21 06:41] VITALS: BP 97/52; PULSE 54; TEMP 98.2
--- NOTE | 2019-03-21 10:23 | DS ---
[facility] Detox Discharge Summary Admission Date: 03/16/19 Discharge Date: 03/21/19 - History Present History: Alcohol Dependence, Opioid Dependence, Sedative Dependence Additional Comments: 33 years old male admitted on 03/16/19 for alcohol benzo opiate withdrawal sx management treated with valium and methadone detox regiments seen by psychiatrist resume trazodone and vistaril patient is anxious about leaving detox without benzo and hesitates to attend behavior and psychosocial therapies groups and meetings while in detox valium 5 mg po q4h prn available and anxiety patient is alert oriented x 3 cardiac s1s2 regular rate rhythm respiratory clear lungs bilaterally on auscultation extremities full range of motion Pertinent Past History: time for discharge: 34 minutes - Physical Exam Results Vital Signs: Vital Signs Temperature 98.2 F 03/21/19 06:40 Pulse Rate 54 L 03/21/19 06:40 Respiratory Rate 18 03/21/19 06:40 Blood Pressure 97/52 L 03/21/19 06:40 O2 Sat by Pulse Oximetry (%) Pertinent Admission Physical Exam Findings: alcohol benzo opiate withdrawal Laboratory Last Values WBC 8.0 K/mm3 (4.0-10.0) 03/16/19 10:00 RBC 5.10 M/mm3 (4.00-5.60) 03/16/19 10:00 Hgb 14.2 GM/dL (11.7-16.9) 03/16/19 10:00 Hct 43.8 % (35.4-49) 03/16/19 10:00 MCV 85.9 fl (80-96) 03/16/19 10:00 MCH 27.9 pg (25.7-33.7) 03/16/19 10:00 MCHC 32.5 g/dl (32.0-35.9) 03/16/19 10:00 RDW 13.9 % (11.9-15.9) 03/16/19 10:00 Plt Count 290 K/MM3 (134-434) 03/16/19 10:00 MPV 9.0 fl (7.5-11.1) 03/16/19 10:00 Sodium 137 mmol/L (136-145) 03/16/19 10:00 Potassium 4.1 mmol/L (3.5-5.1) 03/16/19 10:00 Chloride 104 mmol/L (98-107) 03/16/19 10:00 Carbon Dioxide 25 mmol/L (21-32) 03/16/19 10:00 Anion Gap 7 MMOL/L (8-16) L 03/16/19 10:00 BUN 13.4 mg/dL (7-18) 03/16/19 10:00 Creatinine 1.0 mg/dL (0.55-1.3) 03/16/19 10:00 Est GFR (CKD-EPI)AfAm 114.11 03/16/19 10:00 Est GFR (CKD-EPI)NonAf 98.45 03/16/19 10:00 Random Glucose 94 mg/dL (74-106) 03/16/19 10:00 Calcium 9.1 mg/dL (8.5-10.1) 03/16/19 10:00 Total Bilirubin 0.4 mg/dL (0.2-1) 03/16/19 10:00 AST 131 U/L (15-37) H 03/16/19 10:00 ALT 289 U/L (13-61) H 03/16/19 10:00 Alkaline Phosphatase 88 U/L (45-117) 03/16/19 10:00 Total Protein 7.6 g/dl (6.4-8.2) 03/16/19 10:00 Albumin 3.9 g/dl (3.4-5.0) 03/16/19 10:00 RPR Titer Nonreactive (NONREACTIVE) 03/16/19 10:00 HIV 1&2 Ag/Ab, 4th Gen Non reactive (Non Reactive) 03/19/19 13:32 HIV 1&2 Antibody Screen Cancelled 03/16/19 10:00 HIV P24 Antigen Cancelled 03/16/19 10:00 lab noted possible alcohol induced ast elevation - Treatment Hospital Course: Detox Protocol Followed, Detoxed Safely, Responded well, Discharged Condition Good, Rehab Referral Accepted Patient has Accepted a Rehab Referral to: community support approach - Medication Discharge Medications: Ambulatory Orders Naloxone HCl [Narcan] 4 mg NS ASDIR PRN #1 spray 01/14/19 - Diagnosis (1) Alcohol dependence with uncomplicated intoxication Status: Acute (2) Nicotine dependence Status: Acute Qualifiers: Nicotine product type: cigarettes Substance use status: in withdrawal Qualified Code(s): F17.213 - Nicotine dependence, cigarettes, with withdrawal (3) Opioid dependence with withdrawal Status: Acute (4) Uncomplicated sedative, hypnotic or anxiolytic withdrawal Status: Acute (5) Hepatitis C Status: Chronic Qualifiers: Viral hepatitis chronicity: carrier Qualified Code(s): B18.2 - Chronic viral hepatitis C (6) Nicotine dependence Status: Acute Qualifiers: Nicotine product type: cigarettes Substance use status: in withdrawal Qualified Code(s): F17.213 - Nicotine dependence, cigarettes, with withdrawal (7) Sedative hypnotic or anxiolytic dependence Status: Acute (8) Substance induced mood disorder Status: Suspected - AMA Did Patient Leave Against Medical Advice: No CIWA Score - CIWA Score Nausea/Vomitin-No Nausea/No Vomiting Muscle Tremors: 1-None Visible, but [place] Anxiety: 0-No Anxiety, at Ease Agitation: 0-Normal Activity Paroxysmal Sweats: No Perspiration Orientation: 0-Oriented Tacttile Disturbances: 0-None Auditory Disturbances: 0-None Visual Disturbances: 0-None Headache: 0-None Present CIWA-Ar Total Score: 1 COWS (PN) - Opiate Withdrawal Resting Pulse: 0= [place] 80 or Below Sweatin= No chills or Flushing Restless Observation: 0= Sits Still Pupil Size: 0= Normal to Room Light Bone or Joint Aches: 0= None Runny Nose/ Eye Tearin= None GI Upset > 30mins: 0= None Tremor Observation of Outstretched Hands: 1= Tremor [place], Not Seen Yawning Observation: 0= None Anxiety or Irritability: 0= None Goose Flesh Skin: 0=Smooth Skin COWS Score: 1
== END 2019-03-21 09:00 | disposition home or self-care (01) | DRG 773 ==
LOC: YASAS 08:06 → Y3N 09:33
PROVIDERS: ADMIT Allergy & Immunology; ATTEND Allergy & Immunology
PROC: HZ2ZZZZ Detoxification Services for Substance Abuse Treatment (ICD-10-PCS; principal; 2019-03-16)
DX: F11.23 Opioid dependence with withdrawal (principal); F10.230 Alcohol dependence with withdrawal, uncomplicated; F13.230 Sedative, hypnotic or anxiolytic dependence with withdrawal, uncomplicated; F12.10 Cannabis abuse, uncomplicated; F17.213 Nicotine dependence, cigarettes, with withdrawal; F19.24 Other psychoactive substance dependence with psychoactive substance-induced mood disorder; F19.280 Other psychoactive substance dependence with psychoactive substance-induced anxiety disorder; F19.282 Other psychoactive substance dependence with psychoactive substance-induced sleep disorder; B18.2 Chronic viral hepatitis C; R74.0 Nonspecific elevation of levels of transaminase and lactic acid dehydrogenase [LDH]; R63.4 Abnormal weight loss; L90.5 Scar conditions and fibrosis of skin; Z86.59 Personal history of other mental and behavioral disorders; Z88.0 Allergy status to penicillin; Z56.0 Unemployment, unspecified
CPT/HCPCS: 36415; 80053; 85027; 86593; 87389; J0735

== ENCOUNTER 2019-04-07 09:10 | Inpatient (IN) | payer OTHER ==
[2019-04-07 10:30] VITALS: BMI 25.1
--- NOTE | 2019-04-07 11:10 | HP ---
COWS - Scale Resting Pulse: 1= [place] 81-100 Sweatin= Chills/Flushing Restless Observation: 1= Difficult to Sit Still Pupil Size: 1= Pupils >than Normal Bone or Joint Aches: 2= Severe Diffuse Aches Runny Nose/ Eye Tearin= Runny Nose/Eyes GI Upset > 30mins: 2= Nausea/Diarrhea Tremor Observation: 2= Slight Tremor Visible Yawning Observation: 1= 1-2x During Session Anxiety or Irritability: 2=Irritable/Anxious Goose Flesh Skin: 3=Pil[place] COWS Score: 18 CIWA Score Nausea/Vomitin Muscle Tremors: 4-Moderate,w/Arms Extend Anxiety: 4-Mod. Anxious/Guarded Agitation: 1-Slight > Activity Paroxysmal Sweats: 1-Minimal Palms Moist Orientation: 2-Disoriented Date<2 days Tacttile Disturbances: 1-Very Mild Itch/Numbness Auditory Disturbances: 1-Very Mild Visual Disturbances: 1-Very Mild Sensitivity Headache: 2-Mild CIWA-Ar Total Score: 19 - Admission Criteria OASAS Guidelines: Admission for Medically Managed Detox: Requires at least one of the followin. CIWA greater than 12 2. Seizures within the past 24 hours 3. Delirium tremens within the past 24 hours 4. Hallucinations within the past 24 hours 5. Acute intervention needed for co occurring medical disorder 6. Acute intervention needed for co occurring psychiatric disorder 7. Severe withdrawal that cannot be handled at a lower level of care (continued vomiting, continued diarrhea, abnormal vital signs) requiring intravenous medication and/or fluids 8. 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 This is one of several admissions for treatment. Patient had an overdose last month, history of black outs, no seizures. He tried suboxone but did not like how he felt on it. History of methadone program but states he still abused through it (even at 170mg dose). Never tried Vivitrol. Discussed [facility] residential treatment as well. States he has not been in any emergency room lately. Last here for detox 03/16/19 and completed treatment but did not f/u with aftercare plans. 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 He is not on disability. Exam Limitations: No Limitations - Ebola screening Have you traveled outside of the country in the last 21 days: No Have you been sick,other than usual withdrawal symptoms: No Do you have a fever: No - Review of Systems Constitutional: Loss of Appetite, Malaise, Changes in sleep, Weakness, Unintentional Wgt. Loss EENT: reports: Blurred Vision, Nose Congestion Respiratory: reports: No Symptoms reported Cardiac: reports: No Symptoms Reported GI: reports: Nausea, Poor Appetite, Abdominal cramping : reports: Dysuria Musculoskeletal: reports: Back Pain, Muscle Pain Integumentary: reports: Pruritus, Rash Neuro: reports: Headache, Tremors, Weakness Endocrine: reports: No Symptoms Reported Hematology: reports: No Symptoms Reported Psychiatric: reports: Judgement Intact, Mood/Affect Appropiate, Anxious Other Systems: Reviewed and Negative Patient History - Patient Medical History Hx Anemia: No Hx Asthma: No Hx Chronic Obstructive Pulmonary Disease (COPD): No Hx Cancer: No Hx Cardiac Disorders: No Hx Congestive Heart Failure: No Hx Hypertension: No Hx Hypercholesterolemia: No Hx Pacemaker: No HX Cerebrovascular Accident: No Hx Seizures: No Hx Dementia: No Hx Diabetes: No Hx Gastrointestinal Disorders: No Hx Liver Disease: Yes (elevated LFT) Hx Genitourinary Disorders: No Hx Sexually Transmitted Disorders: No Hx Renal Disease (ESRD): No Hx Thyroid Disease: No Hx Human Immunodeficiency Virus (HIV): No (last 05/26 negative) Hx Hepatitis C: Yes (never treated) Hx Depression: Yes (no meds, never hospitalized) Hx Suicide Attempt: No Hx Bipolar Disorder: No Hx Schizophrenia: No - Patient Surgical History Past Surgical History: No Hx Neurologic Surgery: No Hx Cataract Extraction: No Hx Cardiac Surgery: No Hx Lung Surgery: No Hx Breast Surgery: No Hx Breast Biopsy: No Hx Abdominal Surgery: No Hx Appendectomy: No Hx Cholecystectomy: No Hx Genitourinary Surgery: No Hx Section: No Hx Orthopedic Surgery: No Other Surgical History: circumcision at age of 7 years Anesthesia Reaction: No - PPD History Previous Implant?: Yes Documented Results: Negative w/proof Implanted On Prior [facility] Admission?: Yes Date: 01/12/19 Results: 0 mm PPD to be Administered?: No - Reproductive History Patient is a Female of Child Bearing Age (11 -55 yrs old): No (male) - Smoking Cessation Smoking history: Current every day smoker Have you smoked in the past 12 months: Yes Aproximately how many cigarettes per day: 20 Cigars Per Day: 0 Hx Chewing Tobacco Use: No Initiated information on smoking cessation: Yes 'Breaking Loose' booklet given: 04/07/19 - Substance & Tx. History Hx Alcohol Use: Yes Hx Substance Use: Yes Substance Use Type: Alcohol, Cocaine, Heroin, Opiates, Tranquilizers Hx Substance Use Treatment: Yes (detox, rehab, suboxone, [facility]) - Substances abused Alcohol Substance route: Oral Frequency: Daily Amount used: 1 pint bacardi rum or vodka Age of first use: 16 Date of last use: 04/07/19 Heroin Substance route: Injection Frequency: Daily Amount used: 15 bags Age of first use: 16 Date of last use: 04/06/19 Alprazolam (Xanax) Substance route: Oral Frequency: Daily Amount used: 4 bars Age of first use: 27 Date of last use: 04/06/19 Cocaine Substance route: Injection Frequency: Daily Amount used: 1 gram Age of first use: 16 Date of last use: 04/06/19 Non-Rx Methadone Substance route: Oral Frequency: 1-2 times per week Amount used: 60mg Age of first use: 25 Date of last use: 04/02/19 Admission Physical Exam BHS - Vital Signs Vital Signs: Vital Signs - 24 hr 04/07/19 10:25 Temperature 97.4 F L Pulse Rate 76 Respiratory 18 Rate Blood Pressure 134/66 - Physical General Appearance: Yes: Nourished, Appropriately Dressed, Moderate Distress, Tremorous, Anxious HEENTM: Yes: EOMI, Hearing grossly Normal, Normocephalic, Normal Voice, Pharynx Normal, Nasal Congestion, Rhinorrhea Respiratory: Yes: Normal Breath Sounds, No Respiratory Distress Neck: Yes: No masses,lesions,Nodules, Supple Breast: Yes: Breast Exam Deferred Cardiology: Yes: Regular Rhythm, Regular Rate Abdominal: Yes: Soft Genitourinary: Yes: Dysuria Back: Yes: Normal Inspection Musculoskeletal: Yes: full range of Motion, Gait Steady, Back pain, Muscle Pain Extremities: Yes: Normal Inspection, Normal Range of Motion, Non-Tender, Tremors , Other (puffiness in hands and ankles (from injections)) Neurological: Yes: Fully Oriented, Alert, Normal Mood/Affect, Normal Response, Numbness Integumentary: Yes: Normal Color, Warm, Rash (multiple puncture sites arms, hands, feet - no abscess noted; scratch horne on legs), Track [place] (multiple injection sites on arms, legs, hands, feet - no abscess noted) Lymphatic: Yes: Within Normal Limits - Diagnostic (1) Alcohol dependence with withdrawal, uncomplicated Current Visit: Yes Status: Chronic (2) Uncomplicated sedative, hypnotic or anxiolytic withdrawal Current Visit: Yes Status: Chronic (3) Opioid dependence with withdrawal Current Visit: Yes Status: Chronic (4) IVDU (intravenous drug user) Current Visit: Yes Status: Chronic (5) Nicotine dependence Current Visit: Yes Status: Acute Qualifiers: Nicotine product type: cigarettes Substance use status: in withdrawal Qualified Code(s): F17.213 - Nicotine dependence, cigarettes, with withdrawal (6) 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 Current Visit: Yes Status: Chronic (7) Weight loss Current Visit: Yes Status: Acute (8) Hepatitis C Current Visit: Yes Status: Chronic Qualifiers: Viral hepatitis chronicity: chronic Hepatic coma status: without hepatic coma Qualified Code(s): B18.2 - Chronic viral hepatitis C Comment: not treated Cleared for Admission S - Detox or Rehab [facility] Level of Care: Medically Managed Detox Regimen/Protocol: Methadone/Librium Breathalyzer - Breathalyzer Breathalyzer: 0 Urine Drug Screen - Test Device Lot number: [id number] Expiration date: 01/06/21 - Control Is test valid?: Yes - Results Drug screen NEGATIVE: No Urine drug screen results: JANETT-Cocaine, FEN-Fentanyl, MOP-Opiates, MTD-Methadone , BZO-Benzodiazepines Inpatient Rehab Admission - Rehab Decision to Admit Inpatient rehab admission?: No
[2019-04-07] MEDS ORDERED: MAGNESIUM CITRATE 300 ML BOTTLE PO PRN (11:34)
[2019-04-07] MEDS ORDERED: BISMUTH SUBSALICYLATE 524 MG/30 ML UD PO PRN (11:34)
[2019-04-07] MEDS ORDERED: MAG HYDROX/AL HYDROX/SIMETH 30 ML UNIT-DOSE CUP PO PRN (11:34)
[2019-04-07] MEDS ORDERED: METHADONE HCL 10 MG TABLET (FOR DETOX USE ONLY) PO ONE (11:34)
[2019-04-07] MEDS ORDERED: MENTHOL/PHENOL 1 EACH UD MM PRN (11:34)
[2019-04-07] MEDS ORDERED: cloNIDine HCL 0.1 MG TABLET PO PRN (11:34)
[2019-04-07] MEDS ORDERED: MELATONIN 5 MG TABLETS PO PRN (11:34)
[2019-04-07] MEDS ORDERED: diazePAM 5 MG TABLET PO ONE (11:34)
[2019-04-07] MEDS ORDERED: NALOXONE HCL 0.4 MG/ML VIAL IM PRN (11:34)
[2019-04-07] MEDS ORDERED: MAGNESIUM HYDROX 2400MG/30ML ORAL SUSPENSION 30 ML CUP PO PRN (11:34)
[2019-04-07] MEDS: IBUPROFEN 400 MG TABLET (FP) PO PRN ×2 (12:23→22:46)
[2019-04-07] MEDS: METHOCARBAMOL 500 MG TABLET PO PRN ×2 (12:23→22:45)
[2019-04-07] MEDS: TOLNAFTATE 1% CREAM 15 GM TUBE TP SCH ×2 (12:24→22:43)
[2019-04-07] MEDS: diazePAM 5 MG TABLET PO SCH ×2 (14:10→22:43)
[2019-04-07] MEDS: NICOTINE 21 MG/24 HOURS TOPICAL PATCH TD SCH (14:10)
[2019-04-07] MEDS: diazePAM 5 MG TABLET PO PRN (17:19)
[2019-04-07] MEDS: THIAMINE HCL 100 MG TABLET (FP) PO SCH (22:44)
[2019-04-08] MEDS: diazePAM 5 MG TABLET PO PRN ×3 (01:35→17:24)
[2019-04-08] MEDS: diazePAM 5 MG TABLET PO SCH ×3 (05:48→22:09)
[2019-04-08 09:20] LABS: HEMATOCRIT 37.5 % (35.4-49); HEMOGLOBIN 12.4 GM/dL (11.7-16.9); MCH 28.1 pg (25.7-33.7); MEAN CELL VOLUME 84.9 fl (80-96); MEAN PLT VOLUME 8.8 fl (7.5-11.1); PLATELET COUNT 273 K/MM3 (134-434); RBC 4.42 M/mm3 (4.00-5.60); RDW 14.2 % (11.9-15.9); WHITE BLOOD COUNT 4.7 K/mm3 (4.0-10.0)
[2019-04-08 09:32] LABS: BILIRUBIN,TOTAL 0.6 mg/dL (0.2-1); BLOOD UREA NITROGEN 18.5 mg/dL (7-18); CALCIUM 8.6 mg/dL (8.5-10.1); CREATININE 1.1 mg/dL (0.55-1.3); POTASSIUM 4.3 mmol/L (3.5-5.1); TOT PROT 6.3 g/dl (6.4-8.2)
[2019-04-08] MEDS ORDERED: METHADONE HCL 5 MG TABLET (FOR DETOX USE ONLY) ONE (09:40)
[2019-04-08] MEDS ORDERED: METHADONE HCL 10 MG TABLET (FOR DETOX USE ONLY) ONE (09:40)
[2019-04-08] MEDS ORDERED: METHADONE (DETOX) 20 MG, METHADONE (DETOX) 5 MG PO ONE (10:00)
[2019-04-08] MEDS: TOLNAFTATE 1% CREAM 15 GM TUBE TP SCH ×2 (10:15→22:13)
[2019-04-08] MEDS: PRENATAL VITAMINS W/ FOLIC ACID TABLET (FP) PO SCH (10:15)
[2019-04-08] MEDS: METHOCARBAMOL 500 MG TABLET PO PRN ×2 (10:17→22:10)
--- NOTE | 2019-04-08 10:56 | CONSULT ---
[facility] Psychiatric Consult - Data Date of interview: 04/08/19 Admission source: [facility] Identifying data: Patient is a 33 year old single male, father of two, unemployed, domiciled, and is not supported by any financial assistance. This is one of multiple admissions for patient. Patient admitted to for alcohol, opiate, and benzodiazepine dependence. Substance Abuse History: Substance & Tx. History. Hx Alcohol Use: Yes. Hx Substance Use: Yes. Substance Use Type: Alcohol, Cocaine, Heroin, Opiates, Tranquilizers. Hx Substance Use Treatment: Yes (detox, rehab, suboxone, [facility]). - Substances abused. Alcohol. Substance route: Oral. Frequency: Daily. Amount used: 1 pint bacardi rum or vodka. Age of first use: 16. Date of last use: 04/07/19. Heroin. Substance route: Injection. Frequency: Daily. Amount used: 15 bags. Age of first use: 16. Date of last use: 04/06/19. Alprazolam (Xanax). Substance route: Oral. Frequency: Daily. Amount used: 4 bars. Age of first use: 27. Date of last use: 04/06/19. Cocaine. Substance route: Injection. Frequency: Daily. Amount used: 1 gram. Age of first use: 16. Date of last use: 04/06/19. Non-Rx Methadone. Substance route: Oral. Frequency: 1-2 times per week. Amount used: 60mg. Age of first use: 25. Date of last use: 04/02/19 Medical History: Histoy of elevated LFT's Psychiatric History: Patient denies history of psychiatric hospitalization but as per previous notes patient has history of one hospitalization at [facility] after he falsely reported suicidal ideation as he needed a place to stay. Mr. Atwood reports receiving psychiatric care at [facility]. Patient reports past treatment with gabapentin, seroquel, and trazodone. Past history of anxiety disorder. Patient is totally lost in follow up care. He denies history of suicide attempt. At present patient reports feeling anxious and difficulty sleeping. Physical/Sexual Abuse/Trauma History: denies. Mental Status Exam - Mental Status Exam Alert and Oriented to: Time, Place, Person Cognitive Function: Good Patient Appearance: Well Groomed Mood: Withdrawn Affect: Mood Congruent Patient Behavior: Cooperative Speech Pattern: Appropriate Voice Loudness: Normal Thought Process: Goal Oriented Thought Disorder: Not Present Hallucinations: Denies Suicidal Ideation: Denies Homicidal Ideation: Denies Insight/Judgement: Poor Sleep: Poorly Appetite: Fair Muscle strength/Tone: Normal Gait/Station: Normal Psychiatric Findings - Problem List ([place] 1, 2,3) (1) Alcohol dependence with withdrawal, uncomplicated Current Visit: Yes Status: Acute (2) Opioid dependence with withdrawal Current Visit: Yes Status: Acute (3) Substance-induced anxiety disorder Current Visit: Yes Status: Acute (4) Substance-induced sleep disorder Current Visit: Yes Status: Acute (5) Cocaine dependence Current Visit: Yes Status: Chronic Qualifiers: Substance use status: uncomplicated Qualified Code(s): F14.20 - Cocaine dependence, uncomplicated (6) Uncomplicated sedative, hypnotic or anxiolytic withdrawal Current Visit: Yes Status: Acute - Initial Treatment Plan Initial Treatment Plan: Psychoeducation provided. Detoxification in progress. Will order Trazodone 100mg HS + Gabapentin 300mg TID + Vistaril 50mg q6h for anxiety. Benefits and side effects discussed. Verba consent given.
[2019-04-08] MEDS: NICOTINE 21 MG/24 HOURS TOPICAL PATCH TD SCH (11:58)
[2019-04-08] MEDS: IBUPROFEN 400 MG TABLET (FP) PO PRN ×2 (11:58→22:11)
[2019-04-08] MEDS: GABAPENTIN 300 MG CAPSULE PO SCH ×2 (13:11→22:09)
[2019-04-08] MEDS: hydrOXYzine PAMOATE 50 MG CAPSULE (FP) PO PRN (13:35)
--- NOTE | 2019-04-08 14:24 | PN ---
[facility] CIWA - CIWA Score Nausea/Vomitin-Mild Nausea/No Vomiting Muscle Tremors: 2 Anxiety: 4-Mod. Anxious/Guarded Agitation: 3 Paroxysmal Sweats: 3 Orientation: 0-Oriented Tacttile Disturbances: 0-None Auditory Disturbances: 0-None Visual Disturbances: 0-None Headache: 0-None Present CIWA-Ar Total Score: 13 BHS COWS - Scale Resting Pulse: 0= [place] 80 or Below Sweatin= Chills/Flushing Restless Observation: 1= Difficult to Sit Still Pupil Size: 0= Normal to Room Light Bone or Joint Aches: 2= Severe Diffuse Aches Runny Nose/ Eye Tearin= Runny Nose/Eyes GI Upset > 30mins: 2= Nausea/Diarrhea Tremor Observation of Outstretched Hands: 2= Slight Tremor Visible Yawning Observation: 0= None Anxiety or Irritability: 2=Irritable/Anxious Goose Flesh Skin: 0=Smooth Skin COWS Score: 12 BHS Progress Note (SOAP) Subjective: Body aches, anxiety, headache. Patient requested oatmeal, boiled eggs and pancakes at breakfast Objective: 04/08/19 14:22 Last Vital Signs Temp Pulse Resp BP Pulse Ox 97.1 F L 69 18 147/78 04/08/19 13:10 04/08/19 13:10 04/08/19 13:10 04/08/19 13:10 Elevated b/p noted: denies htn Laboratory Tests 04/08/19 04/08/19 04/08/19 07:30 07:30 07:30 WBC 4.7 RBC 4.42 Hgb 12.4 Hct 37.5 MCV 84.9 MCH 28.1 MCHC 33.0 RDW 14.2 Plt Count 273 MPV 8.8 Sodium 138 Potassium 4.3 Chloride 105 Carbon Dioxide 29 Anion Gap 4 L BUN 18.5 H Creatinine 1.1 Est GFR (CKD-EPI)AfAm 101.69 Est GFR (CKD-EPI)NonAf 87.74 Random Glucose 85 Calcium 8.6 Total Bilirubin 0.6 AST 82 H ALT 174 H Alkaline Phosphatase 88 Total Protein 6.3 L Albumin 3.0 L RPR Titer Nonreactive Labs reviewed: AST/ALT elevated, total protein and albumin low Assessment: 04/08/19 14:24 Withdrawal sxs Noted with elevated b/p and abnormal LFTs Plan: Continue detox Encouraged PO water intake Elevated b/p: denies htn, most likely withdrawal related, continue clonidine prn Abnormal LFTs: repeat hepatic function panel
[2019-04-08] MEDS: traZODone HCL 100 MG TABLET (FP) PO SCH (22:09)
[2019-04-08] MEDS: THIAMINE HCL 100 MG TABLET (FP) PO SCH (22:09)
[2019-04-09] MEDS: GABAPENTIN 300 MG CAPSULE PO SCH ×3 (06:12→23:03)
[2019-04-09] MEDS: diazePAM 5 MG TABLET PO SCH ×2 (06:12→17:56)
--- NOTE | 2019-04-09 09:59 | PN ---
[facility] CIWA - CIWA Score Nausea/Vomitin-Mild Nausea/No Vomiting Muscle Tremors: 2 Anxiety: 2 Agitation: 2 Paroxysmal Sweats: No Perspiration Orientation: 0-Oriented Tacttile Disturbances: 1-Very Mild Itch/Numbness Auditory Disturbances: 0-None Visual Disturbances: 0-None Headache: 1-Very Mild CIWA-Ar Total Score: 9 BHS Progress Note (SOAP) Subjective: alert,irritable,anxious,interrupted sleep,pain in the body Objective: 04/09/19 09:59 Vital Signs Temperature 96.8 F L 04/09/19 05:36 Pulse Rate 63 04/09/19 05:36 Respiratory Rate 18 04/09/19 05:36 Blood Pressure 116/61 04/09/19 05:36 O2 Sat by Pulse Oximetry (%) Assessment: 04/09/19 10:01 withdrawal symptom Plan: continue detox librium regimen,encouerage oral fluid
[2019-04-09] MEDS ORDERED: METHADONE HCL 10 MG TABLET (FOR DETOX USE ONLY) PO ONE (10:00)
[2019-04-09] MEDS: PRENATAL VITAMINS W/ FOLIC ACID TABLET (FP) PO SCH (10:40)
[2019-04-09] MEDS: NICOTINE 21 MG/24 HOURS TOPICAL PATCH TD SCH (10:40)
[2019-04-09] MEDS: IBUPROFEN 400 MG TABLET (FP) PO PRN (10:43)
[2019-04-09] MEDS: diazePAM 5 MG TABLET PO PRN ×2 (10:44→15:06)
[2019-04-09] MEDS: METHOCARBAMOL 500 MG TABLET PO PRN ×2 (10:44→17:56)
[2019-04-09] MEDS: hydrOXYzine PAMOATE 50 MG CAPSULE (FP) PO PRN (13:50)
[2019-04-09] MEDS: TOLNAFTATE 1% CREAM 15 GM TUBE TP SCH ×2 (15:38→23:03)
[2019-04-09] MEDS: traZODone HCL 100 MG TABLET (FP) PO SCH (23:03)
[2019-04-09] MEDS: THIAMINE HCL 100 MG TABLET (FP) PO SCH (23:03)
[2019-04-10] MEDS: diazePAM 5 MG TABLET PO PRN ×2 (03:15→10:07)
[2019-04-10] MEDS: IBUPROFEN 400 MG TABLET (FP) PO PRN (03:16)
[2019-04-10] MEDS: GABAPENTIN 300 MG CAPSULE PO SCH ×3 (05:49→22:02)
[2019-04-10] MEDS ORDERED: diazePAM 5 MG TABLET PO ONE (06:00)
[2019-04-10] MEDS ORDERED: METHADONE HCL 5 MG TABLET (FOR DETOX USE ONLY) ONE (08:42)
[2019-04-10] MEDS ORDERED: METHADONE HCL 10 MG TABLET (FOR DETOX USE ONLY) ONE (08:43)
[2019-04-10 09:27] LABS: BILIRUBIN,DIRECT 0.2 mg/dL (0.0-0.2)
[2019-04-10] MEDS ORDERED: METHADONE (DETOX) 10 MG, METHADONE (DETOX) 5 MG PO ONE (10:00)
[2019-04-10] MEDS: NICOTINE 21 MG/24 HOURS TOPICAL PATCH TD SCH (10:04)
[2019-04-10] MEDS: TOLNAFTATE 1% CREAM 15 GM TUBE TP SCH ×2 (10:04→22:48)
[2019-04-10] MEDS: PRENATAL VITAMINS W/ FOLIC ACID TABLET (FP) PO SCH (10:05)
--- NOTE | 2019-04-10 10:14 | PN ---
S COWS - Scale Resting Pulse: 0= [place] 80 or Below Sweatin= No chills or Flushing Restless Observation: 1= Difficult to Sit Still Pupil Size: 1= Pupils >than Normal Bone or Joint Aches: 2= Severe Diffuse Aches Runny Nose/ Eye Tearin= Runny Nose/Eyes GI Upset > 30mins: 1= Stomach Cramp Tremor Observation of Outstretched Hands: 2= Slight Tremor Visible Yawning Observation: 1= 1-2x During Session Anxiety or Irritability: 2=Irritable/Anxious Goose Flesh Skin: 0=Smooth Skin COWS Score: 12 S Progress Note (SOAP) Subjective: alert,irritable,anxious,interrupted sleep,tremor,pain in the body and back Objective: 04/10/19 10:19 t97.3,p62,r18,bp 141/85 04/10/19 10:20 Laboratory Last Values WBC 4.7 K/mm3 (4.0-10.0) 04/08/19 07:30 RBC 4.42 M/mm3 (4.00-5.60) 04/08/19 07:30 Hgb 12.4 GM/dL (11.7-16.9) 04/08/19 07:30 Hct 37.5 % (35.4-49) 04/08/19 07:30 MCV 84.9 fl (80-96) 04/08/19 07:30 MCH 28.1 pg (25.7-33.7) 04/08/19 07:30 MCHC 33.0 g/dl (32.0-35.9) 04/08/19 07:30 RDW 14.2 % (11.9-15.9) 04/08/19 07:30 Plt Count 273 K/MM3 (134-434) 04/08/19 07:30 MPV 8.8 fl (7.5-11.1) 04/08/19 07:30 Sodium 138 mmol/L (136-145) 04/08/19 07:30 Potassium 4.3 mmol/L (3.5-5.1) 04/08/19 07:30 Chloride 105 mmol/L (98-107) 04/08/19 07:30 Carbon Dioxide 29 mmol/L (21-32) 04/08/19 07:30 Anion Gap 4 MMOL/L (8-16) L 04/08/19 07:30 BUN 18.5 mg/dL (7-18) H 04/08/19 07:30 Creatinine 1.1 mg/dL (0.55-1.3) 04/08/19 07:30 Est GFR (CKD-EPI)AfAm 101.69 04/08/19 07:30 Est GFR (CKD-EPI)NonAf 87.74 04/08/19 07:30 Random Glucose 85 mg/dL (74-106) 04/08/19 07:30 Calcium 8.6 mg/dL (8.5-10.1) 04/08/19 07:30 Total Bilirubin 0.6 mg/dL (0.2-1) 04/08/19 07:30 Direct Bilirubin 0.2 mg/dL (0.0-0.2) 04/08/19 07:30 AST 82 U/L (15-37) H 04/08/19 07:30 ALT 174 U/L (13-61) H 04/08/19 07:30 Alkaline Phosphatase 88 U/L (45-117) 04/08/19 07:30 Total Protein 6.3 g/dl (6.4-8.2) L 04/08/19 07:30 Albumin 3.0 g/dl (3.4-5.0) L 04/08/19 07:30 RPR Titer Nonreactive (NONREACTIVE) 04/08/19 07:30 Assessment: 04/10/19 10:20 withdrawal symptom Plan: continue detox methadone regimen
--- NOTE | 2019-04-10 10:19 | PN ---
[facility] Progress Note Note: please disregard the note on this patient on 04/09/2019 at 9.58 am
--- NOTE | 2019-04-10 10:25 | PN ---
S COWS - Scale Resting Pulse: 0= [place] 80 or Below Sweatin= No chills or Flushing Restless Observation: 1= Difficult to Sit Still Pupil Size: 1= Pupils >than Normal Bone or Joint Aches: 2= Severe Diffuse Aches Runny Nose/ Eye Tearin= Runny Nose/Eyes GI Upset > 30mins: 1= Stomach Cramp Tremor Observation of Outstretched Hands: 2= Slight Tremor Visible Yawning Observation: 1= 1-2x During Session Anxiety or Irritability: 2=Irritable/Anxious Goose Flesh Skin: 0=Smooth Skin COWS Score: 12 S Progress Note (SOAP) Subjective: alert,irritable,anxious,interrupted sleep,tremor,pain in the body,back,,nauses Objective: 04/10/19 10:23 Laboratory Last Values WBC 4.7 K/mm3 (4.0-10.0) 04/08/19 07:30 RBC 4.42 M/mm3 (4.00-5.60) 04/08/19 07:30 Hgb 12.4 GM/dL (11.7-16.9) 04/08/19 07:30 Hct 37.5 % (35.4-49) 04/08/19 07:30 MCV 84.9 fl (80-96) 04/08/19 07:30 MCH 28.1 pg (25.7-33.7) 04/08/19 07:30 MCHC 33.0 g/dl (32.0-35.9) 04/08/19 07:30 RDW 14.2 % (11.9-15.9) 04/08/19 07:30 Plt Count 273 K/MM3 (134-434) 04/08/19 07:30 MPV 8.8 fl (7.5-11.1) 04/08/19 07:30 Sodium 138 mmol/L (136-145) 04/08/19 07:30 Potassium 4.3 mmol/L (3.5-5.1) 04/08/19 07:30 Chloride 105 mmol/L (98-107) 04/08/19 07:30 Carbon Dioxide 29 mmol/L (21-32) 04/08/19 07:30 Anion Gap 4 MMOL/L (8-16) L 04/08/19 07:30 BUN 18.5 mg/dL (7-18) H 04/08/19 07:30 Creatinine 1.1 mg/dL (0.55-1.3) 04/08/19 07:30 Est GFR (CKD-EPI)AfAm 101.69 04/08/19 07:30 Est GFR (CKD-EPI)NonAf 87.74 04/08/19 07:30 Random Glucose 85 mg/dL (74-106) 04/08/19 07:30 Calcium 8.6 mg/dL (8.5-10.1) 04/08/19 07:30 Total Bilirubin 0.6 mg/dL (0.2-1) 04/08/19 07:30 Direct Bilirubin 0.2 mg/dL (0.0-0.2) 04/08/19 07:30 AST 82 U/L (15-37) H 04/08/19 07:30 ALT 174 U/L (13-61) H 04/08/19 07:30 Alkaline Phosphatase 88 U/L (45-117) 04/08/19 07:30 Total Protein 6.3 g/dl (6.4-8.2) L 04/08/19 07:30 Albumin 3.0 g/dl (3.4-5.0) L 04/08/19 07:30 RPR Titer Nonreactive (NONREACTIVE) 04/08/19 07:30 Assessment: 04/10/19 10:24 withdrawal symptom Plan: continue detox methadone regimen,patient refuse repeat blood test
[2019-04-10] MEDS: METHOCARBAMOL 500 MG TABLET PO PRN (11:39)
[2019-04-10] MEDS: hydrOXYzine PAMOATE 50 MG CAPSULE (FP) PO PRN (16:57)
[2019-04-10] MEDS: traZODone HCL 100 MG TABLET (FP) PO SCH (22:03)
[2019-04-10] MEDS: THIAMINE HCL 100 MG TABLET (FP) PO SCH (22:03)
[2019-04-11] MEDS: GABAPENTIN 300 MG CAPSULE PO SCH ×3 (05:56→22:01)
[2019-04-11] MEDS ORDERED: METHADONE HCL 10 MG TABLET (FOR DETOX USE ONLY) PO ONE (10:00)
--- NOTE | 2019-04-11 10:12 | PN ---
BHS COWS - Scale Resting Pulse: 0= [place] 80 or Below Sweatin= No chills or Flushing Restless Observation: 1= Difficult to Sit Still Pupil Size: 0= Normal to Room Light Bone or Joint Aches: 1= Mild Discomfort Runny Nose/ Eye Tearin= Nasal Congestion GI Upset > 30mins: 1= Stomach Cramp Tremor Observation of Outstretched Hands: 1= Tremor [place], Not Seen Yawning Observation: 1= 1-2x During Session Anxiety or Irritability: 2=Irritable/Anxious Goose Flesh Skin: 0=Smooth Skin COWS Score: 8 BHS Progress Note (SOAP) Subjective: alert,irritable,anxious,interrupted sleep,pain in the body Objective: 04/11/19 10:11 Vital Signs Temperature 98.4 F 04/11/19 08:42 Pulse Rate 67 04/11/19 08:42 Respiratory Rate 18 04/11/19 08:42 Blood Pressure 126/83 04/11/19 08:42 O2 Sat by Pulse Oximetry (%) Assessment: 04/11/19 10:11 withdrawal symptom Plan: continue detox,discharge in am
[2019-04-11] MEDS: PRENATAL VITAMINS W/ FOLIC ACID TABLET (FP) PO SCH (10:37)
[2019-04-11] MEDS: NICOTINE 21 MG/24 HOURS TOPICAL PATCH TD SCH (10:37)
[2019-04-11] MEDS: TOLNAFTATE 1% CREAM 15 GM TUBE TP SCH ×2 (10:37→22:02)
[2019-04-11] MEDS: hydrOXYzine PAMOATE 50 MG CAPSULE (FP) PO PRN ×3 (10:39→22:02)
[2019-04-11] MEDS: METHOCARBAMOL 500 MG TABLET PO PRN (10:40)
--- NOTE | 2019-04-11 11:34 | PN ---
[facility] Progress Note Note: Patient reports feeling anxious despite taking Vistaril 50 mg po Q 6hrs prn. He requests to decrease his Trazdone dosage from 100 mg/hs to 75 mg/hs because he has difficultygetting up in the morning after taking Trazadone 100 mg/hs. Vistaril dosage is changed to 50 mg po Q 4hrs prn and Trazadone dosage is reduced to 75 mg/hs
[2019-04-11] MEDS ORDERED: traZODone HCL 50 MG TABLET (FP) PO SCH (22:00)
[2019-04-11] MEDS: THIAMINE HCL 100 MG TABLET (FP) PO SCH (22:01)
[2019-04-12] MEDS ORDERED: METHADONE HCL 5 MG TABLET (FOR DETOX USE ONLY) PO ONE (06:00)
[2019-04-12] MEDS: GABAPENTIN 300 MG CAPSULE PO SCH (07:51)
--- NOTE | 2019-04-12 09:27 | DS ---
[facility] Detox Discharge Summary Admission Date: 04/07/19 Discharge Date: 04/12/19 - History Present History: Alcohol Dependence, Cocaine Dependence, Opioid Dependence, Sedative Dependence - Physical Exam Results Vital Signs: Vital Signs Temperature 97.3 F L 04/12/19 05:25 Pulse Rate 53 L 04/12/19 05:25 Respiratory Rate 18 04/12/19 05:25 Blood Pressure 108/60 04/12/19 05:25 O2 Sat by Pulse Oximetry (%) Pertinent Admission Physical Exam Findings: Vital Signs Temperature 97.3 F L 04/12/19 05:25 Pulse Rate 53 L 04/12/19 05:25 Respiratory Rate 18 04/12/19 05:25 Blood Pressure 108/60 04/12/19 05:25 O2 Sat by Pulse Oximetry (%) Laboratory Tests 04/08/19 04/08/19 04/08/19 07:30 07:30 07:30 WBC 4.7 RBC 4.42 Hgb 12.4 Hct 37.5 MCV 84.9 MCH 28.1 MCHC 33.0 RDW 14.2 Plt Count 273 MPV 8.8 Sodium 138 Potassium 4.3 Chloride 105 Carbon Dioxide 29 Anion Gap 4 L BUN 18.5 H Creatinine 1.1 Est GFR (CKD-EPI)AfAm 101.69 Est GFR (CKD-EPI)NonAf 87.74 Random Glucose 85 Calcium 8.6 Total Bilirubin 0.6 Direct Bilirubin 0.2 AST 82 H ALT 174 H Alkaline Phosphatase 88 Total Protein 6.3 L Albumin 3.0 L RPR Titer Nonreactive aaox3 ambulating skin intact lungs CTA - Treatment Hospital Course: Detox Protocol Followed, Detoxed Safely, Responded well, Discharged Condition Good, Rehab Referral Accepted - Medication Discharge Medications: Ambulatory Orders Naloxone HCl [Narcan] 4 mg NS ASDIR PRN 04/07/19 - Diagnosis (1) Alcohol dependence with withdrawal, uncomplicated Current Visit: Yes Status: Chronic (2) Nicotine dependence Current Visit: Yes Status: Chronic Qualifiers: Nicotine product type: cigarettes Substance use status: uncomplicated Qualified Code(s): F17.210 - Nicotine dependence, cigarettes, uncomplicated (3) Opioid dependence with withdrawal Current Visit: Yes Status: Chronic (4) Substance-induced anxiety disorder Current Visit: Yes Status: Acute (5) Substance-induced sleep disorder Current Visit: Yes Status: Acute (6) Uncomplicated sedative, hypnotic or anxiolytic withdrawal Current Visit: Yes Status: Chronic (7) Cocaine dependence Current Visit: Yes Status: Chronic Qualifiers: Substance use status: uncomplicated Qualified Code(s): F14.20 - Cocaine dependence, uncomplicated (8) Hepatitis C Current Visit: Yes Status: Chronic Qualifiers: Viral hepatitis chronicity: chronic Hepatic coma status: without hepatic coma Qualified Code(s): B18.2 - Chronic viral hepatitis C (9) IVDU (intravenous drug user) Current Visit: Yes Status: Chronic (10) 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 Current Visit: Yes Status: Chronic (11) Anxiety and depression Current Visit: No Status: Acute (12) Nicotine dependence Current Visit: Yes Status: Chronic Qualifiers: Nicotine product type: cigarettes Substance use status: uncomplicated Qualified Code(s): F17.210 - Nicotine dependence, cigarettes, uncomplicated (13) Substance-induced anxiety disorder Current Visit: No Status: Acute (14) Substance-induced sleep disorder Current Visit: No Status: Acute (15) Cannabis abuse Current Visit: No Status: Chronic (16) Drug-induced mood disorder Current Visit: No Status: Chronic (17) History of anxiety disorder Current Visit: No Status: Chronic (18) Nystagmus Current Visit: No Status: Chronic (19) Opioid dependence Current Visit: Yes Status: Chronic Qualifiers: Substance use status: uncomplicated Qualified Code(s): F11.20 - Opioid dependence, uncomplicated (20) Substance induced mood disorder Current Visit: No Status: Suspected - AMA Did Patient Leave Against Medical Advice: No
[2019-04-12 10:06] VITALS: BP 119/72; PULSE 78; TEMP 98.1
[2019-04-12] MEDS: NICOTINE 21 MG/24 HOURS TOPICAL PATCH TD SCH (10:24)
[2019-04-12] MEDS: PRENATAL VITAMINS W/ FOLIC ACID TABLET (FP) PO SCH (10:24)
[2019-04-12] MEDS: TOLNAFTATE 1% CREAM 15 GM TUBE TP SCH (10:24)
[2019-04-12] MEDS: METHOCARBAMOL 500 MG TABLET PO PRN (10:27)
[2019-04-12] MEDS: hydrOXYzine PAMOATE 50 MG CAPSULE (FP) PO PRN (10:27)
== END 2019-04-12 11:24 | disposition home or self-care (01) | DRG 773 ==
LOC: YASAS 09:10 → Y6N 11:31
PROVIDERS: ADMIT Allergy & Immunology; ATTEND Allergy & Immunology
PROC: HZ2ZZZZ Detoxification Services for Substance Abuse Treatment (ICD-10-PCS; principal; 2019-04-07)
DX: F10.230 Alcohol dependence with withdrawal, uncomplicated (principal); F11.23 Opioid dependence with withdrawal; F13.230 Sedative, hypnotic or anxiolytic dependence with withdrawal, uncomplicated; F14.20 Cocaine dependence, uncomplicated; F17.210 Nicotine dependence, cigarettes, uncomplicated; F19.280 Other psychoactive substance dependence with psychoactive substance-induced anxiety disorder; F19.282 Other psychoactive substance dependence with psychoactive substance-induced sleep disorder; F19.24 Other psychoactive substance dependence with psychoactive substance-induced mood disorder; F41.8 Other specified anxiety disorders; F32.9 Major depressive disorder, single episode, unspecified; B18.2 Chronic viral hepatitis C; H55.00 Unspecified nystagmus; R94.5 Abnormal results of liver function studies; R03.0 Elevated blood-pressure reading, without diagnosis of hypertension; R63.4 Abnormal weight loss; Z68.25 Body mass index [BMI] 25.0-25.9, adult; Z88.0 Allergy status to penicillin
CPT/HCPCS: 36415; 80053; 80076; 85027; 86593; J0735

== ENCOUNTER 2019-10-04 13:55 | Inpatient (IN) | payer OTHER ==
--- NOTE | 2019-10-04 14:18 | BHS.RME ---
Substance Use & Tx History - Substance Use History Alcohol Substance amount: 1 pint vodka Frequency of use: Daily Substance route: Oral Date of Last Use: 10/04/19 Heroin Substance amount: 15-20 bags Frequency of use: Daily Substance route: Injection (ex: intravenous or skin popping) (15-20 bags) Date of Last Use: 10/04/19 Cocaine- Powder Substance amount: 2 grams Frequency of use: Daily Substance route: Injection (ex: intravenous or skin popping) Date of Last Use: 10/03/19 Nicotine Substance amount: 1/2 pack Frequency of use: Daily Substance route: Smoking Date of Last Use: 10/04/19 Physical/Psych/Mental Status - Behavior General Behavior: Increased activity (restlessness, agitation) Eye Contact: Normal - Cooperativeness Cooperativeness: Cooperative - Thinking Thought Processes: Tight, Logical, Goal Directed Thought content: Future oriented - Physical Health Problems Is patient presently having any pain?: No Does patient presently have any injuries (include location): No Does patient currently have a fever: No Is patient : No COWS - Scale Resting Pulse: 1= [place] 81-100 Sweatin= Chills/Flushing Restless Observation: 1= Difficult to Sit Still Pupil Size: 1= Pupils >than Normal Bone or Joint Aches: 2= Severe Diffuse Aches Runny Nose/ Eye Tearin= Nasal Congestion GI Upset > 30mins: 1= Stomach Cramp Tremor Observation: 1= Tremor [place], Not Seen Yawning Observation: 1= 1-2x During Session Anxiety or Irritability: 1=Feels Anxious/Irritable Goose Flesh Skin: 3=Piloerection COWS Score: 14 CIWA Nausea/Vomitin Muscle Tremors: 3 Anxiety: 3 Agitation: 3 Paroxysmal Sweats: 2 Orientation: 0-Oriented Tacttile Disturbances: 1-Very Mild Itch/Numbness Auditory Disturbances: 0-None Visual Disturbances: 0-None Headache: 0-None Present CIWA-Ar Total Score: 14
--- NOTE | 2019-10-04 17:35 | HP ---
COWS - Scale Resting Pulse: 1= [place] 81-100 Sweatin= Chills/Flushing Restless Observation: 1= Difficult to Sit Still Pupil Size: 1= Pupils >than Normal Bone or Joint Aches: 2= Severe Diffuse Aches Runny Nose/ Eye Tearin= Nasal Congestion GI Upset > 30mins: 1= Stomach Cramp Tremor Observation: 1= Tremor [place], Not Seen Yawning Observation: 1= 1-2x During Session Anxiety or Irritability: 1=Feels Anxious/Irritable Goose Flesh Skin: 3=Piloerection COWS Score: 14 CIWA Score Nausea/Vomitin Muscle Tremors: 3 Anxiety: 3 Agitation: 3 Paroxysmal Sweats: 2 Orientation: 0-Oriented Tacttile Disturbances: 1-Very Mild Itch/Numbness Auditory Disturbances: 0-None Visual Disturbances: 0-None Headache: 0-None Present CIWA-Ar Total Score: 14 - Admission Criteria OASAS Guidelines: Admission for Medically Managed Detox: Requires at least one of the followin. CIWA greater than 12 2. Seizures within the past 24 hours 3. Delirium tremens within the past 24 hours 4. Hallucinations within the past 24 hours 5. Acute intervention needed for co occurring medical disorder 6. Acute intervention needed for co occurring psychiatric disorder 7. Severe withdrawal that cannot be handled at a lower level of care (continued vomiting, continued diarrhea, abnormal vital signs) requiring intravenous medication and/or fluids 8. Admitting History and Physical - Admission Chief Complaint: Detox History of Present Illness: Patient is a 34 y.o. M no significant PMHx presenting to [facility] for polysubstance abuse and detox. 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 Heroin 15- 20 bags a day 8 overdoses, 2 grams of cocaine IV daily, 1/2 pack cigarettes. Substance Use History Alcohol Substance amount: 1 pint vodka Frequency of use: Daily Substance route: Oral Date of Last Use: 10/04/19 Heroin Substance amount: 15-20 bags Frequency of use: Daily Substance route: Injection (ex: intravenous or skin popping) (15-20 bags) Date of Last Use: 10/04/19 Cocaine- Powder Substance amount: 2 grams Frequency of use: Daily Substance route: Injection (ex: intravenous or skin popping) Date of Last Use: 10/03/19 Nicotine Substance amount: 1/2 pack Frequency of use: Daily Substance route: Smoking Date of Last Use: 10/04/19 History Source: Patient Limitations to Obtaining History: No Limitations - Past Medical History MANAGER CONVENTION: No: Seizure Cardiovascular: No: HTN, Hyperlipdemia Gastrointestinal: No: GI Bleed Hepatobiliary: Yes: Hepatitis C - Past Surgical History Past Surgical History: Yes: None - Smoking History Smoking history: Current every day smoker Have you smoked in the past 12 months: Yes Aproximately how many cigarettes per day: 20 - Alcohol/Substance Use Hx Alcohol Use: Yes History of Substance Use: reports: Cocaine, Heroin, Marijuana - Social History Usual Living Arrangement: Yes: With Parent ADL: Independent 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 History of Recent Travel: No Admission [facility] Allergies/Adverse Reactions: Allergies Allergy/AdvReac Type Severity Reaction Status Date / Time Penicillins Allergy Severe Rash Verified 06/24/19 11:04 Exam Limitations: No Limitations - Ebola screening Have you traveled outside of the country in the last 21 days: No Have you had contact with anyone from an Ebola affected area: No Have you been sick,other than usual withdrawal symptoms: No Do you have a fever: No - Review of Systems Constitutional: No Symptoms Reported Respiratory: denies: Cough, Shortness of Breath Cardiac: denies: Chest Pain, Lightheadedness GI: reports: Diarrhea, Nausea. denies: Constipated, Vomiting Neuro: denies: Numbness, Tingling Psychiatric: reports: No Sypmtoms Reported, Judgement Intact, Mood/Affect Appropiate, Orientated x3 Patient History - Patient Medical History Hx Anemia: No Hx Asthma: No Hx Chronic Obstructive Pulmonary Disease (COPD): No Hx Cancer: No Hx Cardiac Disorders: No Hx Congestive Heart Failure: No Hx Hypertension: No Hx Hypercholesterolemia: No Hx Pacemaker: No HX Cerebrovascular Accident: No Hx Seizures: No Hx Dementia: No Hx Diabetes: No Hx Gastrointestinal Disorders: No Hx Liver Disease: Yes Hx Genitourinary Disorders: No Hx Sexually Transmitted Disorders: Yes (CHLAMYDIA) Hx Renal Disease (ESRD): No Hx Thyroid Disease: No Hx Human Immunodeficiency Virus (HIV): No Hx Hepatitis C: Yes (never treated) Hx Depression: Yes (no meds, never hospitalized) Hx Suicide Attempt: No Hx Bipolar Disorder: No Hx Schizophrenia: No - Patient Surgical History Past Surgical History: No Hx Neurologic Surgery: No Hx Cataract Extraction: No Hx Cardiac Surgery: No Hx Lung Surgery: No Hx Breast Surgery: No Hx Breast Biopsy: No Hx Abdominal Surgery: No Hx Appendectomy: No Hx Cholecystectomy: No Hx Genitourinary Surgery: No Hx Section: No Hx Orthopedic Surgery: No Other Surgical History: circumcision at age of 7 years Anesthesia Reaction: No - PPD History Date: 01/12/19 Results: 0 mm - Smoking Cessation Smoking history: Current every day smoker Have you smoked in the past 12 months: Yes Aproximately how many cigarettes per day: 20 Cigars Per Day: 0 Hx Chewing Tobacco Use: No Initiated information on smoking cessation: Yes 'Breaking Loose' booklet given: 10/04/19 Admission Physical Exam BHS - Vital Signs Vital Signs: Vital Signs - 24 hr 10/04/19 17:10 Temperature 97.7 F Pulse Rate 64 Respiratory 18 Rate Blood Pressure 124/76 - Physical General Appearance: Yes: Within Normal Limits, No Apparent Distress, Nourished, Appropriately Dressed Respiratory: Yes: Within Normal Limits, Chest Non-Tender, Lungs Clear, Normal Breath Sounds, No Respiratory Distress, No Accessory Muscle Use Cardiology: Yes: Within Normal Limits, Regular Rhythm, Regular Rate Abdominal: Yes: Within Normal Limits, Normal Bowel Sounds, Flat, Soft Extremities: Yes: Within Normal Limits, Normal Range of Motion, Non-Tender Neurological: Yes: Within Normal Limits, Fully Oriented, Alert - Diagnostic (1) Alcohol dependence with withdrawal, uncomplicated Current Visit: No Status: Acute (2) Anxiety and depression Current Visit: No Status: Acute (3) Opioid dependence with withdrawal Current Visit: No Status: Acute (4) Substance-induced anxiety disorder Current Visit: No Status: Acute (5) Cannabis abuse Current Visit: No Status: Chronic (6) Cocaine dependence Current Visit: No Status: Chronic Qualifiers: Substance use status: uncomplicated Qualified Code(s): F14.20 - Cocaine dependence, uncomplicated (7) Drug-induced mood disorder Current Visit: No Status: Chronic (8) Hepatitis C Current Visit: No Status: Chronic Qualifiers: Viral hepatitis chronicity: chronic Hepatic coma status: without hepatic coma Qualified Code(s): B18.2 - Chronic viral hepatitis C Comment: not treated (9) History of bipolar disorder Current Visit: No Status: Chronic Comment: As per self-report. Non-adherent to [facility] care. (10) IVDU (intravenous drug user) Current Visit: No Status: Chronic (11) Nicotine dependence Current Visit: No Status: Chronic Qualifiers: Nicotine product type: cigarettes Substance use status: uncomplicated Qualified Code(s): F17.210 - Nicotine dependence, cigarettes, uncomplicated (12) Opioid dependence Current Visit: No Status: Chronic Qualifiers: Substance use status: uncomplicated Qualified Code(s): F11.20 - Opioid dependence, uncomplicated (13) 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 Current Visit: No Status: Chronic Cleared for Admission S - Detox or Rehab [facility] Level of Care: Medically Managed Detox Regimen/Protocol: Methadone, Valium Breathalyzer - Breathalyzer Breathalyzer: 0.014 Vital Signs - Vital Signs Vital signs refused: No Temperature: 97.7 F Pulse Rate: 64 Respiratory Rate: 14 Blood Pressure: 124/76 - Height Height: 1.8 m - Weight Weight: 79.379 kg - BMI Body Mass Index (BMI): 24.4 Urine Drug Screen - Test Device Lot number: [id number] Expiration date: 05/15/21 - Control Is test valid?: Yes - Results Drug screen NEGATIVE: No Urine drug screen results: THC-Marijuana, JANETT-Cocaine, FEN-Fentanyl, MOP- Opiates, MTD-Methadone, BZO-Benzodiazepines Inpatient Rehab Admission - Rehab Decision to Admit Inpatient rehab admission?: No
[2019-10-04] MEDS ORDERED: chlordiazePOXIDE HCL 25 MG CAPSULE PO PRN (17:45)
[2019-10-04] MEDS ORDERED: MAGNESIUM HYDROX 2400MG/30ML ORAL SUSPENSION 30 ML CUP PO PRN (17:45)
[2019-10-04] MEDS ORDERED: BISMUTH SUBSALICYLATE 524 MG/30 ML UD PO PRN (17:45)
[2019-10-04] MEDS ORDERED: MAGNESIUM CITRATE 300 ML BOTTLE PO PRN (17:45)
[2019-10-04] MEDS ORDERED: ACETAMINOPHEN 325 MG TABLET (FP) PO PRN ×2 (17:45)
[2019-10-04] MEDS ORDERED: MENTHOL/PHENOL 1 EACH UD MM PRN (17:45)
[2019-10-04] MEDS ORDERED: NICOTINE POLACRILEX 2 MG GUM BUC PRN (17:45)
[2019-10-04] MEDS ORDERED: cloNIDine HCL 0.1 MG TABLET PO PRN ×2 (17:45→18:05)
[2019-10-04] MEDS ORDERED: MAG HYDROX/AL HYDROX/SIMETH 30 ML UNIT-DOSE CUP PO PRN (17:45)
[2019-10-04] MEDS ORDERED: ONDANSETRON *ODT* 4 MG TABLET SL ONE (17:45)
[2019-10-04] MEDS: METHADONE HCL 10 MG TABLET (FOR DETOX USE ONLY) PO ONE ×2 (18:00→18:53)
[2019-10-04] MEDS ORDERED: METHADONE HCL 10 MG TABLET (FOR DETOX USE ONLY) PO ONE (18:05)
[2019-10-04 18:10] VITALS: BMI 24.4
[2019-10-04] MEDS: diazePAM 5 MG TABLET PO PRN (19:16)
[2019-10-04] MEDS: hydrOXYzine PAMOATE 25 MG CAPSULE (FP) PO SCH ×2 (19:20→22:16)
[2019-10-04] MEDS: MELATONIN 5 MG TABLETS PO SCH (22:16)
[2019-10-04] MEDS: diazePAM 5 MG TABLET PO SCH (22:16)
[2019-10-04] MEDS: THIAMINE HCL 100 MG TABLET (FP) PO SCH (22:16)
[2019-10-04] MEDS ORDERED: chlordiazePOXIDE HCL 25 MG CAPSULE PO SCH (23:00)
[2019-10-05] MEDS: METHOCARBAMOL 500 MG TABLET PO PRN ×2 (05:08→13:11)
[2019-10-05] MEDS: IBUPROFEN 400 MG TABLET (FP) PO PRN ×3 (05:08→22:40)
[2019-10-05] MEDS: hydrOXYzine PAMOATE 25 MG CAPSULE (FP) PO SCH ×5 (05:08→22:21)
[2019-10-05] MEDS: diazePAM 5 MG TABLET PO SCH ×3 (05:08→22:21)
--- NOTE | 2019-10-05 09:11 | PN ---
Teaching Attending Note Name of Resident: Talat De La Rosa ATTENDING PHYSICIAN STATEMENT I saw and evaluated the patient. I reviewed the resident's note and discussed the case with the resident. I agree with the resident's findings and plan as documented. SUBJECTIVE: OBJECTIVE: ASSESSMENT AND PLAN: Agree with resident's findings and plan for detox.
[2019-10-05] MEDS ORDERED: METHADONE HCL 5 MG TABLET (FOR DETOX USE ONLY) ONE (09:22)
[2019-10-05] MEDS ORDERED: METHADONE HCL 10 MG TABLET (FOR DETOX USE ONLY) ONE (09:22)
[2019-10-05] MEDS ORDERED: NICOTINE 7 MG/24 HOURS TOPICAL PATCH TD SCH (10:00)
[2019-10-05] MEDS ORDERED: METHADONE (DETOX) 20 MG, METHADONE (DETOX) 5 MG PO ONE ×2 (10:00)
--- NOTE | 2019-10-05 10:40 | PN ---
[facility] CIWA - CIWA Score Nausea/Vomitin-Mild Nausea/No Vomiting Muscle Tremors: 3 Anxiety: 3 Agitation: 3 Paroxysmal Sweats: 1-Minimal Palms Moist Orientation: 0-Oriented Tacttile Disturbances: 1-Very Mild Itch/Numbness Auditory Disturbances: 0-None Visual Disturbances: 0-None Headache: 2-Mild CIWA-Ar Total Score: 14 BHS COWS - Scale Resting Pulse: 0= [place] 80 or Below Sweatin= No chills or Flushing Restless Observation: 1= Difficult to Sit Still Pupil Size: 1= Pupils >than Normal Bone or Joint Aches: 2= Severe Diffuse Aches Runny Nose/ Eye Tearin= Runny Nose/Eyes GI Upset > 30mins: 2= Nausea/Diarrhea Tremor Observation of Outstretched Hands: 2= Slight Tremor Visible Yawning Observation: 1= 1-2x During Session Anxiety or Irritability: 2=Irritable/Anxious Goose Flesh Skin: 0=Smooth Skin COWS Score: [address] [facility] Progress Note (SOAP) Subjective: alert,irritable,anxious,interrupted sleep,tremor,pain in the nausea,diaeehea,aching painbody and back, Objective: 10/05/19 10:39 Vital Signs Temperature 98.4 F 10/05/19 09:11 Pulse Rate 51 L 10/05/19 09:11 Respiratory Rate 17 10/05/19 09:11 Blood Pressure 130/87 10/05/19 09:11 O2 Sat by Pulse Oximetry (%) 100 10/05/19 09:11 Assessment: 10/05/19 10:39 withdrawal symptom Plan: continue detox methadone and valium regimen,encourage oral fluid
[2019-10-05 11:10] LABS: HEMATOCRIT 35.6 % (35.4-49); HEMOGLOBIN 11.4 GM/dL (11.7-16.9); MCH 27.5 pg (25.7-33.7); MCHC 32.1 g/dl (32.0-35.9); MEAN CELL VOLUME 85.7 fl (80-96); MEAN PLT VOLUME 8.5 fl (7.5-11.1); PLATELET COUNT 277 K/MM3 (134-434); RBC 4.16 M/mm3 (4.00-5.60); RDW 13.2 % (11.9-15.9); WHITE BLOOD COUNT 5.4 K/mm3 (4.0-10.0)
[2019-10-05] MEDS: PRENATAL VITAMINS W/ FOLIC ACID TABLET (FP) PO SCH (11:20)
[2019-10-05] MEDS: diazePAM 5 MG TABLET PO PRN ×2 (11:21→16:50)
[2019-10-05 11:33] LABS: ALBUMIN 2.7 g/dl (3.4-5.0); BILIRUBIN,TOTAL 0.5 mg/dL (0.2-1); BLOOD UREA NITROGEN 13.7 mg/dL (7-18); CALCIUM 8.4 mg/dL (8.5-10.1); POTASSIUM 3.6 mmol/L (3.5-5.1); TOT PROT 5.8 g/dl (6.4-8.2)
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
[2019-10-05] MEDS: NICOTINE 21 MG/24 HOURS TOPICAL PATCH TD SCH (15:21)
[2019-10-05] MEDS: QUEtiapine FUMARATE 100 MG TABLET (FP) PO SCH (22:21)
[2019-10-05] MEDS: MELATONIN 5 MG TABLETS PO SCH (22:22)
[2019-10-05] MEDS: THIAMINE HCL 100 MG TABLET (FP) PO SCH (22:23)
[2019-10-06] MEDS ORDERED: chlordiazePOXIDE HCL 25 MG CAPSULE PO SCH (05:00)
[2019-10-06] MEDS: diazePAM 5 MG TABLET PO SCH ×2 (05:28→17:39)
[2019-10-06] MEDS: METHOCARBAMOL 500 MG TABLET PO PRN (05:29)
[2019-10-06] MEDS: IBUPROFEN 400 MG TABLET (FP) PO PRN (05:29)
[2019-10-06] MEDS: hydrOXYzine PAMOATE 25 MG CAPSULE (FP) PO SCH ×5 (05:29→21:21)
[2019-10-06] MEDS ORDERED: METHADONE HCL 10 MG TABLET (FOR DETOX USE ONLY) PO ONE ×2 (10:00)
[2019-10-06] MEDS: PRENATAL VITAMINS W/ FOLIC ACID TABLET (FP) PO SCH (10:20)
[2019-10-06] MEDS: diazePAM 5 MG TABLET PO PRN ×2 (10:22→20:18)
--- NOTE | 2019-10-06 11:47 | PN ---
S Progress Note Note: Psychiatric nurse practitioner note: Patient reports taking seroquel 50mg daily for anxiety. Previous notes reviewed and patient has received seroquel 50mg daily with favorable effects. Will order Seroquel 50mg daily.
--- NOTE | 2019-10-06 12:28 | PN ---
[facility] CIWA - CIWA Score Nausea/Vomitin-No Nausea/No Vomiting Muscle Tremors: 2 Anxiety: 2 Agitation: 2 Paroxysmal Sweats: 3 Orientation: 0-Oriented Tacttile Disturbances: 0-None Auditory Disturbances: 0-None Visual Disturbances: 1-Very Mild Sensitivity Headache: 0-None Present CIWA-Ar Total Score: 10 S COWS - Scale Resting Pulse: 0= [place] 80 or Below Sweatin= Chills/Flushing Restless Observation: 1= Difficult to Sit Still Pupil Size: 0= Normal to Room Light Bone or Joint Aches: 2= Severe Diffuse Aches Runny Nose/ Eye Tearin= None GI Upset > 30mins: 0= None Tremor Observation of Outstretched Hands: 2= Slight Tremor Visible Yawning Observation: 0= None Anxiety or Irritability: 2=Irritable/Anxious Goose Flesh Skin: 0=Smooth Skin COWS Score: 8 S Progress Note (SOAP) Subjective: Complaints of chills, anxiety, body aches, tremors, sweats, and visual disturbances (very mild) Objective: 10/06/19 12:27 Vital Signs 10/06/19 10/06/19 05:22 08:48 Temperature 98.4 F 98.6 F Pulse Rate 54 L 60 Respiratory 16 16 Rate Blood Pressure 122/65 132/81 O2 Sat by Pulse 97 Oximetry (%) Laboratory Last Values WBC 5.4 K/mm3 (4.0-10.0) 10/05/19 08:10 RBC 4.16 M/mm3 (4.00-5.60) 10/05/19 08:10 Hgb 11.4 GM/dL (11.7-16.9) L 10/05/19 08:10 Hct 35.6 % (35.4-49) 10/05/19 08:10 MCV 85.7 fl (80-96) 10/05/19 08:10 MCH 27.5 pg (25.7-33.7) 10/05/19 08:10 MCHC 32.1 g/dl (32.0-35.9) 10/05/19 08:10 RDW 13.2 % (11.9-15.9) 10/05/19 08:10 Plt Count 277 K/MM3 (134-434) 10/05/19 08:10 MPV 8.5 fl (7.5-11.1) 10/05/19 08:10 Sodium 141 mmol/L (136-145) 10/05/19 08:10 Potassium 3.6 mmol/L (3.5-5.1) 10/05/19 08:10 Chloride 108 mmol/L (98-107) H 10/05/19 08:10 Carbon Dioxide 27 mmol/L (21-32) 10/05/19 08:10 Anion Gap 5 MMOL/L (8-16) L 10/05/19 08:10 BUN 13.7 mg/dL (7-18) 10/05/19 08:10 Creatinine 1.0 mg/dL (0.55-1.3) 10/05/19 08:10 Est GFR (CKD-EPI)AfAm 113.31 10/05/19 08:10 Est GFR (CKD-EPI)NonAf 97.76 10/05/19 08:10 Random Glucose 104 mg/dL (74-106) 10/05/19 08:10 Calcium 8.4 mg/dL (8.5-10.1) L 10/05/19 08:10 Total Bilirubin 0.5 mg/dL (0.2-1) 10/05/19 08:10 AST 46 U/L (15-37) H 10/05/19 08:10 ALT 73 U/L (13-61) H 10/05/19 08:10 Alkaline Phosphatase 72 U/L (45-117) 10/05/19 08:10 Total Protein 5.8 g/dl (6.4-8.2) L 10/05/19 08:10 Albumin 2.7 g/dl (3.4-5.0) L 10/05/19 08:10 Syphilis Serology Non-reactive (NONREACTIVE) 10/05/19 08:10 labs noted. Assessment: 10/06/19 12:27 Patient was seen and evaluated at bedside, alert and oriented x3, in no acute respiratory distress. Full ROM, ambulating without assistance. Skin warm to touch without lesion. Withdrawal symptoms. Plan: Continue detox protocol.
[2019-10-06] MEDS: NICOTINE 21 MG/24 HOURS TOPICAL PATCH TD SCH (12:49)
[2019-10-06] MEDS: QUEtiapine FUMARATE 25 MG TABLET PO SCH (12:49)
[2019-10-06] MEDS: THIAMINE HCL 100 MG TABLET (FP) PO SCH (21:20)
[2019-10-06] MEDS: MELATONIN 5 MG TABLETS PO SCH (21:21)
[2019-10-06] MEDS: QUEtiapine FUMARATE 100 MG TABLET (FP) PO SCH (21:21)
[2019-10-07] MEDS ORDERED: chlordiazePOXIDE HCL 10 MG CAPSULE PO PRN
[2019-10-07] MEDS: diazePAM 5 MG TABLET PO PRN ×4 (01:48→17:47)
[2019-10-07] MEDS: IBUPROFEN 400 MG TABLET (FP) PO PRN ×2 (01:48→10:25)
[2019-10-07] MEDS ORDERED: chlordiazePOXIDE HCL 10 MG CAPSULE PO SCH (05:00)
[2019-10-07] MEDS: hydrOXYzine PAMOATE 25 MG CAPSULE (FP) PO SCH ×5 (05:59→21:06)
[2019-10-07] MEDS ORDERED: diazePAM 5 MG TABLET PO ONE (06:00)
[2019-10-07] MEDS ORDERED: METHADONE HCL 10 MG TABLET (FOR DETOX USE ONLY) ONE (09:18)
[2019-10-07] MEDS ORDERED: METHADONE HCL 5 MG TABLET (FOR DETOX USE ONLY) ONE (09:18)
[2019-10-07] MEDS ORDERED: METHADONE (DETOX) 10 MG, METHADONE (DETOX) 5 MG PO ONE ×2 (10:00)
[2019-10-07] MEDS: METHOCARBAMOL 500 MG TABLET PO PRN (10:24)
[2019-10-07] MEDS: QUEtiapine FUMARATE 25 MG TABLET PO SCH (10:24)
[2019-10-07] MEDS: PRENATAL VITAMINS W/ FOLIC ACID TABLET (FP) PO SCH (10:25)
[2019-10-07] MEDS ORDERED: ONDANSETRON *ODT* 4 MG TABLET SL PRN (11:43)
[2019-10-07] MEDS: NICOTINE 21 MG/24 HOURS TOPICAL PATCH TD SCH (12:13)
--- NOTE | 2019-10-07 12:48 | PN ---
[facility] CIWA - CIWA Score Nausea/Vomitin-No Nausea/No Vomiting Muscle Tremors: 2 Anxiety: 2 Agitation: 1-Slight > Activity Paroxysmal Sweats: 2 Orientation: 0-Oriented Tacttile Disturbances: 0-None Auditory Disturbances: 0-None Visual Disturbances: 0-None Headache: 0-None Present CIWA-Ar Total Score: 7 [facility] COWS - Scale Resting Pulse: 0= [place] 80 or Below Sweatin= Chills/Flushing Restless Observation: 0= Sits Still Pupil Size: 0= Normal to Room Light Bone or Joint Aches: 1= Mild Discomfort Runny Nose/ Eye Tearin= Nasal Congestion GI Upset > 30mins: 1= Stomach Cramp Tremor Observation of Outstretched Hands: 1= Tremor [place], Not Seen Yawning Observation: 0= None Anxiety or Irritability: 2=Irritable/Anxious Goose Flesh Skin: 0=Smooth Skin COWS Score: 7 [facility] Progress Note (SOAP) Subjective: Sweating, tremor, chills, irritable, headache, N/D, interrupted sleep Objective: 10/07/19 12:46 Last Vital Signs Temp Pulse Resp BP Pulse Ox 97.8 F 58 L 18 143/66 97 10/07/19 08:41 10/07/19 08:41 10/07/19 08:41 10/07/19 08:41 10/07/19 05:54 Elevated b/p noted: denies htn Laboratory Tests 10/05/19 10/05/19 10/05/19 08:10 08:10 08:10 WBC 5.4 RBC 4.16 Hgb 11.4 L Hct 35.6 MCV 85.7 MCH 27.5 MCHC 32.1 RDW 13.2 Plt Count 277 MPV 8.5 Sodium 141 Potassium 3.6 Chloride 108 H Carbon Dioxide 27 Anion Gap 5 L BUN 13.7 Creatinine 1.0 Est GFR (CKD-EPI)AfAm 113.31 Est GFR (CKD-EPI)NonAf 97.76 Random Glucose 104 Calcium 8.4 L Total Bilirubin 0.5 AST 46 H ALT 73 H Alkaline Phosphatase 72 Total Protein 5.8 L Albumin 2.7 L Syphilis Serology Non-reactive Labs reviewed: elevated AST/ALT, total protein low, albumin low noted Assessment: 10/07/19 12:48 Withdrawal sxs Noted with transaminitis, malnutrition Plan: Continue detox Encourage PO water intake Elevated b/p: denies htn, most likely due to withdrawal, start clonidine 0.1mg PO q8hr prn (give if b/p >=140/90) Transaminitis: most likely r/t alcohol/illicit drug use, encourage abstinence from alcohol/illicit drug use and encourage inpatient rehab, repeat hepatic function panel Malnutrition: encourage diet, on ensure supplement
[2019-10-07] MEDS ORDERED: cloNIDine HCL 0.1 MG TABLET PO PRN (12:50)
[2019-10-07] MEDS: QUEtiapine FUMARATE 100 MG TABLET (FP) PO SCH (21:07)
[2019-10-07] MEDS: MELATONIN 5 MG TABLETS PO SCH (21:07)
[2019-10-07] MEDS: THIAMINE HCL 100 MG TABLET (FP) PO SCH (21:07)
[2019-10-08] MEDS ORDERED: chlordiazePOXIDE HCL 10 MG CAPSULE PO SCH (05:00)
[2019-10-08] MEDS: hydrOXYzine PAMOATE 25 MG CAPSULE (FP) PO SCH (06:55)
[2019-10-08] MEDS ORDERED: METHADONE HCL 5 MG TABLET (FOR DETOX USE ONLY) PO ONE (08:50)
[2019-10-08] MEDS: PRENATAL VITAMINS W/ FOLIC ACID TABLET (FP) PO SCH (09:13)
[2019-10-08 09:54] VITALS: BP 154/73; PULSE 80; TEMP 97.3
[2019-10-08] MEDS ORDERED: METHADONE HCL 10 MG TABLET (FOR DETOX USE ONLY) PO ONE ×2 (10:00)
--- NOTE | 2019-10-08 10:22 | PN ---
[facility] CIWA - CIWA Score Nausea/Vomitin-No Nausea/No Vomiting Muscle Tremors: None Anxiety: 1-Mildly Anxious Agitation: 0-Normal Activity Paroxysmal Sweats: No Perspiration Orientation: 0-Oriented Tacttile Disturbances: 0-None Auditory Disturbances: 0-None Visual Disturbances: 0-None Headache: 0-None Present CIWA-Ar Total Score: 1 [facility] COWS - Scale Resting Pulse: 0= [place] 80 or Below Sweatin= No chills or Flushing Restless Observation: 0= Sits Still Pupil Size: 0= Normal to Room Light Bone or Joint Aches: 0= None Runny Nose/ Eye Tearin= None GI Upset > 30mins: 0= None Tremor Observation of Outstretched Hands: 0= None Yawning Observation: 0= None Anxiety or Irritability: 1=Feels Anxious/Irritable Goose Flesh Skin: 0=Smooth Skin COWS Score: 1 [facility] Progress Note (SOAP) Subjective: alert,no complaint Objective: 10/08/19 10:24 Vital Signs Temperature 97.3 F L 10/08/19 08:56 Pulse Rate 80 10/08/19 08:56 Respiratory Rate 19 10/08/19 08:56 Blood Pressure 154/73 10/08/19 08:56 O2 Sat by Pulse Oximetry (%) 99 10/08/19 08:56 Assessment: 10/08/19 10:24 no withdrawal symptom Plan: medication adjusted,stable for discharge today,follow up with after care program as arrangement MAT methadone maintenance clinic
--- NOTE | 2019-10-08 10:28 | DS ---
[facility] Detox Discharge Summary Admission Date: 10/04/19 Discharge Date: 10/08/19 - History Present History: Alcohol Dependence, Opioid Dependence Additional Comments: alert,oriented x 3 lung clear on auscultation bilaterally abdomen soft,no distension,no pain no swelling of leg no withdrawal symptom stable for discharge declined rehab follow up with out patient program,will go for MAT near his apartment for evaluation total time of discharge 35 minutes Pertinent Past History: hepatitis c adhd insomnia - Physical Exam Results Vital Signs: Vital Signs Temperature 97.3 F L 10/08/19 08:56 Pulse Rate 80 10/08/19 08:56 Respiratory Rate 19 10/08/19 08:56 Blood Pressure 154/73 10/08/19 08:56 O2 Sat by Pulse Oximetry (%) 99 10/08/19 08:56 Pertinent Admission Physical Exam Findings: withdrawal signs and symptom Vital Signs Temperature 97.3 F L 10/08/19 08:56 Pulse Rate 80 10/08/19 08:56 Respiratory Rate 19 10/08/19 08:56 Blood Pressure 154/73 10/08/19 08:56 O2 Sat by Pulse Oximetry (%) 99 10/08/19 08:56 Laboratory Last Values WBC 5.4 K/mm3 (4.0-10.0) 10/05/19 08:10 RBC 4.16 M/mm3 (4.00-5.60) 10/05/19 08:10 Hgb 11.4 GM/dL (11.7-16.9) L 10/05/19 08:10 Hct 35.6 % (35.4-49) 10/05/19 08:10 MCV 85.7 fl (80-96) 10/05/19 08:10 MCH 27.5 pg (25.7-33.7) 10/05/19 08:10 MCHC 32.1 g/dl (32.0-35.9) 10/05/19 08:10 RDW 13.2 % (11.9-15.9) 10/05/19 08:10 Plt Count 277 K/MM3 (134-434) 10/05/19 08:10 MPV 8.5 fl (7.5-11.1) 10/05/19 08:10 Sodium 141 mmol/L (136-145) 10/05/19 08:10 Potassium 3.6 mmol/L (3.5-5.1) 10/05/19 08:10 Chloride 108 mmol/L (98-107) H 10/05/19 08:10 Carbon Dioxide 27 mmol/L (21-32) 10/05/19 08:10 Anion Gap 5 MMOL/L (8-16) L 10/05/19 08:10 BUN 13.7 mg/dL (7-18) 10/05/19 08:10 Creatinine 1.0 mg/dL (0.55-1.3) 10/05/19 08:10 Est GFR (CKD-EPI)AfAm 113.31 10/05/19 08:10 Est GFR (CKD-EPI)NonAf 97.76 10/05/19 08:10 Random Glucose 104 mg/dL (74-106) 10/05/19 08:10 Calcium 8.4 mg/dL (8.5-10.1) L 10/05/19 08:10 Total Bilirubin 0.5 mg/dL (0.2-1) 10/05/19 08:10 AST 46 U/L (15-37) H 10/05/19 08:10 ALT 73 U/L (13-61) H 10/05/19 08:10 Alkaline Phosphatase 72 U/L (45-117) 10/05/19 08:10 Total Protein 5.8 g/dl (6.4-8.2) L 10/05/19 08:10 Albumin 2.7 g/dl (3.4-5.0) L 10/05/19 08:10 Syphilis Serology Non-reactive (NONREACTIVE) 10/05/19 08:10 - Treatment Hospital Course: Detox Protocol Followed, Detoxed Safely, Responded well, Discharged Condition Good Patient has Accepted a Rehab Referral to: declined - Medication Discharge Medications: Ambulatory Orders Naloxone HCl [Narcan] 4 mg NS ASDIR PRN #1 spray 05/10/19 Quetiapine Fumarate [Seroquel -] 200 mg PO HS #30 tab 06/29/19 - Diagnosis (1) Opioid dependence with withdrawal Current Visit: No Status: Acute (2) Alcohol dependence with withdrawal, uncomplicated Current Visit: No Status: Acute (3) ADHD (attention deficit hyperactivity disorder) Current Visit: Yes Status: Chronic (4) Substance-induced sleep disorder Current Visit: No Status: Acute (5) Hepatitis C Current Visit: No Status: Chronic Qualifiers: Viral hepatitis chronicity: chronic Hepatic coma status: without hepatic coma Qualified Code(s): B18.2 - Chronic viral hepatitis C - AMA Did Patient Leave Against Medical Advice: No
[2019-10-09] MEDS ORDERED: chlordiazePOXIDE HCL 10 MG CAPSULE PO ONE (05:00)
[2019-10-09] MEDS ORDERED: METHADONE HCL 5 MG TABLET (FOR DETOX USE ONLY) PO ONE ×2 (06:00)
== END 2019-10-08 09:23 | disposition home or self-care (01) | DRG 773 ==
LOC: YASAS 13:55 → Y6N 18:13
PROVIDERS: ADMIT Allergy & Immunology; ATTEND Allergy & Immunology
PROC: HZ2ZZZZ Detoxification Services for Substance Abuse Treatment (ICD-10-PCS; principal; 2019-10-04)
DX: F11.23 Opioid dependence with withdrawal (principal); F10.230 Alcohol dependence with withdrawal, uncomplicated; F14.20 Cocaine dependence, uncomplicated; F17.210 Nicotine dependence, cigarettes, uncomplicated; F19.282 Other psychoactive substance dependence with psychoactive substance-induced sleep disorder; F19.24 Other psychoactive substance dependence with psychoactive substance-induced mood disorder; F39 Unspecified mood [affective] disorder; F90.9 Attention-deficit hyperactivity disorder, unspecified type; G47.00 Insomnia, unspecified; B18.2 Chronic viral hepatitis C; R74.0 Nonspecific elevation of levels of transaminase and lactic acid dehydrogenase [LDH]; E46 Unspecified protein-calorie malnutrition; Z68.24 Body mass index [BMI] 24.0-24.9, adult; Z62.810 Personal history of physical and sexual abuse in childhood; Z86.19 Personal history of other infectious and parasitic diseases; Z88.0 Allergy status to penicillin
CPT/HCPCS: 36415; 80053; 85027; 86780; Q0162